=== PATIENT | male | born 1975 | race Caucasian/White ===

== ENCOUNTER 2020-07-20 09:11 | Emergency (ER) | payer SELFPAY ==
--- NOTE | ~2020-07-20 | CT_ITS ---
EXAMINATION: CT abdomen pelvis w con EXAM DATE: 07/20/2020 10:40 INDICATION: Mid abdominal pain with vomiting. Recent CT at another facility. TECHNIQUE: Spiral CT of the abdomen and pelvis was performed following intravenous injection of 100 m L Omnipaque 350. Axial, coronal and sagittal images of the abdomen and pelvis were reviewed. The do se-length product (DLP) for this examination was 1418.19 mGy-cm. The exposure was tailored according to patient size (auto mA exposure control), and iterative reconstruction (ASIR) was used as addition al dose reduction technique. Comparison is made to prior examination from 02/06/2017. FINDINGS: There is hepatic steatosis and hepatomegaly. Spleen is normal in size. Pancreas and adrenal glands are unremarkable. There are cholecystectomy clips. Portal and splenic veins are patent. Ki dneys enhance symmetrically. There is no hydronephrosis. Contrast within the bladder, collecting sys tem from recent intravenous injection. The prostate is unremarkable. The bladder is unremarkable. There is no retroperitoneal or pelvic lymphadenopathy. There is mild scattered arteriosclerotic dis ease. Small bilateral inguinal fat-containing hernias. Small umbilical hernia containing fat. The appendix is normal. The stomach and small bowel are unremarkable. There is expected amount of c olonic stool. No free intraperitoneal gas. The heart is normal in size. There are no pericardial or pleural effusions. The lung bases are unremarkable. The bones are unremarkable. IMPRESSION: 1. No acute intra-abdominal findings. 2. Hepatomegaly. Hepatic steatosis. 3. Small fat-containing hernias. Reviewed, dictated and finalized at location A.
[2020-07-20 09:24] VITALS: BP 163/93; PULSE 95; RESP 16; TEMP 36.6; O2SAT 97
--- NOTE | 2020-07-20 09:26 | ED.ABDPAIN ---
HPI - Abdominal Pain General Chief Complaint: Abdominal Pain Stated Complaint: abdominal pain Time Seen by Provider: 07/20/20 09:21 Source: RN notes reviewed History of Present Illness HPI narrative: Patient presents emergency room from home for abdominal pain. Patient states that pain began approximately 3 AM this morning pain is located left lower quadrant does not radiate described as aching and cramping in nature associated with numerous episodes of nausea vomiting. Denies any fevers or chills, chest pain shortness of breath diarrhea or any other symptoms states he did not take any medication for the symptoms at home Related Data Home Medications Medication Instructions Recorded Confirmed ipratropium 0.5 mg-albuterol 3 mg 3 ml INHALATION QID PRN 04/23/19 06/11/20 (2.5 mg base)/3 mL nebulization soln Allergies Allergy/AdvReac Type Severity Reaction Status Date / Time gluten AdvReac Mild Nausea Verified 07/20/20 09:26 milk AdvReac Mild bloating Verified 07/20/20 09:26 Review of Systems Review of Systems: Narrative: Gen.: Denies fevers or chills ENT: Denies congestion Respiratory: Denies shortness of breath or cough CV: Denies chest pain or palpitations GI: See HPI denies burning, urgency, frequency or hematuria Musculoskeletal: Denies back pain or muscle pain Neuro: Denies numbness, tingling, weakness or focal weakness Skin: Denies rash Except as documented, all other systems reviewed and negative [facility] Past Medical History Medical History Bipolar disorder, unspecified Celiac disease Gastroesophageal reflux disease Social History Social History (Updated 07/20/20 @ 09:27 by Luis M Mosley DO) Smoking status: Never smoker Second hand tobacco smoke exposure: No Alcohol intake: never Exam Narrative: Exam Narrative: APPEARANCE: No acute distress, nontoxic, resting in bed HEENT: Normocephalic, atraumatic, OMM RESPIRATORY: No respiratory distress, clear to auscultation bilaterally with no rhonchi wheezing or rales CARDIOVASCULAR: RRR s murmur ABDOMINAL: Soft nondistended tender palpation left lower quadrant mild tenderness in right lower quadrant left upper quadrant no rebound or guarding MUSCULOSKELETAl: Moves all extremities. No clubbing, cyanosis or edema. NEURO: Awake and alert. Following commands, speech normal, no focal deficits SKIN:: Warm, dry. Normal Color PSYCHIATRIC: Normal affect/mood Course Course Emergency Course: Patient states that they are feeling much better at this time. States abdominal pain has improved. Repeat abdominal exam shows the patient's abdomen to be soft with no surgical abdomen present discussed with patient results of workup and diagnosis. Discussed need for follow-up with primary care physician, reasons to return to the emergency department in proper use of medication. Patient understands and agrees to current treatment plan Vital Signs Vital signs: Vital Signs Temperature 97.8 F 07/20/20 09:24 Pulse Rate 95 07/20/20 09:24 Respiratory Rate 16 07/20/20 09:24 Blood Pressure 163/93 H 07/20/20 09:24 Pulse Oximetry 97 07/20/20 09:24 Temperature 97.8 F 07/20/20 09:24 Pulse Rate 95 07/20/20 09:24 Respiratory Rate 16 07/20/20 09:24 Blood Pressure 163/93 H 07/20/20 09:24 Pulse Oximetry 97 07/20/20 09:24 MDM - Abdominal Pain MDM Narrative Medical decision making narrative: Patient's abdomen is soft without significant pain or signs of surgical abdomen on serial exams. Lab and x-ray evaluations are reviewed and patient is felt to be a reasonable candidate for outpatient management. Patient was instructed as to limitations of x-ray and laboratory evaluation and encouraged to return to ED or primary physician for repeat exam in 12 hours if continued or worsening pain Lab Data Result diagrams: 07/20/20 09:29 07/20/20 09:28 Labs: Lab Results 07/20
[2020-07-20] MEDS: ONDANSETRON INJ 4 MG/2 ML VIAL IV PUSH (09:34)
[2020-07-20] MEDS: KETOROLAC 30 MG/ML VIAL (*BKC) IV PUSH (09:34)
[2020-07-20] MEDS: SODIUM CHLORIDE 0.9% IV 1,000 ML 999 ML IV CONT (09:34)
[2020-07-20 09:50] LABS: Basophils Absolute Auto 0.1 K/mm3 (0.0-0.1); Basophils Percent Auto 0.9 % (0.2-1.2); Eosinophils Absolute Auto 0.1 K/mm3 (0-0.3); Eosinophils Percent Auto 1.1 % (0-4.4); Hematocrit 45.9 % (42.0-52.0); Immature Granulocyte Absolute 0.05 K/mm3 (0.00-0.031); Immature Granulocyte Percent A 0.9 % (0-0.5); Immature Platelet Fraction Pct 2.1 % (0.9-11.2); Lymphocytes Absolute Auto 0.79 K/mm3 (0.9-3.2); Lymphocytes Percent Auto 13.9 % (18.3-44.2); Mean Corpuscular HGB Conc 32.7 g/dl (32-36); Mean Corpuscular Hemoglobin 30.7 pg (26-34); Mean Corpuscular Volume 94.1 fl (80-100); Mean Platelet Volume 9.5 fl (7.4-10.4); Monocytes Absolute Auto 0.3 K/mm3 (0.1-0.6); Monocytes Percent Auto 5.3 % (2.6-8.5); Neutrophils Absolute Auto 4.4 K/mm3 (1.3-6.7); Neutrophils Percent Auto 77.9 % (45.5-73.1); Platelet Count Result 145 k/mm3 (150-375); Red Blood Count 4.88 M/mm3 (4.6-6.20); Red Cell Distribution Width 13.8 % (11.5-14.5); White Blood Count 5.7 K/mm3 (4.5-10.0)
[2020-07-20 10:09] LABS: Alanine Aminotransferase 122 U/L (4-50); Albumin Level 4.4 g/dL (3.5-5.1); Alkaline Phosphatase 106 U/L (38-126); Anion Gap 5 mmol/L (8-16); Aspartate Amino Transferase 66 U/L (17-59); Bilirubin,Total 0.4 mg/dL (0.2-1.3); Blood Urea Nitrogen 4 mg/dL (9-20); Calcium 9.2 mg/dL (8.4-10.2); Carbon Dioxide 28 mmol/L (22-30); Chloride 102 mmol/L (98-107); Estimated CRCL calculation 139 ml/min; Estimated Glomerular Filt Rate > 60; Glucose 159 mg/dL (75-110); Lipase 91 U/L (23-300); Potassium 4.3 mmol/L (3.4-5.0); Sodium 135 mmol/L (137-145)
[2020-07-20 11:05] LABS: Add Urine Microscopic? NO; Appearance Urine Clear (Clear); Bilirubin Urine Negative (Negative); Blood Urine Negative (Negative); Color Urine Straw (Yellow); Glucose Urine UA Negative (Negative); Ketones Urine Negative (Negative); Leukocyte Esterase Ur Negative LEU/UL (Negative); Nitrate Urine Negative (Negative); Protein Urine Negative (Negative); Urobilinogen Urine Negative mg/dL (<2.0)
[2020-07-20] MEDS: DICYCLOMINE HCL INJ 20 MG/2 ML VIAL IM (11:08)
[2020-07-20 11:32] VITALS: BP 157/104; PULSE 86; RESP 16; O2SAT 99
== END 2020-07-20 11:32 | disposition home or self-care (01) ==
PROVIDERS: Emergency Provider Emergency Medicine
DX: R10.32 Left lower quadrant pain (principal); F31.9 Bipolar disorder, unspecified; K90.0 Celiac disease; K21.9 Gastro-esophageal reflux disease without esophagitis; K76.0 Fatty (change of) liver, not elsewhere classified; K42.9 Umbilical hernia without obstruction or gangrene; R16.0 Hepatomegaly, not elsewhere classified
CPT/HCPCS: 36415; 74177; 80053; 81003; 83690; 85025; 85055; 96361; 96372; 96374; 96375; 99284; J0500; J1885; J2405; J7030; Q9967

== ENCOUNTER 2021-04-28 05:39 | Emergency (ER) | payer BC, SELFPAY ==
--- NOTE | ~2021-04-28 | CT_ITS ---
EXAMINATION: CT abdomen pelvis w con INDICATION: Left lower quadrant pain TECHNIQUE: Computed tomographic images of the abdomen and pelvis were obtained after the administrati on of 100 cc of Omnipaque 350 intravenous contrast. The dose-length product (DLP) was 1102.79 mGy-cm. Automated exposure control and iterative reconstruction technique were employed. COMPARISON: 07/20/2020 FINDINGS: Minimal dependent atelectasis is present in the lung bases. The heart size is normal. The g allbladder is surgically absent. The liver is diffusely low in attenuation when compared with the spl een, consistent with hepatic steatosis. The spleen, pancreas, and adrenal glands are normal. There is a focal area low attenuation in the right mid kidney. The left kidney is unremarkable. No pathologic ally enlarged abdominal or pelvic lymph nodes are identified. There is no free intraperitoneal gas or evidence of bowel obstruction. The appendix is normal. There is a small fat-containing umbilical her babatunde. There is mild lower lumbar spondylosis. IMPRESSION: 1. Focal area of low attenuation in the right kidney which could reflect pyelonephritis. Recommend co rrelation with urinalysis and evaluation for right flank pain. 2. Diffuse hepatic steatosis. Reviewed, dictated and finalized at location A. SCOPY SUPPORT SPECIALIST IMPRESSION: 1. Focal area of low attenuation in the right kidney which could reflect pyelon ephritis. Recommend correlation with urinalysis and evaluation for right flank pain. 2. Diffuse hepatic steatosis.
[2021-04-28 05:43] VITALS: BP 159/81; PULSE 109; RESP 20; TEMP 36.6; O2SAT 99
--- NOTE | 2021-04-28 06:03 | ED.ABDPAIN ---
HPI - Abdominal Pain General Chief Complaint: Abdominal Pain <Luis M Sandoval MD - Last Filed: 04/28/21 06:05> Stated Complaint: abd pain, n/v <Luis M Sandoval MD - Last Filed: 04/28/21 06:05> Time Seen by Provider: 04/28/21 06:01 <Luis M Sandoval MD - Last Filed: 04/28/21 06:05> Source: patient <Luis M Sandoval MD - Last Filed: 04/28/21 06:05> Mode of arrival: ambulatory <Luis M Sandoval MD - Last Filed: 04/28/21 06:05> Limitations: no limitations <Luis M Sandoval MD - Last Filed: 04/28/21 06:05> History of Present Illness HPI narrative: Patient is a 45-year-old male complaining of left lower quadrant pain, 7 out of 10, sharp, nonradiating accompanied by nausea and vomiting that started last night. Patient states that he has history of diverticulitis. Patient denies any chest pain, shortness of breath, back pain, diarrhea, urinary symptoms, fever or chills. <Luis M Sandoval MD - Last Filed: 04/28/21 06:05> Related Data Home Medications: Home Medications Medication Instructions Recorded Confirmed ipratropium 0.5 mg-albuterol 3 mg 3 ml INHALATION QID PRN 04/23/19 06/11/20 (2.5 mg base)/3 mL nebulization soln <Luis M Sandoval MD - Last Filed: 04/28/21 06:05> Allergies/Adverse Reactions: Allergies Allergy/AdvReac Type Severity Reaction Status Date / Time gluten AdvReac Mild Nausea Verified 07/20/20 09:26 milk AdvReac Mild bloating Verified 07/20/20 09:26 <Luis M Sandoval MD - Last Filed: 04/28/21 06:05> Review of Systems Review of Systems: All systems reviewed & are unremarkable except as noted in HPI and below <Luis M Sandoval MD - Last Filed: 04/28/21 06:05> Constitutional: Constitutional: Denies body ache(s), Denies chills, Denies excessive sweating, Denies fatigue, Denies fever(s), Denies headache(s), Denies lethargy, Denies malaise, Denies weakness and Denies weight loss <Luis M Sandoval MD - Last Filed: 04/28/21 06:05> Eyes: Eyes: Denies blurry vision, Denies change in vision and Denies loss of vision <Luis M Sandoval MD - Last Filed: 04/28/21 06:05> ENT: Denies dizziness, Denies ear discharge, Denies headache(s), Denies lip swelling, Denies epistaxis, Denies nasal congestion, Denies neck pain, Denies throat swelling and Denies tongue swelling <Luis M Sandoval MD - Last Filed: 04/28/21 06:05> Cardiovascular: Cardiovascular: Denies chest pain, Denies chest pain at rest, Denies chest pain with activity, Denies diaphoresis, Denies rapid heart rate, Denies edema, Denies irregular heart rhythm, Denies lightheadedness, Denies palpitations, Denies dyspnea and Denies dyspnea on exertion <Luis M Sandoval MD - Last Filed: 04/28/21 06:05> Respiratory: Respiratory: Denies chest congestion, Denies cough, Denies hemoptysis, Denies dyspnea and Denies dyspnea on exertion <Luis M Sandoval MD - Last Filed: 04/28/21 06:05> Gastrointestinal: Gastrointestinal: Denies melena, Denies hematochezia, Denies diarrhea and Denies hematemesis <Luis M Sandoval MD - Last Filed: 04/28/21 06:05> Musculoskeletal: Musculoskeletal: Denies abnormal gait, Denies deformity, Denies joint swelling, Denies limited range of motion, Denies neck pain and Denies numbness <Luis M Sandoval MD - Last Filed: 04/28/21 06:05> Neurologic: Denies Abnormal speech present, Denies abnormal gait, Denies confusion, Denies dizziness, Denies headache(s), Denies focal weakness, Denies loss of vision, Denies numbness, Denies Other visual disturbances, Denies Sensory deficit (Neuro) and Denies weakness <Luis M Sandoval MD - Last Filed: 04/28/21 06:05> Psychiatric: Psychiatric: Denies confusion, Denies depression, Denies auditory hallucinations, Denies homicidal ideation and Denies suicidal ideation <Luis M Sandoval MD - Last Filed: 04/28/21 06:05> Endocrine: Endocrine: Denies cold intolerance, Denies excessive sweating, Denies fatigue, Denies heat int
[2021-04-28 06:11] LABS: Basophils Percent Auto 0.7 % (0.2-1.2); Eosinophils Percent Auto 0.5 % (0-4.4); Hematocrit 45.5 % (42.0-52.0); Hemoglobin 15.1 g/dL (14.0-18.0); Immature Granulocyte Absolute 0.01 K/mm3 (0.00-0.031); Immature Granulocyte Percent A 0.2 % (0-0.5); Immature Platelet Fraction Pct 1.5 % (0.9-11.2); Lymphocytes Absolute Auto 0.71 K/mm3 (0.9-3.2); Lymphocytes Percent Auto 12.2 % (18.3-44.2); Mean Corpuscular HGB Conc 33.2 g/dl (32-36); Mean Corpuscular Hemoglobin 31.3 pg (26-34); Mean Corpuscular Volume 94.2 fl (80-100); Monocytes Absolute Auto 0.3 K/mm3 (0.1-0.6); Monocytes Percent Auto 5.8 % (2.6-8.5); Neutrophils Absolute Auto 4.7 K/mm3 (1.3-6.7); Neutrophils Percent Auto 80.6 % (45.5-73.1); Platelet Count Result 137 k/mm3 (150-375); Red Blood Count 4.83 M/mm3 (4.6-6.20); Red Cell Distribution Width 13.9 % (11.5-14.5); White Blood Count 5.8 K/mm3 (4.5-10.0)
[2021-04-28] MEDS: SODIUM CHLORIDE 0.9% IV 1,000 ML 999 ML IV CONT (06:17)
[2021-04-28 06:20] LABS: Alanine Aminotransferase 121 U/L (4-50); Albumin Level 4.7 g/dL (3.5-5.1); Alkaline Phosphatase 117 U/L (38-126); Anion Gap 7 mmol/L (8-16); Aspartate Amino Transferase 88 U/L (17-59); Bilirubin,Total 0.8 mg/dL (0.2-1.3); Blood Urea Nitrogen 14 mg/dL (9-20); Carbon Dioxide 27 mmol/L (22-30); Chloride 101 mmol/L (98-107); Estimated CRCL calculation 137 ml/min; Estimated Glomerular Filt Rate > 60; Glucose 179 mg/dL (65-110); Lipase 73 U/L (23-300); Potassium 4.3 mmol/L (3.4-5.0); Sodium 135 mmol/L (137-145)
[2021-04-28] MEDS: KETOROLAC 30 MG/ML VIAL (*BKC) IV PUSH (06:23)
[2021-04-28] MEDS: PROMETHAZINE HCL 25 MG/ML AMPUL 12.5 MG IV PUSH (06:23)
[2021-04-28 07:03] VITALS: BP 154/102; PULSE 95; RESP 20; O2SAT 98
[2021-04-28 07:15] LABS: Add Urine Microscopic? NO; Appearance Urine Clear (Clear); Bilirubin Urine Negative (Negative); Blood Urine Negative (Negative); Color Urine Straw (Yellow); Glucose Urine UA Negative (Negative); Ketones Urine Negative (Negative); Leukocyte Esterase Ur Negative LEU/UL (Negative); Nitrate Urine Negative (Negative); Protein Urine Negative (Negative); Specific Grav Ur 1.017 (1.001-1.035); Urobilinogen Urine Negative mg/dL (<2.0)
[2021-04-28 07:46] LABS: Lactic Acid Reflex 1.1 mmol/L (0.7-2.1)
[2021-04-28] MEDS: MORPHINE SULFATE (*CRX) 4 MG/ML INJ IV PUSH (07:51)
[2021-04-28 08:40] VITALS: BP 168/102; PULSE 98; RESP 16; O2SAT 98
[2021-04-28 09:35] VITALS: BP 158/103; PULSE 96; RESP 16; O2SAT 100
== END 2021-04-28 09:35 | disposition home or self-care (01) ==
PROVIDERS: Emergency Medicine; Emergency Provider Emergency Medicine; PCP Physician Assistant
DX: R10.32 Left lower quadrant pain (principal); R11.2 Nausea with vomiting, unspecified; K90.0 Celiac disease; K21.9 Gastro-esophageal reflux disease without esophagitis; F31.9 Bipolar disorder, unspecified; K76.0 Fatty (change of) liver, not elsewhere classified
CPT/HCPCS: 36415; 74177; 80053; 81003; 83605; 83690; 85025; 85055; 96361; 96374; 96375; 99284; J1885; J2270; J2550; J7030; Q9967

== ENCOUNTER 2021-11-25 11:28 | Outpatient (CLI) | payer BC, SELFPAY ==
--- NOTE | ~2021-11-25 | MMUS_ITS ---
EXAMINATION: MM diagnostic mammo unilat LT, US breast LT limited HISTORY: Palpable lump of the outer left breast at the 3:00 location TECHNIQUE: Craniocaudal and mediolateral oblique views of the left breast were performed using full f ield digital mammography. A mediolateral oblique view of the right breast is obtained for comparison. CAD analysis was submitted and interpreted. Limited left breast ultrasound is performed in the area of clinical concern. COMPARISON: CT dated 04/28/2021 FINDINGS: Mammographic findings: There is flame-shaped subareolar density of the left breast which has an appea buffy consistent with gynecomastia. 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 No suspicious calcification or architectural distortion are identified. Ultrasound findings: There is a 12 mm x 4 mm oval, circumscribed, parallel, hypoechoic mass with no p osterior features at the 3:00 location 2 cm from the nipple in the area of the palpable abnormality. IMPRESSION: 1. Probably benign gynecomastia of the left breast. 2. Recommend 6 month follow-up targeted left breast ultrasound and continued clinical follow-up. BI-RADS category 3, probably benign findings. Reviewed, dictated and finalized at location A. IMPRESSION: 1. Probably benign gynecomastia of the left breast. 2. Recommend 6 month follow-up targeted left breast ultrasound and continued cl inical follow-up. BI-RADS category 3, probably benign findings.
== END 2021-11-25 11:29 | disposition home or self-care (01) ==
PROVIDERS: PCP Physician Assistant; Visit Provider Physician Assistant
DX: R92.8 Other abnormal and inconclusive findings on diagnostic imaging of breast (principal)
CPT/HCPCS: 76642; 77065

== ENCOUNTER 2022-10-18 13:29 | Outpatient (CLI) | payer BC, SELFPAY ==
--- NOTE | ~2022-10-18 | XR_ITS ---
EXAMINATION: XR lumbar spine min 4V DATE: 10/18/2022 14:01 INDICATION: Low back pain TECHNIQUE: Anteroposterior, lateral, and bilateral oblique views of the lumbar spine, and cone-down l ateral view of the lumbosacral junction were obtained. COMPARISON: CT, 02/06/2017 FINDINGS: There is chronic mild loss of intervertebral disc space height at L5-S1. There are 3 mm of chronic retrolisthesis of L5 on S1. The vertebral body heights are maintained. Small degenerative ost eophytes project from the anterior endplates of multiple vertebral bodies. There is mild facet joint osteoarthritis. Calcified atherosclerosis is noted. Surgical clips in the right upper quadrant are juan ramon murrieta from prior cholecystectomy. IMPRESSION: 1. Mild lumbar spondylosis without acute findings. Reviewed, dictated and finalized at location L.
== END 2022-10-18 13:30 ==
PROVIDERS: PCP Family Medicine; Visit Provider Physician Assistant
DX: M47.896 Other spondylosis, lumbar region (principal)
CPT/HCPCS: 72110

== ENCOUNTER 2024-06-10 11:46 | Emergency (ER) | payer BC, SELFPAY ==
[2024-06-10 12:08] VITALS: BP 128/76; PULSE 78; RESP 18; TEMP 36.2; O2SAT 96
--- OUTSIDE RECORDS SUMMARY | 2024-06-10 13:39 | XMS_ITS | Clinical Summary ---
Author Organization [facility] Address [address] [address] Phone Care Team Providers Care Author Agent Name Role Phone Unavailable Primary Care Provider Unavailabl e Social History Tobacco Use Types Packs/Day Years Used Date Smoking Tobacco: Never Assessed Sex and Gender Information Value Date Recorded Sex Assigned at Not on file Legal Sex Male 12:31 AM CDT Gender Identity Not on file Sexual Orientation Not on file Plan of Treatment Health Maintenance Due Date Last Done Comments Hepatitis C Virus (HCV) Screening 1974 TdaP Immunization 1974 Hepatitis B Immunization (1 of 3 - 19+ 3-dose series) 1993 Colonoscopy 10/02/2019 Colorectal Cancer Screening 10/02/2019 Influenza Immunization (#1) 2023 SARS-COV-2 Immunization ( - 2023- season) 2023 Respiratory Syncytial Virus (RSV) Immunization (Adult) (1 - 1-dose 75+ series) 2049 Meningococcal Immunization (ACWY) Aged Out No longer eligible based on patient's age to complete this topic Pneumococcal Immunization Combined Aged Out No longer eligible based on patient's age to complete this topic Rotavirus Immunization Aged Out No lo nger eligible based on patient's age to complete this topic Insurance MEDICAID [place]
--- OUTSIDE RECORDS SUMMARY | 2024-06-10 13:40 | XMS_ITS | Clinical Summary ---
Author Organization [facility] Address [facility] [place] [address] Care Team Providers Care Snack Foods Mixer Operator Name Role Phone Cheryl Kowalski PA-C Primary Care Provider [phone] Gopal Burk MD Unavailable Allergies No known active allergies Medications amitriptyline 50 MG tablet Take 200 mg by mouth nightly at bedtime. Active albuterol sulfate HFA 108 (90 Base) MCG/ACT inhaler Inhale 2 puffs into the lungs every 6 (six) hours as needed for Wheezing. Active ALPRAZolam 1 MG tablet Take 1 mg by mouth 3 (three) times daily as needed for Anxiety. Active lamoTRIgine 200 MG tablet Take 200 mg by mouth nightly at bedtime. Active omeprazole 20 MG capsule Take 20 mg by mouth daily. Active fluticasone furoate-vilanterol 100-25 MCG/INH inhaler Inhale 1 puff into the lungs daily. Active Cariprazine HCl 3 MG Cap Take 3 mg by mouth nightly at bedtime. Active ARIPiprazole 15 MG tablet Take 15 mg by mouth daily. 2 Active ondansetron (ZOFRAN-ODT) 4 MG disintegrating tablet Take 1 tablet (4 mg total) by mouth every 8 (eight) hours as needed for Nausea. 20 tablet 4 Active dicyclomine (BENTYL) 20 MG tablet Take 1 tablet (20 mg total) by mouth every 6 (six) hours. 20 tablet 4 Active traMADol (ULTRAM) 50 MG tabletIndications:A cute Pain < 7 Day Supply Take 1 tablet (50 mg total) by mouth every 6 (six) hours as needed. Indications: Acute Pain < 7 Day Supply 20 tablet Active Active Problems Problem Noted Date Diagnosed Date Pancreatitis (HHS/HCC) 05/16/2019 Biliary dyskinesia 03/02/2017 Resolved Problems Problem Noted Date Diagnosed Date Resolved Date Encounter for preventive health examination 03/03/2014 11/15/2019 Family History Medical History Relation Comments Alcohol Abuse Neg Hx Social History Tobacco Use Types Packs/Day Years Used Date Smoking Tobacco: Former Smokeless Tobacco: Never Alcohol Use Standard Drinks/Week Comments No 0 (1 standard drink = 0.6 oz pur e alcohol) AUDIT-C Answer Date Recorded Frequency of Alcohol Consumption Never 01/08/2019 Average Number of Drinks Not on file 019 Frequency of Binge Drinking Not on file 07/2018 Sex and Gender Information Value Date Recorded Sex Assigned at Male 05/16/2019 2:31 PM CDT Legal Sex Male 8:28 PM CDT Gender Identity Male 05/16/2019 2:31 PM CDT Sexual Orientation Straight 05/16/2019 2: 31 PM CDT Last Filed Vital Signs Vital Sign Reading Time Taken Comments Blood Pressure 135/80 02/20/2024 12:57 PM SPONGE PRESS OPERATOR Pulse 72 02/20/2024 10:55 AM SPONGE PRESS OPERATOR Temperature 36.6 C (97.8 F) 02/20/2024 12:57 PM SPONGE PRESS OPERATOR Respiratory Rate 20 02/20/2024 10:55 AM SPONGE PRESS OPERATOR Oxygen Saturation 97% 02/20/2024 12:57 PM SPONGE PRESS OPERATOR Inhaled Oxygen Concentration - - Weight 99.8 kg (220 lb) 02/20/2024 10:55 AM SPONGE PRESS OPERATOR Height 175.3 cm (5' 9 ) 02/20/2024 10:55 AM SPONGE PRESS OPERATOR Body Mass Index 32.49 02/20/2024 10:55 AM SPONGE PRESS OPERATOR Plan of Treatment Health Maintenance Due Date Last Done Comments Colorectal Cancer Screening Colonoscopy (10 Years) 1974 Annual Physical 1977 DTaP, Tdap and Td Vaccines ( 1 - Tdap) 1993 Hepatitis B Vaccines (1 of 3 - 19+ 3-dose series) 1993 COVID-19 Vaccine (2 - 2023-2 5 season) 2023 06/17/2020 Hepatitis C Completed 04/15/2017 Meningococcal B Vaccine Aged Out No l onger eligible based on patient's age to complete this topic Meningococcal Vaccine Aged Out No forrest bello eligible based on patient's age to complete this topic Pneumococcal Vaccine: Pediat rics (0 to 5 Years) and At-Risk Patients (6 to 64 Years) Aged Out No longer eligi ble based on patient's age to complete this topic RSV Immunizations Under 20 Months Aged Out No longer eligible based on patient's age to complete this topic Goals Goal Patient Goal Type Associated Problems Recent Progress Patient-Stated? Author Return to independent living with and son General No Yudy Gaitan, NURSES DIRECTOR Health - patient able to perform ADLs independently General No Sue Fairchild, rubber flap cutter Procedure Name Priority Date/Time Associated Diagnosis Comments HEPATITIS PANEL,ACUTE STAT 04/15/2017 5:10 PM SPONGE PRESS OPERATOR from Last 3 Months or Most Recently Relevant to Health Maintenance Results * HEPATITIS PANEL,ACUTE (04/15/2017 5:10 PM SPONGE PRESS OPERATOR) HAV IGM NON-REACTI VE NON-REACTI VE 04/17/2017 3:37 PM SPONGE PRESS OPERATOR [facility] Comment: TESTING PERFORMED [address] [address] HEP B SURFACE AB NON-REACTI VE 04/17/2017 3:37 PM SPONGE PRESS OPERATOR [facility] Comment: TESTING PERFORMED [address] [address] HEPATITIS B SURFACE AG NON-REACTI VE NON-REACTI VE 04/17/2017 3:37 PM SPONGE PRESS OPERATOR [facility] Comment: TESTING PERFORMED [address] [address] HEP B CORE TOTAL AB NON-REACTI VE NON-REACTI VE 04/17/2017 3:37 PM SPONGE PRESS OPERATOR [facility] Comment: TESTING PERFORMED [address] [address] HEPATITIS C AB NON-REACTI VE NON-REACTI VE 04/17/2017 3:37 PM SPONGE PRESS OPERATOR [facility] Comment: TESTING PERFORMED [facility] [place] [address] 04/15/2017 5:10 PM SPONGE PRESS OPERATOR 04/15/2017 5:23 PM SPONGE PRESS OPERATOR us Generic Conversion Md [facility] Final R esult [facility] [address] [place] [address], [place] [phone] from Last 3 Months or Most Recently Relevant to Health Maintenance Insurance COVID19 [facility] [employer] [place] [address] [facility] Advance Directives * Full Code (Latest Code Status on File) Date Activated Date Inactivated Comments 01/27/2021 11:46 PM 01/29/2021 9:38 PM * Full Code Date Activated Date Inactivated Comments 05/16/2019 1:16 PM 05/21/2019 5:09 PM Care Teams Snack Foods Mixer Operator Relationship Specialty Start Date End Date Cheryl Kowalski PA-C [address] [address] PCP - General PHYSICIAN COORDINATOR OF LIBRARY SERVICES 08/20/20 [place] [address] [place] [address] Consulting Physician GASTROENTEROLOGY 12/10/23
--- OUTSIDE RECORDS SUMMARY | 2024-06-10 13:40 | XMS_ITS | Patient Health Record ---
Author Organization [facility] Address [address] [place] [address] Care Team Providers Care City Routeman Name Role Phone Nancy MARTINEZ, Tarik Primary Care Provider Unavailab Carson Coreas Unavailable [phone] Allergies No Known Allergies Results Component Value Reference Range Notes UDT Reviewed date:04/08/2024 04:17:18 PM Interpretation: Performing Lab: Notes/Report: THC P 0 - 50 ng/ml Cocaine N 0 - 300 ng/ml Amphetamine N 0 - 1000 ng/ml Buprenorphine (BUP) N 0 - 10 ng/ml Secobarbital (Bar) N 0 - 300 ng/ml Oxazepam (BZO) P 0 - 300 ng/ml 6-vogchuxbpi-9,5-otxvigxs-0, 3-dipheny lpyrrolidine (EDDP) N 0 - 300 ng/ml Methamphetamine (MET) N 0 - 1000 ng/ml Methylenedioxymethamphetamine (MDMA) N 0 - 500 ng/ml Morphine (MOP 300/[id number]) N 0 - 300 ng/ml Methadone (MTD) N 0 - 300 ng/ml Phencyclidine (PCP) N 0 - 25 ng/ml Nortriptyline (TCA) N 0 - 1000 ng/ml Oxycodone N 0 - 300 ng/ml x N 0 - 300 ng/ml DRUG MONITOR, MARIJUANA META B, QN, URINE ([id number]) Reviewed date:04/17/2024 05:19:07 PM Interpretation: Performing Lab:CB, [facility] [id number], [place] Marvin Valdez, Director - [address] [address] [facility] Notes/Report: FASTING: NO Marijuana Metabolite 1831 <5 ng/mL Marijuana Comments See Jorge mann Notes, LDT Notes Notes and Comments This drug testing is for medical treatment only. Analysis was performed as non-forensic testing and these results should be used only by healthcare providers to render diagnosis or treatment, or to monitor progress of medical conditions. Benzodiazepines Notes: aOH Alprazolam detected is consistent with the use of the drug Alprazolam. Marijuana Notes: Marijuana Metabolite detected is consistent with exposure to Marijuana (THC) and/or hemp derived products. Some jurisdictions do not include hemp within the definition of Marijuana. LDT Notes: Confirmation tests were developed and their analytical performance characteristics have been determined by [facility]. It has not been cleared or approved by the FDA. This assay has been validated pursuant to the CLIA regulations and is used for clinical purposes. Healthcare Providers needing Interpretation assistance, please contact us at [phone] ( ) M-F, 8am to 10pm EST DRUG MONITOR, [place] ([id number]) Reviewed date:04/17/2024 05:18:59 PM Interpretation: Performing Lab:[facility] [address] [facility], [place] Rodriguez[place] Marvin Valdez Notes/Report: FASTING: NO Alphahydroxyalprazolam 203 <25 ng/mL Alphahydroxymidazolam NEGATIVE <50 ng/mL Alphahydroxytriazolam NEGATIVE <50 ng/mL Aminoclonazepam NEGATIVE <25 ng/mL Hydroxyethylflurazepam NEGATIVE <50 ng/mL Lorazepam NEGATIVE <50 ng/mL Nordiazepam NEGATIVE <50 ng/mL Oxazepam NEGATIVE <50 ng/mL Temazepam NEGATIVE <50 ng/mL Benzodiazepines Comments See Benzodiazepines Notes, LDT Notes UDT Reviewed date:05/02/2024 05:14:43 PM Interpretation: Performing Lab: Notes/Report: THC p 0 - 50 ng/ml Cocaine n 0 - 300 ng/ml Amphetamine n 0 - 1000 ng/ml Buprenorphine (BUP) n 0 - 10 ng/ml Secobarbital (Bar) n 0 - 300 ng/ml Oxazepam (BZO) p 0 - 300 ng/ml 1-lmirwjmiqi-7,0-gkamjysi-1, 3-dipheny lpyrrolidine (EDDP) n 0 - 300 ng/ml Methamphetamine (MET) n 0 - 1000 ng/ml Methylenedioxymethamphetamine (MDMA) n 0 - 500 ng/ml Morphine (MOP 300/[id number]) n 0 - 300 ng/ml Methadone (MTD) n 0 - 300 ng/ml Phencyclidine (PCP) n 0 - 25 ng/ml Nortriptyline (TCA) n 0 - 1000 ng/ml Oxycodone n 0 - 300 ng/ml x n 0 - 300 ng/ml Reason For Referral No Information Medications Medication SIG (Take, Route, Frequency, Duration) Notes Start Date End Date Status ARIPiprazole 15 MG Oral for 30 Days Not-Taking Pantoprazole Sodium 40 MG TAKE 1 TABLET BY MOUTH ONCE DAILY Oral for 90 Days Active Atomoxetine HCl 40 MG 1 capsule Orally Once a day for 30 days take before shift start 05/17/2024 06/16/2024 Active buPROPion HCl ER (XL) 150 MG 1 tablet in the morning Oral Once a day for 90 days take before shift start 05/17/2024 Active ALPRAZolam 1 MG TAKE 1 TABLET BY RAE TH THREE TIMES DAILY Oral for 30 Days Active Social History Tobacco Use: Social History Observation Description Date Details (start date - stop date) Former Smoker NA - NA Sex Assigned At : Social History Observation Description Sex Assigned At Male Tobacco Control (Standard) Question Answer Notes Tobacco use: Former smoker AUDIT-C (Standard) Question Answer Notes Did you have a drink containing alcohol in the p ast year? 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) ADHD (attention deficit hyperactivity disorder), inattentive type (F90.0) Active confirmed Problem 51874183 Poor concentration (R41.840) Active confirmed Vital Signs Heart Rate 76 /min 05/17/2024 Height-cm 177.8 cm 05/17/2024 Blood pressure diastolic 67 mm Hg 05/17/2024 Weight-kg 84.37 kg 05/17/2024 Height 70 in 05/17/2024 Blood pressure systolic 102 mm Hg 05/17/2024 Weight 186 lbs 05/17/2024 BMI 26.69 kg/m2 05/17/2024 Procedures Procedure Date Ordered Date Performed Result Body Sit e ADHD Testing 04/08/2024 05/02/2024 N/A Cannabis Cognitive Testing 04/08/2024 05/02/2024 N/A Encounters Encounter Location Date Provider Diagnosis [facility] [address] [address] 04/08/2024 Carson Aristides Major depressive disorder, recurrent, moderate F33.1 ; DARRIUS (generalized anxiety disorder) F41.1 and Poor concentration R41.840 [facility] [address] [address] 05/02/2024 Carson Irving Lack of concentratio n R41.840 [facility] [address] [address] 05/08/2024 Carson Aristides [facility] [address] [address] 05/17/2024 Carson Aristides ADHD (attention defi cit hyperactivity disorder), inattentive type F90.0 ; Major depressive disorder, recurrent, moderate F33.1 ; DARRIUS (generalized anxiety disorder) F41.1 ; Encounter for screening for depression Z13.31 and Encounter for screening for cardiovascular disorders Z13.6 [facility] [address] [address] 05/17/2024 Carson Aristides Assessments Encounter Date Diagnosis (ICD Code) Assessment Notes Treatment Notes Treatment Clinical Notes Section Notes 04/08/2024 Major depressive disorder, recurrent, moderate (ICD-10 - F33.1) 04/08/2024 DARRIUS (generalized anxiety disorder) (ICD-10 - F41.1) 05/02/2024 Lack of concentration (ICD-10 - R41.840) ADHD and Cognitive Assessment Interpretation Demographics: 48-year-old individual, cannabis use (THC positive). Assessment Results: Outside Typical Range Markers: 6. This indicates multiple cognitive markers are outside the expected range, suggesting significant executive function or attention-relat ed difficulties. ASRS Scores: Part A: 6 (Threshold is greater than 3). This is strongly indicative of ADHD symptoms. Part B: 12. This supports the presence of broad ADHD-related difficulties. Cognitive Performance from Cannabis Influence Test: Spatial Plannin. This is likely within or above the typical range, suggesting strong problem-solving and organization skills. Token Search: 91. This indicates strong spatial working memory, which is better than the typical pattern seen in ADHD. Feature Match: 90. This suggests good sustained attention and accuracy. Double Trouble: 79. This score is lower than the others, which may indicate mild response inhibition deficits. Clinical Considerations: Cannabis Use and ADHD Treatment: The individual cannot be prescribed controlled substances such as stimulant medications. Atomoxetine (Strattera) is a first-line non-stimulant alternative and is usually covered by insurance. Guanfacine or Clonidine may be considered if additional symptom control is needed. Cognitive Performance Compared to ADHD Patterns: High spatial and working memory scores suggest intact executive function in these areas. The lower Double Trouble score, at 79, may indicate some difficulty with interference control, which aligns with ADHD-related impulsivity or response inhibition challenges. Next Steps: Start Atomoxetine (Strattera) and gradually increase the dose as needed. Monitor ADHD Symptoms and Possible Side Effects such as sleep issues, changes in blood pressure, or mood fluctuations. Consider Cognitive and Behavioral Strategies such as therapy for executive function support, habit tracking, and structured routines. Reassess Cognitive Performance Over Time to track improvements or difficulties with medication and cannabis use. 05/17/2024 Major depressive disorder, recurrent, moderate (ICD-10 - F33.1) 05/17/2024 ADHD (attention deficit hyperactivity disorder), inattentive type (ICD-10 - F90.0) 05/17/2024 DARRIUS (generalized anxiety disorder) (ICD-10 - F41.1) 04/08/2024 Poor concentration (ICD-10 - R41.840) 05/17/2024 Encounter for screening for depression (ICD-10 - Z13.31) 05/17/2024 Encounter for screening for cardiovascular disorders (ICD-10 - Z13.6) 04/08/2024 Other Learning About Depression Screening material was printed Anxiety Disorder - Assessment: Patient reports a long history of anxiety, starting around age 24, with recent exacerbation of symptoms including trouble sleeping, gritting teeth, and increased nervousness. There is a history of bipolar disorder, previously managed with lamotrigine and aripiprazole. - Plan: - Consider non-addictive treatments for anxiety, such as BuSpar or Wellbutrin, which may also help with attention and focus. - Monitor patient's response to treatment and adjust as needed. Attention Deficit Hyperactivity Disorder (ADHD) - Assessment: Patient reports a history of attention and concentration issues since childhood, with ongoing difficulties in adulthood. Possible underlying ADHD. - Plan: - Perform ADHD testing to confirm the diagnosis. - If positive, initiate appropriate treatment, which may help with overall anxiety as well. Claustrophobia - Assessment: Patient experiences significant distress when working in confined spaces, such as inside an 18-jeronimo, leading to increased anxiety, sweating, and racing heart. - Plan: - Provide a doctor's note stating that the patient cannot work in confined spaces due to a medical condition. - Monitor and address claustrophobia symptoms as part of the overall anxiety treatment plan. Cannabis Use - Assessment: Patient reports daily marijuana use. - Plan: - Discuss the potential impact of marijuana on anxiety and overall mental health. - Encourage the patient to consider reducing or discontinuing marijuana use, especially if initiating new medications for anxiety and/or ADHD. Sleep Disturbances - Assessment: Patient reports difficulty sleeping, sometimes getting only a few hours of sleep per night. - Plan: - Address sleep disturbances as part of the overall anxiety and ADHD treatment plan. - Monitor sleep patterns and consider additional interventions if needed. Mood Shifts - Assessment: Patient experiences mood shifts, sometimes feeling up and sometimes down, with a family history of bipolar disorder. - Plan: - Monitor mood changes and consider mood stabilization strategies if necessary. Follow-up - Plan: - Schedule a follow-up appointment to assess the patient's response to treatment, discuss ADHD testing results, and address any ongoing concerns. 05/17/2024 Jordan Oviedo, a 48-year-old male with a 25-year history of anxiety, presents with worsening depression, persistent nervousness, mood shifts, poor concentration, and sleep issues, recently from his . Attention Deficit Hyperactivity Disorder (ADHD), Inattentive Type Assessment: Patient's ADHD test results from May 02, 2024, indicate issues with spatial working memory, inattentiveness, and distractibility. Specific findings include difficulty staying focused on tasks, missed information, and omission errors. While reaction time was good, accuracy was diminished. Patient reports getting distracted easily and having trouble returning to conversations after losing track. These symptoms, combined with the test results, support a diagnosis of ADHD, inattentive type. Cannabis use, which the patient reports abstaining from for about a month and a half, may have negatively impacted symptoms. Plan: - Start atomoxetine 40 mg PO once daily (morning or evening) - Initiate bupropion and Ixel, one tablet PO daily at 3 p.m. (2 hours before work shift) - Follow up in 3 weeks Major Depressive Disorder Assessment: Patient reports worsening depressive symptoms, including increased crying spells and loss of appetite. Depression score has worsened since the last visit. Current psychosocial stressors include separation from due to trust issues and living with his mother. Patient is working in a [employer] from 6 a.m. to 5 p.m. daily but reports poor sleep and minimal activities outside of work. Plan: - Initiate bupropion and Ixel, one tablet PO daily at 3 p.m. (2 hours before work shift) - Refer for counseling - Follow up in 3 weeks Generalized Anxiety Disorder Assessment: Patient has a 25-year history of anxiety, initially triggered by becoming a young father. Current symptoms include persistent nervousness and anxiety. Patient is maintained on alprazolam 1 mg TID, prescribed by Dr. Paul. Plan: - Continue alprazolam 1 mg PO TID as prescribed by Dr. Paul - Refer for counseling - Follow up in 3 weeks The note is transcribed using speech recognition software. It is a reflection of a visit with the patient. It might have some inaccuracy, including medication names and transcribing errors, though efforts have been made to correct them. Plan Of Treatment Next Appt Details Provider Name:Mery Lala, 07/03/2024 01:00:00 PM, [facility] [facility] [address], [place], [address], Insurance Providers Payer Name Payer Address Payer Phone Subscriber Number Group Number Insured Name Patient Relationship to Insured Coverage Start Date Coverage End Date [employer] [address] [place] [address] [id number] Dayne Oviedo Self - patient is the insured Medical (General) History Medical History History ICD Code Past Psychiatric History: Anxiety Disord er,Panic Disorder,Bipolar Disorder Surgical History Surgery Date(Month/Year) chin harrison
--- OUTSIDE RECORDS SUMMARY | 2024-06-10 13:40 | XMS_ITS | Referral Summary ---
Author Organization [facility] Address [address] [place] [address] Care Team Providers Care Relief Man Name Role Phone Cheryl Kowalski Primary Care Provider [phone] Allergies No known active allergies Medications albuterol (PROVENTIL,VENT MARY) 1.25 mg/3 mL nebulizer solution Take 1.25 mg by nebulization every 6 (six) hours as needed for wheezing. Active pantoprazole DR (PROTONIX) 40 mg EC tablet Take 40 mg by mouth daily. Active ALPRAZolam (XANAX) 1 mg tablet Take 1 mg by mouth 3 (three) times a day as needed for anxiety. Active lamoTRIgine (LaMICtal) 25 mg tablet Take 25 mg by mouth daily. Active ARIPiprazole (ABILIFY) 15 mg tablet Take 15 mg by mouth daily 2 Active meloxicam (MOBIC) 15 mg tablet Take 1 tablet (15 mg total) by mouth daily 30 tablet 2 Active amitriptyline (ELAVIL) 50 mg tablet 2 Active Active Problems Problem Noted Date Diagnosed Date Gastrocnemius strain, left, subsequent encounter 07/15/2021 Gastrocnemius strain, left, initial encounter Injury of left leg 06/17/2021 Social History Tobacco Use Types Packs/Day Years Used Date Smoking Tobacco: Former Cigarettes Smokeless Tobacco: Never Tobacco Cessation:Counseling Given: No Alcohol Use Standard Drinks/Week Comments No 0 (1 standard drink = 0.6 oz pur e alcohol) Personal Safety Answer Date Recorded Getting School Help Needed Not on file 03/07 Sex and Gender Information Value Date Recorded Sex Assigned at Not on file Legal Sex Male 11:34 PM BEHAVIORAL ASSISTANT Gender Identity Not on file Sexual Orientation Not on file Last Filed Vital Signs Vital Sign Reading Time Taken Comments Blood Pressure 125/79 05/05/2019 6:53 PM BEHAVIORAL ASSISTANT Pulse 96 05/05/2019 6:53 PM BEHAVIORAL ASSISTANT Temperature 36.6 C (97.8 F) 05/05/2019 6:53 PM BEHAVIORAL ASSISTANT Respiratory Rate 18 05/05/2019 6:53 PM BEHAVIORAL ASSISTANT Oxygen Saturation 95% 05/05/2019 6:53 PM BEHAVIORAL ASSISTANT Inhaled Oxygen Concentration - - Weight 104.3 kg (230 lb) 06/17/2021 3:14 PM CDT Height 177.8 cm (5' 10 ) 06/17/2021 3:14 PM CDT Body Mass Index 33 06/17/2021 3:14 PM CDT Plan of Treatment Not on file Insurance AA Party OOS AA Party OOS * Guarantor: AMAZON Account Type Relation to Patient Date of Phone Billing Address Workers Comp Employer [employer] Care Teams Relief Man Relationship Specialty Start Date End Date Cheryl Kowalski PA [address] [place] [address] PCP - General Family Medicine 06/17/21
--- OUTSIDE RECORDS SUMMARY | 2024-06-10 13:40 | XMS_ITS | Clinical Summary ---
Author Organization [facility] Address [address] [place] [address] Care Team Providers Care Fence Machine Operator Name Role Phone Cheryl Kowalski Primary Care Provider [phone] Allergies No known active allergies Medications albuterol [...] initial encounter Injury of left leg 06/17/2021 Surgical History Surgery Date Site/Laterality Comments CHOLECYSTECTOMY Medical History Medical History Date Comments Asthma Anxiety Arthritis GERD (gastroesophageal reflux disease) Sleep apnea Social History Tobacco Use Types Packs/Day Years [...] on file Legal Sex Male 11:34 PM MIX MILL TENDER Gender Identity Not on file Sexual Orientation Not on file Obstetrics History Last Filed Vital Signs Vital Sign Reading Time Taken Comments Blood Pressure 125/79 05/05/2019 6:53 PM MIX MILL TENDER Pulse 96 05/05/2019 6:53 PM MIX MILL TENDER Temperature 36.6 C (97.8 F) 05/05/2019 6:53 PM MIX MILL TENDER Respiratory Rate 18 05/05/2019 6:53 PM MIX MILL TENDER Oxygen Saturation 95% 05/05/2019 6:53 PM MIX MILL TENDER Inhaled Oxygen Concentration - - Weight 104.3 kg (230 lb) 06/17/2021 3:14 PM CDT Height 177.8 cm (5' 10 ) 06/17/2021 3:14 PM CDT Body Mass Index 33 06/17/2021 3:14 PM CDT Plan of Treatment Health Maintenance Due Date Last Done Comments Colon Cancer Screening-Colonoscopy 1974 Depression Screening 1974 Hepatitis C Screening 1974 DTaP/Tdap/Td Vaccine (1 - Tdap) 1985 Hepatitis B Screening 1992 Regular Well Visit/Exam 18-64 1992 Covid-19 Vaccine (3 - 2023-2 5 season) 2023 07/15/2020, 06/17/2020 Influenza Vaccine (#1) 2023 03/10/2021 Pneumococcal vaccine <65 Aged Out No longer eligible based on patient's age to complete this topic Insurance [facility] OOS BLUE ACCESS OOS * Guarantor: AMAZON Account Type Relation to Patient Date of Phone Billing Address Workers Comp Employer [employer] Care Teams Fence Machine Operator Relationship Specialty Start Date End Date Cheryl Kowalski PA [address] [place] [address] PCP - General Family Medicine 06/17/21
--- OUTSIDE RECORDS SUMMARY | 2024-06-10 13:40 | XMS_ITS | Continuity of Care Document ---
Author Organization [facility] Address [address] [place] [address] Phone Care Team Providers Care Milk And Cream Grader Name Role Phone Ron Rivera MD Unavailable [...] - Active Procedures Procedure Date OFFICE/OUTPATIENT VISIT, [facility] NASAL ENDOSCOPY, DX SPEECH AUDIOMETRY, COMPLETE PURE TONE AUDIOMETRY, AIR TYMPANOMETRY Advance Directives Directive Yes / No Effective Date File Name No Information Encounters Encounter Description Practice Location Reason(s) For Visit Diagnoses Date Provider Providers Copied on Encounter [facility] [place], [address], [place], [place], [id number], tel:[phone] [address] [place] [address] No Information 4 Miguel Velasquez. [address], [place], [place], [id number] , [place]. tel:[phone] OFFICE/OUTPA TIENT VISIT, [facility] [place], [address], [place], [place], [id number], tel:[phone] [address] [place] [address] Left ear stopped up/loss of sense of smell. (chief complaint) Other abnormal auditory perceptions, bilateralAnosmi aChronic sinusitis, unspecified 2 Miguel Vel[address]. [address], [place], [place], [id number] , [place]. tel:[phone] Referring Provider: Blayne Whitaker, [address], [place], [address]. tel:[phone] Family History Family Member Type Diagnosis Age At Onset Problem Family history of Cancer Payers Payer name Insurance type Covered constitution party ID Narda blevins(s) [id number] [id number] Social History Type Description Quantity Date Captured [...]
--- OUTSIDE RECORDS SUMMARY | 2024-06-10 13:40 | XMS_ITS | Clinical Summary ---
Author Organization [facility] [employer] Address [address] [place] [address] Care Team Providers Care Contract Designer Name Role Phone Unavailable Primary Care Provider Unavailabl e Source Comments [facility] [employer],non-owned Affiliates and Associated Physician Practices is amultiple site organization consisting of ambulatory clinics and hospital sitesin [place], [place], [place] and [place]. This disclosure is being madepursuant to the Care Everywhere program and may not contain all information available regarding this patient. Last updated 17.[facility] [employer] Allergies No known active allergies Medications * Be aware that medications may not be up to date on this document. Alwaysverify current medications with the patient. Medication Sig Dispensed Refills Start Date End Date Status predniSONE (DELTASONE) 20 MG tablet Take 2 tablets by mouth once daily 10 tablet 04/28/2017 Active albuterol HFA (PROVENTIL;VENTOLIN; PROAIR) 108 (90 BASE) MCG/ACT inhaler Inhale 2 puffs by mouth every 4 hours as needed for Shortness of Breath or Wheezing 1 Inhaler 1 04/28/2017 Active albuterol (ACCUNEB) 1.25 MG/3ML nebulizer solution Inhale 3 mL by mouth every 6 hours 28 vial 04/28/2017 Active Social History Tobacco Use Types Packs/Day Years Used Date Smoking Tobacco: Never Assessed Sex and Gender Information Value Date Recorded Sex Assigned at Not on file Gender Identity Not on file Sexual Orientation Not on file Last Filed Vital Signs Vital Sign Reading Time Taken Comments Blood Pressure 140/76 04/27/2017 11:30 PM GIFT MANAGER Pulse 106 04/27/2017 11:30 PM GIFT MANAGER Temperature 37.4 C (99.4 F) 04/27/2017 9:44 PM GIFT MANAGER Respiratory Rate 11 04/27/2017 11:30 PM GIFT MANAGER Oxygen Saturation 97% 04/27/2017 11:30 PM GIFT MANAGER Inhaled Oxygen Concentration - - Weight 86.2 kg (190 lb) 04/27/2017 9:44 PM GIFT MANAGER Height 177.8 cm (5' 10 ) 04/27/2017 9:44 PM GIFT MANAGER Body Mass Index 27.26 04/27/2017 9:44 PM GIFT MANAGER Plan of Treatment Health Maintenance Due Date Last Done Comments COLOGUARD (AGES 45-75) - COL ON CA SCREENING 1974 COLON MONITORING 1974 COLONOSCOPY - COLON CA SCREENING 1974 CT COLONOGRAPHY - COLON CA SCREENING 1974 Colorectal Cancer Screening 1974 FIT - COLON CA SCREENING 1974 FLEX SIG - COLON CA SCREENING 1974 LIPID TESTING 1974 HIV SCREENING 1989 HEPATITIS C SCREENING 09/26/1992 DTAP/TDAP/TD VACCINES (1 - Tdap) 1993 HEPATITIS B VACCINE (1 of 3 - 19+ 3-dose series) 1993 COVID-19 VACCINE (1 - 2023-2 5 season) 2023 DEPRESSION SCREENING 03/06/2024 ZOSTER VACCINE (1 of 2) 2024 INFLUENZA VACCINE (Season Ended) 2024 HIB VACCINE Aged Out No longer eligi ble based on patient's age to complete this topic HPV VACCINE Aged Out No longer eligi ble based on patient's age to complete this topic MENINGOCOCCAL (Group B) VACC INE SHARED DECISION-MAKING Aged Out No longer eligibl e based on patient's age to complete this topic MENINGOCOCCAL GROUPS A/C/Y/W VACCINE Aged Out No longer eligible b ased on patient's age to complete this topic PNEUMOCOCCAL VACCINE Aged Out No long er eligible based on patient's age to complete this topic
--- NOTE | 2024-06-10 14:01 | PC.NURSE ---
Patient has been called multiple times without response for room placement
--- OUTSIDE RECORDS SUMMARY | 2024-06-10 18:07 | XMS_ITS | Referral Summary ---
Author Organization [facility] Address [address] [place] [address] Care Team Providers Care Private Pilot Name Role Phone Cheryl Kowalski Primary Care Provider [phone] Allergies No known active allergies Medications albuterol [...] on file Legal Sex Male 11:34 PM TECHNOLOGY COORDINATOR Gender Identity Not on file Sexual Orientation Not on file Last Filed Vital Signs Vital Sign Reading Time Taken Comments Blood Pressure 125/79 05/05/2019 6:53 PM TECHNOLOGY COORDINATOR Pulse 96 05/05/2019 6:53 PM TECHNOLOGY COORDINATOR Temperature 36.6 C (97.8 F) 05/05/2019 6:53 PM TECHNOLOGY COORDINATOR Respiratory Rate 18 05/05/2019 6:53 PM TECHNOLOGY COORDINATOR Oxygen Saturation 95% 05/05/2019 6:53 PM TECHNOLOGY COORDINATOR Inhaled Oxygen Concentration - - Weight 104.3 kg (230 lb) 06/17/2021 3:14 PM CDT Height 177.8 cm (5' 10 ) 06/17/2021 3:14 PM CDT Body Mass Index 33 06/17/2021 3:14 PM CDT Plan of Treatment Not on file Insurance [employer] OOS [employer] OOS * Guarantor: AMAZON Account Type Relation to Patient Date of Phone Billing Address Workers Comp Employer [employer] Care Teams Private Pilot Relationship Specialty Start Date End Date Cheryl Kowalski PA [address] [place] [address] PCP - General Family Medicine 06/17/21
--- OUTSIDE RECORDS SUMMARY | 2024-06-10 18:07 | XMS_ITS | Continuity of Care Document ---
Author Organization [facility] Address [address] [place] [address] Phone Care Team Providers Care Explosive Operator Supervisor Name Role Phone Ron Rivera MD Unavailable Unavailable Allergies, Adverse Reactions, Alerts Substance Reaction Status Criticality No Known Allergies Active No Inform ation Medications Medication Instructions Dosage Effective Dates (start - stop) Status Comments Flonase Allergy Relief 50 mcg/actuation nasal spray,suspension 1 spray each nostril bid - Active azelastine 137 mcg (0.1 %) nasal spray aerosol spray 1 spray by intranasal route 2 times every day in each nostril 137 MCG - Active omeprazole 40 mg capsule,delayed release - Active quetiapine 300 mg tablet - A ctive Symbicort 160 mcg-4.5 mcg/actuation HFA aerosol inhaler - Active montelukast 10 mg tablet - A ctive fluoxetine 40 mg capsule - A ctive clonidine HCl 0.1 mg tablet - Active albuterol sulfate HFA 90 mcg/actuation aerosol inhaler - Active amlodipine 10 mg-valsartan 320 mg tablet - Active alprazolam 1 mg tablet - Act mary jo metformin ER 500 mg tablet,extended release 24 hr - Active trazodone 100 mg tablet - Ac tive ipratropium 0.5 mg-albuterol 3 mg (2.5 mg base)/3 mL nebulization soln - Active budesonide-formoterol HFA 160 mcg-4.5 mcg/actuation aerosol inhaler - Active prednisone 20 mg tablet - [...] - Active Procedures Procedure Date OFFICE/OUTPATIENT VISIT, [facility] NASAL ENDOSCOPY, DX SPEECH AUDIOMETRY, COMPLETE PURE TONE AUDIOMETRY, AIR TYMPANOMETRY Advance Directives Directive Yes / No Effective Date File Name No Information Encounters Encounter Description Practice Location Reason(s) For Visit Diagnoses Date Provider Providers Copied on Encounter [facility] [place], [address], [place], [place], [id number], tel:[phone] [address] [place] [address] No Information 4 Miugel Velasquez. [address], [place], [place], [id number] , [place]. tel:[phone] OFFICE/OUTPA TIENT VISIT, [facility] [place], [address], [place], [place], [id number], tel:[phone] [address] [place] [address] Left ear stopped up/loss of sense of smell. (chief complaint) Other abnormal auditory perceptions, bilateralAnosmi aChronic sinusitis, unspecified 2 [address]. [address], [place], [place], [id number] , [place]. tel:[phone] Referring Provider: Blayne Whitaker, [address], [place], [address]. tel:[phone] Family History Family Member Type Diagnosis Age At Onset Problem Family history of Cancer Payers Payer name Insurance type Covered alliance party ID Narda blevins(s) [facility] [id number] Social History Type Description Quantity Date Captured [...]
--- OUTSIDE RECORDS SUMMARY | 2024-06-10 18:07 | XMS_ITS | Clinical Summary ---
Author Organization [facility] Address [address] [place] [address] Care Team Providers Care Surety Bond Agent Name Role Phone Unavailable Primary Care Provider Unavailabl e Source Comments [facility],non-owned Affiliates and Associated Physician Practices is amultiple site organization consisting of ambulatory clinics and hospital sitesin [place], [place], [place] and [place]. This disclosure is being madepursuant to the Care Everywhere program and may not contain all information available regarding this patient. Last updated 17.[facility] Allergies No known active allergies Medications * [...] Comments Blood Pressure 140/76 04/27/2017 11:30 PM WATERMASTER Pulse 106 04/27/2017 11:30 PM WATERMASTER Temperature 37.4 C (99.4 F) 04/27/2017 9:44 PM WATERMASTER Respiratory Rate 11 04/27/2017 11:30 PM WATERMASTER Oxygen Saturation 97% 04/27/2017 11:30 PM WATERMASTER Inhaled Oxygen Concentration - - Weight 86.2 kg (190 lb) 04/27/2017 9:44 PM WATERMASTER Height 177.8 cm (5' 10 ) 04/27/2017 9:44 PM WATERMASTER Body Mass Index 27.26 04/27/2017 9:44 PM WATERMASTER Plan of Treatment Health Maintenance Due Date [...]
--- OUTSIDE RECORDS SUMMARY | 2024-06-10 18:07 | XMS_ITS | Clinical Summary ---
Author Organization [facility] Address [address] [address] Phone Care Team Providers Care Lawyer Criminal Name Role Phone Unavailable Primary Care Provider [...]
--- OUTSIDE RECORDS SUMMARY | 2024-06-10 18:07 | XMS_ITS | Clinical Summary ---
Author Organization [facility] Address [facility] [place] [address] Care Team Providers Care Supply Chain Development Manager Name Role Phone Cheryl Kowalski PA-C Primary Care Provider [phone] Goapl Burk MD Unavailable Allergies No known active [...] Comments Blood Pressure 135/80 02/20/2024 12:57 PM INSURANCE SOLICITOR Pulse 72 02/20/2024 10:55 AM INSURANCE SOLICITOR Temperature 36.6 C (97.8 F) 02/20/2024 12:57 PM INSURANCE SOLICITOR Respiratory Rate 20 02/20/2024 10:55 AM INSURANCE SOLICITOR Oxygen Saturation 97% 02/20/2024 12:57 PM INSURANCE SOLICITOR Inhaled Oxygen Concentration - - Weight 99.8 kg (220 lb) 02/20/2024 10:55 AM INSURANCE SOLICITOR Height 175.3 cm (5' 9 ) 02/20/2024 10:55 AM INSURANCE SOLICITOR Body Mass Index 32.49 02/20/2024 10:55 AM INSURANCE SOLICITOR Plan of Treatment Health Maintenance Due Date [...] with and son General No Yudy Gaitan, ASSISTANT BASEBALL COACH Health - patient able to perform ADLs independently General No Sue Fairchild, oil operator Procedure Name Priority Date/Time Associated Diagnosis Comments HEPATITIS PANEL,ACUTE STAT 04/15/2017 5:10 PM INSURANCE SOLICITOR from Last 3 Months or Most Recently Relevant to Health Maintenance Results * HEPATITIS PANEL,ACUTE (04/15/2017 5:10 PM INSURANCE SOLICITOR) HAV IGM NON-REACTI VE NON-REACTI VE 04/17/2017 3:37 PM INSURANCE SOLICITOR [facility] Comment: TESTING PERFORMED [address] [address] HEP B SURFACE AB NON-REACTI VE 04/17/2017 3:37 PM INSURANCE SOLICITOR [facility] Comment: TESTING PERFORMED [address] [address] HEPATITIS B SURFACE AG NON-REACTI VE NON-REACTI VE 04/17/2017 3:37 PM INSURANCE SOLICITOR [facility] Comment: TESTING PERFORMED [address] [address] HEP B CORE TOTAL AB NON-REACTI VE NON-REACTI VE 04/17/2017 3:37 PM INSURANCE SOLICITOR [facility] Comment: TESTING PERFORMED [address] [address] HEPATITIS C AB NON-REACTI VE NON-REACTI VE 04/17/2017 3:37 PM INSURANCE SOLICITOR [facility] Comment: TESTING PERFORMED [facility] [place] [address] 04/15/2017 5:10 PM INSURANCE SOLICITOR 04/15/2017 5:23 PM INSURANCE SOLICITOR us Generic Conversion [facility] Final R esult [facility] [address] [place] [address], [place] [phone] from Last 3 Months or Most Recently Relevant to Health Maintenance Insurance COVID19 [facility] UNINSURED [place] [address] [facility] Advance Directives * Full Code (Latest Code Status on File) Date Activated Date Inactivated Comments 01/27/2021 11:46 PM 01/29/2021 9:38 PM * Full Code Date Activated Date Inactivated Comments 05/16/2019 1:16 PM 05/21/2019 5:09 PM Care Teams Supply Chain Development Manager Relationship Specialty Start Date End Date Cheryl Kowalski PA-C [address] [address] PCP - General PHYSICIAN ENGINEERING RESEARCH MANAGER 08/20/20 [place] [address] [place] [address] Consulting Physician GASTROENTEROLOGY 12/10/23
--- OUTSIDE RECORDS SUMMARY | 2024-06-10 18:07 | XMS_ITS | Clinical Summary ---
Author Organization [facility] Address [address] [place] [address] Care Team Providers Care Roll Reclaimer Name Role Phone Cheryl Kowalski Primary Care Provider [phone] Allergies No known active allergies Medications albuterol [...] on file Legal Sex Male 11:34 PM AUTO BODY SHOP MANAGER Gender Identity Not on file Sexual Orientation Not on file Obstetrics History Last Filed Vital Signs Vital Sign Reading Time Taken Comments Blood Pressure 125/79 05/05/2019 6:53 PM AUTO BODY SHOP MANAGER Pulse 96 05/05/2019 6:53 PM AUTO BODY SHOP MANAGER Temperature 36.6 C (97.8 F) 05/05/2019 6:53 PM AUTO BODY SHOP MANAGER Respiratory Rate 18 05/05/2019 6:53 PM AUTO BODY SHOP MANAGER Oxygen Saturation 95% 05/05/2019 6:53 PM AUTO BODY SHOP MANAGER Inhaled Oxygen Concentration - - Weight 104.3 [...] patient's age to complete this topic Insurance [facility] OOS BLUE ACCESS OOS * Guarantor: AMAZON Account Type Relation to Patient Date of Phone Billing Address Workers Comp Employer [employer] Care Teams Roll Reclaimer Relationship Specialty Start Date End Date Cheryl Kowalski PA [address] [place] [address] PCP - General Family Medicine 06/17/21
== END 2024-06-10 14:01 | disposition left against medical advice (07) ==
PROVIDERS: PCP Family Medicine
DX: R10.9 Unspecified abdominal pain (principal)
CPT/HCPCS: 99199

== ENCOUNTER 2024-07-21 13:58 | Emergency (ER) | payer BC, SELFPAY ==
--- NOTE | ~2024-07-21 | CT_ITS ---
CLINICAL INDICATION: Left lower quadrant pain COMPARISON: 04/28/2021. TECHNIQUE: Multiple contiguous axial images of the abdomen and pelvis were performed following the ad ministration of with 100 mL Omnipaque-350 intravenous contrast The dose-length product (DLP) was 508.23 mGy-cm. Automated exposure control and iterative reconstruction technique were employed. FINDINGS/OBSERVATIONS: Visualized lower thorax: The bilateral lung bases are clear. The heart is of normal size, without pericardial effusion. Small hiatal hernia is present. Liver: The liver demonstrates homogeneous enhancement and is not enlarged. Gallbladder and biliary system: The gallbladder is surgically absent. Pancreas: The pancreas enhances homogeneously without ductal dilatation. Spleen: The spleen enhances homogeneously and is enlarged measuring 15 cm in longitudinal dimension. Kidneys: The bilateral kidneys enhance symmetrically without hydronephrosis or renal calculi. Adrenal glands: Unremarkable. Gastrointestinal tract: Mural thickening and edema with surrounding inflammatory change is identified throughout the entirety of the colon, findings for which a diffuse colitis is suspected. Small bowel loops are unremarkable. Appendix: The appendix is not definitively visualized. However, no pericecal inflammatory change is identified suggest the presence of acute appendicitis. Vasculature: Unremarkable. Lymph nodes: No pathologically enlarged or morphologically suspicious lymph nodes within the retroperitoneum or at the root of the mesentery. Pelvic structures: The bladder is only minimally distended, and otherwise unremarkable. The prostate gland is not enlarged. Body wall and musculoskeletal: Small fat-containing umbilical hernia. No significant degenerative disease within the lower thoracic or lumbosacral spine. IMPRESSION: Findings consistent with a diffuse pancolitis, as detailed above. Reviewed, dictated and finalized at location A.
--- OUTSIDE RECORDS SUMMARY | 2024-07-21 14:00 | XMS_ITS | Clinical Summary ---
Author Organization [facility] System Address [facility] [place] [address] Care Team Providers Care Rubber Process Hand Name Role Phone Gopal Burk MD Unavailable Tarik Cruz MD Primary Care Provider [phone] Allergies No known active allergies Medications amitriptyline 50 MG tablet Take 200 mg by mouth nightly at bedtime. Active albuterol sulfate HFA 108 (90 Base) MCG/ACT inhaler Inhale 2 puffs into the lungs every 6 (six) hours as needed for Wheezing. Active ALPRAZolam 1 MG tablet Take 1 tablet (1 mg total) by mouth 3 (three) times daily as needed for Anxiety. Active lamoTRIgine 200 MG tablet Take 200 mg by mouth nightly at bedtime. Active omeprazole 20 MG capsule Take 1 capsule (20 mg total) by mouth daily. Active fluticasone furoate-vilanterol 100-25 MCG/INH inhaler Inhale 1 puff into the lungs daily. Active Cariprazine HCl 3 MG Cap Take 3 mg by mouth nightly at bedtime. Active ARIPiprazole 15 MG tablet Take 15 mg by mouth daily. 06/13/19 22 Active traMADol (ULTRAM) 50 MG tabletIndications: Acute Pain < 7 Day Supply Take 1 tablet (50 mg total) by mouth every 6 (six) hours as needed. Indications: Acute Pain < 7 Day Supply 20 tablet 02/20/20 24 Active dicyclomine (BENTYL) 20 MG tablet Take 1 tablet (20 mg total) by mouth every 6 (six) hours. 20 tablet 06/13/19 25 Active ondansetron (ZOFRAN-ODT) 4 MG disintegrating tablet Take 1 tablet (4 mg total) by mouth every 8 (eight) hours as needed for Nausea. 20 tablet 06/13/19 25 Active HYDROcodone-acetam inophen (NORCO) 5-325 MG tabletIndications: Acute Pain < 7 Day Supply Take 1 tablet by mouth every 6 (six) hours as needed. Indications: Acute Pain < 7 Day Supply 21 tablet 06/13/19 25 Active naloxone (NARCAN) 4 MG/0.1ML nasal spray 1 spray by Nasal route as needed for Opioid reversal. may repeat every 2 to 3 minutes in alternating nostrils until medical assistance becomes available 1 each 06/13/19 25 026 Active Active Problems Problem Noted Date Diagnosed Date Pancreatitis (HHS/HCC) 05/16/2019 Biliary dyskinesia 03/02/2017 Resolved Problems Problem Noted Date Diagnosed Date Resolved Date Encounter for preventive health examination 03/03/2014 11/15/2019 Encounters Date Type Department Care Team Description 06/12/2024 2:13 PM CDT - 06/12/2024 4:10 PM CDT Emergency [facility] Emergency Room [address] [place] [address] Kika Laytno MD Abdominal Pain; Vomiting Discharge Disposition: Home or Self Care (Routine Discharge) 06/12/2024 Travel from Last 3 Months Family History Medical History Relation Comments Alcohol [...] Sign Reading Time Taken Comments Blood Pressure 122/81 06/12/2024 3:55 PM CDT Pulse 84 06/12/2024 3:55 PM CDT Temperature 37.2 C (99 F) 06/12/2024 2:18 PM CDT Respiratory Rate 18 06/12/2024 3:55 PM CDT Oxygen Saturation 96% 06/12/2024 3:55 PM CDT Inhaled Oxygen Concentration - - Weight 86.2 kg (190 lb) 06/12/2024 2:18 PM CDT Height 177.8 cm (5' 10 ) 06/12/2024 2:18 PM CDT Body Mass Index 27.26 06/12/2024 2:18 PM CDT Plan of Treatment Health Maintenance [...] 5 Years) and At-Risk Patients (6 to 49 Years) Aged Out No longer eligi ble based on patient's age to complete this topic RSV Immunizations Under 20 Months Aged Out No longer eligible based on patient's age to complete this topic Goals Goal Patient Goal Type Associated Problems Recent Progress Patient-Stated? Author Return to independent living with and son General No Yudy Gaitan, FIXED ASSETS ACCOUNTANT Health - patient able to perform ADLs independently General No Sue Fairchild, gaming pit boss Procedure Name Priority Date/Time Associated Diagnosis Comments CT ABD+PEL WO CON STAT 06/12/2024 2:5 7 PM CDT AMYLASE STAT 06/12/2024 2:15 PM CDT LIPASE STAT 06/12/2024 2:15 PM CDT LACTIC ACID W REFLEX (SEPSIS) STAT 06/12/2024 2:15 PM CDT COMPREHENSIVE METABOLIC PANEL STAT 06/12/2024 2:15 PM CDT CBC W/DIFF AUTOMATED STAT 06/12/2024 2:15 PM CDT HEPATITIS PANEL,ACUTE STAT 04/15/2017 5:10 PM MONKEY TRAINER from Last 3 Months or Most Recently Relevant to Health Maintenance Results * CT ABD+PEL WO CON (06/12/2024 2:57 PM CDT) Anatomical Region Laterality Modality Abdomen Computed Tomogra phy 06/12/2024 3:10 PM CDT Impressions 06/12/2024 3:15 PM CDT Impression: 1. Within limitations of noncontrast technique, no acute findings within the abdomen or pelvis. No bowel obstruction. 2. Redemonstrated splenomegaly and perisplenic varices. Findings may reflect portal hypertension in the setting of chronic liver disease. 3. Right lower lobe 3 mm pulmonary nodule. If the patient is considered high risk for lung cancer (i.e. smoking history), an optional follow CT chest can be obtained in 12 months. If the patient is considered low risk, no specific follow-up is required per Fleischner guidelines. Ordered By: KIKA LAYTON Interpreted By: Melvin Hall MD, 06/12/2024 3:10 PM Narrative 06/12/2024 3:15 PM CDT [facility] [address] [facility] [place] [address] CT abdomen and pelvis without IV contrast Comparison: CT abdomen pelvis 02/20/2024. Indication: h/o recent abd infection. Nausea vomiting and diarrhea. Technique: CT imaging of the abdomen and pelvis was performed without intravenous contrast. Coronal and sagittal reformatted images were generated and reviewed. A dose lowering technique was used for this procedure, which may include, but is not limited to, dose reduction techniques, automated exposure control, and/or the use of iterative reconstruction, in accordance with ALARA (As Low As Reasonably Achievable)/Image Gently principle. Findings: Limited assessment given the lack of IV contrast, particularly of the solid organs, bowel, and vasculature. - Lower Thorax: Subpleural 3 mm nodule in the right lower lobe on axial image 13 of series 3. Stable from prior study. No pleural or pericardial effusions. - Liver: Mild enlargement of the left hepatic lobe compared to the right. Findings can be seen with chronic liver disease. No overt surface nodularity is seen. - Biliary and Gallbladder: No intrahepatic or extrahepatic bile duct dilatation. The gallbladder is surgically absent. - Spleen: Multiple splenules. The spleen is mildly enlarged measuring 13.5 cm. Perisplenic varices. - Pancreas: Unremarkable noncontrast appearance. - Adrenal Glands: Normal. - Kidneys: Symmetric in size. No renal stones. No hydronephrosis. - Abdominal and Pelvic Vasculature: No abdominal aortic aneurysm. Mild atherosclerotic plaque. - Gastrointestinal Tract: No evidence of bowel obstruction. Mild colonic diverticulosis without evidence for acute diverticulitis. The appendix is within normal limits. - Peritoneum/Mesentery/Retroperitoneum: No free fluid. No free intraperitoneal air. - Lymph Nodes: No retroperitoneal, mesenteric, or pelvic lymphadenopathy. - Bladder: Normal in appearance. - Pelvic Organs: Unremarkable. - Body Wall: Unremarkable. - Musculoskeletal: No aggressive appearing osseous lesions. Mild degenerative disc disease at L5-S1 and the lower thoracic spine. Procedure Note Melvin Hall MD - 06/12/2024 [facility] [address] [facility] [place] [address] CT abdomen and pelvis without IV contrast Comparison: CT abdomen pelvis 02/20/2024. Indication: h/o recent abd infection. Nausea vomiting and diarrhea. Technique: CT imaging of the abdomen and pelvis was performed withoutintravenous contrast. Coronal and sagittal reformatted images weregenerated and reviewed. A dose lowering technique was used for thisprocedure, which may include, but is not limited to, dose reductiontechniques, automated exposure control, and/or the use of iterativereconstruction, in accordance with ALARA (As Low As ReasonablyAchievable)/Image Gently principle. Findings: Limited assessment given the lack of IV contrast, particularly of thesolid organs, bowel, and vasculature. - Lower Thorax: Subpleural 3 mm nodule in the right lower lobe on axialimage 13 of series 3. Stable from prior study. No pleural or pericardialeffusions. - Liver: Mild enlargement of the left hepatic lobe compared to the right.Findings can be seen with chronic liver disease. No overt surfacenodularity is seen. - Biliary and Gallbladder: No intrahepatic or extrahepatic bile ductdilatation. The gallbladder is surgically absent. - Spleen: Multiple splenules. The spleen is mildly enlarged measuring 13.5cm. Perisplenic varices. - Pancreas: Unremarkable noncontrast appearance. - Adrenal Glands: Normal. - Kidneys: Symmetric in size. No renal stones. No hydronephrosis. - Abdominal and Pelvic Vasculature: No abdominal aortic aneurysm. Mildatherosclerotic plaque. - Gastrointestinal Tract: No evidence of bowel obstruction. Mild colonicdiverticulosis without evidence for acute diverticulitis. The appendix iswithin normal limits. - Peritoneum/Mesentery/Retroperitoneum: No free fluid. No freeintraperitoneal air. - Lymph Nodes: No retroperitoneal, mesenteric, or pelvic lymphadenopathy. - Bladder: Normal in appearance. - Pelvic Organs: Unremarkable. - Body Wall: Unremarkable. - Musculoskeletal: No aggressive appearing osseous lesions. Milddegenerative disc disease at L5-S1 and the lower thoracic spine. Impression: 1. Within limitations of noncontrast technique, no acute findings withinthe abdomen or pelvis. No bowel obstruction. 2. Redemonstrated splenomegaly and perisplenic varices. Findings mayreflect portal hypertension in the setting of chronic liver disease. 3. Right lower lobe 3 mm pulmonary nodule. If the patient is consideredhigh risk for lung cancer (i.e. smoking history), an optional follow CTchest can be obtained in 12 months. If the patient is considered low risk,no specific follow-up is required per Fleischner guidelines. Ordered By: KIKA LAYTON Interpreted By: Melvin Hall MD, 06/12/2024 3:10 PM us Kika Layton MD CT Final Result * LACTIC ACID W REFLEX (SEPSIS) (06/12/2024 2:15 PM CDT) LACTIC ACID VENOUS 1.7 0.4 - 2.0 MMOL/L 06/12/2024 3:00 PM CDT [facility] 06/12/2024 2:15 PM CDT Kika Layton MD LABORATORY Final Result [facility] [address] [place] [address], * (ABNORMAL) COMPREHENSIVE METABOLIC PANEL (06/12/2024 2:15 PM CDT) GLUCOSE 103(H) 70 - 99 MG/DL 06/12/2024 2:55 PM CDT [facility] BUN 8 7 - 18 MG/DL 06/12/2024 2:55 PM CDT [facility] CREATININE S/P/B 0.91 0.7 - 1.3 MG/DL 06/12/2024 2:55 PM CDT [facility] SODIUM S/P/B 138 136 - 145 MMOL/L 06/12/2024 2:55 PM CDT [facility] POTASSIUM S/P/B 3.8 3.5 - 5.1 MMOL/L 06/12/2024 2:55 PM CDT [facility] CHLORIDE S/P/B 102 100 - 108 MMOL/L 06/12/2024 2:55 PM CDT [facility] CO2 26.2 21 - 32 MMOL/L 06/12/2024 2:55 PM CDT [facility] CALCIUM S/P/B 9.2 8.5 - 10.1 MG/DL 06/12/2024 2:55 PM CDT [facility] BILIRUBIN TOTAL S/P/B 1.6(H) 0.2 - 1.2 MG/DL 06/12/2024 2:55 PM CDT [facility] TOTAL PROTEIN S/P/B 7.6 6.4 - 8.2 G/DL 06/12/2024 2:55 PM CDT [facility] ALBUMIN S/P/B 4.1 3.4 - 5.0 G/DL 06/12/2024 2:55 PM CDT [facility] AST 28 15 - 37 U/L 06/12/2024 2:55 PM CDT [facility] ALT 29 16 - 60 U/L 06/12/2024 2:55 PM CDT [facility] ALKALINE PHOSPHATASE S/P/B 84 50 - 136 U/L 06/12/2024 2:55 PM CDT [facility] ANION GAP 9.8 5 - 15 MMOL/L 06/12/2024 2:55 PM CDT [facility] BUN CREATININE RATIO 8.8 6 - 26 06/12/2024 2:55 PM CDT [facility] A/G RATIO 1.2 1.0 - 2.0 RATIO 06/12/2024 2:55 PM CDT [facility] GFR ESTIMATE >90 >90 ML/MIN/1.7 3 M2 06/12/2024 2:55 PM CDT [facility] Comment: NOTE: eGFR is not calculated for patients <18 years of age. This is an estimated GFR calculation using the new CKD EPI creatinine equation without race and so does not require a correction factor for race. This estimated GFR should not be used for calculating drug doses. 06/12/2024 2:15 PM CDT us Kika Layton MD LABORATORY Final Result [facility] [address] [place] [address], [place] [phone] * (ABNORMAL) CBC W/DIFF AUTOMATED (06/12/2024 2:15 PM CDT) [facility] Signature WBC 7.07 4.4 - 11.0 x10'3/uL 06/12/2024 2:50 PM CDT [facility] RBC 5.10 4.50 - 5.90 x10'6/uL 06/12/2024 2:50 PM CDT [facility] HGB 15.2 14.0 - 17.5 G/DL 06/12/2024 2:50 PM CDT [facility] HCT 45.5 41.5 - 50.4 % 06/12/2024 2:50 PM CDT [facility] MCV 89.2 80.0 - 96.0 FL 06/12/2024 2:50 PM CDT [facility] MCH 29.8 26.5 - 31.4 PG 06/12/2024 2:50 PM CDT [facility] MCHC 33.4 31.9 - 34.8 G/DL 06/12/2024 2:50 PM CDT [facility] RDW 13.7 12.3 - 14.3 % 06/12/2024 2:50 PM CDT [facility] PLT 126(L) 151 - 353 x10'3/uL 06/12/2024 2:50 PM CDT [facility] MPV 10.4 9.7 - 11.9 FL 06/12/2024 2:50 PM CDT [facility] RBC MORPHOLOGY NORMAL 06/12/2024 2:50 PM CDT [facility] PLT MORPH. NORMAL 06/12/2024 2:50 PM CDT [facility] WBC MORPHOLOGY NORMAL 06/12/2024 2:50 PM CDT [facility] LYMPHOCYTES % 17.7 15.8 - 45.0 % 06/12/2024 2:50 PM CDT [facility] NEUTROPHILS % 70.7 42.1 - 71.9 % 06/12/2024 2:50 PM CDT [facility] MONOCYTES % 9.2 5.7 - 12.5 % 06/12/2024 2:50 PM CDT [facility] EOSINOPHILS 1.4 0.0 - 5.6 % 06/12/2024 2:50 PM CDT [facility] BASOPHILS 0.6 0.0 - 1.3 % 06/12/2024 2:50 PM CDT [facility] ABS. NEUTROPHILS 5.00 1.40 - 6.00 x10'3/uL 06/12/2024 2:50 PM CDT [facility] IMMATURE GRANS % 0.4 0.0 - 0.5 % 06/12/2024 2:50 PM CDT [facility] ABS. LYMPHOCYTES 1.25 0.80 - 4.70 x10'3/uL 06/12/2024 2:50 PM CDT [facility] 06/12/2024 2:15 PM CDT Kika Layton MD LABORATORY Final Result [facility] [address] [place] [address], * AMYLASE (06/12/2024 2:15 PM CDT) AMYLASE S/P/B 37 25 - 115 UNITS/L 06/12/2024 2:55 PM CDT [facility] 06/12/2024 2:15 PM CDT us Kika Layton MD LABORATORY Final Result [facility] [address] [place] [address], [place] [phone] * LIPASE (06/12/2024 2:15 PM CDT) LIPASE 37 16 - 77 UNITS/L 06/12/2024 2:55 PM CDT [facility] 06/12/2024 2:15 PM CDT Kika Layton MD LABORATORY Final Result [facility] [address] [place] [address], [place] [phone] * HEPATITIS PANEL,ACUTE (04/15/2017 5:10 PM MONKEY TRAINER) Pathologist [facility] HAV IGM NON-REACTI VE NON-REACTI VE 04/17/2017 3:37 PM MONKEY TRAINER [facility] Comment: TESTING PERFORMED [address] [address] HEP B SURFACE AB NON-REACTI VE 04/17/2017 3:37 PM MONKEY TRAINER [facility] Comment: TESTING PERFORMED [address] [address] HEPATITIS B SURFACE AG NON-REACTI VE NON-REACTI VE 04/17/2017 3:37 PM MONKEY TRAINER [facility] Comment: TESTING PERFORMED [address] [address] HEP B CORE TOTAL AB NON-REACTI VE NON-REACTI VE 04/17/2017 3:37 PM MONKEY TRAINER [facility] Comment: TESTING PERFORMED [address] [address] HEPATITIS C AB NON-REACTI VE NON-REACTI VE 04/17/2017 3:37 PM MONKEY TRAINER [facility] Comment: TESTING PERFORMED [facility] [place] [address] 04/15/2017 5:10 PM MONKEY TRAINER 04/15/2017 5:23 PM MONKEY TRAINER us Generic Conversion Md MARTINEZ LABORATORY Final R esult [facility] () [facility] [address] [place] [address], [place] [phone] from Last 3 Months or Most Recently Relevant to Health Maintenance Insurance COVID19 [facility] UNINSURED TESTING [place] [address] [facility] Advance Directives * Full Code (Latest Code Status on File) Date Activated Date Inactivated Comments 01/27/2021 11:46 PM 01/29/2021 9:38 PM * Full Code Date Activated Date Inactivated Comments 05/16/2019 1:16 PM 05/21/2019 5:09 PM Care Teams Rubber Process Hand Relationship Specialty Start Date End Date Tarik Cruz MD [address] [place] [id number] PCP - General FAMILY PRACTICE 06/12/24 [place] [address] [place] [address] Consulting Physician GASTROENTEROLOGY 12/10/23
--- OUTSIDE RECORDS SUMMARY | 2024-07-21 14:00 | XMS_ITS ---
Author Organization [facility] Address [address] [place] [address] Care Team Providers Care Welfare Officer Name Role Phone Nancy MARTINEZ, Tarik Primary Care Provider Unavailab dasia NashamHungCarson Unavailable [phone] Mery Nicholson Unavailable [phone] REASON FOR VISIT New Patient Social History Sex Assigned At : Social History Observation Description Sex Assigned At Male Encounters Encounter Location Date Provider Diagnosis [facility] [employer] [facility] [address] [facility] [address] [place] [address] 07/03/2024 Mery Nicholson Plan Of Treatment No Information Progress Notes * Dayne SAMDOB: [birth year] (48 yo M)Acc No.[id number]:07/03/2024 Patient: Dayne GORDILLO Provider: Dalila NICHOLSON LCSW :1975 A ge:48 Y S ex:Male Date:07/03/2024 Phone: Address:[address] [facility] Pcp:Tarik Cruz MD Data: * Chief Complaints: * 1 . New Patient. * Medical History: * Vitals: Assessment: Plan: * Treatment: * Billing Information: * Visit Code: * Procedure Codes: * Electronic signature of Mery Nicholson LCSW on 07/21/2024 at 01:59 PM CDT Sign off status: Pending Signatures: No Ad Hoc Signature Added * Provider: Dalila NICHOLSON LCSW Date: 07/03/2024 Generated for Printi ng/Famarkelg/eTransmitting on: 07/21/2024 01:59 PM CDT
--- OUTSIDE RECORDS SUMMARY | 2024-07-21 14:00 | XMS_ITS | Clinical Summary ---
Author Organization [facility] Address [address] [place] [address] Care Team Providers Care Hoop Maker Helper Machine Name Role Phone Unavailable Primary Care Provider Unavailabl e Source Comments [facility],non-owned Affiliates and Associated Physician Practices is amultiple site organization consisting of ambulatory clinics and hospital sitesin [place], [place], [place] and [place]. This disclosure is being madepursuant to the Care Everywhere program and may not contain all information available regarding this patient. Last updated 17.[facility] Allergies No known active allergies Medications * Be aware that medications may not be up to date on this document. Alwaysverify current medications with the patient. 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 Gender Identity Not on file Sexual Orientation Not on file Last Filed Vital Signs Vital Sign Reading Time Taken Comments Blood Pressure 140/76 04/27/2017 11:30 PM ROLL THREADER OPERATOR Pulse 106 04/27/2017 11:30 PM ROLL THREADER OPERATOR Temperature 37.4 C (99.4 F) 04/27/2017 9:44 PM ROLL THREADER OPERATOR Respiratory Rate 11 04/27/2017 11:30 PM ROLL THREADER OPERATOR Oxygen Saturation 97% 04/27/2017 11:30 PM ROLL THREADER OPERATOR Inhaled Oxygen Concentration - - Weight 86.2 kg (190 lb) 04/27/2017 9:44 PM ROLL THREADER OPERATOR Height 177.8 cm (5' 10 ) 04/27/2017 9:44 PM ROLL THREADER OPERATOR Body Mass Index 27.26 04/27/2017 9:44 PM ROLL THREADER OPERATOR Plan of Treatment Health Maintenance Due [...]
--- OUTSIDE RECORDS SUMMARY | 2024-07-21 14:00 | XMS_ITS | Continuity of Care Document ---
Author Organization [facility] Address [address] [place] [phone] Phone Care Team Providers Care Java Enterprise Architect Name Role Phone Ron Rivera MD Unavailable [...] in each nostril 137 MCG - Active quetiapine 300 mg tablet - A ctive omeprazole 40 mg capsule,delayed release - Active Symbicort 160 mcg-4.5 mcg/actuation HFA aerosol inhaler [...] prednisone 20 mg tablet - Ac tive rosuvastatin 20 mg tablet - Active prednisone 10 mg tablet - Ac tive ibuprofen 800 mg tablet - Ac tive [...] - Active Procedures Procedure Date OFFICE/OUTPATIENT VISIT, [facility] NASAL ENDOSCOPY, DX SPEECH AUDIOMETRY, COMPLETE PURE TONE AUDIOMETRY, AIR TYMPANOMETRY Advance Directives Directive Yes / No Effective Date File Name No Information Encounters Encounter Description Practice Location Reason(s) For Visit Diagnoses Date Provider Providers Copied on Encounter [facility] [place], [address], [place], [place], [id number], tel:[phone] [address] [place] [address] No Information 4 Miguel Velasquez. [address], [place], [place], [id number] , [place]. tel:[phone] OFFICE/OUTPA TIENT VISIT, [facility] [place], [address], [place], [place], [id number], tel:[phone] [address] [place] [address] Left ear stopped up/loss of sense of smell. (chief complaint) Other abnormal auditory perceptions, bilateralAnosmi aChronic sinusitis, unspecified [address] Miguel Vel[address]. [address], [place], [place], [id number] , [place]. tel:[phone] Referring Provider: Blayne Whitaker, [address], [place], [address]. tel:[phone] Family History Family Member Type Diagnosis Age At Onset Problem Family history of Cancer Payers Payer name Insurance type Covered republican ID Narda blevins(s) [employer] [place] [id number] Social History Type Description Quantity Date Captured [...]
--- OUTSIDE RECORDS SUMMARY | 2024-07-21 14:00 | XMS_ITS | Referral Summary ---
Author Organization [facility] Address [address] [place] [phone] Care Team Providers Care Pulley Worker Name Role Phone Cheryl Kowalski Primary Care Provider [phone] Allergies No known active allergies Medications albuterol [...] on file Legal Sex Male 11:34 PM TRAFFIC OPERATIONS ENGINEER Gender Identity Not on file Sexual Orientation Not on file Last Filed Vital Signs Vital Sign Reading Time Taken Comments Blood Pressure 125/79 05/05/2019 6:53 PM TRAFFIC OPERATIONS ENGINEER Pulse 96 05/05/2019 6:53 PM TRAFFIC OPERATIONS ENGINEER Temperature 36.6 C (97.8 F) 05/05/2019 6:53 PM TRAFFIC OPERATIONS ENGINEER Respiratory Rate 18 05/05/2019 6:53 PM TRAFFIC OPERATIONS ENGINEER Oxygen Saturation 95% 05/05/2019 6:53 PM TRAFFIC OPERATIONS ENGINEER Inhaled Oxygen Concentration - - Weight 104.3 kg (230 lb) 06/17/2021 3:14 PM CDT Height 177.8 cm (5' 10 ) 06/17/2021 3:14 PM CDT Body Mass Index 33 06/17/2021 3:14 PM CDT Plan of Treatment Not on file Insurance Ti Knight OOS Ti Knight OOS * Guarantor: [employer] Account Type Relation to Patient Date of Phone Billing Address Workers Comp Employer [employer] Care Teams Pulley Worker Relationship Specialty Start Date End Date Cheryl Kowalski PA [address] [place] [address] PCP - General Family Medicine 06/17/21
--- OUTSIDE RECORDS SUMMARY | 2024-07-21 14:00 | XMS_ITS | Clinical Summary ---
Author Organization [facility] Address [address] [address] Phone Care Team Providers Care Ornamental Metal Erector Apprentice Name Role Phone Unavailable Primary Care Provider [...]
--- OUTSIDE RECORDS SUMMARY | 2024-07-21 14:00 | XMS_ITS | Patient Health Record ---
Author Organization [facility] [employer] Address [address] [place] [address] Care Team Providers Care Triple Air Valve Tester Name Role Phone Nancy MARTINEZ, Tarik Primary Care Provider Unavailab Carson Coreas Unavailable [phone] HemMery swanson Unavailable [phone] Allergies No Known Allergies Results Component Value Reference Range Notes DRUG MONITOR, MARIJUANA META B, QN, URINE (71314) Reviewed date:04/17/2024 05:19:07 PM Interpretation: Performing Lab:[facility]ANDEN, [employer] [id number] [facility], [place] - [facility] [id number] Marvin Valdez, Director - [address] [employer] Notes/Report: FASTING: NO Marijuana Metabolite 1831 <5 [...] analytical performance characteristics have been determined by [employer] It has not been cleared or approved by the FDA. This assay has been validated pursuant to the CLIA regulations and is used for clinical purposes. Healthcare Providers needing Interpretation assistance, please contact us at [phone] ( ) M-F, 8am to 10pm EST DRUG MONITOR, BENZO, QN, URI NE (21476) Reviewed date:04/17/2024 05:18:59 PM Interpretation: Performing Lab:CB, [facility] [address], [place] [id number] Marvin Valdez Notes/Report: FASTING: NO Alphahydroxyalprazolam 203 <25 ng/mL Alphahydroxymidazolam NEGATIVE <50 ng/mL Alphahydroxytriazolam NEGATIVE <50 ng/mL Aminoclonazepam NEGATIVE <25 ng/mL Hydroxyethylflurazepam NEGATIVE <50 ng/mL Lorazepam NEGATIVE <50 ng/mL Nordiazepam NEGATIVE <50 ng/mL Oxazepam NEGATIVE <50 ng/mL Temazepam NEGATIVE <50 ng/mL Benzodiazepines Comments See Benzodiazepines Notes, LDT Notes UDT Reviewed date:04/08/2024 04:17:18 PM Interpretation: Performing Lab: Notes/Report: THC P 0 - 50 ng/ml Cocaine N 0 - 300 ng/ml Amphetamine N 0 - 1000 ng/ml Buprenorphine (BUP) N 0 - 10 ng/ml Secobarbital (Bar) N 0 - 300 ng/ml Oxazepam (BZO) P 0 - 300 ng/ml 9-ndvzgzqydw-1,4-prbrfhmq-3, 3-dipheny lpyrrolidine (EDDP) N 0 - 300 ng/ml Methamphetamine (MET) N 0 - 1000 ng/ml Methylenedioxymethamphetamine (MDMA) N 0 - 500 ng/ml Morphine (MOP 300/IJJ4692) N 0 - 300 ng/ml Methadone (MTD) N 0 - 300 ng/ml Phencyclidine (PCP) N 0 - 25 ng/ml Nortriptyline (TCA) N 0 - 1000 ng/ml Oxycodone N 0 - 300 ng/ml x N 0 - 300 ng/ml UDT Reviewed date:05/02/2024 05:14:43 PM Interpretation: Performing Lab: Notes/Report: THC p 0 - 50 ng/ml Cocaine n 0 - 300 ng/ml Amphetamine n 0 - 1000 ng/ml Buprenorphine (BUP) n 0 - 10 ng/ml Secobarbital (Bar) n 0 - 300 ng/ml Oxazepam (BZO) p 0 - 300 ng/ml 1-wrmsuqosvl-2,5-hiwmmceg-4, 3-dipheny lpyrrolidine (EDDP) n 0 - 300 ng/ml Methamphetamine (MET) n 0 - 1000 ng/ml Methylenedioxymethamphetamine (MDMA) n 0 - 500 ng/ml Morphine (MOP 300/[id number]) n 0 - 300 ng/ml Methadone (MTD) [...] ONCE DAILY Oral for 90 Days Active buPROPion HCl ER (XL) 150 MG [...] Problem Status W/U Status Risk Notes Problem 31949770 Major depressive disorder, recurrent, moderate (F33.1) Active confirmed Problem 24435770 DARRIUS (generalized anxiety disorder) (F41.1) Active confirmed Problem ADHD (attention deficit hyperactivity disorder), inattentive 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) Active confirmed Problem 04338574 Poor concentrati on (R41.840) Active confirmed Vital Signs Heart Rate [...] N/A Encounters Encounter [facility] Date [facility] [address] [facility] [address] [place] [address] 04/08/2024 Carson Irving Major depressive disorder, recurrent, moderate F33.1 ; DARRIUS (generalized anxiety disorder) F41.1 and Poor concentration R41.840 [facility] [place] [address] [facility] [address] [place] [address] 05/02/2024 Carson Irving Lack of concentratio n R41.840 [facility] [place] [address] [facility] [address] [place] [address] 05/08/2024 Carson Aristides [facility] [place] [address] [facility] [address] [place] [address] 05/17/2024 Carson Nasham ADHD (attention defi cit hyperactivity disorder), inattentive type F90.0 ; Major depressive disorder, recurrent, moderate F33.1 ; DARRIUS (generalized anxiety disorder) F41.1 ; Encounter for screening for depression Z13.31 and Encounter for screening for cardiovascular disorders Z13.6 [facility] [place] [address] [facility] [address] [place] [address] 05/17/2024 Carson Irving Assessments Encounter Date Diagnosis (ICD Code) Assessment [...] his mother. 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 Plan Of Treatment No Information Insurance Providers Payer Name Payer Address Payer Phone Subscriber Number Group Number Insured Name Patient Relationship to Insured Coverage Start Date Coverage End Date [employer] [address] [place] [address] [id number] Dayne Oviedo Self - patient is the insured Medical (General) History Medical History History ICD Code Past Psychiatric History: Anxiety Disord er,Panic Disorder,Bipolar Disorder Surgical History Surgery Date(Month/Year) chin harrison
--- OUTSIDE RECORDS SUMMARY | 2024-07-21 14:00 | XMS_ITS | Clinical Summary ---
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 Gender Identity Not on file Sexual Orientation Not on file Obstetrics History Last Filed Vital Signs Vital Sign Reading Time Taken Comments Blood Pressure 125/79 05/05/2019 6:53 PM CONDITIONING YARD SUPERVISOR Pulse 96 05/05/2019 6:53 PM CONDITIONING YARD SUPERVISOR Temperature 36.6 C (97.8 F) 05/05/2019 6:53 PM CONDITIONING YARD SUPERVISOR Respiratory Rate 18 05/05/2019 6:53 PM CONDITIONING YARD SUPERVISOR Oxygen Saturation 95% 05/05/2019 6:53 PM CONDITIONING YARD SUPERVISOR Inhaled Oxygen Concentration - - Weight 104.3 [...] 5 season) 2023 07/15/2020, 06/17/2020 Influenza Vaccine (Season Ended) 2024 03/10/2021 Pneumococcal vaccine <65 Aged Out No longer eligible based on patient's age to complete this topic Insurance [facility] OOS BLUE ACCESS OOS * Guarantor: AMAZON Account Type Relation to Patient Date of Phone Billing Address Workers Comp Employer [employer] Care Teams Environmental Technical Officer Relationship Specialty Start Date End Date Cheryl Kowalski PA [address] [place] [address] PCP - General Family Medicine 06/17/21
[2024-07-21 14:17] VITALS: BP 130/68; PULSE 80; RESP 18; TEMP 36.1; O2SAT 98
--- NOTE | 2024-07-21 15:20 | ED_ITS ---
HPI - Abdominal Pain General Chief Complaint: Abdominal Pain <Cyndi Ridley PA-C - Last Filed: 07/21/24 15:21> Stated Complaint: ABD PAIN, HX ULCERS <Cyndi Ridley PA-C - Last Filed: 07/21/24 15:21> Time Seen by Provider: 07/21/24 15:45 <Cyndi Ridley PA-C - Last Filed: 07/21/24 15:21> Focused HPI: 48-year-old male with reported history of gastric ulcers diverticulitis presents emergency department for left lower quadrant abdominal pain since 11:00 a.m. this morning. Reports associated nausea and vomiting. Denies fever, dysuria or hematuria, diarrhea, melena or hematochezia. Last bowel movement was today and normal. Endorses history of cholecystectomy. His GI physician is at [place]. GENERAL: Appears uncomfortable, otherwise NAD HEAD: Normocephalic, atraumatic. CHEST: Clear to auscultation. No respiratory distress. ABD: The tenderness involuntary guarding to the left lower quadrant. No rebound or rigidity. HEART: Regular rate and rhythm. NEURO: Alert and oriented x3. Patient screened in triage and initial orders placed. Additional care and disposition to be based upon diagnostic testing and treatment. <Cyndi Ridlye PA-C - Last Filed: 07/21/24 15:21> History of Present Illness HPI narrative: Agree the HPI. Pain began this morning associated with 2 loose stools that have mucus but no blood. <Best Tran MD - Last Filed: 07/21/24 19:47> Related Data Allergies/Adverse Reactions: Allergies Allergy/AdvReac Type Severity Reaction Status Date / Time gluten AdvReac Mild Nausea Verified 07/21/24 13:58 milk AdvReac Mild bloating Verified 07/21/24 13:58 <Cyndi Ridley PA-C - Last Filed: 07/21/24 15:21> Review of Systems 2 Review of Systems: All systems reviewed & are unremarkable except as noted in HPI and below <Best Tran MD - Last Filed: 07/21/24 19:47> Constitutional: Constitutional: Reports no additional constitutional complaints <Best Tran MD - Last Filed: 07/21/24 19:47> Cardiovascular: Cardiovascular: Reports no additional cardiovascular complaints <Best Tran MD - Last Filed: 07/21/24 19:47> Respiratory: Respiratory: Reports no additional respiratory complaints < Best Tran MD - Last Filed: 07/21/24 19:47> Gastrointestinal: Gastrointestinal: Reports no additional gastrointestinal complaints <Best Tran MD - Last Filed: 07/21/24 19:47> [facility] Past Medical History Medical History: Medical History Moderate persistent asthma with acute exacerbation Unspecified asthma, uncomplicated Gynecomastia Erosive esophagitis Gastritis Diverticulosis Asthma Irritable bowel syndrome Depression Generalized anxiety disorder Bipolar disorder, unspecified Celiac disease Gastroesophageal reflux disease <Cyndi Ridley PA-C - Last Filed: 07/21/24 15:21> Surgical History Surgical History: Surgical History History of cholecystectomy 02/2016 <Cyndi Ridley PA-C - Last Filed: 07/21/24 15:21> Family History Family History: Family History Father No problems noted. Mother No problems noted. <Cyndi Ridley PA-C - Last Filed: 07/21/24 15:21> Social History Social History: Social History Smoking status: Never smoker Second hand tobacco smoke exposure: No Alcohol intake: never Substance use: current Substance use type: marijuana Lack of Transportation: No Lack of Food: Never True Current Housing: I Have Housing Concerned About Future Housing: No Difficulty Paying Gas/Electric Bills: No Difficulty Paying for Meds: No Currently Unemployed: No Education: High School Diploma/GED Difficulty w/ Childcare or Family Care: No Living arrangements: with family Occupation/Education: occupation Gender identity (if verbalized by the patient): Male Sexual Orientation (if Verbalized by the Patient): Straight or Heterosexual <Cyndi Ridley PA-C - Last Filed: 07/21/24 15:21> Exam 2 Narrative: GENERAL: Well-appearing, well-nourished, and in no acute distress. HEAD: Normocephalic, atraumatic. ENT: Mucous membranes moist. CHEST: Clear to auscultation. No respiratory distress. HEART: Regular rate and rhythm. Normal peripheral pulses. ABDOMEN: Soft, mild diffuse discomfort without guarding, nondistended. EXTREMITIES: Normal range of motion. No edema. SKIN: Warm, dry, no rash. NEURO: Alert and oriented x3. PSYCH: Normal mood and affect. <Best Tran MD - Last Filed: 07/21/24 19:47> Course Course Emergency Course: Discussed with GI. Feel symptoms reflect acute enteritis/colitis as opposed to chronic inflammatory bowel disease. Recommend treatment with Levaquin and he will follow up the patient in clinic. Patient verbalized understanding treatment plan. Discharge. <Best Tran MD - Last Filed: 07/21/24 19:47> Vital Signs Vital signs: Vital Signs Temperature 97 F L 07/21/24 14:17 Pulse Rate 80 07/21/24 14:17 Respiratory Rate 18 07/21/24 14:17 Blood Pressure 130/68 07/21/24 14:17 Pulse Oximetry 98 07/21/24 14:17 Oxygen Delivery Room Air 07/21/24 14:17 Temperature 97 F L 07/21/24 14:17 Pulse Rate 60 07/21/24 18:32 Respiratory Rate 18 07/21/24 18:32 Blood Pressure 133/95 H 07/21/24 18:32 Pulse Oximetry 99 07/21/24 18:32 Oxygen Delivery Room Air 07/21/24 14:17 <Cyndi Ridley PA-C - Last Filed: 07/21/24 15:21> Vital Signs Temperature 97 F L 07/21/24 14:17 Pulse Rate 80 07/21/24 14:17 Respiratory Rate 18 07/21/24 14:17 Blood Pressure 130/68 07/21/24 14:17 Pulse Oximetry 98 07/21/24 14:17 Oxygen Delivery Room Air 07/21/24 14:17 Temperature 97 F L 07/21/24 14:17 Pulse Rate 60 07/21/24 18:32 Respiratory Rate 18 07/21/24 18:32 Blood Pressure 133/95 H 07/21/24 18:32 Pulse Oximetry 99 07/21/24 18:32 Oxygen Delivery Room Air 07/21/24 14:17 <Best Tran MD - Last Filed: 07/21/24 19:47> MDM - Abdominal Pain Lab Data Result diagrams: 07/21/24 16:02 07/21/24 16:02 <Cyndi Ridley PA-C - Last Filed: 07/21/24 15:21> Labs: Lab Results 07/21/24 07/21/24 Range/Units 16:02 17:56 WBC 7.0 (4.5-10.0) K/mm3 RBC 5.26 (4.6-6.20) M/mm3 Hgb 15.6 (14.0-18.0) g/dL Hct 46.8 (42.0-52.0) % MCV 89.0 (80-100) fl MCH 29.7 (26-34) pg MCHC 33.3 (32-36) g/dl RDW 15.0 H (11.5-14.5) % Plt Count 115 L (150-375) k/mm3 MPV 9.2 (7.4-10.4) fl Immature Gran % (Auto) 0.3 (0-0.5) % Neut % (Auto) 80.5 H (45.5-73.1) % Lymph % (Auto) 11.9 L (18.3-44.2) % [place] % (Auto) 6.3 (2.6-8.5) % Eos % (Auto) 0.6 (0-4.4) % Baso % (Auto) 0.4 (0.2-1.2) % Lymph # (Auto) 0.83 L (0.9-3.2) K/mm3 [place] # (Auto) 0.4 (0.1-0.6) K/mm3 Eos # (Auto) 0.0 (0-0.3) K/mm3 Baso # (Auto) 0.0 (0.0-0.1) K/mm3 Abs Immat Gran (auto) 0.02 (0.00-0.031) K/mm3 Absolute Neuts (auto) 5.6 (1.3-6.7) K/mm3 Absolute Nucleated RBC 0.000 (0.0-0.012) K/mm3 Nucleated RBC % 0.0 (0.0-0.2) % % Immature Plt Fraction 1.5 (0.9-11.2) % Sodium 139 (137-145) mmol/L Potassium 3.6 (3.4-5.0) mmol/L Chloride 105 (98-107) mmol/L Carbon Dioxide 24 (22-30) mmol/L Anion Gap 10 (4-12) mmol/L BUN 11 (9-20) mg/dL Creatinine 0.64 L (0.7-1.3) mg/dL Estim Creat Clear Calc 119 ml/min Estimated GFR > 60 (59 - ) Glucose 127 H (65-110) mg/dL Calcium 9.2 (8.4-10.2) mg/dL Total Bilirubin 1.7 H (0.2-1.3) mg/dL AST 52 (17-59) U/L ALT 53 H (6-50) U/L Alkaline Phosphatase 102 (38-126) U/L Total Protein 8.0 (6.3-8.2) g/dL Albumin 4.8 (3.5-5.1) g/dL Lipase 68 (23-300) U/L Urine Color Yellow (Yellow) Urine Appearance Clear (Clear) Urine pH >=9.0 H (5.0-9.0) Ur Specific [place] > 1.045 H (1.001-1.035) Urine Protein Trace (Negative) mg/dL Urine Glucose (UA) Negative (Negative) mg/dL Urine Ketones Trace H (Negative) mg/dL Ur Blood (Man) Negative (Negative) Urine Nitrate Negative (Negative) Urine Bilirubin Negative (Negative) Urine Urobilinogen 1.0 (<2.0) mg/dL Leukocyte Esterase Rfl Negative (Negative) IMAN/UL Urine RBC 0-2 (0-2) /hpf Urine WBC 0-5 (0-3) /hpf Ur Squamous Epith Cells None seen (Few) /hpf Urine Bacteria None seen /hpf Urine Casts 0-2 <Cyndi Ridley PA-C - Last Filed: 07/21/24 15:21> Lab Results 07/21/24 07/21/24 Range/Units 16:02 17:56 WBC 7.0 (4.5-10.0) K/mm3 RBC 5.26 (4.6-6.20) M/mm3 Hgb 15.6 (14.0-18.0) g/dL Hct 46.8 (42.0-52.0) % MCV 89.0 (80-100) fl MCH 29.7 (26-34) pg MCHC 33.3 (32-36) g/dl RDW 15.0 H (11.5-14.5) % Plt Count 115 L (150-375) k/mm3 MPV 9.2 (7.4-10.4) fl Immature Gran % (Auto) 0.3 (0-0.5) % Neut % (Auto) 80.5 H (45.5-73.1) % Lymph % (Auto) 11.9 L (18.3-44.2) % [place] % (Auto) 6.3 (2.6-8.5) % Eos % (Auto) 0.6 (0-4.4) % Baso % (Auto) 0.4 (0.2-1.2) % Lymph # (Auto) 0.83 L (0.9-3.2) K/mm3 [place] # (Auto) 0.4 (0.1-0.6) K/mm3 Eos # (Auto) 0.0 (0-0.3) K/mm3 Baso # (Auto) 0.0 (0.0-0.1) K/mm3 Abs Immat Gran (auto) 0.02 (0.00-0.031) K/mm3 Absolute Neuts (auto) 5.6 (1.3-6.7) K/mm3 Absolute Nucleated RBC 0.000 (0.0-0.012) K/mm3 Nucleated RBC % 0.0 (0.0-0.2) % % Immature Plt Fraction 1.5 (0.9-11.2) % Sodium 139 (137-145) mmol/L Potassium 3.6 (3.4-5.0) mmol/L Chloride 105 (98-107) mmol/L Carbon Dioxide 24 (22-30) mmol/L Anion Gap 10 (4-12) mmol/L BUN 11 (9-20) mg/dL Creatinine 0.64 L (0.7-1.3) mg/dL Estim Creat Clear Calc 119 ml/min Estimated GFR > 60 (59 - ) Glucose 127 H (65-110) mg/dL Calcium 9.2 (8.4-10.2) mg/dL Total Bilirubin 1.7 H (0.2-1.3) mg/dL AST 52 (17-59) U/L ALT 53 H (6-50) U/L Alkaline Phosphatase 102 (38-126) U/L Total Protein 8.0 (6.3-8.2) g/dL Albumin 4.8 (3.5-5.1) g/dL Lipase 68 (23-300) U/L Urine Color Yellow (Yellow) Urine Appearance Clear (Clear) Urine pH >=9.0 H (5.0-9.0) Ur Specific [place] > 1.045 H (1.001-1.035) Urine Protein Trace (Negative) mg/dL Urine Glucose (UA) Negative (Negative) mg/dL Urine Ketones Trace H (Negative) mg/dL Ur Blood (Man) Negative (Negative) Urine Nitrate Negative (Negative) Urine Bilirubin Negative (Negative) Urine Urobilinogen 1.0 (<2.0) mg/dL Leukocyte Esterase Rfl Negative (Negative) IMAN/UL Urine RBC 0-2 (0-2) /hpf Urine WBC 0-5 (0-3) /hpf Ur Squamous Epith Cells None seen (Few) /hpf Urine Bacteria None seen /hpf Urine Casts 0-2 <Best Tran MD - Last Filed: 07/21/24 19:47> Imaging Data Radiologist's impression: ITS Impressions Abdomen/Pelvis CT 07/21/24 16:38 IMPRESSION: Findings consistent with a diffuse pancolitis, as detailed above. <Cyndi Ridley PA-C - Last Filed: 07/21/24 15:21> ITS Impressions Abdomen/Pelvis CT 07/21/24 16:38 IMPRESSION: Findings consistent with a diffuse pancolitis, as detailed above. <Best Tran MD - Last Filed: 07/21/24 19:47> Discharge Plan Discharge Clinical Impression: Colitis <Cyndi Ridley PA-C - Last Filed: 07/21/24 15:21> Patient Disposition: Home <Cyndi Ridley PA-C - Last Filed: 07/21/24 15:21> Condition: Stable <Cyndi Ridley PA-C - Last Filed: 07/21/24 15:21> Instructions: Antibiotic Form, Colitis (ED) <SABINE Mcfarlane Last Filed: 07/21/24 15:21> Additional Instructions: Please drink plenty of fluids at home. Return to the emergency department if you develop high fevers, have persistent severe abdominal pain, or have bloody stools or vomit, as these could be signs of a more serious medical emergency. Return to the emergency department if you are unable to keep down liquids because of severe nausea/vomiting. <SABINE Mcfarlane Last Filed: 07/21/24 15:21> Patient Language: Central African <Cyndi Ridley PA-C - Last Filed: 07/21/24 15:21> Prescriptions: New levofloxacin 500 mg tablet 500 mg PO DAILY Qty: 5 0RF cyclobenzaprine 10 mg tablet 10 mg PO TID PRN (Reason: muscle spasm) Qty: 20 0RF simethicone 125 mg capsule 125 mg PO QID Qty: 20 0RF Rx Instructions: administer after meals and at bedtime No Action escitalopram oxalate 10 mg tablet 10 mg PO DAILY Qty: 30 2RF albuterol sulfate [Ventolin HFA] 90 mcg/actuation HFA aerosol inhaler 1 inhalation INHALATION Q4H PRN (Reason: shortness of breath or wheezing) Qty: 18 3RF pantoprazole 40 mg tablet,delayed release (DR/EC) See Rx Instructions .ROUTE .COMPLEX Qty: 90 1RF Dose Instruction: Take 1 tablet by mouth once daily Rx Instructions: Take 1 tablet by mouth once daily alprazolam 1 mg tablet 1 mg PO TID Qty: 90 0RF diclofenac sodium 75 mg tablet,delayed release (DR/EC) 75 mg PO BID Qty: 30 0RF <SABINE Mcfarlane Last Filed: 07/21/24 15:21> Follow-up/Referrals: Tarik Cruz MD [Primary Care Provider] - Sen De La Vega MD [Physician] - 1 Week <SABINE Mcfarlane Last Filed: 07/21/24 15:21>
--- NOTE | 2024-07-21 15:45 | PC.NURSE ---
pt unable to provide urine sample at this time
--- OUTSIDE RECORDS SUMMARY | 2024-07-21 15:57 | XMS_ITS | Referral Summary ---
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 Gender Identity Not on file Sexual Orientation Not on file Last Filed Vital Signs Vital Sign Reading Time Taken Comments Blood Pressure 125/79 05/05/2019 6:53 PM DESIGN AND SALES CONSULTANT Pulse 96 05/05/2019 6:53 PM DESIGN AND SALES CONSULTANT Temperature 36.6 C (97.8 F) 05/05/2019 6:53 PM DESIGN AND SALES CONSULTANT Respiratory Rate 18 05/05/2019 6:53 PM DESIGN AND SALES CONSULTANT Oxygen Saturation 95% 05/05/2019 6:53 PM DESIGN AND SALES CONSULTANT Inhaled Oxygen Concentration - - Weight 104.3 kg (230 lb) 06/17/2021 3:14 PM CDT Height 177.8 cm (5' 10 ) 06/17/2021 3:14 PM CDT Body Mass Index 33 06/17/2021 3:14 PM CDT Plan of Treatment Not on file Insurance [employer] OOS [employer] OOS * Guarantor: AMAZ[employer] Account Type Relation to Patient Date of Phone Billing Address Workers Comp Employer [employer] Care Teams Investment Advisor Relationship Specialty Start Date End Date Cheryl Kowalski PA [address] [place] [id number] PCP - General Family Medicine 06/17/21
--- OUTSIDE RECORDS SUMMARY | 2024-07-21 15:57 | XMS_ITS | Clinical Summary ---
Author Organization [facility] Address [address] [place] [address] Care Team Providers Care Greenhouse Instructor Name Role Phone Unavailable Primary Care Provider Unavailabl e Source Comments [facility],non-owned Affiliates and Associated Physician Practices is amultiple site organization consisting of ambulatory clinics and hospital sitesin [place], [place], [place] and [place]. This disclosure is being madepursuant to the Care Everywhere program and may not contain all information available regarding this patient. 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 Gender Identity Not on file Sexual Orientation Not on file Last Filed Vital Signs Vital Sign Reading Time Taken Comments Blood Pressure 140/76 04/27/2017 11:30 PM FOOD AND BEVERAGE DIRECTOR Pulse 106 04/27/2017 11:30 PM FOOD AND BEVERAGE DIRECTOR Temperature 37.4 C (99.4 F) 04/27/2017 9:44 PM FOOD AND BEVERAGE DIRECTOR Respiratory Rate 11 04/27/2017 11:30 PM FOOD AND BEVERAGE DIRECTOR Oxygen Saturation 97% 04/27/2017 11:30 PM FOOD AND BEVERAGE DIRECTOR Inhaled Oxygen Concentration - - Weight 86.2 kg (190 lb) 04/27/2017 9:44 PM FOOD AND BEVERAGE DIRECTOR Height 177.8 cm (5' 10 ) 04/27/2017 9:44 PM FOOD AND BEVERAGE DIRECTOR Body Mass Index 27.26 04/27/2017 9:44 PM FOOD AND BEVERAGE DIRECTOR Plan of Treatment Health Maintenance Due Date [...]
--- OUTSIDE RECORDS SUMMARY | 2024-07-21 15:57 | XMS_ITS | Clinical Summary ---
Author Organization [facility] Address [address] [address] Phone Care Team Providers Care Authorizer Name Role Phone Unavailable Primary Care Provider [...]
--- OUTSIDE RECORDS SUMMARY | 2024-07-21 15:57 | XMS_ITS | Continuity of Care Document ---
Author Organization [facility] Address [address] [place] [address] Phone Care Team Providers Care Car Ferrier Name Role Phone Ron Rivera MD Unavailable [...] Active alprazolam 1 mg tablet - Act amry jo metformin ER 500 mg tablet,extended release [...] - Active Procedures Procedure Date OFFICE/OUTPATIENT VISIT, [facility] NASAL ENDOSCOPY, DX SPEECH AUDIOMETRY, COMPLETE PURE TONE AUDIOMETRY, AIR TYMPANOMETRY Advance Directives Directive Yes / No Effective Date File Name No Information Encounters Encounter Description Practice Location Reason(s) For Visit Diagnoses Date Provider Providers Copied on Encounter [facility] [place], [address], [place], [place], [id number], tel:[phone] [address] [place] [address] No Information 4 Miguel Velasquez. [address], [place], [place], [id number] , [place]. tel:[phone] OFFICE/OUTPA TIENT VISIT, [facility] [place], [address] [address], [place], [place], [id number], tel:[phone] [address] [place] [address] Left ear stopped up/loss of sense of smell. (chief complaint) Other abnormal auditory perceptions, bilateralAnosmi aChronic sinusitis, unspecified 2 Miguel Velasquez. [address], [place], [place], [id number] , [place]. tel:[phone] Referring Provider: Blayne Whitaker, [address], [place], [address]. tel:[phone] Family History Family Member Type Diagnosis Age At Onset Problem Family history of Cancer Payers Payer name Insurance type Covered constitution party ID Narda blevins(s) [facility] [id number] Social History Type Description Quantity Date Captured [...]
--- OUTSIDE RECORDS SUMMARY | 2024-07-21 15:57 | XMS_ITS | Clinical Summary ---
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 Gender Identity Not on file Sexual Orientation Not on file Obstetrics History Last Filed Vital Signs Vital Sign Reading Time Taken Comments Blood Pressure 125/79 05/05/2019 6:53 PM MOTHERCRAFT NURSE Pulse 96 05/05/2019 6:53 PM MOTHERCRAFT NURSE Temperature 36.6 C (97.8 F) 05/05/2019 6:53 PM MOTHERCRAFT NURSE Respiratory Rate 18 05/05/2019 6:53 PM MOTHERCRAFT NURSE Oxygen Saturation 95% 05/05/2019 6:53 PM MOTHERCRAFT NURSE Inhaled Oxygen Concentration - - Weight 104.3 [...] patient's age to complete this topic Insurance [facility] OOS BLUE ACCESS OOS * Guarantor: [employer] Account Type Relation to Patient Date of Phone Billing Address Workers Comp Employer [employer] Care Teams Nurse Tech Relationship Specialty Start Date End Date Cheryl Kowalski [place] [address] [place] [address] PCP - General Family Medicine 06/17/21
[2024-07-21 16:11] LABS: Basophils Percent Auto 0.4 % (0.2-1.2); Eosinophils Percent Auto 0.6 % (0-4.4); Hematocrit 46.8 % (42.0-52.0); Hemoglobin 15.6 g/dL (14.0-18.0); Immature Granulocyte Absolute 0.02 K/mm3 (0.00-0.031); Immature Granulocyte Percent A 0.3 % (0-0.5); Immature Platelet Fraction Pct 1.5 % (0.9-11.2); Lymphocytes Absolute Auto 0.83 K/mm3 (0.9-3.2); Lymphocytes Percent Auto 11.9 % (18.3-44.2); Mean Corpuscular HGB Conc 33.3 g/dl (32-36); Mean Corpuscular Hemoglobin 29.7 pg (26-34); Mean Platelet Volume 9.2 fl (7.4-10.4); Monocytes Absolute Auto 0.4 K/mm3 (0.1-0.6); Monocytes Percent Auto 6.3 % (2.6-8.5); Neutrophils Absolute Auto 5.6 K/mm3 (1.3-6.7); Neutrophils Percent Auto 80.5 % (45.5-73.1); Platelet Count Result 115 k/mm3 (150-375); Red Blood Count 5.26 M/mm3 (4.6-6.20)
[2024-07-21 16:19] LABS: Alanine Aminotransferase 53 U/L (6-50); Albumin Level 4.8 g/dL (3.5-5.1); Alkaline Phosphatase 102 U/L (38-126); Anion Gap 10 mmol/L (4-12); Aspartate Amino Transferase 52 U/L (17-59); Bilirubin,Total 1.7 mg/dL (0.2-1.3); Blood Urea Nitrogen 11 mg/dL (9-20); Calcium 9.2 mg/dL (8.4-10.2); Carbon Dioxide 24 mmol/L (22-30); Chloride 105 mmol/L (98-107); Estimated CRCL calculation 119 ml/min; Estimated Glomerular Filt Rate > 60; Glucose 127 mg/dL (65-110); Lipase 68 U/L (23-300); Potassium 3.6 mmol/L (3.4-5.0); Sodium 139 mmol/L (137-145)
[2024-07-21] MEDS: ONDANSETRON INJ 4 MG/2 ML VIAL IV PUSH (17:04)
[2024-07-21] MEDS: MORPHINE SULFATE (*CRX) 4 MG/ML INJ IV PUSH ×2 (17:04→18:30)
--- NOTE | 2024-07-21 17:07 | PC.NURSE ---
pt reminded of need for urine sample. states he can't go, refuses straight cath
[2024-07-21 18:04] LABS: Add Urine Microscopic? YES; Appearance Urine Clear (Clear); Bacteria Urine None Seen /hpf; Bilirubin Urine Negative (Negative); Blood Urine Negative (Negative); Color Urine Yellow (Yellow); Glucose Urine UA Negative (Negative); Ketones Urine Trace mg/dL (Negative); Leukocyte Esterase Ur Negative LEU/UL (Negative); Nitrate Urine Negative (Negative); Non Pathogenic Casts 0-2; Protein Urine Trace mg/dL (Negative); RBC Urine 0-2 /hpf (0-2); Specific Grav Ur > 1.045 (1.001-1.035); Squamous Epithelial Cell Urine None Seen /hpf (Few); WBC Urine 0-5 /hpf (0-3); pH Urine >=9.0 (5.0-9.0)
[2024-07-21] MEDS: DICYCLOMINE HCL INJ 20 MG/2 ML VIAL IM (18:30)
[2024-07-21] MEDS: SODIUM CHLORIDE 0.9% IV 1,000 ML 999 ML IV CONT (18:31)
[2024-07-21 18:32] VITALS: BP 133/95; PULSE 60; RESP 18; O2SAT 99
[2024-07-21 20:34] VITALS: BP 139/81; PULSE 76; RESP 16; O2SAT 96
== END 2024-07-21 20:45 | disposition home or self-care (01) ==
PROVIDERS: Physician Assistant; Emergency Provider Emergency Medicine; PCP Family Medicine
DX: K52.9 Noninfective gastroenteritis and colitis, unspecified (principal); J45.40 Moderate persistent asthma, uncomplicated; K58.9 Irritable bowel syndrome, unspecified; K90.0 Celiac disease; K21.9 Gastro-esophageal reflux disease without esophagitis; F41.1 Generalized anxiety disorder; F31.9 Bipolar disorder, unspecified; Z90.49 Acquired absence of other specified parts of digestive tract; Z79.899 Other long term (current) drug therapy
CPT/HCPCS: 36415; 74177; 80053; 81001; 83690; 85025; 85055; 96361; 96372; 96374; 96375; 96376; 99284; J0500; J2270; J2405; J7030; Q9967

== ENCOUNTER 2024-08-09 14:19 | Emergency (ER) | payer BC, SELFPAY ==
--- NOTE | ~2024-08-09 | CT_ITS ---
EXAMINATION: CT abdomen pelvis w con DATE: 08/09/2024 15:47 INDICATION: Left lower quadrant abdominal pain TECHNIQUE: Computed tomography (CT) of the abdomen and pelvis was performed with 100 mL Omnipaque-350 intravenous contrast. Automated exposure control and iterative reconstruction technique were employe d. The dose-length product was 480.81 mGy-cm. COMPARISON: 07/21/2024 FINDINGS: Lung bases are clear. Heart size is normal. No pericardial or pleural effusion. Cholecystectomy clips at the gallbladder fossa. Liver, pancreas, bilateral adrenal glands and kidneys are normal. Nonspeci fic splenomegaly measuring 15.9 cm in length. Again seen is diffuse mild colonic wall thickening most prominent at the transverse and descending colon suspicious for colitis. Normal appendix. No bowel o bstruction. Bladder is normal. Mild prostatomegaly measuring 4.6 x 2.8 cm. Small fat-containing right inguinal hernia. No free intraperitoneal gas or fluid. No pathologically enlarged abdominal or pelvi c lymphadenopathy. Mild scattered degenerative skeletal changes in the spine and at the bilateral sac roiliac joints. IMPRESSION: 1. Diffuse wall thickening of the colon suspicious for colitis which could be infectious, inflammator y or ischemic etiology. 2. Nonspecific splenomegaly measuring 15.9 cm in length. Reviewed, dictated and finalized at location A. IMPRESSION: 1. Diffuse wall thickening of the colon suspicious for colitis which could be i nfectious, inflammatory or ischemic etiology. 2. Nonspecific splenomegaly measuring 15.9 cm in length.
[2024-08-09 14:19] VITALS: BP 129/55; PULSE 75; RESP 22; TEMP 36.7; O2SAT 98
--- OUTSIDE RECORDS SUMMARY | 2024-08-09 14:21 | XMS_ITS | Clinical Summary ---
Author Organization [facility] Address [address] [address] Phone Care Team Providers Care Computer System Technician Name Role Phone Unavailable Primary Care Provider [...]
--- OUTSIDE RECORDS SUMMARY | 2024-08-09 14:21 | XMS_ITS | Patient Health Record ---
Author Organization [facility] Address [address] [facility] [address] [place] [address] Care Team Providers Care Blood Donor Recruiter Supervisor Name Role Phone Nancy MARTINEZ, Tarik Primary Care Provider Unavailab dasia NashEva mccrayy Unavailable [phone] Spike Mery Unavailable [phone] Allergies No Known Allergies Results Component Value Reference Range Notes UDT Reviewed date:04/08/2024 04:17:18 PM Interpretation: Performing Lab: Notes/Report: THC P 0 - 50 ng/ml Cocaine N 0 - 300 ng/ml Amphetamine N 0 - 1000 ng/ml Buprenorphine (BUP) N 0 - 10 ng/ml Secobarbital (Bar) N 0 - 300 ng/ml Oxazepam (BZO) P 0 - 300 ng/ml 8-mnzjpetnyo-8,1-ndxnxabj-8, 3-dipheny lpyrrolidine (EDDP) N 0 - 300 ng/ml Methamphetamine (MET) N 0 - 1000 ng/ml Methylenedioxymethamphetamine (MDMA) N 0 - 500 ng/ml Morphine (MOP 300/WBC4785) N 0 - 300 ng/ml Methadone (MTD) [...] Oxazepam (BZO) p 0 - 300 ng/ml 2-jwmiwecvik-4,0-aztdotxv-3, 3-dipheny lpyrrolidine (EDDP) n 0 - 300 ng/ml Methamphetamine (MET) n 0 - 1000 ng/ml Methylenedioxymethamphetamine (MDMA) n 0 - 500 ng/ml Morphine (MOP 300/VML1499) n 0 - 300 ng/ml Methadone (MTD) n 0 - 300 ng/ml Phencyclidine (PCP) n 0 - 25 ng/ml Nortriptyline (TCA) n 0 - 1000 ng/ml Oxycodone n 0 - 300 ng/ml x n 0 - 300 ng/ml DRUG MONITOR, BENZO, QN, URI NE ([id number]) Reviewed date:04/17/2024 05:18:59 PM Interpretation: Performing Lab:[facility] [id number] Marvin Valdez Notes/Report: FASTING: NO Alphahydroxyalprazolam 203 <25 ng/mL Alphahydroxymidazolam NEGATIVE <50 ng/mL Alphahydroxytriazolam NEGATIVE <50 ng/mL Aminoclonazepam NEGATIVE <25 ng/mL Hydroxyethylflurazepam NEGATIVE <50 ng/mL Lorazepam NEGATIVE <50 ng/mL Nordiazepam NEGATIVE <50 ng/mL Oxazepam NEGATIVE <50 ng/mL Temazepam NEGATIVE <50 ng/mL Benzodiazepines Comments See Benzodiazepines Notes, LDT Notes DRUG MONITOR, MARIJUANA META B, QN, URINE ([id number]) Reviewed date:04/17/2024 05:19:07 PM Interpretation: Performing Lab:[facility] [email or web address] [id number] Marvin Valdez, Director - [address] [facility] Notes/Report: FASTING: NO Marijuana Metabolite 1831 <5 [...] analytical performance characteristics have been determined by [employer]. It has not been cleared or approved by the FDA. This assay has been validated pursuant to the CLIA regulations and is used for clinical purposes. 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 confirmed Problem 58862942 Poor concentration (R41.840) Active confirmed Vital Signs [...] N/A Encounters Encounter Location Date Provider Diagnosis [place] [address] [facility] [address] [facility] [address] [place] [address] 04/08/2024 Carson Irving Major depressive disorder, recurrent, moderate F33.1 ; DARRIUS (generalized anxiety disorder) F41.1 and Poor concentration R41.[address] [facility] [address] [place] [address] 05/02/2024 Carson Irving Lack of concentratio n R41.[address] [address] 05/08/2024 Carson Irving [address] [address] 05/17/2024 Carson Irving ADHD (attention defi cit hyperactivity disorder), inattentive type F90.0 ; Major depressive disorder, recurrent, moderate F33.1 ; DARRIUS (generalized anxiety disorder) F41.1 ; Encounter for screening for depression Z13.31 and Encounter for screening for cardiovascular disorders Z13.[address] [address] 05/17/2024 Carson Irving Assessments Encounter Date Diagnosis [...] his mother. Patient is working in a [employer] from 6 a.m. to 5 p.m. daily [...] Insured Coverage Start Date Coverage End Date [facility] [address] [place] [address] [id number] Dayne Oviedo Self - patient is the insured Medical (General) History Medical History History ICD Code Past Psychiatric History: Anxiety Disord er,Panic Disorder,Bipolar Disorder Surgical History Surgery Date(Month/Year) chin harrison
--- OUTSIDE RECORDS SUMMARY | 2024-08-09 14:21 | XMS_ITS ---
Author Organization [facility] Address [address] [place] [address] Care Team Providers Care Color Printer Operator Name Role Phone Nancy MARTINEZ, Tarik Primary Care Provider Unavailab dasia NashamHungCarson Unavailable [phone] Mery Nicholson Unavailable [phone] REASON FOR VISIT New Patient Social History Sex Assigned At : Social History Observation Description Sex Assigned At Male Encounters Encounter Location Date Provider Diagnosis [facility] [address] [facility] [address] [place] [address] 07/03/2024 Mery Nicholson Plan Of Treatment No Information Progress Notes * Dayne SAMDOB: [birth year] (48 yo M)Acc No.[id number]:07/03/2024 Patient: Dayne GORDILLO Provider: Dalila NICHOLSON LCSW :1975 A ge:48 Y S ex:Male Date:07/03/2024 Phone: Address:[address] [facility] Pcp:Tarik Cruz MD Data: * Chief Complaints: * 1 . New Patient. * Medical History: * Vitals: Assessment: Plan: * Treatment: * Billing Information: * Visit Code: * Procedure Codes: * Electronic signature of Mery Nicholson LCSW on 08/09/2024 at 02:20 PM CDT Sign off status: Pending Signatures: No Ad Hoc Signature Added * Provider: Dalila NICHOLSON LCSW Date: 07/03/2024 Generated for Bekai ng/Famarkelg/eTransmitting on: 08/09/2024 02:20 PM CDT
--- OUTSIDE RECORDS SUMMARY | 2024-08-09 14:56 | XMS_ITS | Clinical Summary ---
Author Organization [facility] Address [address] [address] Phone Care Team Providers Care Transcriber Name Role Phone Unavailable Primary Care Provider [...]
[2024-08-09 14:59] LABS: Basophils Percent Auto 0.6 % (0.2-1.2); Eosinophils Absolute Auto 0.2 K/mm3 (0-0.3); Eosinophils Percent Auto 2.7 % (0-4.4); Hematocrit 45.8 % (42.0-52.0); Immature Granulocyte Absolute 0.02 K/mm3 (0.00-0.031); Immature Granulocyte Percent A 0.3 % (0-0.5); Immature Platelet Fraction Pct 1.5 % (0.9-11.2); Lymphocytes Absolute Auto 1.15 K/mm3 (0.9-3.2); Lymphocytes Percent Auto 18.2 % (18.3-44.2); Mean Corpuscular HGB Conc 32.8 g/dl (32-36); Mean Corpuscular Hemoglobin 29.7 pg (26-34); Mean Corpuscular Volume 90.7 fl (80-100); Monocytes Absolute Auto 0.6 K/mm3 (0.1-0.6); Monocytes Percent Auto 9.2 % (2.6-8.5); Neutrophils Absolute Auto 4.4 K/mm3 (1.3-6.7); Platelet Count Result 110 k/mm3 (150-375); Red Blood Count 5.05 M/mm3 (4.6-6.20); White Blood Count 6.3 K/mm3 (4.5-10.0)
[2024-08-09 15:10] LABS: Alanine Aminotransferase 49 U/L (6-50); Albumin Level 4.7 g/dL (3.5-5.1); Alkaline Phosphatase 85 U/L (38-126); Anion Gap 9 mmol/L (4-12); Aspartate Amino Transferase 47 U/L (17-59); Blood Urea Nitrogen 10 mg/dL (9-20); Calcium 9.4 mg/dL (8.4-10.2); Carbon Dioxide 24 mmol/L (22-30); Chloride 106 mmol/L (98-107); Estimated CRCL calculation 115 ml/min; Estimated Glomerular Filt Rate > 60; Glucose 118 mg/dL (65-110); Lipase 83 U/L (23-300); Potassium 3.9 mmol/L (3.4-5.0); Sodium 139 mmol/L (137-145); Total Protein 7.9 g/dL (6.3-8.2)
[2024-08-09] MEDS: ONDANSETRON INJ 4 MG/2 ML VIAL IV PUSH (15:28)
[2024-08-09] MEDS: SODIUM CHLORIDE 0.9% IV 1,000 ML 999 ML IV CONT (15:28)
[2024-08-09] MEDS: MORPHINE SULFATE (*CRX) 4 MG/ML INJ IV PUSH (15:29)
[2024-08-09] MEDS: DICYCLOMINE HCL INJ 20 MG/2 ML VIAL IM (15:29)
[2024-08-09] MEDS: HYDROmorphone HCL INJ (*CRX) 2 MG/ML VIAL 1 MG IV PUSH (16:49)
--- NOTE | 2024-08-09 16:50 | ED_ITS ---
HPI - Abdominal Pain General Chief Complaint: Abdominal Pain Stated Complaint: abd pain Time Seen by Provider: 08/09/24 14:48 History of Present Illness HPI narrative: Patient is a 48-year-old male who presents ER with abdominal pain. Sudden onset today around noon. Associated with nausea vomiting. No diarrhea. No fevers or chills. Denies urinary symptoms or hematuria. History of recurrent colitis for years. He is currently seen GI. Improved after Levaquin course after his last ER visit. He did see GI. Related Data Allergies Allergy/AdvReac Type Severity Reaction Status Date / Time gluten AdvReac Mild Nausea Verified 07/31/24 13:54 milk AdvReac Mild bloating Verified 07/31/24 13:54 Review of Systems 2 Review of Systems: All systems reviewed & are unremarkable except as noted in HPI and below Constitutional: Constitutional: Reports no additional constitutional complaints ENT: Reports system reviewed and no additional complaints, except as documented Cardiovascular: Cardiovascular: Reports no additional cardiovascular complaints Respiratory: Respiratory: Reports no additional respiratory complaints Musculoskeletal: Musculoskeletal: Reports no additional musculoskeletal complaints [facility] Past Medical History Medical History Moderate persistent asthma with acute exacerbation Unspecified asthma, uncomplicated Gynecomastia Erosive esophagitis Gastritis Diverticulosis Asthma Irritable bowel syndrome Depression Generalized anxiety disorder Bipolar disorder, unspecified Celiac disease Gastroesophageal reflux disease Surgical History Surgical History History of cholecystectomy 02/2016 Family History Family History Father No problems noted. Mother No problems noted. Social History Social History Smoking status: Never smoker Second hand tobacco smoke exposure: No Alcohol intake: never Substance use: current Substance use type: marijuana Lack of Transportation: No Lack of Food: Never True Current Housing: I Have Housing Concerned About Future Housing: No Difficulty Paying Gas/Electric Bills: No Difficulty Paying for Meds: No Currently Unemployed: No Education: High School Diploma/GED Difficulty w/ Childcare or Family Care: No Living arrangements: with family Occupation/Education: occupation Gender identity (if verbalized by the patient): Male Sexual Orientation (if Verbalized by the Patient): Straight or Heterosexual Exam 2 Narrative: GENERAL: Tearful and anxious. Mild distress. HEAD: Normocephalic, atraumatic. ENT: Mucous membranes moist. NECK: Supple. CHEST: Clear to auscultation. No respiratory distress. HEART: Regular rate and rhythm. Normal peripheral pulses. ABDOMEN: Diffuse tenderness worse in left lower quadrant with voluntary guarding, nondistended. EXTREMITIES: Normal range of motion. No edema. SKIN: Warm, dry, no rash. NEURO: Alert and oriented x3. PSYCH: Normal mood and affect. Course Course Emergency Course: Patient feels improved after morphine and Dilaudid. Discussed with Dr. De La Vega. Recommends stool culture, calprotectin stool, and toxigenic C diff studies. Patient cannot provide stool sample. Patient provided a sample container and a prescription so he can turn in the tests. He is to start taking Bactrim for 5 days after providing a sample. He should also follow-up with GI in the next week. He is going to need a colonoscopy for further evaluation. Vital Signs Vital signs: Vital Signs Temperature 98.1 F 08/09/24 14:19 Pulse Rate 75 08/09/24 14:19 Respiratory Rate 22 H 08/09/24 14:19 Blood Pressure 129/55 L 08/09/24 14:19 Pulse Oximetry 98 08/09/24 14:19 Oxygen Delivery Room Air 08/09/24 14:19 Temperature 98.1 F 08/09/24 14:19 Pulse Rate 75 08/09/24 14:19 Respiratory Rate 22 H 08/09/24 14:19 Blood Pressure 129/55 L 08/09/24 14:19 Pulse Oximetry 98 08/09/24 14:19 Oxygen Delivery Room Air 08/09/24 14:19 MDM - Abdominal Pain Lab Data 08/09/24 14:53 08/09/24 14:53 Labs: Lab Results 08/09/24 Range/Units 14:53 WBC 6.3 (4.5-10.0) K/mm3 RBC 5.05 (4.6-6.20) M/mm3 Hgb 15.0 (14.0-18.0) g/dL Hct 45.8 (42.0-52.0) % MCV 90.7 (80-100) fl MCH 29.7 (26-34) pg MCHC 32.8 (32-36) g/dl RDW 15.0 H (11.5-14.5) % Plt Count 110 L (150-375) k/mm3 MPV 9.0 (7.4-10.4) fl Immature Gran % (Auto) 0.3 (0-0.5) % Neut % (Auto) 69.0 (45.5-73.1) % Lymph % (Auto) 18.2 L (18.3-44.2) % [place] % (Auto) 9.2 H (2.6-8.5) % Eos % (Auto) 2.7 (0-4.4) % Baso % (Auto) 0.6 (0.2-1.2) % Lymph # (Auto) 1.15 (0.9-3.2) K/mm3 [place] # (Auto) 0.6 (0.1-0.6) K/mm3 Eos # (Auto) 0.2 (0-0.3) K/mm3 Baso # (Auto) 0.0 (0.0-0.1) K/mm3 Abs Immat Gran (auto) 0.02 (0.00-0.031) K/mm3 Absolute Neuts (auto) 4.4 (1.3-6.7) K/mm3 Absolute Nucleated RBC 0.000 (0.0-0.012) K/mm3 Nucleated RBC % 0.0 (0.0-0.2) % % Immature Plt Fraction 1.5 (0.9-11.2) % Sodium 139 (137-145) mmol/L Potassium 3.9 (3.4-5.0) mmol/L Chloride 106 (98-107) mmol/L Carbon Dioxide 24 (22-30) mmol/L Anion Gap 9 (4-12) mmol/L BUN 10 (9-20) mg/dL Creatinine 0.69 L (0.7-1.3) mg/dL Estim Creat Clear Calc 115 ml/min Estimated GFR > 60 (59 - ) Glucose 118 H (65-110) mg/dL Calcium 9.4 (8.4-10.2) mg/dL Total Bilirubin 1.0 (0.2-1.3) mg/dL AST 47 (17-59) U/L ALT 49 (6-50) U/L Alkaline Phosphatase 85 (38-126) U/L Total Protein 7.9 (6.3-8.2) g/dL Albumin 4.7 (3.5-5.1) g/dL Lipase 83 (23-300) U/L Imaging Data Radiologist's impression: ITS Impressions Abdomen/Pelvis CT 08/09/24 15:51 IMPRESSION: 1. Diffuse wall thickening of the colon suspicious for colitis which could be infectious, inflammatory or ischemic etiology. 2. Nonspecific splenomegaly measuring 15.9 cm in length. Discharge Plan Discharge Clinical Impression: Colitis Patient Disposition: Home Condition: Stable Instructions: Colitis (ED) Additional Instructions: You need to provide a stool sample and then returned that with the prescription that you are provided to either the [facility] or the ER so it can be studied. After you provide a sample you will need to start an oral antibiotic. Follow- up with GI as you are going to need a colonoscopy for further evaluation. Patient Language: Citizen Of [place] Prescriptions: New sulfamethoxazole-trimethoprim [Bactrim DS] 800-160 mg tablet 1 tablet PO Q12H Qty: 10 0RF No Action escitalopram oxalate 10 mg tablet 10 mg PO DAILY Qty: 30 2RF levofloxacin 500 mg tablet 500 mg PO DAILY Qty: 5 0RF cyclobenzaprine 10 mg tablet 10 mg PO TID PRN (Reason: muscle spasm) Qty: 20 0RF simethicone 125 mg capsule 125 mg PO QID Qty: 20 0RF Rx Instructions: administer after meals and at bedtime albuterol sulfate [Ventolin HFA] 90 mcg/actuation HFA aerosol inhaler 1 inhalation INHALATION Q4H PRN (Reason: shortness of breath or wheezing) Qty: 18 3RF alprazolam 1 mg tablet 1 mg PO TID Qty: 90 0RF diclofenac sodium 75 mg tablet,delayed release (DR/EC) 75 mg PO BID Qty: 30 0RF pantoprazole 40 mg tablet,delayed release (DR/EC) See Rx Instructions .ROUTE .COMPLEX Qty: 90 1RF Dose Instruction: Take 1 tablet by mouth once daily Rx Instructions: Take 1 tablet by mouth once daily Follow-up/Referrals: Tarik Cruz MD [Primary Care Provider] - 1 Week Sen De La Vega MD [Physician] - 1 Week
--- NOTE | 2024-08-09 16:57 | PC.NURSE ---
Pt given stool sample container and asked to give stool sample. He states he will try and use the restroom.
[2024-08-09 17:16] VITALS: BP 129/86; PULSE 73; RESP 15; O2SAT 94
== END 2024-08-09 18:44 | disposition home or self-care (01) ==
PROVIDERS: Emergency Medicine; Emergency Provider Emergency Medicine; PCP Family Medicine
DX: K52.9 Noninfective gastroenteritis and colitis, unspecified (principal); J45.40 Moderate persistent asthma, uncomplicated; K58.9 Irritable bowel syndrome, unspecified; K90.0 Celiac disease; K21.9 Gastro-esophageal reflux disease without esophagitis; F41.1 Generalized anxiety disorder; F31.9 Bipolar disorder, unspecified; Z90.49 Acquired absence of other specified parts of digestive tract; R16.1 Splenomegaly, not elsewhere classified
CPT/HCPCS: 36415; 74177; 80053; 83690; 85025; 85055; 96361; 96372; 96374; 96375; 99284; J0500; J1171; J2270; J2405; J7030; Q9967

== ENCOUNTER 2024-08-29 07:26 | Outpatient (CLI) | payer BC, SELFPAY ==
--- NOTE | ~2024-08-29 | US_ITS ---
Limited ABDOMINAL ULTRASOUND (Doppler ultrasound interrogation techniques used as needed for this exa m.) Ordering provider: Indigo Garcia APRN History: . R17 - Unspecified jaundice . Comparison: None. FINDINGS: PANCREAS: Normal echotexture and size of the visualized portions. PORTAL VEIN: Hepatopedal flow demonstrated. LIVER: Normal size and echotexture. Liver measures 18.6 cm. No focal hepatic lesions or perihepatic f luid collections are identified. BILIARY DUCTS: No intra or extrahepatic biliary dilation. Common bile duct measures 3.3 mm in diamete r which is normal for patient's age. GALLBLADDER: Surgically removed. IVC: Patent. Aorta: Normal. FREE FLUID: None visualized within the upper abdomen. IMPRESSION: Mild hepatomegaly. Otherwise, normal limited abdominal ultrasound. Reviewed, dictated and finalized at location A.
[2024-08-29 08:43] LABS: Alanine Aminotransferase 37 U/L (6-50); Albumin Level 4.5 g/dL (3.5-5.1); Alkaline Phosphatase 70 U/L (38-126); Aspartate Amino Transferase 40 U/L (17-59); Total Protein 7.8 g/dL (6.3-8.2)
[2024-08-29 08:57] LABS: Iron 166 ug/dL (49-181)
[2024-08-29 09:07] LABS: Percent Iron Saturation 48 % (20-50)
[2024-08-29 10:09] LABS: Hepatitis B Surface Antigen Negative (Negative)
[2024-08-29 10:15] LABS: HAV RESULT Negative (Negative); Hepatitis B Core IgM Result Negative (Negative)
[2024-08-29 10:27] LABS: Hepatitis C Virus Antibody Negative (Negative)
[2024-08-29 22:28] LABS: GGT 35 U/L (3-95)
[2024-08-30 05:55] LABS: Alpha-1-Antitrypsin, QN 146 mg/dL (83-199); Ceruloplasmin. 21 mg/dL (14-30)
[2024-09-02 10:08] LABS: Alpha Fetoprotein TumorMarker. 3.2 ng/mL (<6.1)
== END 2024-08-29 07:27 | disposition home or self-care (01) ==
LOC: ANHIMG 07:27
PROVIDERS: PCP Family Medicine; Visit Provider Nurse Practitioner Family
DX: R74.01 Elevation of levels of liver transaminase levels (principal); D69.6 Thrombocytopenia, unspecified; K90.0 Celiac disease; K76.0 Fatty (change of) liver, not elsewhere classified
CPT/HCPCS: 36415; 76705; 80074; 80076; 81596; 82103; 82105; 82390; 82728; 82977; 83540; 83550

== ENCOUNTER 2024-09-14 02:01 | Emergency (ER) | payer BC, SELFPAY ==
--- NOTE | ~2024-09-14 | CT_ITS ---
EXAMINATION: CT abdomen pelvis w con DATE: 09/14/2024 03:12 INDICATION: Left lower quadrant abdominal pain TECHNIQUE: Computed tomography (CT) of the abdomen and pelvis was performed with 100 mL Omnipaque-350 intravenous contrast. Automated exposure control and iterative reconstruction technique were employe d. The dose-length product was 425.55 mGy-cm. COMPARISON: 08/09/2024 FINDINGS: Small calcified nodules at the lingula consistent with old granulomatous disease. Heart size is benjamin l. No pericardial or pleural effusion. Cholecystectomy clips the gallbladder fossa. Liver, pancreas, bilateral adrenal glands and kidneys are normal. Persistent nonspecific splenomegaly measuring 15.5 c m craniocaudal length. There is mild colonic diverticulosis with a sigmoid predominance. There is no adjacent inflammatory change to suggest diverticulitis. Small bowel and appendix are normal. Bladde r is normal. No free intraperitoneal gas or fluid. No pathologically enlarged abdominal or pelvic lym phadenopathy. Mild lumbar and lower thoracic spondylosis. IMPRESSION: 1. No acute intra-abdominal/pelvic process. 2. Unchanged nonspecific splenomegaly. Reviewed, dictated and finalized at location A.
--- OUTSIDE RECORDS SUMMARY | 2024-09-14 02:03 | XMS_ITS | Clinical Summary ---
Author Organization [facility] Address [address] [place] [address] Phone Care Team Providers Care Graduate Rn Name Role Phone Unavailable Primary Care Provider Unavailabl e Allergies No known active allergies Medications HYDROcodone-acet aminophen (NORCO) 5-325 mg tabletIndication s:Abdominal pain, unspecified abdominal location Take 1 Tablet by mouth every 4 hours as needed for Pain. Max Daily Amount: 6 Tablets 12 Tablet Active ondansetron (ZOFRAN ODT) 4 mg Tablet, Rapid Dissolve Take 1 Tablet (4 mg) by mouth every 8 hours as needed for Nausea/Emesis . Dissolve tablet on top of tongue, then swallow with saliva. 20 Tablet Active Encounters Date Type Department Care Team Description 09/10/2024 External Device Data [facility] Provider, Abstract 09/10/2024 External Device Data [facility] Provider, Abstract 09/10/2024 External Device Data [facility] Provider, Abstract 08/21/2024 External Device Data [facility] Provider, Abstract 08/13/2024 External Device Data [facility] Provider, Abstract 08/13/2024 External Device Data [facility] Provider, Abstract 08/13/2024 External Device Data [facility] Provider, Abstract 08/11/2024 9:19 PM CDT - 08/11/2024 11:57 PM CDT Emergency [facility] Emergency Department [address] [place] [id number] Warren Cantu MD Abdominal pain, unspecified abdominal location (Primary Dx) Discharge Disposition: Home or Self Care from Last 3 Months Social History Tobacco Use Types Packs/Day Years Used Date Smoking Tobacco: Never Assessed Feeling Safe Answer Date Recorded Are you in a relationship wi th someone who hurts you emotionally and/or physically? No 08/11/2024 Sex and Gender Information Value Date Recorded Sex Assigned at Not on file Legal Sex Male 9:19 PM CDT Gender Identity Not on file Sexual Orientation Not on file Last Filed Vital Signs Vital Sign Reading Time Taken Comments Blood Pressure 146/82 08/11/2024 11:30 PM CDT Pulse 61 08/11/2024 11:30 PM CDT Temperature 36.4 C (97.5 F) 08/11/2024 9:21 PM CDT Respiratory Rate 20 08/11/2024 9:21 PM CDT Oxygen Saturation 95% 08/11/2024 11:30 PM CDT Inhaled Oxygen Concentration - - Weight 81.6 kg (180 lb) 08/11/2024 9:21 PM CDT Height 177.8 cm (5' 10) 08/11/2024 9:21 PM CDT Body Mass Index 25.83 08/11/2024 9:21 PM CDT Plan of Treatment Health Maintenance Due Date Last Done Comments Pre-Diabetes and Diabetes Screening 1974 DTAP/TDAP/TD VACCINES (1 - Tdap) 1993 HEPATITIS B VACCINES (1 of 3 - 19+ 3-dose series) 09/04 COLORECTAL SCREENING 10/02/2019 Colorectal Cancer Screening 10/02/2019 FIT-DNA Q 3 years 10/02/2019 FIT/FOBT Q 1 year 10/02/2019 Flex Sig/CT Colonography Q 5 years 10/02/2019 INFLUENZA VACCINE (#1) 2024 Procedures Procedure Name Priority Date/Time Associated Diagnosis Comments CT ABDOMEN PELVIS W CONTRAST Stat 08/11/2024 10:23 PM CDT DIFFERENTIAL, MANUAL Stat 08/11/2024 9:25 PM CDT LIPASE Stat 08/11/2024 9:25 PM CDT COMPREHENSIVE METABOLIC PANEL Stat 08/11/2024 9:25 PM CDT CBC WITH DIFFERENTIAL Stat 08/11/2024 9:25 PM CDT from Last 3 Months Results * CT ABDOMEN PELVIS W CONTRAST (08/11/2024 10:23 PM CDT) Anatomical Region Laterality Modality Abdomen Computed Tomogra phy 08/11/2024 10:2 5 PM CDT Impressions 08/11/2024 10:36 PM CDT IMPRESSION: No acute inflammatory change or obstruction. Splenomegaly. Hepatic steatosis. DICTATION LOCATION: Location 4 Narrative 08/11/2024 10:[address] ABDOMEN AND PELVIS WITH IV CONTRAST INCLUDING MULTIPLANAR RECONSTRUCTIONS DATE: 08/11/2024 10:23 PM HISTORY: LLQ abdominal pain. See Reason for Exam COMPARISON: None. PROCEDURE: Spiral volumetric acquisition of the abdomen and pelvis was performed with intravenous contrast. Gastrointestinal contrast was not administered. Sagittal and coronal reconstructions were performed. The examination was performed with the adjustment of mA according to the patient size and/or the use of Iterative Reconstruction Technique. CONTRAST: IOPAMIDOL 61 % INTRAVENOUS SOLUTION (MULTI-DOSE BULK PACK) Given:100 mL FINDINGS: LOWER CHEST: Within normal limits. LIVER: Hepatic steatosis. GALLBLADDER: Cholecystectomy. BILE DUCTS: Within normal limits. PANCREAS: Within normal limits. SPLEEN: Enlarged measuring 15 cm in craniocaudal dimensions. ADRENALS: Within normal limits. KIDNEYS/URETERS: Within normal limits. VASCULATURE: Normal caliber abdominal aorta. Mild atherosclerotic vascular calcification. BOWEL: No bowel obstruction or wall thickening. The appendix is within normal limits. PERITONEUM/RETROPERITONEUM: No pathologic lymphadenopathy or ascites. REPRODUCTIVE ORGANS: Within normal limits. BLADDER: Within normal limits. ABDOMINAL WALL: Within normal limits. BONES: No suspicious focal osseous lesions. Procedure Note Jeana Nicholson MD - 08/11/2024 CT ABDOMEN AND PELVIS WITH IV CONTRAST INCLUDING MULTIPLANAR RECONSTRUCTIONS DATE: 08/11/2024 10:23 PM HISTORY: LLQ abdominal pain. See Reason for Exam COMPARISON: None. PROCEDURE: Spiral volumetric acquisition of the abdomen and pelvis was performed with intravenous contrast. Gastrointestinal contrast was not administered. Sagittal and coronal reconstructions were performed. The examination was performed with the adjustment of mA according to the patient size and/or the use of Iterative Reconstruction Technique. CONTRAST: IOPAMIDOL 61 % INTRAVENOUS SOLUTION (MULTI-DOSE BULK PACK) Given:100 mL FINDINGS: LOWER CHEST: Within normal limits. LIVER: Hepatic steatosis. GALLBLADDER: Cholecystectomy. BILE DUCTS: Within normal limits. PANCREAS: Within normal limits. SPLEEN: Enlarged measuring 15 cm in craniocaudal dimensions. ADRENALS: Within normal limits. KIDNEYS/URETERS: Within normal limits. VASCULATURE: Normal caliber abdominal aorta. Mild atherosclerotic vascular calcification. BOWEL: No bowel obstruction or wall thickening. The appendix is within normal limits. PERITONEUM/RETROPERITONEUM: No pathologic lymphadenopathy or ascites. REPRODUCTIVE ORGANS: Within normal limits. BLADDER: Within normal limits. ABDOMINAL WALL: Within normal limits. BONES: No suspicious focal osseous lesions. IMPRESSION: No acute inflammatory change or obstruction. Splenomegaly. Hepatic steatosis. DICTATION LOCATION: Location 4 us Warren Cantu MD CT ORDERABLES Final Result * MANUAL DIFFERENTIAL (08/11/2024 9:25 PM CDT) [facility] PLATELET EST. Consistent w Count 08/11/2024 10:28 PM CDT [facility] RBC MORPHOLOGY Normal 08/11/2024 10:28 PM CDT [facility] Blood Venipuncture / Unknown 08/11/2024 9:25 PM CDT 08/11/2024 9:27 PM CDT us Protocol Victoria Flynn MD HEMATOLOGY ORDERABLES COM Final Result [facility] [employer] [id number] [address] [place] [address] * (ABNORMAL) CBC WITH DIFFERENTIAL (08/11/2024 9:25 PM CDT) [facility] WBC 6.0 4.0 - 9.8 K/uL 08/11/2024 9:42 PM CDT [facility] Comment:ANC = 4.23K/uL RBC 4.63 4.50 - 5.40 M/uL 08/11/2024 9:[address] [facility] [employer] [facility] HEMOGLOBIN 13.9 13.6 - 16.5 g/dL 08/11/2024 9:[address] [facility] [employer] [facility] HEMATOCRIT 41.4 40.0 - 48.0 % 08/11/2024 9:[address] [facility] [employer] [facility] MCV 89.4 82.0 - 99.0 fL 08/11/2024 9:42 PM CDT [facility] [place] MCH 30.0 27.2 - 32.6 pg 08/11/2024 9:42 PM CDT [facility] [place] MCHC 33.6 31.5 - 35.5 g/dL 08/11/2024 9:42 PM CDT [facility] [place] RDW 14.6(H) 11.5 - 14.5 % 08/11/2024 9:42 PM CDT [facility] [place] RDW-STDEV 48.0 37.1 - 48.7 fL 08/11/2024 9:42 PM CDT [facility] [place] PLATELETS 95(L) 140 - 350 K/uL 08/11/2024 9:42 PM CDT [facility] [place] MPV 9.9 9.3 - 12.4 fL 08/11/2024 9:42 PM CDT [facility] [place] NEUTROPHILS 71 % 08/11/2024 9:42 PM CDT [facility] [place] LYMPHOCYTES 18 % 08/11/2024 9:42 PM CDT [facility] [place] MONOCYTES 8 % 08/11/2024 9:42 PM CDT [facility] [place] EOSINOPHILS 3 % 08/11/2024 9:42 PM CDT [facility] [place] BASOPHILS 1 % 08/11/2024 9:42 PM CDT [facility] [place] IMMATURE GRANULOCYTES 0 % 08/11/2024 9:42 PM CDT [facility] [place] NEUTROPHIL ABSOLUTE 4.23 1.90 - 7.00 K/uL 08/11/2024 9:42 PM CDT [facility] [place] LYMPHOCYTE ABSOLUTE 1.06 0.70 - 4.50 K/uL 08/11/2024 9:42 PM CDT [facility] [place] MONOCYTE ABSOLUTE 0.49 0.10 - 1.30 K/uL 08/11/2024 9:42 PM CDT [facility] [place] EOSINOPHIL ABSOLUTE 0.16 0.00 - 0.70 K/uL 08/11/2024 9:42 PM CDT [facility] [place] BASOPHILS ABSOLUTE 0.03 0.00 - 0.20 K/uL 08/11/2024 9:42 PM CDT [facility] [place] IMMATURE GRANULOCYTES ABSOLUTE 0.02 0.00 - 0.03 K/uL 08/11/2024 9:[address] [facility] Blood Venipuncture / Unknown 08/11/2024 9:25 PM CDT 08/11/2024 9:27 PM CDT Protocol [facility] Emergency HEMATOLOGY ORDERABLES Final Result [facility] CLIA# [id number] [address] [place] [address] * LIPASE (08/11/2024 9:25 PM CDT) LIPASE 39 13 - 60 U/L 08/11/2024 9:[address] [facility] Blood Venipuncture / Unknown 08/11/2024 9:25 PM CDT 08/11/2024 9:27 PM CDT Protocol [facility] Emergency CHEMISTRY ORDERABLES Final Result [facility] [employer] [facility] CLIA# [id number] [address] [place] [address] * (ABNORMAL) COMPREHENSIVE METABOLIC PANEL (08/11/2024 9:25 PM CDT) SODIUM 136 136 - 145 mmol/L 08/11/2024 9:[address] [facility] POTASSIUM 3.3(L) 3.5 - 4.9 mmol/L 08/11/2024 9:[address] [facility] CHLORIDE 101 98 - 107 mmol/L 08/11/2024 9:[address] [facility] CO2 22 22 - 29 mmol/L 08/11/2024 9:[address] [facility] CALCIUM 9.2 8.6 - 10.2 mg/dL 08/11/2024 9:[address] [facility] BUN 8 6 - 20 mg/dL 08/11/2024 9:52 PM CDT [facility] CREATININE 0.77 0.67 - 1.17 mg/dL 08/11/2024 9:52 PM T [facility] GLUCOSE 137(H) 74 - 99 mg/dL 08/11/2024 9:52 PM [facility] TOTAL PROTEIN 7.1 6.0 - 8.3 g/dL 08/11/2024 9:52 PM [facility] ALBUMIN 4.4 3.4 - 4.8 g/dL 08/11/2024 9:52 PM T [facility] BILIRUBIN TOTAL 0.9 0.0 - 1.0 mg/dL 08/11/2024 9:52 PM [facility] ALKALINE PHOSPHATASE 85 40 - 129 U/L 08/11/2024 9:52 PM [facility] AST 40(H) 12 - 38 U/L 08/11/2024 9:52 PM [facility] ALT 41(H) <41 U/L 08/11/2024 9:52 PM [facility] GFR >60 >=60 mL/min/1.7 3 sq meter 08/11/2024 9:52 PM [facility] Comment:eGFR calculated with 2020 CKD-EPI equation. Vegetarian diet, extremely high or low muscle mass, and may affect results. Cystatin C with Glomerular Filtration Rate is a suitable alternative for these patients. ANION GAP 13 8 - 16 mmol/L 08/11/2024 9:52 PM [facility] Blood Venipuncture / Unknown 08/11/2024 9:25 PM CDT 08/11/2024 9:27 PM CDT us Protocol [facility] Emergency CHEMISTRY ORDERABLES Final Result [facility] CLIA# [id number] [address] [place] [address] from Last 3 Months
--- OUTSIDE RECORDS SUMMARY | 2024-09-14 02:03 | XMS_ITS | Clinical Summary ---
Author Organization [facility] Address [address] [place] [address] Care Team Providers Care Administrative Assistant Receptionist Name Role Phone Gopal Burk MD Unavailable Tarik Cruz MD Primary Care Provider [phone] Allergies No known active allergies Medications amitriptyline [...] Day Supply 20 tablet 02/20/20 24 Active Additional Information Patient not taking.Reported on 08/19/2024 HYDROcodone-acetam inophen (NORCO) 5-325 MG tabletIndications: Acute Pain < 7 Day Supply Take 1 tablet by mouth every 6 (six) hours as needed. Indications: Acute Pain < 7 Day Supply 21 tablet 06/13/19 25 Active Additional Information Patient not taking.Reported on 08/19/2024 naloxone (NARCAN) 4 MG/0.1ML nasal spray 1 spray by Nasal route as needed for Opioid reversal. may repeat every 2 to 3 minutes in alternating nostrils until medical assistance becomes available 1 each 06/13/19 25 026 Active Additional Information Patient not taking.Reported on 08/19/2024 dicyclomine (BENTYL) 20 MG tablet Take 1 tablet (20 mg total) by mouth every 6 (six) hours. 20 tablet 08/18/19 25 Active Additional Information Patient not taking.Reported on 08/19/2024 ondansetron (ZOFRAN-ODT) 4 MG disintegrating tablet Take 1 tablet (4 mg total) by mouth every 8 (eight) hours as needed for Nausea. 20 tablet 08/18/19 25 Active Additional Information Patient not taking.Reported on 08/19/2024 escitalopram (LEXAPRO) 10 MG tablet Take 1 tablet (10 mg total) by mouth daily. 07/23/19 25 Active cholestyramine (QUESTRAN) 4 G packetIndications: Post-cholecystecto my syndrome Take 1 packet (4 g total) by mouth 2 (two) times daily with meals. 180 packet 2 08/20/19 25 Active dicyclomine (BENTYL) 20 MG tablet Take 1 tablet (20 mg total) by mouth every 6 (six) hours. 20 tablet 06/13/19 25 025 Discontinu ed(Formula ry change) ondansetron (ZOFRAN-ODT) 4 MG disintegrating tablet Take 1 tablet (4 mg total) by mouth every 8 (eight) hours as needed for Nausea. 20 tablet 06/13/19 25 025 Discontinu ed(Formula ry change) metroNIDAZOLE (FLAGYL) 500 MG tablet Take 1 tablet (500 mg total) by mouth 4 (four) times daily for 10 days. 40 tablet 08/18/19 25 025 Additional Information Patient not taking.Reported on 08/19/2024 Active Problems Problem Noted Date Diagnosed Date Pancreatitis (HHS/HCC) 05/16/2019 Biliary dyskinesia 03/02/2017 Resolved Problems Problem Noted Date Diagnosed Date Resolved Date Encounter for preventive health examination 03/03/2014 11/15/2019 Encounters Date Type Department Care Team Description 08/19/2024 1:30 PM CDT Office Visit [facility] General Surgery [facility] [address], [address] [place] [address] Rigoberto Scruggs IV, MD Abdominal Pain (Pain and vomiting this last Monday- went to the ER- [facility]) 08/19/2024 Travel 08/17/2024 7:50 PM CDT - 08/17/2024 10:38 PM CDT Emergency [facility] Emergency Room [address] [place] [address] Leonardo Layton MD Abdominal Pain Discharge Disposition: Home or Self Care (Routine Discharge) 08/17/2024 Travel 07/30/2024 8:08 PM CDT - 07/30/2024 11:33 PM CDT Emergency [facility] [place] [address] Eduardo Henderson MD Jerome, Jason P, MD,PHD Abdominal Pain Discharge Disposition: Home or Self Care (Routine Discharge) 07/30/2024 Travel from Last 3 Months Family History Medical History Relation Comments Alcohol Abuse Neg Hx Social History Tobacco Use Types Packs/Day Years Used Date Smoking Tobacco: Former Smokeless Tobacco: Never Tobacco Cessation:Counseling Given: Yes Alcohol Use Standard Drinks/Week Comments No 0 (1 standard drink = 0.6 oz pur e alcohol) AUDIT-C Answer Date Recorded Frequency of Alcohol Consumption Never 01/08/2019 Average Number of Drinks Not on file 019 Frequency of Binge Drinking Not on file 07/2018 PHQ-2 Answer Date Recorded Patient Health Questionnaire-2 Score 4 08/19/2024 Sex and Gender Information Value Date Recorded Sex Assigned at Male 05/16/2019 2:31 PM CDT Legal Sex Male 8:28 PM CDT Gender Identity Male 05/16/2019 2:31 PM CDT Sexual Orientation Straight 05/16/2019 2: 31 PM CDT Last Filed Vital Signs Vital Sign Reading Time Taken Comments Blood Pressure 126/79 08/19/2024 1:24 PM CDT Pulse 88 08/19/2024 1:24 PM CDT Temperature 36.8 C (98.3 F) 08/19/2024 1:24 PM CDT Respiratory Rate 20 08/19/2024 1:24 PM CDT Oxygen Saturation 94% 08/19/2024 1:24 PM CDT Inhaled Oxygen Concentration - - Weight 79.4 kg (175 lb) 08/19/2024 1:24 PM CDT Height 177.8 cm (5' 10) 08/19/2024 1:24 PM CDT Body Mass Index 25.11 08/19/2024 1:24 PM CDT Plan of Treatment Health Maintenance Due Date Last Done Comments Colorectal Cancer Screening Colonoscopy (10 Years) 1974 Annual Physical 1977 DTaP, Tdap and Td Vaccines ( 1 - Tdap) 1993 Hepatitis B Vaccines (1 of 3 - 19+ 3-dose series) 1993 COVID-19 Vaccine (2 - 2023-2 5 season) 2023 06/17/2020 Hepatitis C Completed 04/15/2017 PHQ-2 (Physician [place]) Completed 08/19/2024 Meningococcal B Vaccine Aged Out No l [...] with and son General No Yudy Gaitan, RIM FIRE CHARGER OPERATOR Health - patient able to perform ADLs independently General No Sue Fairchild, mica spreader Procedure Name Priority Date/Time Associated Diagnosis Comments CT ABD+PEL WO CON STAT 08/17/2024 8:1 5 PM CDT LIPASE STAT 08/17/2024 7:55 PM CDT COMPREHENSIVE METABOLIC PANEL STAT 08/17/2024 7:55 PM CDT CBC W/DIFF AUTOMATED STAT 08/17/2024 7:55 PM CDT LIPASE STAT 07/30/2024 9:11 PM CDT COMPREHENSIVE METABOLIC PANEL STAT 07/30/2024 9:11 PM CDT CBC W/DIFF AUTOMATED STAT 07/30/2024 9:[address] ABD+PEL W CON STAT 07/30/2024 8:50 PM CDT HEPATITIS PANEL,ACUTE STAT 04/15/2017 5:10 PM POLITICAL ORGANIZER from Last 3 Months or Most Recently Relevant to Health Maintenance Results * CT ABD+PEL WO CON (08/17/2024 8:15 PM CDT) Anatomical Region Laterality Modality Abdomen Computed Tomogra phy 08/17/2024 9:35 PM CDT Impressions 08/17/2024 9:44 PM CDT IMPRESSION: 1. Equivocal bowel wall thickening involving the transverse, descending, and proximal sigmoid colon without pericolonic inflammatory stranding, unclear if this is secondary to underdistention or very mild colitis. 2. Mild asymmetric enlargement of the left lobe liver with borderline splenomegaly and dilated left upper quadrant collateral circulation. This is suboptimally evaluated on noncontrast CT. Correlation with liver function tests and history of chronic hepatic parenchymal disease is recommended. 3. There is a 5 mm pulmonary nodule in the right lung base. No follow-up needed if patient is low-risk. Non-contrast chest CT can be considered in 12 months if patient is high-risk (Per Fleischner Society guidelines). Referred By: Interpreted By: Aime Mcclendon MD, 08/17/2024 9:35 PM Narrative 08/17/2024 9:44 PM CDT [facility] [id number] [place] [address]. [place] [address] EXAMINATION: CT ABDOMEN/PELVIS WITHOUT CONTRAST INDICATION: Left lower quadrant abdominal pain. COMPARISON: CT abdomen pelvis with contrast on 07/30/2024 TECHNIQUE: Computed tomography of the abdomen, and pelvis was performed without administration of intravenous contrast. Sagittal and coronal reconstructions. Radiation dose reduction technique(s) were used. FINDINGS: Lower Chest: There is a 5 mm pulmonary nodule in the right lung base, subpleural. No cardiomegaly or pericardial effusion. Upper abdominal organs: There is mild asymmetric enlargement of the left lobe liver. Borderline splenomegaly. There also appears to be some dilated left upper quadrant collateral circulation. This is suboptimally evaluated on noncontrast CT. There is no peripancreatic inflammation. The gallbladder is surgically absent. No biliary duct dilatation. There are no adrenal masses. There is no hydronephrosis. Vascular: The abdominal aorta is normal in caliber. Lymph nodes: No retroperitoneal, mesenteric, or inguinal lymphadenopathy. Gastrointestinal: No bowel obstruction. There is equivocal bowel wall thickening involving the transverse descending and proximal sigmoid colon without pericolonic inflammatory stranding, unclear if this is secondary to underdistention or very mild colitis. The appendix is normal. Miscellaneous: No free intraperitoneal air or ascites. Pelvis: No free pelvic fluid. The urinary bladder is normal. The prostate is unremarkable. Musculoskeletal: No acute osseous abnormality or destructive bone lesions. Procedure Note Aime Mcclendon MD - 08/17/[address] [place] [address] EXAMINATION: CT ABDOMEN/PELVIS WITHOUT CONTRAST INDICATION: Left lower quadrant abdominal pain. COMPARISON: CT abdomen pelvis with contrast on 07/30/2024 TECHNIQUE: Computed tomography of the abdomen, and pelvis was performedwithout administration of intravenous contrast. Sagittal and coronalreconstructions. Radiation dose reduction technique(s) were used. FINDINGS: Lower Chest: There is a 5 mm pulmonary nodule in the right lung base,subpleural. No cardiomegaly or pericardial effusion. Upper abdominal organs: There is mild asymmetric enlargement of the leftlobe liver. Borderline splenomegaly. There also appears to be some dilatedleft upper quadrant collateral circulation. This is suboptimally evaluatedon noncontrast CT. There is no peripancreatic inflammation. Thegallbladder is surgically absent. No biliary duct dilatation. There are noadrenal masses. There is no hydronephrosis. Vascular: The abdominal aorta is normal in caliber. Lymph nodes: No retroperitoneal, mesenteric, or inguinallymphadenopathy. Gastrointestinal: No bowel obstruction. There is equivocal bowel wallthickening involving the transverse descending and proximal sigmoid colonwithout pericolonic inflammatory stranding, unclear if this is secondaryto underdistention or very mild colitis. The appendix is normal. Miscellaneous: No free intraperitoneal air or ascites. Pelvis: No free pelvic fluid. The urinary bladder is normal. The prostateis unremarkable. Musculoskeletal: No acute osseous abnormality or destructive bonelesions. IMPRESSION: 1. Equivocal bowel wall thickening involving the transverse, descending,and proximal sigmoid colon without pericolonic inflammatory stranding,unclear if this is secondary to underdistention or very mild colitis. 2. Mild asymmetric enlargement of the left lobe liver with borderlinesplenomegaly and dilated left upper quadrant collateral circulation. Thisis suboptimally evaluated on noncontrast CT. Correlation with liverfunction tests and history of chronic hepatic parenchymal disease isrecommended. 3. There is a 5 mm pulmonary nodule in the right lung base. No follow-upneeded if patient is low-risk. Non-contrast chest CT can be considered in12 months if patient is high-risk (Per Fleischner Society guidelines). Referred By: Interpreted By: Aime Mcclendon MD, 08/17/2024 9:35 PM Leonardo Layton MD CT Final Result * (ABNORMAL) COMPREHENSIVE METABOLIC PANEL (08/17/2024 7:55 PM CDT) Only the most recent of2 resultswithin the time period is included. GLUCOSE 101(H) 70 - 99 MG/DL 08/17/2024 8:23 PM CDT [facility] BUN 8 7 - 18 MG/DL 08/17/2024 8:23 PM CDT [facility] CREATININE S/P/B 0.83 0.7 - 1.3 MG/DL 08/17/2024 8:23 PM [facility] SODIUM S/P/B 138 136 - 145 MMOL/L 08/17/2024 8:23 PM [facility] POTASSIUM S/P/B 3.8 3.5 - 5.1 MMOL/L 08/17/2024 8:23 PM [facility] CHLORIDE S/P/B 104 100 - 108 MMOL/L 08/17/2024 8:23 PM [facility] CO2 26.3 21 - 32 MMOL/L 08/17/2024 8:23 PM [facility] CALCIUM S/P/B 9.3 8.5 - 10.1 MG/DL 08/17/2024 8:23 PM [facility] BILIRUBIN TOTAL S/P/B 0.8 0.2 - 1.2 MG/DL 08/17/2024 8:23 PM [facility] TOTAL PROTEIN S/P/B 7.8 6.4 - 8.2 G/DL 08/17/2024 8:23 PM [facility] ALBUMIN S/P/B 4.3 3.4 - 5.0 G/DL 08/17/2024 8:23 PM [facility] AST 25 15 - 37 U/L 08/17/2024 8:23 PM [facility] ALT 41 16 - 60 U/L 08/17/2024 8:23 PM [facility] ALKALINE PHOSPHATASE S/P/B 95 50 - 136 U/L 08/17/2024 8:23 PM [facility] ANION GAP 7.7 5 - 15 MMOL/L 08/17/2024 8:23 PM [facility] BUN CREATININE RATIO 9.6 6 - 26 08/17/2024 8:23 PM [facility] A/G RATIO 1.2 1.0 - 2.0 RATIO 08/17/2024 8:23 PM CDT [facility] GFR ESTIMATE >90 >90 ML/MIN/1.7 3 M2 08/17/2024 8:23 PM CDT [facility] Comment: NOTE: eGFR is not calculated for patients <18 years of age. This is an estimated GFR calculation using the new CKD EPI creatinine equation without race and so does not require a correction factor for race. This estimated GFR should not be used for calculating drug doses. 08/17/2024 7:55 PM CDT us Leonardo Layton MD LABORATORY Final Result [facility] [address] [place] [address], * (ABNORMAL) CBC W/DIFF AUTOMATED (08/17/2024 7:55 PM CDT) Only the most recent of2 resultswithin the time period is included. WBC 5.23 4.4 - 11.0 x10'3/uL 08/17/2024 8:10 PM CDT [facility] RBC 5.02 4.50 - 5.90 x10'6/uL 08/17/2024 8:10 PM CDT [facility] HGB 15.2 14.0 - 17.5 G/DL 08/17/2024 8:10 PM CDT [facility] HCT 45.1 41.5 - 50.4 % 08/17/2024 8:10 PM CDT [facility] MCV 89.8 80.0 - 96.0 FL 08/17/2024 8:10 PM CDT [facility] MCH 30.3 26.5 - 31.4 PG 08/17/2024 8:10 PM CDT [facility] MCHC 33.7 31.9 - 34.8 G/DL 08/17/2024 8:10 PM CDT [facility] RDW 15.2(H) 12.3 - 14.3 % 08/17/2024 8:10 PM CDT [facility] PLT 125(L) 151 - 353 x10'3/uL 08/17/2024 8:10 PM CDT [facility] MPV 10.7 9.7 - 11.9 FL 08/17/2024 8:10 PM CDT [facility] RBC MORPHOLOGY NORMAL 08/17/2024 8:10 PM T [facility] PLT MORPH. NORMAL 08/17/2024 8:10 PM CDT [facility] WBC MORPHOLOGY NORMAL 08/17/2024 8:10 PM CDT [facility] LYMPHOCYTES % 32.1 15.8 - 45.0 % 08/17/2024 8:10 PM CDT [facility] NEUTROPHILS % 52.2 42.1 - 71.9 % 08/17/2024 8:10 PM CDT [facility] MONOCYTES % 10.1 5.7 - 12.5 % 08/17/2024 8:10 PM CDT [facility] EOSINOPHILS 4.4 0.0 - 5.6 % 08/17/2024 8:10 PM CDT [facility] BASOPHILS 1.0 0.0 - 1.3 % 08/17/2024 8:10 PM CDT [facility] ABS. NEUTROPHILS 2.73 1.40 - 6.00 x10'3/uL 08/17/2024 8:10 PM CDT [facility] IMMATURE GRANS % 0.2 0.0 - 0.5 % 08/17/2024 8:10 PM CDT [facility] ABS. LYMPHOCYTES 1.68 0.80 - 4.70 x10'3/uL 08/17/2024 8:10 PM CDT [facility] 08/17/2024 7:55 PM CDT us Leonardo Layton MD LABORATORY Final Result [facility] [address] [place] [address], [place] [phone] * LIPASE (08/17/2024 7:55 PM CDT) Only the most recent of2 resultswithin the time period is included. LIPASE 59 16 - 77 UNITS/L 08/17/2024 8:23 PM CDT [facility] 08/17/2024 7:55 PM CDT us Leonardo Layton MD LABORATORY Final Result Performing Organization Address [facility] [employer] de Phone Number [facility] [address] [place] [address], [place] [phone] * CT ABD+PEL W CON (07/30/2024 8:50 PM CDT) Anatomical Region Laterality Modality Abdomen Computed Tomogra phy 07/30/2024 9:19 PM CDT Impressions 07/30/2024 9:28 PM CDT IMPRESSION: 1. Somewhat thickened appearance of the distal thoracic esophagus. Could correlate for esophagitis. 2. Asymmetric enlargement of the left and diminutive right lobes of the liver, recanalization of the umbilical vein and left upper quadrant venous collaterals, as well as splenomegaly. Findings could be secondary to chronic hepatic parenchymal disease/cirrhosis with portal hypertension. Please correlate clinically. 3. Atherosclerosis. Coronary artery calcifications. 4. Please see above for additional chronic, incidental, and nonemergent findings elsewhere. Ordered By: EDUARDO VERONICA NORMANSELL Interpreted By: Luisito Guillaume MD, 07/30/2024 9:19 PM Narrative 07/30/2024 9:28 PM [address] [address] DATE: 07/30/2024 8:38 PM EXAMINATION: CT Abdomen and Pelvis with contrast CLINICAL HISTORY: Abdominal pain. Left lower quadrant pain for one half hours. COMPARISON: 06/12/2024 TECHNIQUE: Computed tomography of the abdomen and pelvis was obtained after administration of intravenous contrast, 100mL IOPAMIDOL 76 % IV SOLN, without immediate complication according to routine protocol. A dose lowering technique was used for this procedure, which may include, but is not limited to, dose reduction technique, automated exposure control, the use of iterative reconstruction, and ALARA (As Low As Reasonably Achievable) / Image Gently techniques. FINDINGS: Images of the lower chest reveal mild thickening of the distal thoracic esophagus. Coronary artery calcifications. Dependent atelectasis. Status post cholecystectomy. Splenomegaly. Asymmetric enlargement of the left lobe of liver. Recanalized umbilical vein. Left upper quadrant venous collaterals suggested. Pancreas, adrenal glands, and kidneys are unremarkable. Atherosclerotic calcifications noted along the aorta and its branches. No bulky mesenteric or retroperitoneal lymphadenopathy. Moderate distention of the stomach. Small bowel loops nondilated. Normal appendix. Scattered solid feces in the right and transverse colon. Descending colon is underdistended. No findings of bowel obstruction. No free fluid or free air in the abdomen. Sigmoid colon and rectum underdistended. Prostatomegaly. Bladder unremarkable. No pelvic ascites. Pelvic vascular calcifications. No bulky pelvic or inguinal lymphadenopathy. Degenerative changes noted in the spine. Procedure Note Luisito Guillaume MD - 07/30/[address] [address] DATE: 07/30/2024 8:38 PM EXAMINATION: CT Abdomen and Pelvis with contrast CLINICAL HISTORY: Abdominal pain. Left lower quadrant pain for one halfhours. COMPARISON: 06/12/2024 TECHNIQUE: Computed tomography of the abdomen and pelvis was obtainedafter administration of intravenous contrast, 100mL IOPAMIDOL 76 % IVSOLN, without immediate complication according to routine protocol. A dose lowering technique was used for this procedure, which may include,but is not limited to, dose reduction technique, automated exposurecontrol, the use of iterative reconstruction, and ALARA (As Low AsReasonably Achievable) / Image Gently techniques. FINDINGS: Images of the lower chest reveal mild thickening of the distal thoracicesophagus. Coronary artery calcifications. Dependent atelectasis. Status post cholecystectomy. Splenomegaly. Asymmetric enlargement of theleft lobe of liver. Recanalized umbilical vein. Left upper quadrant venouscollaterals suggested. Pancreas, adrenal glands, and kidneys areunremarkable. Atherosclerotic calcifications noted along the aorta and itsbranches. No bulky mesenteric or retroperitoneal lymphadenopathy. Moderate distention of the stomach. Small bowel loops nondilated. Normalappendix. Scattered solid feces in the right and transverse colon.Descending colon is underdistended. No findings of bowel obstruction. Nofree fluid or free air in the abdomen. Sigmoid colon and rectum underdistended. Prostatomegaly. Bladderunremarkable. No pelvic ascites. Pelvic vascular calcifications. No bulkypelvic or inguinal lymphadenopathy. Degenerative changes noted in the spine. IMPRESSION: 1. Somewhat thickened appearance of the distal thoracic esophagus. Couldcorrelate for esophagitis. 2. Asymmetric enlargement of the left and diminutive right lobes of theliver, recanalization of the umbilical vein and left upper quadrant venouscollaterals, as well as splenomegaly. Findings could be secondary tochronic hepatic parenchymal disease/cirrhosis with portal hypertension.Please correlate clinically. 3. Atherosclerosis. Coronary artery calcifications. 4. Please see above for additional chronic, incidental, and nonemergentfindings elsewhere. Ordered By: EDUARDO HENDERSON Interpreted By: Luisito Guillaume MD, 07/30/2024 9:19 PM us Eduardo Henderson MD CT Final Result * HEPATITIS PANEL,ACUTE (04/15/2017 5:10 PM POLITICAL ORGANIZER) HAV IGM NON-REACTI VE NON-REACTI VE 04/17/2017 3:37 PM POLITICAL ORGANIZER [facility] Comment: TESTING PERFORMED [address] [address] HEP B SURFACE AB NON-REACTI VE 04/17/2017 3:37 PM POLITICAL ORGANIZER [facility] Comment: TESTING PERFORMED [address] [address] HEPATITIS B SURFACE AG NON-REACTI VE NON-REACTI VE 04/17/2017 3:37 PM POLITICAL ORGANIZER [facility] Comment: TESTING PERFORMED [address] [address] HEP B CORE TOTAL AB NON-REACTI VE NON-REACTI VE 04/17/2017 3:37 PM POLITICAL ORGANIZER [facility] Comment: TESTING PERFORMED [address] [address] HEPATITIS C AB NON-REACTI VE NON-REACTI VE 04/17/2017 3:37 PM POLITICAL ORGANIZER [facility] Comment: [place] [address] 04/15/2017 5:10 PM POLITICAL ORGANIZER 04/15/2017 5:23 PM POLITICAL ORGANIZER us Generic Conversion Md [facility]ART[facility] LABORATORY Final R esult [facility] [address] [place] [address], from Last 3 Months or Most Recently Relevant to Health Maintenance Insurance COVID19 [employer] [place] [address] [facility] Advance Directives * Full Code (Latest Code Status on File) Date Activated Date Inactivated Comments 01/27/2021 11:46 PM 01/29/2021 9:38 PM * Full Code Date Activated Date Inactivated Comments 05/16/2019 1:16 PM 05/21/2019 5:09 PM Care Teams Administrative Assistant Receptionist Relationship Specialty Start Date End Date Tarik Cruz MD [address] [place] [address] PCP - General FAMILY PRACTICE 06/12/24 [place] [address] [place] [address] Consulting Physician GASTROENTEROLOGY 12/10/23
--- OUTSIDE RECORDS SUMMARY | 2024-09-14 02:03 | XMS_ITS | Patient Health Record ---
Author Organization [facility] [employer] [employer] Address [address] [facility] [address] [place] [address] Care Team Providers Care Churn Operator Margarine Name Role Phone Nancy MARTINEZ, Tarik Primary Care Provider Unavailab dasia Carson Irving Unavailable [phone] Mery Lala Unavailable [phone] Allergies No Known Allergies Results Component Value Reference Range Notes UDT Reviewed date:04/08/2024 04:17:18 PM Interpretation: Performing Lab: Notes/Report: THC P 0 - 50 ng/ml Cocaine N 0 - 300 ng/ml Amphetamine N 0 - 1000 ng/ml Buprenorphine (BUP) N 0 - 10 ng/ml Secobarbital (Bar) N 0 - 300 ng/ml Oxazepam (BZO) P 0 - 300 ng/ml 0-stecinxecw-1,2-yuvmvfny-5, 3-dipheny lpyrrolidine (EDDP) N 0 - 300 ng/ml Methamphetamine (MET) N 0 - 1000 ng/ml Methylenedioxymethamphetamine (MDMA) N 0 - 500 ng/ml Morphine (MOP 300/BSR3912) N 0 - 300 ng/ml Methadone (MTD) N 0 - 300 ng/ml Phencyclidine (PCP) N 0 - 25 ng/ml Nortriptyline (TCA) N 0 - 1000 ng/ml Oxycodone N 0 - 300 ng/ml x N 0 - 300 ng/ml DRUG MONITOR, MARIJUANA META B, QN, URINE ([id number]) Reviewed date:04/17/2024 05:19:07 PM Interpretation: Performing Lab:BRANDEN, [facility] [address], [place]fl[place] Marvin Valdez, Director - [address] [facility] Notes/Report: FASTING: NO Marijuana Metabolite 1831 <5 [...] analytical performance characteristics have been determined by [employer]. It has not been cleared or approved by the FDA. This assay has been validated pursuant to the CLIA regulations and is used for clinical purposes. Healthcare Providers needing Interpretation assistance, please contact us at [phone] ( ) M-F, 8am to 10pm EST DRUG MONITOR, JAZMINE [place] ([id number]) Reviewed date:04/17/2024 05:18:59 PM Interpretation: Performing Lab:BRANDEN, [employer] [facility] [facility] [facility] Hospital[facility] Marvin Valdez Notes/Report: FASTING: NO Alphahydroxyalprazolam 203 [...] Oxazepam (BZO) p 0 - 300 ng/ml 4-nufvtbtpny-1,5-rbdidiwj-6, 3-dipheny lpyrrolidine (EDDP) n 0 - 300 ng/ml Methamphetamine (MET) n 0 - 1000 ng/ml Methylenedioxymethamphetamine (MDMA) n 0 - 500 ng/ml Morphine (MOP 300/XMX5422) n 0 - 300 ng/ml Methadone (MTD) n 0 - 300 ng/ml Phencyclidine (PCP) n 0 - 25 ng/ml Nortriptyline (TCA) n 0 - 1000 ng/ml Oxycodone n 0 - 300 ng/ml x n 0 - 300 ng/ml Reason For Referral No Information Medications Medication SIG (Take, Route, Frequency, Duration) Notes Start Date End Date Status ARIPiprazole 15 MG Oral; Duration: 30 Days Not-Taking Pantoprazole Sodium 40 MG TAKE 1 TABLET BY MOUTH ONCE DAILY Oral; Duration: 90 Days Active buPROPion HCl ER (XL) 150 MG 1 tablet in the morning Oral Once a day; Duration: 90 days take before shift start 05/17/2024 Active ALPRAZolam 1 MG TAKE 1 TABLET BY RAE TH THREE TIMES DAILY Oral; Duration: 30 Days Active Social History Tobacco Use: [...] Problem Status W/U Status Risk Notes Problem Moderate recurrent major depression (20943731) Major depressive disorder, recurrent, moderate (F33.1) Active confirmed Problem Generalized anxiety disorder (95283424) DARRIUS (generalized anxiety disorder) (F41.1) Active confirmed Problem Attention deficit hyperactivity disorder, predominantly inattentive type (31441860) ADHD (attention deficit hyperactivity disorder), inattentive type (F90.0) Active confirmed Problem Poor concentration (68101444) Poor concentration (R41.840) Active confirmed Vital Signs [...] N/A Encounters Encounter Location Date Provider Diagnosis [facility] [employer] [place] [address] [facility] [address] [place] [address] 04/08/2024 Carsonfariba Irving Major depressive disorder, recurrent, moderate F33.1 ; DARRIUS (generalized anxiety disorder) F41.1 and Poor concentration R41.840 [facility] [employer] [place] [address] [facility] [address] [place] [address] 05/02/2024 Carson Irving Lack of concentratio n R41.840 [facility] [address] [facility] [address] [place] [address] 05/08/2024 Carson Aristides [facility] [place] [address] [facility] [address] [address] 05/17/2024 Carson Nasham ADHD (attention defi cit hyperactivity disorder), inattentive type F90.0 ; Major depressive disorder, recurrent, moderate F33.1 ; DARRIUS (generalized anxiety disorder) F41.1 ; Encounter for screening for depression Z13.31 and Encounter for screening for cardiovascular disorders Z13.6 [facility] [address] [address] 05/17/2024 Carson Aristides Assessments Encounter Date Diagnosis [...] his mother. Patient is working in a [employer] from 6 a.m. to 5 p.m. daily [...] Insured Coverage Start Date Coverage End Date [facility] [address] [place] [address] [id number] Dayne Oviedo Self - patient is the insured Medical (General) History Medical History History ICD Code Past Psychiatric History: Anxiety Disord er,Panic Disorder,Bipolar Disorder Surgical History Surgery Date(Month/Year) chin harrison
--- OUTSIDE RECORDS SUMMARY | 2024-09-14 02:03 | XMS_ITS ---
Author Organization [facility] [employer] [facility] Address [address] [place] [address] [place] [address] Care Team Providers Care Asbestos Hazard Abatement Worker Name Role Phone Nancy MARTINEZ, Tarik Primary Care Provider Unavailab dasia NashamHungCarson Unavailable [phone] Mery Nicholson Unavailable [phone] REASON FOR VISIT New Patient Social History Sex Assigned At : Social History Observation Description Sex Assigned At Male Encounters Encounter Location Date Provider Diagnosis [facility] [employer] [facility] [address] [facility] [address] [place] [address] 07/03/2024 Mery Nicholson Plan Of Treatment No Information Progress Notes * Dayne SAMDOB: [birth year] (48 yo M)Acc No.[id number]:07/03/2024 Patient: Dayne GORDILLO Provider: Dalila NICHOLSON LCSW :1975 A ge:48 Y S ex:Male Date:07/03/2024 Phone: Address:[address] [facility] Pcp:Tarik Cruz MD Data: * Chief Complaints: * 1 . New Patient. * Medical History: * Vitals: Assessment: Plan: * Treatment: * Billing Information: * Visit Code: * Procedure Codes: * Electronic signature of Mery Nicholson LCSW on 09/14/2024 at 02:02 AM CDT Sign off status: Pending Signatures: No Ad Hoc Signature Added * Provider: Dalila NICHOLSON LCSW Date: 07/03/2024 Generated for Bekai ng/Famarkelg/eTransmitting on: 09/14/2024 02:02 AM CDT
--- OUTSIDE RECORDS SUMMARY | 2024-09-14 02:03 | XMS_ITS | Clinical Summary ---
Author Organization [facility] Address [address] [address] Phone Care Team Providers Care Needle Punch Operator Name Role Phone Unavailable Primary Care Provider [...]
[2024-09-14] MEDS: MORPHINE SULFATE (*CRX) 4 MG/ML INJ IV PUSH (02:21)
[2024-09-14] MEDS: ONDANSETRON INJ 4 MG/2 ML VIAL IV PUSH (02:22)
[2024-09-14 02:26] VITALS: BP 139/97; PULSE 65; RESP 15; TEMP 36.8; O2SAT 100
[2024-09-14 02:38] LABS: Hematocrit 41.9 % (42.0-52.0); Hemoglobin 13.7 g/dL (14.0-18.0); Immature Granulocyte Percent A 0.2 % (0-0.5); Immature Platelet Fraction Pct 1.7 % (0.9-11.2); Lymphocytes Absolute Auto 1.30 K/mm3 (0.9-3.2); Mean Corpuscular HGB Conc 32.7 g/dl (32-36); Mean Corpuscular Hemoglobin 30.0 pg (26-34); Mean Corpuscular Volume 91.7 fl (80-100); Nucleated Red Blood Cells Absolute Auto 0.000 K/mm3 (0.0-0.012); Nucleated Red Blood Cells Perc 0.0 % (0.0-0.2); Red Blood Count 4.57 M/mm3 (4.6-6.20); White Blood Count 5.2 K/mm3 (4.5-10.0)
[2024-09-14 02:40] LABS: Platelet Count Result 100 k/mm3 (150-375)
[2024-09-14 02:55] LABS: Alanine Aminotransferase 31 U/L (6-50); Albumin Level 4.5 g/dL (3.5-5.1); Alkaline Phosphatase 75 U/L (38-126); Anion Gap 10 mmol/L (4-12); Aspartate Amino Transferase 37 U/L (17-59); Bilirubin,Total 0.9 mg/dL (0.2-1.3); Blood Urea Nitrogen 8 mg/dL (9-20); Calcium 9.2 mg/dL (8.4-10.2); Carbon Dioxide 23 mmol/L (22-30); Chloride 103 mmol/L (98-107); Estimated Glomerular Filt Rate > 60; Glucose 103 mg/dL (65-110); Lipase 123 U/L (23-300); Magnesium 2.0 mg/dL (1.6-2.3); Potassium 3.7 mmol/L (3.4-5.0); Sodium 136 mmol/L (137-145); Total Protein 7.9 g/dL (6.3-8.2)
--- NOTE | 2024-09-14 03:37 | ED_ITS ---
HPI - Abdominal Pain General Chief Complaint: Abdominal Pain Stated Complaint: abd pain Time Seen by Provider: 09/14/24 02:11 History of Present Illness HPI narrative: Patient is a 48-year-old male who presents to the emergency department complaining of left lower quadrant abdominal pain. States that he does have a history of diverticulitis. States that this feels similar to his previous diverticulitis flares and that it has been awhile since his last diverticulitis flare up. Denies any nausea vomiting or diarrhea. In recent illness, fevers or chills. Related Data Allergies Allergy/AdvReac Type Severity Reaction Status Date / Time gluten AdvReac Mild Nausea Verified 08/28/24 12:58 milk AdvReac Mild bloating Verified 08/28/24 12:58 Review of Systems 2 Review of Systems: All systems are reviewed and are negative unless stated otherwise in the HPI. [facility] Past Medical History Medical History Moderate persistent asthma with acute exacerbation Unspecified asthma, uncomplicated Gynecomastia Erosive esophagitis Gastritis Diverticulosis Asthma Irritable bowel syndrome Depression Generalized anxiety disorder Bipolar disorder, unspecified Celiac disease Gastroesophageal reflux disease Surgical History Surgical History History of cholecystectomy 02/2016 Family History Family History Father No problems noted. Mother No problems noted. Social History Social History Smoking status: Never smoker Second hand tobacco smoke exposure: No Alcohol intake: never Substance use: current Substance use type: marijuana Lack of Transportation: No Lack of Food: Never True Current Housing: I Have Housing Concerned About Future Housing: No Difficulty Paying Gas/Electric Bills: No Difficulty Paying for Meds: No Currently Unemployed: No Education: High School Diploma/GED Difficulty w/ Childcare or Family Care: No Living arrangements: with family Occupation/Education: occupation Gender identity (if verbalized by the patient): Male Sexual Orientation (if Verbalized by the Patient): Straight or Heterosexual Exam 2 Narrative: General: Alert, awake, afebrile, in no acute distress. HEENT: PERRL, no rhinorrhea, no post nasal drip, oropharynx clear. Neck: Trachea midline, no JVD, no lymphadenopathy. Cardiovascular: Regular rate and rhythm, no murmurs, rubs or gallops, no peripheral edema. Respiratory: Clear to auscultation bilaterally, no tachypnea, no wheezing, no rhonchi, no rubs, no respiratory distress. Abdomen: Soft, left lower quadrant tenderness to palpation, nondistended, no rebound, no guarding, no peritoneal signs. Musculoskeletal: No joint swelling or deformity, normal muscle tone. Skin: No rashes or petechia, no signs of infection. Psychiatric: Alert and oriented, normal behavior and judgment for situation. Neurological: Alert and oriented to person, place, and time. Follows all commands. No focal deficits, speech is clear and fluent. Course Vital Signs Vital signs: Vital Signs Temperature 98.2 F 09/14/24 02:26 Pulse Rate 65 09/14/24 02:26 Respiratory Rate 15 09/14/24 02:26 Blood Pressure 139/97 H 09/14/24 02:26 Pulse Oximetry 100 09/14/24 02:26 Oxygen Delivery Room Air 09/14/24 02:26 Temperature 98.2 F 09/14/24 02:26 Pulse Rate 65 09/14/24 02:26 Respiratory Rate 15 09/14/24 02:26 Blood Pressure 139/97 H 09/14/24 02:26 Pulse Oximetry 100 09/14/24 02:26 Oxygen Delivery Room Air 09/14/24 02:26 MDM - Abdominal Pain MDM Narrative Medical decision making narrative: The patient was evaluated by myself in the emergency department. History is obtained from patient who is an independent historian and physical exam was performed. External medical records were reviewed at this time. IV was established and pertinent tests were ordered. Patient was administered 4 mg of IV morphine for pain and 4 mg IV Zofran for nausea. Patient continues to complain of pain and some who was administered 50 mg of IV Toradol. Laboratory results obtained revealing no acute process. Imaging studies obtained included CT abdomen pelvis with IV contrast which was independently interpreted by me revealing no acute process, which is pending final radiology interpretation. Differential diagnosis considerations include diverticulitis, colitis small- bowel obstructions, renal colic/nephrolithiasis, pyelonephritis. Comorbidities impacting this visit include history of diverticulitis. I have evaluated and discussed social determinants of health with the patient that could potentially impact subsequent diagnosis and treatment plans. On repeat assessment of the patient, reevaluation revealed that the patient is doing well and is in no acute distress. Patient symptoms have improved since he arrived to our emergency department. Repeat vital signs were all reviewed and noted to be stable. Differential diagnosis and treatment plan were discussed with the patient at bedside. Patient agrees with discussion and after shared medical decision making agrees with [admission/discharge]. All questions were answered to the patient's satisfaction. Patient will follow up with his PCP in 3-5 days. Patient was provided with strict return precautions and instructed to return to the emergency department if any new or worsening symptoms develop. The patient was discharged in stable condition. Lab Data 09/14/24 02:22 09/14/24 02:22 Labs: Lab Results 09/14/24 09/14/24 Range/Units 02:22 04:01 WBC 5.2 (4.5-10.0) K/mm3 RBC 4.57 L (4.6-6.20) M/mm3 Hgb 13.7 L (14.0-18.0) g/dL Hct 41.9 L (42.0-52.0) % MCV 91.7 (80-100) fl MCH 30.0 (26-34) pg MCHC 32.7 (32-36) g/dl RDW 14.8 H (11.5-14.5) % Plt Count 100 L (150-375) k/mm3 MPV 10.3 (7.4-10.4) fl Immature Gran % (Auto) 0.2 (0-0.5) % Neut % (Auto) 59.4 (45.5-73.1) % Lymph % (Auto) 25.0 (18.3-44.2) % [place] % (Auto) 10.4 H (2.6-8.5) % Eos % (Auto) 4.4 (0-4.4) % Baso % (Auto) 0.6 (0.2-1.2) % Lymph # (Auto) 1.30 (0.9-3.2) K/mm3 [place] # (Auto) 0.5 (0.1-0.6) K/mm3 Eos # (Auto) 0.2 (0-0.3) K/mm3 Baso # (Auto) 0.0 (0.0-0.1) K/mm3 Abs Immat Gran (auto) 0.01 (0.00-0.031) K/mm3 Absolute Neuts (auto) 3.1 (1.3-6.7) K/mm3 Absolute Nucleated RBC 0.000 (0.0-0.012) K/mm3 Nucleated RBC % 0.0 (0.0-0.2) % % Immature Plt Fraction 1.7 (0.9-11.2) % Sodium 136 L (137-145) mmol/L Potassium 3.7 (3.4-5.0) mmol/L Chloride 103 (98-107) mmol/L Carbon Dioxide 23 (22-30) mmol/L Anion Gap 10 (4-12) mmol/L BUN 8 L (9-20) mg/dL Creatinine 0.66 L (0.7-1.3) mg/dL Estim Creat Clear Calc Not Reportable Estimated GFR > 60 (59 - ) Glucose 103 (65-110) mg/dL Calcium 9.2 (8.4-10.2) mg/dL Magnesium 2.0 (1.6-2.3) mg/dL Total Bilirubin 0.9 (0.2-1.3) mg/dL AST 37 (17-59) U/L ALT 31 (6-50) U/L Alkaline Phosphatase 75 (38-126) U/L Total Protein 7.9 (6.3-8.2) g/dL Albumin 4.5 (3.5-5.1) g/dL Lipase 123 (23-300) U/L Urine Color Yellow (Yellow) Urine Appearance Clear (Clear) Urine pH 8.5 (5.0-9.0) Ur Specific [place] > 1.045 H (1.001-1.035) Urine Protein Negative (Negative) mg/dL Urine Glucose (UA) Negative (Negative) mg/dL Urine Ketones 1+ H (Negative) mg/dL Ur Blood (Man) Negative (Negative) Urine Nitrate Negative (Negative) Urine Bilirubin Negative (Negative) Urine Urobilinogen 1.0 (<2.0) mg/dL Leukocyte Esterase Rfl Negative (Negative) IMAN/UL Discharge Plan Discharge Clinical Impression: Left lower quadrant abdominal pain Patient Disposition: Home Condition: Improved Instructions: Antibiotic Form, Abdominal Pain (ED) Additional Instructions: Please follow-up with your family doctor within the next 3-5 days. Return to the ED if any new or worsening symptoms develop. Patient Language: Ghanaian Prescriptions: No Action escitalopram oxalate 10 mg tablet 10 mg PO DAILY Qty: 30 2RF alprazolam 1 mg tablet 1 mg PO BID Qty: 60 0RF cyclobenzaprine 10 mg tablet 10 mg PO TID PRN (Reason: muscle spasm) Qty: 20 0RF albuterol sulfate [Ventolin HFA] 90 mcg/actuation HFA aerosol inhaler 1 inhalation INHALATION Q4H PRN (Reason: shortness of breath or wheezing) Qty: 18 3RF diclofenac sodium 75 mg tablet,delayed release (DR/EC) 75 mg PO BID Qty: 30 0RF pantoprazole 40 mg tablet,delayed release (DR/EC) See Rx Instructions .ROUTE .COMPLEX Qty: 90 1RF Dose Instruction: Take 1 tablet by mouth once daily Rx Instructions: Take 1 tablet by mouth once daily Follow-up/Referrals: Tarik Cruz MD [Primary Care Provider] - 3 Days Time of Disposition: 04:34
[2024-09-14] MEDS: KETOROLAC 15 MG/ML VIAL (*BKC) IV PUSH (03:49)
[2024-09-14 04:07] LABS: Add Urine Microscopic? NO; Appearance Urine Clear (Clear); Glucose Urine UA Negative (Negative); Leukocyte Esterase Ur Negative LEU/UL (Negative); Nitrate Urine Negative (Negative); Specific Grav Ur > 1.045 (1.001-1.035)
[2024-09-14 04:47] VITALS: BP 139/97; PULSE 65; RESP 15; TEMP 36.8; O2SAT 100
== END 2024-09-14 04:50 | disposition home or self-care (01) ==
PROVIDERS: Emergency Provider Emergency Medicine; PCP Family Medicine
DX: J45.40 Moderate persistent asthma, uncomplicated (principal); K58.9 Irritable bowel syndrome, unspecified; K90.0 Celiac disease; K21.9 Gastro-esophageal reflux disease without esophagitis; F41.1 Generalized anxiety disorder; F31.9 Bipolar disorder, unspecified; Z90.49 Acquired absence of other specified parts of digestive tract
CPT/HCPCS: 36415; 74177; 80053; 81003; 83690; 83735; 85025; 85055; 96374; 96375; 99284; J1885; J2270; J2405; Q9967

== ENCOUNTER 2024-10-10 11:37 | Emergency (ER) | payer BC, SELFPAY ==
[2024-10-10] VITALS (9 sets, daily range): BP systolic 109–137; BP diastolic 59–92; PULSE 66–86; RESP 14–20; TEMP 36.4; O2SAT 94–99
--- OUTSIDE RECORDS SUMMARY | 2024-10-10 11:40 | XMS_ITS | Clinical Summary ---
Author Organization [facility] Address [address] [place] [phone] Phone Care Team Providers Care Senior Oracle Soa Developer Name Role Phone Unavailable Primary Care Provider [...] Encounters Date Type Department Care Team Description 10/09/2024 External Device Data STL ABSTRACTION Provider, Abstract 10/08/2024 External Device Data STL ABSTRACTION Provider, Abstract 10/08/2024 External Device Data STL ABSTRACTION Provider, Abstract [...] CDT - 08/11/2024 11:57 PM CDT Emergency [facility] Emergency Department [address] [place] [address] Warren Cantu MD Abdominal pain, unspecified [...] Flex Sig/CT Colonography Q 5 years 10/02/2019 ZOSTER VACCINE (1 of 2) 2024 INFLUENZA VACCINE (#1) 2024 Procedures Procedure Name [...] Splenomegaly. Hepatic steatosis. DICTATION LOCATION: Location [address] ORDERABLES Final Result * MANUAL DIFFERENTIAL (08/11/2024 9:25 PM CDT) [facility] PLATELET EST. Consistent w Count 08/11/2024 10:28 PM CDT [facility] [employer] [facility] RBC MORPHOLOGY Normal 08/11/2024 10:28 PM CDT [facility] [employer] [facility] Blood Venipuncture / Unknown 08/11/2024 9:25 PM CDT 08/11/2024 9:27 PM CDT Protocol Victoria Flynn MD HEMATOLOGY ORDERABLES COM Final Result [facility] [employer] [facility] CLIA# [id number] [address] [place] [address] * (ABNORMAL) CBC WITH DIFFERENTIAL (08/11/2024 9:25 PM CDT) [facility] WBC 6.0 4.0 - 9.8 K/uL 08/11/2024 9:42 PM CDT [facility] [employer] [facility] Comment:ANC = 4.23K/uL RBC 4.63 4.50 - 5.40 M/uL 08/11/2024 9:42 PM CDT [facility] [employer] [facility] HEMOGLOBIN 13.9 13.6 - 16.5 g/dL 08/11/2024 9:42 PM CDT [facility] HEMATOCRIT 41.4 40.0 - 48.0 % 08/11/2024 9:42 PM CDT [facility] MCV 89.4 82.0 - 99.0 fL 08/11/2024 9:42 PM CDT [facility] [place] MCH 30.0 27.2 - 32.6 pg 08/11/2024 9:42 PM CDT [facility] [place] MCHC 33.6 31.5 - 35.5 g/dL 08/11/2024 9:42 PM CDT [facility] [place] RDW 14.6(H) 11.5 - 14.5 % 08/11/2024 9:42 PM CDT [facility] [place] RDW-STDEV 48.0 37.1 - 48.7 fL 08/11/2024 9:42 PM CDT [facility] [place] PLATELETS 95(L) 140 - 350 K/uL 08/11/2024 9:42 PM CDT [facility] [place] MPV 9.9 9.3 - 12.4 fL 08/11/2024 9:42 PM CDT [facility] [place] NEUTROPHILS 71 % 08/11/2024 9:42 PM CDT [facility] [place] LYMPHOCYTES 18 % 08/11/2024 9:42 PM CDT [facility] [place] MONOCYTES 8 % 08/11/2024 9:42 PM CDT [facility] [place] EOSINOPHILS 3 % 08/11/2024 9:42 PM CDT [facility] [place] BASOPHILS 1 % 08/11/2024 9:42 PM CDT [facility] [place] IMMATURE GRANULOCYTES 0 % 08/11/2024 9:42 PM CDT [facility] [place] NEUTROPHIL ABSOLUTE 4.23 1.90 - 7.00 K/uL 08/11/2024 9:42 PM CDT [facility] [place] LYMPHOCYTE ABSOLUTE 1.06 0.70 - 4.50 K/uL 08/11/2024 9:42 PM CDT [facility] [place] MONOCYTE ABSOLUTE 0.49 0.10 - 1.30 K/uL 08/11/2024 9:42 PM CDT [facility] [place] EOSINOPHIL ABSOLUTE 0.16 0.00 - 0.70 K/uL 08/11/2024 9:42 PM CDT [facility] [place] BASOPHILS ABSOLUTE 0.03 0.00 - 0.20 K/uL 08/11/2024 9:42 PM CDT [facility] IMMATURE GRANULOCYTES ABSOLUTE 0.02 0.00 - 0.03 K/uL 08/11/2024 9:42 PM CDT [facility] Blood Venipuncture / Unknown 08/11/2024 9:25 PM CDT 08/11/2024 9:27 PM CDT Protocol [facility] Emergency MD HEMATOLOGY ORDERABLES Final Result [facility] CLIA# [id number] [address] [place] [address] * LIPASE (08/11/2024 9:25 PM CDT) Pathologist [facility] LIPASE 39 13 - 60 U/L 08/11/2024 9:52 PM CDT [facility] Blood Venipuncture / Unknown 08/11/2024 9:25 PM CDT 08/11/2024 9:27 PM CDT us Protocol [facility] Emergency CHEMISTRY ORDERABLES Final Result [facility] [employer] [facility] CLIA# [id number] [address] [place] [address] * (ABNORMAL) COMPREHENSIVE METABOLIC PANEL (08/11/2024 9:25 PM CDT) Pathologist [facility] SODIUM 136 136 - 145 mmol/L 08/11/2024 9:52 PM CDT [facility] POTASSIUM 3.3(L) 3.5 - 4.9 mmol/L 08/11/2024 9:52 PM CDT [facility] CHLORIDE 101 98 - 107 mmol/L 08/11/2024 9:52 PM CDT [facility] CO2 22 22 - 29 mmol/L 08/11/2024 9:52 PM CDT [facility] CALCIUM 9.2 8.6 - 10.2 mg/dL 08/11/2024 9:52 PM [facility] BUN 8 6 - 20 mg/dL 08/11/2024 9:52 PM [facility] CREATININE 0.77 0.67 - 1.17 mg/dL 08/11/2024 9:52 PM [facility] GLUCOSE 137(H) 74 - 99 mg/dL 08/11/2024 9:52 PM [facility] TOTAL PROTEIN 7.1 6.0 - 8.3 g/dL 08/11/2024 9:52 PM [facility] ALBUMIN 4.4 3.4 - 4.8 g/dL 08/11/2024 9:52 PM [facility] BILIRUBIN TOTAL 0.9 0.0 - 1.0 mg/dL 08/11/2024 9:52 PM [facility] ALKALINE PHOSPHATASE 85 40 - 129 U/L 08/11/2024 9:52 PM [facility] AST 40(H) 12 - 38 U/L 08/11/2024 9:52 PM [facility] ALT 41(H) <41 U/L 08/11/2024 9:52 PM [facility] GFR >60 >=60 mL/min/1.7 3 sq meter 08/11/2024 9:52 PM [facility] Comment:eGFR calculated with 2020 CKD-EPI equation. Vegetarian diet, extremely high or low muscle mass, and may affect results. Cystatin C with Glomerular Filtration Rate is a suitable alternative for these patients. ANION GAP 13 8 - 16 mmol/L 08/11/2024 9:52 PM [facility] Blood Venipuncture / Unknown 08/11/2024 9:25 PM CDT 08/11/2024 9:27 PM T us Protocol [facility] Emergency CHEMISTRY ORDERABLES Final Result [facility] CLIA# [id number] [address] [place] [address] from Last 3 Months
--- OUTSIDE RECORDS SUMMARY | 2024-10-10 11:40 | XMS_ITS | Encounter Summary ---
Author Organization [facility] Address [address] [place] [address] Care Team Providers Care Fibrous Plasterer Name Role Phone Unavailable Primary Care Provider Unavailabl e Encounter Details Date Type Department Care Team (Late st Contact Info) Description 10/08/2024 External Device Data [facility] ABSTRACTION Provider, Abstract NO ADDRESS ON FILE Social History Tobacco Use Types Packs/Day Years Used Date Smoking Tobacco: Never Assessed Sex and Gender Information Value Date Recorded Sex Assigned at Not on file Legal Sex Male 9:19 PM CDT Gender Identity Not on file Sexual Orientation Not on file documented as of this encounter Plan of Treatment Not on file documented as of this encounter Visit Diagnoses Not on filedocumented in this encounter
--- OUTSIDE RECORDS SUMMARY | 2024-10-10 11:40 | XMS_ITS | Encounter Summary ---
Author Organization [facility] Address [address] [place] [address] Care Team Providers Care Stitchdowns Toe Former Name Role Phone Unavailable Primary Care Provider Unavailabl e Encounter Details Date Type Department Care Team (Late st Contact Info) Description 10/09/2024 External Device Data STL ABSTRACTION [...]
--- OUTSIDE RECORDS SUMMARY | 2024-10-10 11:40 | XMS_ITS | Clinical Summary ---
Author Organization [facility] Address [address] [address] Phone Care Team Providers Care Cement Finishing Supervisor Name Role Phone Unavailable Primary Care Provider [...] of 3 - 19+ 3-dose series) 1993 Cologuard 10/02/2019 Colonoscopy 10/02/2019 Colorectal Cancer Screening 10/02/2019 Immunochemical Fecal Occult Blood 10/02/2019 SARS-COV-2 Immunization (1 - 2023- season) 2023 Pneumococcal Immunization (5 0+ years) (1 of 1 - PCV) 2024 Zoster Immunization (1 of 2) 2024 Influenza Immunization (#1) 2024 Respiratory Syncytial Virus (RSV) Immunization (Adult) (1 - 1-dose 75+ series) 2049 Human Papillomavirus (HPV) Immunization Aged Out No longer eligible b ased on patient's age to complete this topic Meningococcal Immunization (ACWY) Aged Out No longer eligible based on patient's age to complete this topic Rotavirus Immunization Aged Out No lo nger eligible based on patient's age to complete this topic Insurance [place]
--- OUTSIDE RECORDS SUMMARY | 2024-10-10 11:40 | XMS_ITS | Clinical Summary ---
Author Organization [facility] Address [address] [place] [address] Care Team Providers Care Vest Busheler Name Role Phone Tarik Cruz MD Primary Care Provider [phone] Allergies No known active allergies Medications amitriptyline [...] meals. 180 packet 2 08/20/19 25 Active Active Problems Problem Noted Date Diagnosed Date Pancreatitis (HHS/HCC) 05/16/2019 Biliary dyskinesia 03/02/2017 Resolved Problems Problem Noted Date Diagnosed Date Resolved Date Encounter for preventive health examination 03/03/2014 11/15/2019 Encounters Date Type Department Care Team Description 09/25/2024 1:16 PM CDT - 09/25/2024 4:35 PM CDT Emergency [facility] Emergency Room [address] [place] [address] Ron Solis MD Abdominal Pain Discharge Disposition: Home or Self Care (Routine Discharge) 09/25/2024 Travel 09/14/2024 5:08 AM CDT - 09/14/2024 7:50 AM CDT Emergency [facility] Emergency Room [address] [place] [address] Pattie Yi MD Abdominal Pain (Patient arrives with c/o of 10/10 lower left abdominal pain that started around 0200. Pt attempted bentyl, and zofran with increased n/v/d) Discharge Disposition: Home or Self Care (Routine Discharge) 09/14/2024 Travel 08/19/2024 1:30 PM CDT Office Visit [facility] General Surgery [facility] [address] [facility], [address] [place] [address] Rigoberto Scruggs IV, MD Abdominal Pain (Pain and vomiting this last Monday- went to the ER- [facility]) 08/19/2024 Travel 08/17/2024 7:50 PM CDT - 08/17/2024 10:38 PM CDT Emergency [facility] Emergency Room [address] [place] [address] Leonardo Layton MD Abdominal Pain Discharge Disposition: Home or Self Care (Routine Discharge) 08/17/2024 Travel 07/30/2024 8:08 PM CDT - 07/30/2024 11:33 PM CDT Emergency [facility] [place] [address] Eduardo Cartagena MD Jerome, Jason P, MD,PHD Abdominal Pain [...] Sign Reading Time Taken Comments Blood Pressure 131/72 09/25/2024 4:00 PM CDT Pulse 83 09/25/2024 1:23 PM CDT Temperature 36.7 C (98.1 F) 09/25/2024 4:00 PM CDT Respiratory Rate 18 09/25/2024 1:23 PM CDT Oxygen Saturation 100% 09/25/2024 1:23 PM CDT Inhaled Oxygen Concentration - - Weight 86.2 kg (190 lb) 09/25/2024 1:23 PM CDT Height 177.8 cm (5' 10) 09/25/2024 1:23 PM CDT Body Mass Index 27.26 09/25/2024 1:23 PM CDT Plan of Treatment Health Maintenance Due Date Last Done Comments Colorectal Cancer Screening Colonoscopy (10 Years) 1974 Annual Physical 1977 DTaP, Tdap and Td Vaccines ( 1 - Tdap) 1993 Hepatitis B Vaccines (1 of 3 - 19+ 3-dose series) 1993 COVID-19 Vaccine (2 - 2023-2 5 season) 2023 06/17/2020 Pneumococcal Vaccine: 50+ Ye ars (1 of 1 - PCV) 2024 Zoster Vaccines (1 of 2) 2024 Hepatitis C Completed 04/15/2017 PHQ-2 (Physician [place]) Completed 08/19/2024 Meningococcal B Vaccine Aged Out [...] with and son General No Yudy Gaitan, BENCH SCIENTIST Health - patient able to perform ADLs independently General No Sue Fairchild, photographers' model Procedure Name Priority Date/Time Associated Diagnosis Comments CT ABD+PEL W CON STAT 09/25/2024 2:18 PM CDT URINALYSIS, AUTO, COMPLETE STAT 09/25/2024 1:25 PM CDT COMPREHENSIVE METABOLIC PANEL STAT 09/25/2024 1:23 PM CDT LIPASE STAT 09/25/2024 1:23 PM CDT CBC W/DIFF AUTOMATED STAT 09/25/2024 1:23 PM CDT URINALYSIS, AUTO, COMPLETE STAT 09/14/2024 5:18 AM CDT LIPASE STAT 09/14/2024 5:18 AM CDT COMPREHENSIVE METABOLIC PANEL STAT 09/14/2024 5:18 AM CDT CBC W/DIFF AUTOMATED STAT 09/14/2024 5:[address] ABD+PEL WO CON STAT 08/17/2024 8:1 [...] CDT HEPATITIS PANEL,ACUTE STAT 04/15/2017 5:10 PM REPRESENTATIVE GOVERNMENT RELATIONS from Last 3 Months or Most Recently Relevant to Health Maintenance Results * CT ABD+PEL W CON (09/25/2024 2:18 PM CDT) Only the most recent of2 resultswithin the time period is included. Anatomical Region Laterality Modality Abdomen Computed Tomogra phy 09/25/2024 2:57 PM CDT Impressions 09/25/2024 3:04 PM CDT IMPRESSION: There are a few small tree-in-bud nodules that are present in the right and left lower lung. This may relate to a subclinical infectious process. Follow-up in 3 months recommended. Short segment narrowing in the sigmoid colon is present. This can be due to inflammatory or infectious change. Neoplasm is not excluded. This can also be seen secondary to peristalsis. Findings may relate to inflammatory, infectious processes. This can also be seen secondarily to incomplete distention. These findings are recurrent/persistent as compared back to August 17, 2024. Colonoscopy recommended. Indeterminant noncalcified nodule right lower lobe. Pulmonary nodule recommendation: No follow-up needed if patient is low-risk. Non-contrast chest CT can be considered in 12 months if patient is high-risk (Per Fleischner Society guidelines). Ordered By: RON SOLIS Interpreted By: Rhett Alfaro MD, 09/25/2024 2:57 PM Narrative 09/25/2024 3:04 PM CDT [facility] [address] [facility] [place] [address] Procedure(s): CT ABD+PEL W CON Date of service: 09/25/2024 2:15 PM Provided clinical information: 48 years, Male, abd pain severe lower abdominal pain. Procedure and materials: Helical images of the abdomen and pelvis are obtained from superior to the diaphragm to inferior to the pubic symphysis. Examination performed after intravenous contrast. 75 mL Isovue-370 utilized. A dose lowering technique was used for this procedure, which may include, but is not limited to, dose reduction technique, automated exposure control, iterative reconstruction, ALARA (As Low As Reasonably Achievable), or Image Gently techniques. Comparison studies: August 17, 2024. Findings: CT abdomen and pelvis: Lung Bases: There are a few small tree-in-bud nodules that are present in the right and left lower lung. This may relate to a subclinical infectious process. Follow-up in 3 months recommended.Small pulmonary nodule right lower lobe unchanged compared back to August 17. This is approximately 6 mm in size. Adrenals:Normal. Spleen:Unremarkable. Gallbladder and Biliary system:Prior cholecystectomy. Pancreas:Unremarkable. Liver:Unremarkable. Kidneys:Unremarkable. Bowel:The visualized appendix is unremarkable. Short segment narrowing in the sigmoid colon is present. This can be due to inflammatory or infectious change. Neoplasm is not excluded. This can also be seen secondary to peristalsis. This is also visualized in the transverse colon. If Colonoscopy has not been recently performed this is recommended. No small bowel dilatation is present.. Aorta and Retroperitoneum:No enlarged lymph nodes. Aorta is not aneurysmal. Pelvic Organs:Urinary bladder is unremarkable. Prostate gland is not enlarged. Bone/Musculoskeletal: No aggressive osseous lesions. Free fluid: None Procedure Note Rhett Alfaro MD - 09/25/2024 [facility] [address] [place] [address] Procedure(s): CT ABD+PEL W CON Date of service: 09/25/2024 2:15 PM Provided clinical information: 48 years, Male, abd pain severe lowerabdominal pain. Procedure and materials: Helical images of the abdomen and pelvis areobtained from superior to the diaphragm to inferior to the pubicsymphysis. Examination performed after intravenous contrast. 75 mLIsovue-370 utilized. A dose lowering technique was used for this procedure, which may include,but is not limited to, dose reduction technique, automated exposurecontrol, iterative reconstruction, ALARA (As Low As ReasonablyAchievable), or Image Gently techniques. Comparison studies: August 17, 2024. Findings: CT abdomen and pelvis: Lung Bases: There are a few small tree-in-bud nodules that are present inthe right and left lower lung. This may relate to a subclinical infectiousprocess. Follow- up in 3 months recommended.Small pulmonary nodule rightlower lobe unchanged compared back to August 17. This is approximately 6 mmin size. Adrenals:Normal. Spleen:Unremarkable. Gallbladder and Biliary system:Prior cholecystectomy. Pancreas:Unremarkable. Liver:Unremarkable. Kidneys:Unremarkable. Bowel:The visualized appendix is unremarkable. Short segment narrowing inthe sigmoid colon is present. This can be due to inflammatory orinfectious change. Neoplasm is not excluded. This can also be seensecondary to peristalsis. This is also visualized in the transverse colon.If Colonoscopy has not been recently performed this is recommended. Nosmall bowel dilatation is present.. Aorta and Retroperitoneum:No enlarged lymph nodes. Aorta is notaneurysmal. Pelvic Organs:Urinary bladder is unremarkable. Prostate gland is notenlarged. Bone/Musculoskeletal: No aggressive osseous lesions. Free fluid: None IMPRESSION: There are a few small tree-in-bud nodules that are present in the rightand left lower lung. This may relate to a subclinical infectious process.Follow-up in 3 months recommended. Short segment narrowing in the sigmoid colon is present. This can be dueto inflammatory or infectious change. Neoplasm is not excluded. This canalso be seen secondary to peristalsis. Findings may relate toinflammatory, infectious processes. This can also be seen secondarily toincomplete distention. These findings are recurrent/persistent as comparedback to August 17, 2024. Colonoscopy recommended. Indeterminant noncalcified nodule right lower lobe. Pulmonary nodule recommendation: No follow-up needed if patient islow-risk. Non-contrast chest CT can be considered in 12 months if patientis high-risk (Per Fleischner Society guidelines). Ordered By: RON SOLIS Interpreted By: Rhett Alfaro MD, 09/25/2024 2:57 PM Ron Solis MD CT Final Result * URINALYSIS, AUTO, COMPLETE (09/25/2024 1:25 PM CDT) Only the most recent of2 resultswithin the time period is included. COLOR (U) YELLOW 09/25/2024 1:48 PM CDT [facility] TRANSPARENCY CLEAR 09/25/2024 1:48 PM CDT [facility] SPECIFIC GRAVITY (U) 1.015 1.000 - 1.030 09/25/2024 1:48 PM CDT [facility] U PH 8.5 5.0 - 9.0 09/25/2024 1:48 PM CDT [facility] LEUKOCYTES (U) NEGATIVE NEGATIVE 09/25/2024 1:48 PM CDT [facility] NITRITES NEGATIVE NEGATIVE 09/25/2024 1:48 PM CDT [facility] PROTEIN RANDOM (U) NEGATIVE NEGATIVE 09/25/2024 1:48 PM CDT [facility] GLUCOSE (U) NEGATIVE NEGATIVE 09/25/2024 1:48 PM CDT [facility] KETONES MG/DL (U) NEGATIVE NEGATIVE 09/25/2024 1:48 PM CDT [facility] BILIRUBIN (U) NEGATIVE NEGATIVE 09/25/2024 1:48 PM CDT [facility] BLOOD (U) NEGATIVE NEGATIVE 09/25/2024 1:48 PM CDT [facility] WBC/HPF NONE SEEN 0 - 5 /HPF 09/25/2024 1:48 PM CDT [facility] RBC/HPF NONE SEEN 0 - 5 /HPF 09/25/2024 1:48 PM CDT [facility] EPI/HPF NONE SEEN /HPF 09/25/2024 1:48 PM CDT [facility] URINE SPECIMEN OBTAINED BY CLEAN CATCH PROCEDURE / Unknown 09/25/2024 1:25 PM CDT us Ron Solis MD URINE ORDERABLES Final Result [facility] [address] [place] [address], [place] [phone] * (ABNORMAL) COMPREHENSIVE METABOLIC PANEL (09/25/2024 1:23 PM CDT) Only the most recent of4 resultswithin the time period is included. GLUCOSE 133(H) 70 - 99 MG/DL 09/25/2024 2:02 PM [facility] BUN 9 7 - 18 MG/DL 09/25/2024 2:02 PM [facility] CREATININE S/P/B 0.71 0.7 - 1.3 MG/DL 09/25/2024 2:02 PM [facility] SODIUM S/P/B 137 136 - 145 MMOL/L 09/25/2024 2:02 PM [facility] POTASSIUM S/P/B 4.0 3.5 - 5.1 MMOL/L 09/25/2024 2:02 PM [facility] CHLORIDE S/P/B 104 100 - 108 MMOL/L 09/25/2024 2:02 PM [facility] CO2 23.3 21 - 32 MMOL/L 09/25/2024 2:02 PM [facility] CALCIUM S/P/B 8.7 8.5 - 10.1 MG/DL 09/25/2024 2:02 PM [facility] BILIRUBIN TOTAL S/P/B 0.5 0.2 - 1.2 MG/DL 09/25/2024 2:02 PM [facility] TOTAL PROTEIN S/P/B 7.6 6.4 - 8.2 G/DL 09/25/2024 2:02 PM [facility] ALBUMIN S/P/B 4.1 3.4 - 5.0 G/DL 09/25/2024 2:02 PM [facility] AST 27 15 - 37 U/L 09/25/2024 2:02 PM [facility] ALT 36 16 - 60 U/L 09/25/2024 2:02 PM [facility] ALKALINE PHOSPHATASE S/P/B 84 50 - 136 U/L 09/25/2024 2:02 PM CDT [facility] ANION GAP 9.7 5 - 15 MMOL/L 09/25/2024 2:02 PM CDT [facility] BUN CREATININE RATIO 12.7 6 - 26 09/25/2024 2:02 PM CDT [facility] A/G RATIO 1.2 1.0 - 2.0 RATIO 09/25/2024 2:02 PM CDT [facility] GFR ESTIMATE >90 >90 ML/MIN/1.7 3 M2 09/25/2024 2:02 PM CDT [facility] Comment: NOTE: eGFR is not calculated for patients <18 years of age. This is an estimated GFR calculation using the new CKD EPI creatinine equation without race and so does not require a correction factor for race. This estimated GFR should not be used for calculating drug doses. 09/25/2024 1:23 PM CDT us Ron Solis MD LABORATORY Final Result [facility] [address] [place] [address], * (ABNORMAL) CBC W/DIFF AUTOMATED (09/25/2024 1:23 PM CDT) Only the most recent of4 resultswithin the time period is included. WBC 4.40 4.4 - 11.0 x10'3/uL 09/25/2024 1:59 PM CDT [facility] RBC 4.78 4.50 - 5.90 x10'6/uL 09/25/2024 1:59 PM CDT [facility] HGB 14.3 14.0 - 17.5 G/DL 09/25/2024 1:59 PM CDT [facility] HCT 43.4 41.5 - 50.4 % 09/25/2024 1:59 PM CDT [facility] MCV 90.8 80.0 - 96.0 FL 09/25/2024 1:59 PM CDT [facility] MCH 29.9 26.5 - 31.4 PG 09/25/2024 1:59 PM CDT [facility] MCHC 32.9 31.9 - 34.8 G/DL 09/25/2024 1:59 PM CDT [facility] RDW 14.2 12.3 - 14.3 % 09/25/2024 1:59 PM CDT [facility] PLT 93(L) 151 - 353 x10'3/uL 09/25/2024 1:59 PM CDT [facility] MPV 10.1 9.7 - 11.9 FL 09/25/2024 1:59 PM CDT [facility] NEUTROPHILS % 72.7(H) 42.1 - 71.9 % 09/25/2024 2:01 PM CDT [facility] LYMPHOCYTES % 15.9 15.8 - 45.0 % 09/25/2024 2:01 PM CDT [facility] BASOPHILS 0.7 0.0 - 1.3 % 09/25/2024 2:01 PM CDT [facility] EOSINOPHILS 3.2 0.0 - 5.6 % 09/25/2024 2:01 PM CDT [facility] MONOCYTES % 7.0 5.7 - 12.5 % 09/25/2024 2:01 PM CDT [facility] IMMATURE GRANS % 0.5 0.0 - 0.5 % 09/25/2024 2:01 PM CDT [facility] ABS. NEUTROPHILS 3.20 1.40 - 6.00 x10'3/uL 09/25/2024 2:01 PM CDT [facility] ABS. LYMPHOCYTES 0.70(L) 0.80 - 4.70 x10'3/uL 09/25/2024 2:01 PM CDT [facility] PLT MORPH. DECREASED 09/25/2024 2:01 PM CDT [facility] RBC MORPHOLOGY NORMAL 09/25/2024 2:01 PM CDT [facility] WBC MORPHOLOGY NORMAL 09/25/2024 2:01 PM CDT [facility] 09/25/2024 1:23 PM CDT us Ron Solis MD LABORATORY Edited Result - Final Performing Organization Address [facility]/ZIP Co de Phone Number [facility] [address] [place] [address], [place] [phone] * LIPASE (09/25/2024 1:23 PM CDT) Only the most recent of4 resultswithin the time period is included. LIPASE 36 16 - 77 UNITS/L 09/25/2024 2:02 PM CDT [facility] 09/25/2024 1:23 PM CDT us Ron Solis MD LABORATORY Final Result Performing Organization Address City/[facility] Co de Phone Number [facility] [address] [place] [address], [place] [phone] * CT ABD+PEL WO CON (08/17/2024 8:15 [...] 9:35 PM Narrative 08/17/2024 9:44 PM CDT [facility] [address] [facility] [place] [address] EXAMINATION: CT ABDOMEN/PELVIS WITHOUT CONTRAST INDICATION: Left [...] Procedure Note Aime Mcclendon MD - 08/17/2024 [facility] [address] [place] [address] EXAMINATION: CT ABDOMEN/PELVIS WITHOUT CONTRAST INDICATION: Left [...] Leonardo Layton MD CT Final Result * HEPATITIS PANEL,ACUTE (04/15/2017 5:10 PM REPRESENTATIVE GOVERNMENT RELATIONS) HAV IGM NON-REACTI VE NON-REACTI VE 04/17/2017 3:37 PM REPRESENTATIVE GOVERNMENT RELATIONS [facility] Comment: TESTING PERFORMED [address] [address] HEP B SURFACE AB NON-REACTI VE 04/17/2017 3:37 PM REPRESENTATIVE GOVERNMENT RELATIONS [facility] Comment: TESTING PERFORMED [address] [address] HEPATITIS B SURFACE AG NON-REACTI VE NON-REACTI VE 04/17/2017 3:37 PM REPRESENTATIVE GOVERNMENT RELATIONS [facility] Comment: TESTING PERFORMED [address] [address] HEP B CORE TOTAL AB NON-REACTI VE NON-REACTI VE 04/17/2017 3:37 PM REPRESENTATIVE GOVERNMENT RELATIONS [facility] Comment: TESTING PERFORMED [address] [address] HEPATITIS C AB NON-REACTI VE NON-REACTI VE 04/17/2017 3:37 PM REPRESENTATIVE GOVERNMENT RELATIONS [facility] Comment: TESTING PERFORMED [address] [address] 04/15/2017 5:10 PM REPRESENTATIVE GOVERNMENT RELATIONS 04/15/2017 5:23 PM REPRESENTATIVE GOVERNMENT RELATIONS us Generic Conversion Md MARTINEZ LABORATORY Final R esult [facility] [address] [place] [address], [place] [phone] from Last 3 Months or Most Recently Relevant to Health Maintenance Insurance COVID19 [employer] [place] [address] [facility] Advance Directives * Full Code (Latest Code Status on File) Date Activated Date Inactivated Comments 01/27/2021 11:46 PM 01/29/2021 9:38 PM * Full Code Date Activated Date Inactivated Comments 05/16/2019 1:16 PM 05/21/2019 5:09 PM Care Teams Vest Busheler Relationship Specialty Start Date End Date Tarik Cruz MD [address] [place] [address] PCP - General FAMILY PRACTICE 06/12/24
--- OUTSIDE RECORDS SUMMARY | 2024-10-10 11:40 | XMS_ITS | Encounter Summary ---
Author Organization [facility] Address [address] [place] [address] Care Team Providers Care Department Clerk Name Role Phone Unavailable Primary Care Provider [...]
--- OUTSIDE RECORDS SUMMARY | 2024-10-10 11:40 | XMS_ITS | Patient Health Record ---
Author Organization [facility] Address [address] [place] [address] Care Team Providers Care Tooling Engineering Tech Name Role Phone Nancy MARTINEZ, Tarik Primary Care Provider Unavailab Carson Coreas Unavailable [phone] HemMery swanson Unavailable [phone] Allergies No Known Allergies Results Component Value Reference Range Notes DRUG MONITOR, MARIJUANA META B, QN, URINE (78891) Reviewed date:04/17/2024 05:19:07 PM Interpretation: Performing Lab:[facility], [facility] [address] [facility], Go[employer] [id number] Marvin Valdez, Director - [address] [place] [employer] Notes/Report: FASTING: NO Marijuana Metabolite 1831 <5 [...] analytical performance characteristics have been determined by [facility]. It has not been cleared or approved by the FDA. This assay has been validated pursuant to the CLIA regulations and is used for clinical purposes. Healthcare Providers needing Interpretation assistance, please contact us at [phone] ( ) M-F, 8am to 10pm EST DRUG MONITOR, BENZO, QN, [place] ([address]) Reviewed date:04/17/2024 05:18:59 PM Interpretation: Performing Lab:[facility], [facility] [address], [place] [id number] Marvin Valdez Notes/Report: FASTING: NO Alphahydroxyalprazolam 203 [...] Oxazepam (BZO) p 0 - 300 ng/ml 3-yyqobylktr-6,1-zfvsstfz-1, 3-dipheny lpyrrolidine (EDDP) n 0 - 300 ng/ml Methamphetamine (MET) n 0 - 1000 ng/ml Methylenedioxymethamphetamine (MDMA) n 0 - 500 ng/ml Morphine (MOP 300/KAP9099) n 0 - 300 ng/ml Methadone (MTD) n 0 - 300 ng/ml Phencyclidine (PCP) n 0 - 25 ng/ml Nortriptyline (TCA) n 0 - 1000 ng/ml Oxycodone n 0 - 300 ng/ml x n 0 - 300 ng/ml UDT Reviewed date:04/08/2024 04:17:18 PM Interpretation: Performing Lab: Notes/Report: THC P 0 - 50 ng/ml Cocaine N 0 - 300 ng/ml Amphetamine N 0 - 1000 ng/ml Buprenorphine (BUP) N 0 - 10 ng/ml Secobarbital (Bar) N 0 - 300 ng/ml Oxazepam (BZO) P 0 - 300 ng/ml 9-kvyfakbzvp-5,7-klwdonob-5, 3-dipheny lpyrrolidine (EDDP) N 0 - 300 ng/ml Methamphetamine (MET) N 0 - 1000 ng/ml Methylenedioxymethamphetamine (MDMA) N 0 - 500 ng/ml Morphine (MOP 300/CMQ3031) N 0 - 300 ng/ml Methadone (MTD) N 0 - 300 ng/ml Phencyclidine (PCP) N 0 - 25 ng/ml Nortriptyline (TCA) N 0 - 1000 ng/ml Oxycodone N 0 - 300 ng/ml x N 0 - 300 ng/ml Reason For Referral [...] Risk Notes Problem Moderate recurrent major depression (22544622) Major depressive disorder, recurrent, moderate (F33.1) Active confirmed Problem Generalized anxiety disorder (06339475) DARRIUS (generalized anxiety disorder) (F41.1) Active confirmed Problem Attention deficit hyperactivity disorder, 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), inattentive type (F90.0) Active confirmed Problem Poor concentration (58793408) Poor concentration (R41.840) Active confirmed Vital Signs [...] N/A Encounters Encounter Location Date Provider Diagnosis [facility] [place] [address] [facility] [address] [facility] [address] [place] [address] 04/08/2024 Carson Irving Major depressive disorder, recurrent, moderate F33.1 ; DARRIUS (generalized anxiety disorder) F41.1 and Poor concentration R41.840 [facility] [address] [facility] [address] [place] [address] 05/02/2024 Carson Irving Lack of concentratio n R41.[address] [address] 05/08/2024 Carson Irving [address] [address] 05/17/2024 Carson Nasham ADHD (attention defi cit hyperactivity disorder), inattentive type F90.0 ; Major depressive disorder, recurrent, moderate F33.1 ; DARRIUS (generalized anxiety disorder) F41.1 ; Encounter for screening for depression Z13.31 and Encounter for screening for cardiovascular disorders Z13.[address] [address] 05/17/2024 Carson Irving [place] [address] [facility] [address] [address] 10/04/2024 Carson Irving Assessments Encounter Date Diagnosis (ICD [...] Date Coverage End Date [employer] [address] [place] [address] [id number] Dayne Oviedo Self - patient is the insured Medical (General) History Medical History History ICD Code Past Psychiatric History: Anxiety Disord er,Panic Disorder,Bipolar Disorder Surgical History Surgery Date(Month/Year) chin harrison
--- OUTSIDE RECORDS SUMMARY | 2024-10-10 11:40 | XMS_ITS ---
Author Organization [facility] [employer] [facility] Address [address] [place] [address] Care Team Providers Care Manager System Name Role Phone Nancy MARTINEZ, Tarik Primary Care Provider Unavailab dasia NashamHungCarson Unavailable [phone] Mery Nicholson Unavailable [phone] REASON FOR VISIT New Patient Social History Sex Assigned At : Social History Observation Description Sex Assigned At Male Encounters Encounter Location Date Provider Diagnosis [facility] [employer] [facility] [address] [facility] [address] [place] [address] 07/03/2024 Mery Nicholson Plan Of Treatment No Information Progress Notes * Dayne SAMDOB: [birth year] (49 yo M)Acc No.[id number]:07/03/2024 Patient: Dayne GORDILLO Provider: Dalila NICHOLSON LCSW :1975 A ge:48 Y S ex:Male Date:07/03/2024 Phone: Address:[address] [facility] Pcp:Tarik Cruz MD Data: * Chief Complaints: * 1 . New Patient. * Medical History: * Vitals: Assessment: Plan: * Treatment: * Billing Information: * Visit Code: * Procedure Codes: * Electronic signature of Mery Nicholson LCSW on 10/10/2024 at 11:39 AM CDT Sign off status: Pending Signatures: No Ad Hoc Signature Added * Provider: Dalila NICHOLSON LCSW Date: 07/03/2024 Generated for [employer]ek[employer]am[employer]/eTransmitting on: 10/10/2024 11:39 AM CDT
[2024-10-10 12:27] LABS: Hematocrit 42.3 % (42.0-52.0); Hemoglobin 14.1 g/dL (14.0-18.0); Immature Granulocyte Percent A 0.5 % (0-0.5); Immature Platelet Fraction Pct 2.1 % (0.9-11.2); Lymphocytes Absolute Auto 0.90 K/mm3 (0.9-3.2); Mean Corpuscular HGB Conc 33.3 g/dl (32-36); Mean Corpuscular Hemoglobin 30.2 pg (26-34); Mean Corpuscular Volume 90.6 fl (80-100); Nucleated Red Blood Cells Absolute Auto 0.000 K/mm3 (0.0-0.012); Nucleated Red Blood Cells Perc 0.0 % (0.0-0.2); Platelet Count Result 96 k/mm3 (150-375); Red Blood Count 4.67 M/mm3 (4.6-6.20); White Blood Count 5.6 K/mm3 (4.5-10.0)
[2024-10-10 12:31] LABS: Add Urine Microscopic? YES; Appearance Urine Cloudy (Clear); Glucose Urine UA Negative (Negative); Leukocyte Esterase Ur Negative LEU/UL (Negative); Nitrate Urine Negative (Negative); Non Pathogenic Casts 0-2; Specific Grav Ur 1.021 (1.001-1.035)
[2024-10-10 12:46] LABS: Alanine Aminotransferase 41 U/L (6-50); Albumin Level 4.5 g/dL (3.5-5.1); Alkaline Phosphatase 89 U/L (38-126); Anion Gap 7 mmol/L (4-12); Aspartate Amino Transferase 41 U/L (17-59); Bilirubin,Total 0.8 mg/dL (0.2-1.3); Blood Urea Nitrogen 7 mg/dL (9-20); Calcium 9.1 mg/dL (8.4-10.2); Carbon Dioxide 25 mmol/L (22-30); Chloride 101 mmol/L (98-107); Estimated CRCL calculation 120 ml/min; Estimated Glomerular Filt Rate > 60; Glucose 135 mg/dL (65-110); Lipase 74 U/L (23-300); Potassium 4.1 mmol/L (3.4-5.0); Sodium 133 mmol/L (137-145); Total Protein 7.7 g/dL (6.3-8.2)
[2024-10-10] MEDS: KETOROLAC 30 MG/ML VIAL (*BKC) IV PUSH (13:30)
[2024-10-10] MEDS: ONDANSETRON INJ 4 MG/2 ML VIAL IV PUSH (13:30)
[2024-10-10] MEDS: SODIUM CHLORIDE 0.9% IV 1,000 ML 999 ML IV CONT (13:30)
[2024-10-10] MEDS: DICYCLOMINE HCL INJ 20 MG/2 ML VIAL IM (13:31)
--- OUTSIDE RECORDS SUMMARY | 2024-10-10 13:40 | XMS_ITS | Clinical Summary ---
Author Organization [facility] Address [address] [place] [address] Care Team Providers Care Tool And Machine Maintainer Name Role Phone Tarik Cruz MD Primary Care Provider [phone] Allergies No known active allergies Medications amitriptyline [...] CDT - 09/25/2024 4:35 PM CDT Emergency [facility] Emergency Room [address] [place] [address] Ron Solis MD Abdominal Pain Discharge Disposition: Home or Self Care (Routine Discharge) 09/25/2024 Travel 09/14/2024 5:08 AM CDT - 09/14/2024 7:50 AM CDT Emergency [facility] Emergency Room [address] [place] [address] Pattie Yi MD Abdominal Pain (Patient arrives with c/o of 10/10 lower left abdominal pain that started around 0200. Pt attempted bentyl, and zofran with increased n/v/d) Discharge Disposition: Home or Self Care (Routine Discharge) 09/14/2024 Travel 08/19/2024 1:30 PM CDT Office Visit [facility] General Surgery [facility] [address], [address] [place] [address] Rigoberto Scruggs IV, MD Abdominal Pain (Pain and vomiting this last Monday- went to the ER- LLQ) 08/19/2024 Travel 08/17/2024 7:50 PM CDT - 08/17/2024 10:38 PM CDT Emergency [facility] Emergency Room [address] [place] [address] Leonardo Layton MD Abdominal Pain Discharge Disposition: Home or Self Care (Routine Discharge) 08/17/2024 Travel 07/30/2024 8:08 PM CDT - 07/30/2024 11:33 PM CDT Emergency [facility] [place] [address] Eduardo Cartagena MD Jerome, Jason P, MD,PHD [...] 2024 Hepatitis C Completed 04/15/2017 PHQ-2 (Physician [place]) Completed 08/19/2024 Meningococcal B Vaccine Aged Out [...] with and son General No Yudy Gaitan, TOWN ADMINISTRATOR Health - patient able to perform ADLs independently General No Sue Fairchild, surgery tech Procedure Name Priority Date/Time Associated Diagnosis Comments [...] CDT HEPATITIS PANEL,ACUTE STAT 04/15/2017 5:10 PM TRANSIT PLANNING MANAGER from Last 3 Months or Most Recently [...] 2:57 PM Narrative 09/25/2024 3:04 PM CDT [facility] [address] [place] [address] Procedure(s): CT ABD+PEL W CON Date of [...] Procedure Note Rhett Alfaro MD - 09/25/2024 [facility] [address] [address] Procedure(s): CT ABD+PEL W CON Date of [...] COLOR (U) YELLOW 09/25/2024 1:48 PM CDT [facility] TRANSPARENCY CLEAR 09/25/2024 1:48 PM CDT [facility] SPECIFIC GRAVITY (U) 1.015 1.000 - 1.030 09/25/2024 1:48 PM CDT [facility] U PH 8.5 5.0 - 9.0 09/25/2024 1:48 PM CDT [facility] LEUKOCYTES (U) NEGATIVE NEGATIVE 09/25/2024 1:48 PM CDT [facility] NITRITES NEGATIVE NEGATIVE 09/25/2024 1:48 PM CDT [facility] PROTEIN RANDOM (U) NEGATIVE NEGATIVE 09/25/2024 1:48 PM CDT [facility] GLUCOSE (U) NEGATIVE NEGATIVE 09/25/2024 1:48 PM CDT [facility] KETONES MG/DL (U) NEGATIVE NEGATIVE 09/25/2024 1:48 PM CDT [facility] BILIRUBIN (U) NEGATIVE NEGATIVE 09/25/2024 1:48 PM CDT [facility] BLOOD (U) NEGATIVE NEGATIVE 09/25/2024 1:48 PM CDT [facility] WBC/HPF NONE SEEN 0 - 5 /HPF 09/25/2024 1:48 PM CDT [facility] RBC/HPF NONE SEEN 0 - 5 /HPF 09/25/2024 1:48 PM CDT [facility] EPI/HPF NONE SEEN /HPF 09/25/2024 1:48 PM CDT [facility] URINE SPECIMEN OBTAINED BY CLEAN CATCH PROCEDURE / Unknown 09/25/2024 1:25 PM CDT us Ron Solis MD URINE ORDERABLES Final Result [facility] [address] [place] [address], [place] [phone] * (ABNORMAL) COMPREHENSIVE METABOLIC PANEL (09/25/2024 1:23 PM CDT) Only the most recent of4 resultswithin the time period is included. GLUCOSE 133(H) 70 - 99 MG/DL 09/25/2024 2:02 PM [facility] BUN 9 7 - 18 MG/DL 09/25/2024 2:02 PM [facility] CREATININE S/P/B 0.71 0.7 - 1.3 MG/DL 09/25/2024 2:02 PM [facility] SODIUM S/P/B 137 136 - 145 MMOL/L 09/25/2024 2:02 PM [facility] POTASSIUM S/P/B 4.0 3.5 - 5.1 MMOL/L 09/25/2024 2:02 PM [facility] CHLORIDE S/P/B 104 100 - 108 MMOL/L 09/25/2024 2:02 PM [facility] CO2 23.3 21 - 32 MMOL/L 09/25/2024 2:02 PM [facility] CALCIUM S/P/B 8.7 8.5 - 10.1 MG/DL 09/25/2024 2:02 PM [facility] BILIRUBIN TOTAL S/P/B 0.5 0.2 - 1.2 MG/DL 09/25/2024 2:02 PM [facility] TOTAL PROTEIN S/P/B 7.6 6.4 - 8.2 G/DL 09/25/2024 2:02 PM [facility] ALBUMIN S/P/B 4.1 3.4 - 5.0 G/DL 09/25/2024 2:02 PM [facility] AST 27 15 - 37 U/L 09/25/2024 2:02 PM [facility] ALT 36 16 - 60 U/L 09/25/2024 2:02 PM [facility] ALKALINE PHOSPHATASE S/P/B 84 50 - 136 U/L 09/25/2024 2:02 PM CDT [facility] ANION GAP 9.7 5 - 15 MMOL/L 09/25/2024 2:02 PM CDT [facility] BUN CREATININE RATIO 12.7 6 - 26 09/25/2024 2:02 PM CDT [facility] A/G RATIO 1.2 1.0 - 2.0 RATIO 09/25/2024 2:02 PM CDT [facility] GFR ESTIMATE >90 >90 ML/MIN/1.7 3 M2 09/25/2024 2:02 PM CDT [facility] Comment: NOTE: eGFR is not calculated for patients <18 years of age. This is an estimated GFR calculation using the new CKD EPI creatinine equation without race and so does not require a correction factor for race. This estimated GFR should not be used for calculating drug doses. 09/25/2024 1:23 PM CDT us Ron Solis MD LABORATORY Final Result [facility] [address] [place] [address], * (ABNORMAL) CBC W/DIFF AUTOMATED (09/25/2024 1:23 PM CDT) Only the most recent of4 resultswithin the time period is included. WBC 4.40 4.4 - 11.0 x10'3/uL 09/25/2024 1:59 PM CDT [facility] RBC 4.78 4.50 - 5.90 x10'6/uL 09/25/2024 1:59 PM CDT [facility] HGB 14.3 14.0 - 17.5 G/DL 09/25/2024 1:59 PM CDT [facility] HCT 43.4 41.5 - 50.4 % 09/25/2024 1:59 PM CDT [facility] MCV 90.8 80.0 - 96.0 FL 09/25/2024 1:59 PM CDT [facility] MCH 29.9 26.5 - 31.4 PG 09/25/2024 1:59 PM CDT [facility] MCHC 32.9 31.9 - 34.8 G/DL 09/25/2024 1:59 PM CDT [facility] RDW 14.2 12.3 - 14.3 % 09/25/2024 1:59 PM CDT [facility] PLT 93(L) 151 - 353 x10'3/uL 09/25/2024 1:59 PM CDT [facility] MPV 10.1 9.7 - 11.9 FL 09/25/2024 1:59 PM CDT [facility] NEUTROPHILS % 72.7(H) 42.1 - 71.9 % 09/25/2024 2:01 PM CDT [facility] LYMPHOCYTES % 15.9 15.8 - 45.0 % 09/25/2024 2:01 PM CDT [facility] BASOPHILS 0.7 0.0 - 1.3 % 09/25/2024 2:01 PM CDT [facility] EOSINOPHILS 3.2 0.0 - 5.6 % 09/25/2024 2:01 PM CDT [facility] MONOCYTES % 7.0 5.7 - 12.5 % 09/25/2024 2:01 PM CDT [facility] IMMATURE GRANS % 0.5 0.0 - 0.5 % 09/25/2024 2:01 PM CDT [facility] ABS. NEUTROPHILS 3.20 1.40 - 6.00 x10'3/uL 09/25/2024 2:01 PM CDT [facility] ABS. LYMPHOCYTES 0.70(L) 0.80 - 4.70 x10'3/uL 09/25/2024 2:01 PM CDT [facility] PLT MORPH. DECREASED 09/25/2024 2:01 PM CDT [facility] RBC MORPHOLOGY NORMAL 09/25/2024 2:01 PM CDT [facility] WBC MORPHOLOGY NORMAL 09/25/2024 2:01 PM CDT [facility] 09/25/2024 1:23 PM CDT us Ron Solis MD LABORATORY Edited Result - Final Performing Organization Address [facility]/ZIP Co de Phone Number [facility] [address] [place] [address], [place] [phone] * LIPASE (09/25/2024 1:23 PM CDT) Only the most recent of4 resultswithin the time period is included. LIPASE 36 16 - 77 UNITS/L 09/25/2024 2:02 PM CDT [facility] 09/25/2024 1:23 PM CDT us Ron Solis MD LABORATORY Final Result Performing Organization Address City/[facility] Co de Phone Number [facility] [address] [place] [address], [place] [phone] * CT ABD+PEL WO CON (08/17/2024 8:15 [...] 9:35 PM Narrative 08/17/2024 9:44 PM CDT [facility] [address] [place] [address] EXAMINATION: CT ABDOMEN/PELVIS WITHOUT CONTRAST INDICATION: Left [...] Procedure Note Aime Mcclendon MD - 08/17/2024 [facility] [address] [address] EXAMINATION: CT ABDOMEN/PELVIS WITHOUT CONTRAST INDICATION: Left [...] Result * HEPATITIS PANEL,ACUTE (04/15/2017 5:10 PM TRANSIT PLANNING MANAGER) HAV IGM NON-REACTI VE NON-REACTI VE 04/17/2017 3:37 PM TRANSIT PLANNING MANAGER [facility] Comment: TESTING PERFORMED [address] [address] HEP B SURFACE AB NON-REACTI VE 04/17/2017 3:37 PM TRANSIT PLANNING MANAGER [facility] Comment: TESTING PERFORMED [address] [address] HEPATITIS B SURFACE AG NON-REACTI VE NON-REACTI VE 04/17/2017 3:37 PM TRANSIT PLANNING MANAGER [facility] Comment: TESTING PERFORMED [address] [address] HEP B CORE TOTAL AB NON-REACTI VE NON-REACTI VE 04/17/2017 3:37 PM TRANSIT PLANNING MANAGER [facility] Comment: TESTING PERFORMED [address] [address] HEPATITIS C AB NON-REACTI VE NON-REACTI VE 04/17/2017 3:37 PM TRANSIT PLANNING MANAGER [facility] Comment: TESTING PERFORMED [address] [address] 04/15/2017 5:10 PM TRANSIT PLANNING MANAGER 04/15/2017 5:23 PM TRANSIT PLANNING MANAGER us Generic Conversion Md MARTINEZ LABORATORY Final R esult [facility] [address] [place] [address], [place] [phone] from Last 3 Months or Most Recently Relevant to Health Maintenance Insurance COVID19 [employer] [place] [address] [facility] Advance Directives * Full Code (Latest Code Status on File) Date Activated Date Inactivated Comments 01/27/2021 11:46 PM 01/29/2021 9:38 PM * Full Code Date Activated Date Inactivated Comments 05/16/2019 1:16 PM 05/21/2019 5:09 PM Care Teams Tool And Machine Maintainer Relationship Specialty Start Date End Date Tarik Cruz MD [address] [place] [address] PCP - General FAMILY PRACTICE 06/12/24
--- OUTSIDE RECORDS SUMMARY | 2024-10-10 13:40 | XMS_ITS | Clinical Summary ---
Author Organization [facility] Address [address] [address] Phone Care Team Providers Care Pool Manager Name Role Phone Unavailable Primary Care Provider [...]
--- OUTSIDE RECORDS SUMMARY | 2024-10-10 13:40 | XMS_ITS | Clinical Summary ---
Author Organization [facility] Address [address] [place] [address] Phone Care Team Providers Care Rug Shampooer Name Role Phone Unavailable Primary Care Provider [...] CDT - 08/11/2024 11:57 PM CDT Emergency [facility] Emergency Department [address] [place] [address] Warren Cantu MD Abdominal pain, [...] * MANUAL DIFFERENTIAL (08/11/2024 9:25 PM CDT) [facility] PLATELET EST. Consistent w Count 08/11/2024 10:28 PM CDT [facility] [employer] [facility] RBC MORPHOLOGY Normal 08/11/2024 10:28 PM CDT [facility] [employer] [facility] Blood Venipuncture / Unknown 08/11/2024 9:25 PM CDT 08/11/2024 9:27 PM CDT Protocol Victoria Flynn MD HEMATOLOGY ORDERABLES COM Final Result [facility] [employer] [facility] CLIA# [id number] [address] [place] [address] * (ABNORMAL) CBC WITH DIFFERENTIAL (08/11/2024 9:25 PM CDT) [facility] WBC 6.0 4.0 - 9.8 K/uL 08/11/2024 9:42 PM CDT [facility] [employer] [facility] Comment:ANC = 4.23K/uL RBC 4.63 4.50 - 5.40 M/uL 08/11/2024 9:42 PM CDT [facility] [employer] [facility] HEMOGLOBIN 13.9 13.6 - 16.5 g/dL 08/11/2024 9:[address] [facility] HEMATOCRIT 41.4 40.0 - 48.0 % 08/11/2024 9:42 PM CDT [facility] MCV 89.4 82.0 - 99.0 fL 08/11/2024 9:42 PM CDT [facility] MCH 30.0 27.2 - 32.6 pg 08/11/2024 9:42 PM CDT [facility] MCHC 33.6 31.5 - 35.5 g/dL 08/11/2024 9:42 PM CDT [facility] RDW 14.6(H) 11.5 - 14.5 % 08/11/2024 9:42 PM CDT [facility] RDW-STDEV 48.0 37.1 - 48.7 fL 08/11/2024 9:42 PM CDT [facility] PLATELETS 95(L) 140 - 350 K/uL 08/11/2024 9:42 PM CDT [facility] MPV 9.9 9.3 - 12.4 fL 08/11/2024 9:42 PM CDT [facility] NEUTROPHILS 71 % 08/11/2024 9:42 PM CDT [employer] [facility] LYMPHOCYTES 18 % 08/11/2024 9:42 PM CDT [facility] MONOCYTES 8 % 08/11/2024 9:42 PM CDT [facility] EOSINOPHILS 3 % 08/11/2024 9:42 PM CDT [facility] BASOPHILS 1 % 08/11/2024 9:42 PM CDT [facility] IMMATURE GRANULOCYTES 0 % 08/11/2024 9:42 PM CDT [facility] NEUTROPHIL ABSOLUTE 4.23 1.90 - 7.00 K/uL 08/11/2024 9:42 PM CDT [facility] LYMPHOCYTE ABSOLUTE 1.06 0.70 - 4.50 K/uL 08/11/2024 9:42 PM CDT [facility] MONOCYTE ABSOLUTE 0.49 0.10 - 1.30 K/uL 08/11/2024 9:42 PM CDT [facility] EOSINOPHIL ABSOLUTE 0.16 0.00 - 0.70 K/uL 08/11/2024 9:42 PM CDT [facility] BASOPHILS ABSOLUTE 0.03 0.00 - 0.20 K/uL 08/11/2024 9:42 PM CDT [facility] IMMATURE GRANULOCYTES ABSOLUTE 0.02 0.00 - 0.03 K/uL 08/11/2024 9:42 PM CDT [facility] Blood Venipuncture / Unknown 08/11/2024 9:25 PM CDT 08/11/2024 9:27 PM CDT Protocol [facility] Emergency MD HEMATOLOGY ORDERABLES Final Result [facility] CLIA# [id number] [address] [place] [address] * LIPASE (08/11/2024 9:25 PM CDT) Pathologist [facility] LIPASE 39 13 - 60 U/L 08/11/2024 9:[address] [facility] Blood Venipuncture / Unknown 08/11/2024 9:25 PM CDT 08/11/2024 9:27 PM CDT us Protocol [facility] Emergency CHEMISTRY ORDERABLES Final Result [facility] [employer] [facility] CLIA# [id number] [address] [place] [address] * (ABNORMAL) COMPREHENSIVE METABOLIC PANEL (08/11/2024 9:25 PM CDT) Pathologist [facility] SODIUM 136 136 - 145 mmol/L 08/11/2024 9:52 PM CDT [facility] POTASSIUM 3.3(L) 3.5 - 4.9 mmol/L 08/11/2024 9:52 PM CDT [facility]OR[facility] CHLORIDE 101 98 - 107 mmol/L 08/11/2024 9:52 PM CDT [facility] CO2 22 22 - 29 mmol/L 08/11/2024 9:52 PM CDT [facility] CALCIUM 9.2 8.6 - 10.2 mg/dL 08/11/2024 9:52 PM [facility] BUN 8 6 - 20 mg/dL 08/11/2024 9:52 PM [facility] CREATININE 0.77 0.67 - 1.17 mg/dL 08/11/2024 9:52 PM [facility] GLUCOSE 137(H) 74 - 99 mg/dL 08/11/2024 9:52 PM [facility] TOTAL PROTEIN 7.1 6.0 - 8.3 g/dL 08/11/2024 9:52 PM [facility] ALBUMIN 4.4 3.4 - 4.8 g/dL 08/11/2024 9:52 PM [facility] BILIRUBIN TOTAL 0.9 0.0 - 1.0 mg/dL 08/11/2024 9:52 PM [facility] ALKALINE PHOSPHATASE 85 40 - 129 U/L 08/11/2024 9:52 PM [facility] AST 40(H) 12 - 38 U/L 08/11/2024 9:52 PM [facility] ALT 41(H) <41 U/L 08/11/2024 9:52 PM [facility] GFR >60 >=60 mL/min/1.7 3 sq meter 08/11/2024 9:52 PM [facility] Comment:eGFR calculated with 2020 CKD-EPI equation. Vegetarian diet, extremely high or low muscle mass, and may affect results. Cystatin C with Glomerular Filtration Rate is a suitable alternative for these patients. ANION GAP 13 8 - 16 mmol/L 08/11/2024 9:52 PM [facility] Blood Venipuncture / Unknown 08/11/2024 9:25 PM CDT 08/11/2024 9:27 PM T us Protocol [facility] Emergency CHEMISTRY ORDERABLES Final Result [facility] CLIA# [id number] [address] [place] [address] from Last 3 Months
--- OUTSIDE RECORDS SUMMARY | 2024-10-10 13:41 | XMS_ITS | Encounter Summary ---
Author Organization [facility] Address [address] [place] [address] Care Team Providers Care Director Of Group Sales Name Role Phone Unavailable Primary Care Provider [...]
--- OUTSIDE RECORDS SUMMARY | 2024-10-10 13:41 | XMS_ITS | Encounter Summary ---
Author Organization [facility] Address [address] [place] [address] Care Team Providers Care Fixed Income Director Name Role Phone Unavailable Primary Care Provider [...]
--- OUTSIDE RECORDS SUMMARY | 2024-10-10 13:41 | XMS_ITS | Encounter Summary ---
Author Organization [facility] Address [address] [place] [address] Care Team Providers Care Final Rail Cutter Name Role Phone Unavailable Primary Care Provider [...]
--- NOTE | 2024-10-10 14:46 | ED_ITS ---
HPI - Abdominal Pain General Chief Complaint: Abdominal Pain Stated Complaint: abdominal pain Time Seen by Provider: 10/10/24 13:13 History of Present Illness HPI narrative: Patient is a 49-year-old male who presents ER with abdominal pain. He began his bowel prep for colonoscopy tomorrow and started having abdominal cramping. Has history of colitis and diverticulitis. No fevers or chills. No alleviating factors. Symptoms worse with movement. Related Data Allergies Allergy/AdvReac Type Severity Reaction Status Date / Time gluten AdvReac Mild Nausea Verified 10/10/24 12:35 milk AdvReac Mild bloating Verified 10/10/24 12:35 Review of Systems 2 Review of Systems: All systems reviewed & are unremarkable except as noted in HPI and below Constitutional: Constitutional: Reports no additional constitutional complaints Cardiovascular: Cardiovascular: Reports no additional cardiovascular complaints Respiratory: Respiratory: Reports no additional respiratory complaints Gastrointestinal: Gastrointestinal: Reports no additional gastrointestinal complaints PMFSH Past Medical History Medical History Moderate persistent asthma with acute exacerbation Unspecified asthma, uncomplicated Gynecomastia Erosive esophagitis Gastritis Diverticulosis Asthma Irritable bowel syndrome Depression Generalized anxiety disorder Bipolar disorder, unspecified Celiac disease Gastroesophageal reflux disease Surgical History Surgical History History of cholecystectomy 02/2016 Family History Family History Father No problems noted. Mother No problems noted. Social History Social History Smoking packs per day: 0.5 Smoking cigarettes per day: 10.0 Years smoked: 10 Smoking pack-years: 5.00 Smoking status: Former smoker Tobacco type: cigarettes Second hand tobacco smoke exposure: No Alcohol intake: never Substance use: current Substance use type: does not use Lack of Transportation: No Lack of Food: Never True Current Housing: I Have Housing Concerned About Future Housing: No Difficulty Paying Gas/Electric Bills: No Difficulty Paying for Meds: No Currently Unemployed: No Education: High School Diploma/GED Difficulty w/ Childcare or Family Care: No Living arrangements: with family Occupation/Education: occupation Gender identity (if verbalized by the patient): Male Sexual Orientation (if Verbalized by the Patient): Straight or Heterosexual Spiritual care concerns: No Exam 2 Narrative: GENERAL: Uncomfortable-appearing, well-nourished, and in no acute distress. HEAD: Normocephalic, atraumatic. ENT: Mucous membranes moist. NECK: Supple. CHEST: Clear to auscultation. No respiratory distress. HEART: Regular rate and rhythm. Normal peripheral pulses. ABDOMEN: Soft, diffuse tenderness with voluntary guarding, nondistended. EXTREMITIES: Normal range of motion. No edema. SKIN: Warm, dry, no rash. NEURO: Alert and oriented x3. PSYCH: Normal mood and affect. Course Course Emergency Course: Unsure if there is mental aspect patient's pain. This is the 3rd time I have seen him. Typically has normal labs with out significant findings on CT scan. Pain resolved after Toradol and Bentyl as well as IV fluids and Zofran. Labs today are without significant abnormality and is felt he can be safely discharged home and follow-up with GI tomorrow. Vital Signs Vital signs: Vital Signs Temperature 97.6 F 10/10/24 11:52 Pulse Rate 86 10/10/24 11:52 Respiratory Rate 18 10/10/24 11:52 Blood Pressure 131/91 H 10/10/24 11:52 Pulse Oximetry 98 10/10/24 11:52 Oxygen Delivery Room Air 10/10/24 11:52 Temperature 97.6 F 10/10/24 11:52 Pulse Rate 66 10/10/24 14:30 Respiratory Rate 18 10/10/24 14:30 Blood Pressure 132/59 L 10/10/24 14:30 Pulse Oximetry 98 10/10/24 14:30 Oxygen Delivery Room Air 10/10/24 11:52 MDM - Abdominal Pain Lab Data 10/10/24 12:01 10/10/24 12:01 Labs: Lab Results 10/10/24 10/10/24 Range/Units 12:01 12:13 WBC 5.6 (4.5-10.0) K/mm3 RBC 4.67 (4.6-6.20) M/mm3 Hgb 14.1 (14.0-18.0) g/dL Hct 42.3 (42.0-52.0) % MCV 90.6 (80-100) fl MCH 30.2 (26-34) pg MCHC 33.3 (32-36) g/dl RDW 14.0 (11.5-14.5) % Plt Count 96 L (150-375) k/mm3 MPV 10.2 (7.4-10.4) fl Immature Gran % (Auto) 0.5 (0-0.5) % Neut % (Auto) 70.0 (45.5-73.1) % Lymph % (Auto) 16.2 L (18.3-44.2) % [place] % (Auto) 9.2 H (2.6-8.5) % Eos % (Auto) 3.4 (0-4.4) % Baso % (Auto) 0.7 (0.2-1.2) % Lymph # (Auto) 0.90 (0.9-3.2) K/mm3 [place] # (Auto) 0.5 (0.1-0.6) K/mm3 Eos # (Auto) 0.2 (0-0.3) K/mm3 Baso # (Auto) 0.0 (0.0-0.1) K/mm3 Abs Immat Gran (auto) 0.03 (0.00-0.031) K/mm3 Absolute Neuts (auto) 3.9 (1.3-6.7) K/mm3 Absolute Nucleated RBC 0.000 (0.0-0.012) K/mm3 Nucleated RBC % 0.0 (0.0-0.2) % % Immature Plt Fraction 2.1 (0.9-11.2) % Sodium 133 L (137-145) mmol/L Potassium 4.1 (3.4-5.0) mmol/L Chloride 101 (98-107) mmol/L Carbon Dioxide 25 (22-30) mmol/L Anion Gap 7 (4-12) mmol/L BUN 7 L (9-20) mg/dL Creatinine 0.65 L (0.7-1.3) mg/dL Estim Creat Clear Calc 120 ml/min Estimated GFR > 60 (59 - ) Glucose 135 H (65-110) mg/dL Calcium 9.1 (8.4-10.2) mg/dL Total Bilirubin 0.8 (0.2-1.3) mg/dL AST 41 (17-59) U/L ALT 41 (6-50) U/L Alkaline Phosphatase 89 (38-126) U/L Total Protein 7.7 (6.3-8.2) g/dL Albumin 4.5 (3.5-5.1) g/dL Lipase 74 (23-300) U/L Urine Color Yellow (Yellow) Urine Appearance Cloudy H (Clear) Urine pH 8.5 (5.0-9.0) Ur Specific [place] 1.021 (1.001-1.035) Urine Protein Trace (Negative) mg/dL Urine Glucose (UA) Negative (Negative) mg/dL Urine Ketones Negative (Negative) mg/dL Ur Blood (Man) Negative (Negative) Urine Nitrate Negative (Negative) Urine Bilirubin Negative (Negative) Urine Urobilinogen 1.0 (<2.0) mg/dL Leukocyte Esterase Rfl Negative (Negative) IMAN/UL Urine RBC 0-2 (0-2) /hpf Urine WBC 0-5 (0-3) /hpf Ur Squamous Epith Cells None seen (Few) /hpf Urine Bacteria None seen /hpf Urine Casts 0-2 Discharge Plan Discharge Clinical Impression: Abdominal cramping Patient Disposition: Home Condition: Stable Instructions: Abdominal Pain (ED) Additional Instructions: Return to the emergency department if you develop severe abdominal pain, severe nausea and vomiting to the point where you are unable to keep down fluids, if you develop chest pain or difficulty breathing, blood in your stool, dizziness or fainting, or if you develop any other new or concerning symptoms as these could be signs of more serious medical illness. Try to stay well hydrated. Patient Language: Irish Prescriptions: New dicyclomine 20 mg tablet 20 mg PO QID Qty: 20 0RF No Action cyclobenzaprine 10 mg tablet 10 mg PO TID PRN (Reason: muscle spasm) Qty: 20 0RF albuterol sulfate [Ventolin HFA] 90 mcg/actuation HFA aerosol inhaler 1 inhalation INHALATION Q4H PRN (Reason: shortness of breath or wheezing) Qty: 18 3RF pantoprazole 40 mg tablet,delayed release (DR/EC) See Rx Instructions .ROUTE .COMPLEX Qty: 90 1RF Dose Instruction: Take 1 tablet by mouth once daily Rx Instructions: Take 1 tablet by mouth once daily escitalopram oxalate 10 mg tablet 10 mg PO DAILY Qty: 30 2RF alprazolam 1 mg tablet 1 mg PO BID Qty: 60 0RF Follow-up/Referrals: Tarik Cruz MD [Primary Care Provider] - 1 Week
== END 2024-10-10 15:00 | disposition home or self-care (01) ==
PROVIDERS: Emergency Provider Emergency Medicine; PCP Family Medicine
DX: R10.9 Unspecified abdominal pain (principal); J45.40 Moderate persistent asthma, uncomplicated; K58.9 Irritable bowel syndrome, unspecified; K90.0 Celiac disease; K21.9 Gastro-esophageal reflux disease without esophagitis; F41.1 Generalized anxiety disorder; F31.9 Bipolar disorder, unspecified; Z87.891 Personal history of nicotine dependence; Z90.49 Acquired absence of other specified parts of digestive tract
CPT/HCPCS: 36415; 80053; 81001; 83690; 85025; 85055; 96361; 96372; 96374; 96375; 99284; J0500; J1885; J2405; J7030

== ENCOUNTER 2024-10-11 01:12 | Day surgery (SDC) | payer BC, SELFPAY ==
--- OUTSIDE RECORDS SUMMARY | 2024-10-11 01:17 | XMS_ITS | Clinical Summary ---
Author Organization [facility] Address [address] [place] [address] Care Team Providers Care Tele Tech Name Role Phone Tarik Cruz MD Primary Care Provider [phone] Allergies No known active allergies Medications amitriptyline [...] CDT - 09/25/2024 4:35 PM CDT Emergency [facility] Emergency Room [address] [place] [address] Ron Solis MD Abdominal Pain Discharge Disposition: Home or Self Care (Routine Discharge) 09/25/2024 Travel 09/14/2024 5:08 AM CDT - 09/14/2024 7:50 AM CDT Emergency [facility] Emergency Room [address] [place] [address] Pattie Yi MD Abdominal Pain (Patient arrives with c/o of 10/10 lower left abdominal pain that started around 0200. Pt attempted bentyl, and zofran with increased n/v/d) Discharge Disposition: Home or Self Care (Routine Discharge) 09/14/2024 Travel 08/19/2024 1:30 PM CDT Office Visit [facility] General Surgery [facility] [address], [address] [place] [address] Rigoberto Scruggs IV, MD Abdominal Pain (Pain and vomiting this last Monday- went to the ER- LLQ) 08/19/2024 Travel 08/17/2024 7:50 PM CDT - 08/17/2024 10:38 PM CDT Emergency [facility] Emergency Room [address] [place] [address] Leonardo Layton MD Abdominal Pain Discharge Disposition: Home or Self Care (Routine Discharge) 08/17/2024 Travel 07/30/2024 8:08 PM CDT - 07/30/2024 11:33 PM CDT Emergency [facility] [place] [address] Eduardo Cartagena MD Jerome, Jason P, MD,PHD [...] 2024 Hepatitis C Completed 04/15/2017 PHQ-2 (Physician [place]) Completed 08/19/2024 Meningococcal B Vaccine Aged Out [...] with and son General No Yudy Gaitan, [employer]AL Health - patient able to perform ADLs independently General No 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 [address] Procedure(s): CT ABD+PEL W CON Date of [...] Procedure Note Rhett Alfaro MD - 09/25/2024 [facility] [address] [place] [address] Procedure(s): CT ABD+PEL W CON Date of [...] COLOR (U) YELLOW 09/25/2024 1:48 PM CDT [facility] TRANSPARENCY CLEAR 09/25/2024 1:48 PM CDT [facility] SPECIFIC GRAVITY (U) 1.015 1.000 - 1.030 09/25/2024 1:48 PM CDT [facility] U PH 8.5 5.0 - 9.0 09/25/2024 1:48 PM CDT [facility] LEUKOCYTES (U) NEGATIVE NEGATIVE 09/25/2024 1:48 PM CDT [facility] NITRITES NEGATIVE NEGATIVE 09/25/2024 1:48 PM CDT [facility] PROTEIN RANDOM (U) NEGATIVE NEGATIVE 09/25/2024 1:48 PM CDT [facility] GLUCOSE (U) NEGATIVE NEGATIVE 09/25/2024 1:48 PM CDT [facility] KETONES MG/DL (U) NEGATIVE NEGATIVE 09/25/2024 1:48 PM CDT [facility] BILIRUBIN (U) NEGATIVE NEGATIVE 09/25/2024 1:48 PM CDT [facility] BLOOD (U) NEGATIVE NEGATIVE 09/25/2024 1:48 PM CDT [facility] WBC/HPF NONE SEEN 0 - 5 /HPF 09/25/2024 1:48 PM CDT [facility] RBC/HPF NONE SEEN 0 - 5 /HPF 09/25/2024 1:48 PM CDT [facility] EPI/HPF NONE SEEN /HPF 09/25/2024 1:48 PM CDT [facility] URINE SPECIMEN OBTAINED BY CLEAN CATCH PROCEDURE / Unknown 09/25/2024 1:25 PM CDT us Ron Solis MD URINE ORDERABLES Final Result [facility] [address] [place] [address], [place] [phone] * (ABNORMAL) COMPREHENSIVE METABOLIC PANEL (09/25/2024 1:23 PM CDT) Only the most recent of4 resultswithin the time period is included. GLUCOSE 133(H) 70 - 99 MG/DL 09/25/2024 2:02 PM [facility] BUN 9 7 - 18 MG/DL 09/25/2024 2:02 PM [facility] CREATININE S/P/B 0.71 0.7 - 1.3 MG/DL 09/25/2024 2:02 PM [facility] SODIUM S/P/B 137 136 - 145 MMOL/L 09/25/2024 2:02 PM [facility] POTASSIUM S/P/B 4.0 3.5 - 5.1 MMOL/L 09/25/2024 2:02 PM [facility] CHLORIDE S/P/B 104 100 - 108 MMOL/L 09/25/2024 2:02 PM [facility] CO2 23.3 21 - 32 MMOL/L 09/25/2024 2:02 PM [facility] CALCIUM S/P/B 8.7 8.5 - 10.1 MG/DL 09/25/2024 2:02 PM [facility] BILIRUBIN TOTAL S/P/B 0.5 0.2 - 1.2 MG/DL 09/25/2024 2:02 PM [facility] TOTAL PROTEIN S/P/B 7.6 6.4 - 8.2 G/DL 09/25/2024 2:02 PM [facility] ALBUMIN S/P/B 4.1 3.4 - 5.0 G/DL 09/25/2024 2:02 PM [facility] AST 27 15 - 37 U/L 09/25/2024 2:02 PM [facility] ALT 36 16 - 60 U/L 09/25/2024 2:02 PM [facility] ALKALINE PHOSPHATASE S/P/B 84 50 - 136 U/L 09/25/2024 2:02 PM CDT [facility] ANION GAP 9.7 5 - 15 MMOL/L 09/25/2024 2:02 PM CDT [facility] BUN CREATININE RATIO 12.7 6 - 26 09/25/2024 2:02 PM CDT [facility] A/G RATIO 1.2 1.0 - 2.0 RATIO 09/25/2024 2:02 PM CDT [facility] GFR ESTIMATE >90 >90 ML/MIN/1.7 3 M2 09/25/2024 2:02 PM CDT [facility] Comment: NOTE: eGFR is not calculated for patients <18 years of age. This is an estimated GFR calculation using the new CKD EPI creatinine equation without race and so does not require a correction factor for race. This estimated GFR should not be used for calculating drug doses. 09/25/2024 1:23 PM CDT us Ron Solis MD LABORATORY Final Result [facility] [address] [place] [address], * (ABNORMAL) CBC W/DIFF AUTOMATED (09/25/2024 1:23 PM CDT) Only the most recent of4 resultswithin the time period is included. WBC 4.40 4.4 - 11.0 x10'3/uL 09/25/2024 1:59 PM CDT [facility] RBC 4.78 4.50 - 5.90 x10'6/uL 09/25/2024 1:59 PM CDT [facility] HGB 14.3 14.0 - 17.5 G/DL 09/25/2024 1:59 PM CDT [facility] HCT 43.4 41.5 - 50.4 % 09/25/2024 1:59 PM CDT [facility] MCV 90.8 80.0 - 96.0 FL 09/25/2024 1:59 PM CDT [facility] MCH 29.9 26.5 - 31.4 PG 09/25/2024 1:59 PM CDT [facility] MCHC 32.9 31.9 - 34.8 G/DL 09/25/2024 1:59 PM CDT [facility] RDW 14.2 12.3 - 14.3 % 09/25/2024 1:59 PM CDT [facility] PLT 93(L) 151 - 353 x10'3/uL 09/25/2024 1:59 PM CDT [facility] MPV 10.1 9.7 - 11.9 FL 09/25/2024 1:59 PM CDT [facility] NEUTROPHILS % 72.7(H) 42.1 - 71.9 % 09/25/2024 2:01 PM CDT [facility] LYMPHOCYTES % 15.9 15.8 - 45.0 % 09/25/2024 2:01 PM CDT [facility] BASOPHILS 0.7 0.0 - 1.3 % 09/25/2024 2:01 PM CDT [facility] EOSINOPHILS 3.2 0.0 - 5.6 % 09/25/2024 2:01 PM CDT [facility] MONOCYTES % 7.0 5.7 - 12.5 % 09/25/2024 2:01 PM CDT [facility] IMMATURE GRANS % 0.5 0.0 - 0.5 % 09/25/2024 2:01 PM CDT [facility] ABS. NEUTROPHILS 3.20 1.40 - 6.00 x10'3/uL 09/25/2024 2:01 PM CDT [facility] ABS. LYMPHOCYTES 0.70(L) 0.80 - 4.70 x10'3/uL 09/25/2024 2:01 PM CDT [facility] PLT MORPH. DECREASED 09/25/2024 2:01 PM CDT [facility] RBC MORPHOLOGY NORMAL 09/25/2024 2:01 PM CDT [facility] WBC MORPHOLOGY NORMAL 09/25/2024 2:01 PM CDT [facility] 09/25/2024 1:23 PM CDT us Ron Solis MD LABORATORY Edited Result - Final Performing Organization Address [facility]/ZIP Co de Phone Number [facility] [address] [place] [address], [place] [phone] * LIPASE (09/25/2024 1:23 PM CDT) Only the most recent of4 resultswithin the time period is included. LIPASE 36 16 - 77 UNITS/L 09/25/2024 2:02 PM CDT [facility] 09/25/2024 1:23 PM CDT us Ron Solis MD LABORATORY Final Result Performing Organization Address City/[facility] Co de Phone Number [facility] [address] [place] [address], [place] [phone] * CT ABD+PEL WO CON (08/17/2024 8:15 [...] 9:35 PM Narrative 08/17/2024 9:44 PM CDT [facility] [address] [facility] [place] [address] EXAMINATION: CT ABDOMEN/PELVIS WITHOUT CONTRAST INDICATION: Left [...] Procedure Note Aime Mcclendon MD - 08/17/2024 [facility] [address] [place] [address] EXAMINATION: CT ABDOMEN/PELVIS WITHOUT CONTRAST INDICATION: Left [...] Result * HEPATITIS PANEL,ACUTE (04/15/2017 5:10 PM PETROLEUM ENGINEER) HAV IGM NON-REACTI VE NON-REACTI VE 04/17/2017 3:37 PM PETROLEUM ENGINEER [facility] Comment: TESTING PERFORMED [address] [address] HEP B SURFACE AB NON-REACTI VE 04/17/2017 3:37 PM PETROLEUM ENGINEER [facility] Comment: TESTING PERFORMED [address] [address] HEPATITIS B SURFACE AG NON-REACTI VE NON-REACTI VE 04/17/2017 3:37 PM PETROLEUM ENGINEER [facility] Comment: TESTING PERFORMED [address] [address] HEP B CORE TOTAL AB NON-REACTI VE NON-REACTI VE 04/17/2017 3:37 PM PETROLEUM ENGINEER [facility] Comment: TESTING PERFORMED [address] [address] HEPATITIS C AB NON-REACTI VE NON-REACTI VE 04/17/2017 3:37 PM PETROLEUM ENGINEER [facility] Comment: TESTING PERFORMED [address] [address] 04/15/2017 5:10 PM PETROLEUM ENGINEER 04/15/2017 5:23 PM PETROLEUM ENGINEER us Generic Conversion Md MARTINEZ LABORATORY Final R esult [facility] [address] [place] [address], [place] [phone] from Last 3 Months or Most Recently Relevant to Health Maintenance Insurance COVID19 [employer] [place] [address] [facility] Advance Directives * Full Code (Latest Code Status on File) Date Activated Date Inactivated Comments 01/27/2021 11:46 PM 01/29/2021 9:38 PM * Full Code Date Activated Date Inactivated Comments 05/16/2019 1:16 PM 05/21/2019 5:09 PM Care Teams Tele Tech Relationship Specialty Start Date End Date Tarik Cruz MD [address] [place] [id number] PCP - General FAMILY PRACTICE 06/12/24
--- OUTSIDE RECORDS SUMMARY | 2024-10-11 01:17 | XMS_ITS | Clinical Summary ---
Author Organization [facility] Address [address] [address] Phone Care Team Providers Care Superintendent Landfill Operations Name Role Phone Unavailable Primary Care Provider [...]
--- OUTSIDE RECORDS SUMMARY | 2024-10-11 01:17 | XMS_ITS ---
Author Organization [facility] Address [address] [place] [address] Care Team Providers Care Paper Cone Machine Tender Name Role Phone Nancy MARTINEZ, Tarik Primary Care Provider Unavailab dasia NashamHungCarson Unavailable [phone] Mery Nicholson Unavailable [phone] REASON FOR VISIT New Patient Social History Sex Assigned At : Social History Observation Description Sex Assigned At Male Encounters Encounter Location Date Provider Diagnosis [facility] 4th aspect [facility] [address] [facility] [address] [place] [address] 07/03/2024 Mery Nicholson Plan Of Treatment No Information Progress Notes * Dayne SAMDOB: [birth year] (49 yo M)Acc No.[id number]:07/03/2024 Patient: Dayne GORDILLO Provider: Dalila NICHOLSON LCSW :1975 A ge:48 Y S ex:Male Date:07/03/2024 Phone: Address:[address] [facility] Pcp:Tarik Cruz MD Data: * Chief Complaints: * 1 . New Patient. * Medical History: * Vitals: Assessment: Plan: * Treatment: * Billing Information: * Visit Code: * Procedure Codes: * Electronic signature of Mery Nicholsno LCSW on 10/11/2024 at 01:17 AM CDT Sign off status: Pending Signatures: No Ad Hoc Signature Added * Provider: Dalila NICHOLSON LCSW Date: 07/03/2024 Generated for Bekai ng/Famarkelg/eTransmitting on: 10/11/2024 01:17 AM CDT
--- OUTSIDE RECORDS SUMMARY | 2024-10-11 01:17 | XMS_ITS | Clinical Summary ---
Author Organization [facility] Address [address] [place] [phone] Phone Care Team Providers Care Trimmer Sawyer Name Role Phone Unavailable Primary Care Provider [...] CDT - 08/11/2024 11:57 PM CDT Emergency [facility] Emergency Department [address] [place] [address] Warren Cantu MD Abdominal pain, [...] * MANUAL DIFFERENTIAL (08/11/2024 9:25 PM CDT) [facility] PLATELET EST. Consistent w Count 08/11/2024 10:[address] [facility] [employer] [facility] RBC MORPHOLOGY Normal 08/11/2024 10:[address] [facility] [employer] [facility] Blood Venipuncture / Unknown 08/11/2024 9:25 PM CDT 08/11/2024 9:27 PM CDT Protocol Victoria Flynn MD HEMATOLOGY ORDERABLES COM Final Result [facility] [employer] [facility] CLIA# [id number] [address] [place] [address] * (ABNORMAL) CBC WITH DIFFERENTIAL (08/11/2024 9:25 PM CDT) [facility] WBC 6.0 4.0 - 9.8 K/uL 08/11/2024 9:[address] [facility] [employer] [facility] Comment:ANC = 4.23K/uL RBC 4.63 4.50 - 5.40 M/uL 08/11/2024 9:[address] [facility] [employer] [facility] HEMOGLOBIN 13.9 13.6 - 16.5 g/dL 08/11/2024 9:42 PM CDT [facility] HEMATOCRIT 41.4 40.0 - 48.0 % 08/11/2024 9:42 PM CDT [facility] MCV 89.4 82.0 - 99.0 fL 08/11/2024 9:42 PM CDT [facility] MCH 30.0 27.2 - 32.6 pg 08/11/2024 9:42 PM CDT [facility] MCHC 33.6 31.5 - 35.5 g/dL 08/11/2024 9:42 PM CDT [facility] RDW 14.6(H) 11.5 - 14.5 % 08/11/2024 9:42 PM CDT [facility] RDW-STDEV 48.0 37.1 - 48.7 fL 08/11/2024 9:42 PM CDT [facility] PLATELETS 95(L) 140 - 350 K/uL 08/11/2024 9:42 PM CDT [facility] MPV 9.9 9.3 - 12.4 fL 08/11/2024 9:42 PM CDT [facility] NEUTROPHILS 71 % 08/11/2024 9:42 PM CDT [facility] [place] LYMPHOCYTES 18 % 08/11/2024 9:42 PM CDT [facility] MONOCYTES 8 % 08/11/2024 9:42 PM CDT [facility] EOSINOPHILS 3 % 08/11/2024 9:42 PM CDT [facility] BASOPHILS 1 % 08/11/2024 9:42 PM CDT [facility] IMMATURE GRANULOCYTES 0 % 08/11/2024 9:42 PM CDT [facility] NEUTROPHIL ABSOLUTE 4.23 1.90 - 7.00 K/uL 08/11/2024 9:42 PM CDT [facility] LYMPHOCYTE ABSOLUTE 1.06 0.70 - 4.50 K/uL 08/11/2024 9:42 PM CDT [facility] MONOCYTE ABSOLUTE 0.49 0.10 - 1.30 K/uL 08/11/2024 9:42 PM CDT [facility] EOSINOPHIL ABSOLUTE 0.16 0.00 - 0.70 K/uL 08/11/2024 9:42 PM CDT [facility] BASOPHILS ABSOLUTE 0.03 0.00 - 0.20 K/uL 08/11/2024 9:[address] [facility] IMMATURE GRANULOCYTES ABSOLUTE 0.02 0.00 - 0.03 K/uL 08/11/2024 9:[address] [facility] Blood Venipuncture / Unknown 08/11/2024 9:25 PM CDT 08/11/2024 9:27 PM CDT Protocol [facility] Emergency MD HEMATOLOGY ORDERABLES Final Result [facility] CLIA# [id number] [address] [place] [address] * LIPASE (08/11/2024 9:25 PM CDT) Pathologist [facility] LIPASE 39 13 - 60 U/L 08/11/2024 9:52 PM CDT [facility] Blood Venipuncture / Unknown 08/11/2024 9:25 PM CDT 08/11/2024 9:27 PM CDT us Protocol [facility] Emergency CHEMISTRY ORDERABLES Final Result [facility] [employer] [facility] CLIA# [id number] [address] [place] [address] * (ABNORMAL) COMPREHENSIVE METABOLIC PANEL (08/11/2024 9:25 PM CDT) Pathologist [facility] SODIUM 136 136 - 145 mmol/L 08/11/2024 9:[address] [facility]ORATORY [facility] POTASSIUM 3.3(L) 3.5 - 4.9 mmol/L 08/11/2024 9:[address] [facility]ORAT[facility] CHLORIDE 101 98 - 107 mmol/L 08/11/2024 9:[address] [facility]ORATORY [facility] CO2 22 22 - 29 mmol/L 08/11/2024 9:[address] [facility]ORATORY [facility] CALCIUM 9.2 8.6 - 10.2 mg/dL 08/11/2024 9:52 PM [facility] BUN 8 6 - 20 mg/dL 08/11/2024 9:52 PM [facility] CREATININE 0.77 0.67 - 1.17 mg/dL 08/11/2024 9:52 PM [facility] GLUCOSE 137(H) 74 - 99 mg/dL 08/11/2024 9:52 PM [facility] TOTAL PROTEIN 7.1 6.0 - 8.3 g/dL 08/11/2024 9:52 PM [facility] ALBUMIN 4.4 3.4 - 4.8 g/dL 08/11/2024 9:52 PM [facility] BILIRUBIN TOTAL 0.9 0.0 - 1.0 mg/dL 08/11/2024 9:52 PM [facility] ALKALINE PHOSPHATASE 85 40 - 129 U/L 08/11/2024 9:52 PM [facility] AST 40(H) 12 - 38 U/L 08/11/2024 9:52 PM [facility] ALT 41(H) <41 U/L 08/11/2024 9:52 PM [facility] GFR >60 >=60 mL/min/1.7 3 sq meter 08/11/2024 9:52 PM [facility] Comment:eGFR calculated with 2020 CKD-EPI equation. Vegetarian diet, extremely high or low muscle mass, and may affect results. Cystatin C with Glomerular Filtration Rate is a suitable alternative for these patients. ANION GAP 13 8 - 16 mmol/L 08/11/2024 9:52 PM [facility] Blood Venipuncture / Unknown 08/11/2024 9:25 PM CDT 08/11/2024 9:27 PM T us Protocol [facility] CHEMISTRY ORDERABLES Final Result [facility] CLIA# [id number] [address] [place] [address] from Last 3 Months
--- OUTSIDE RECORDS SUMMARY | 2024-10-11 01:18 | XMS_ITS | Patient Health Record ---
Author Organization [facility] [employer] Address [address] [facility] [address] [place] [address] Care Team Providers Care Sales Agent Trading Stamps Name Role Phone Nancy MARTINEZ, Tarik Primary Care Provider Unavailab dasia NashEva mccrayy Unavailable [phone] Spike Mery Unavailable [phone] Allergies No Known Allergies Results Component Value Reference Range Notes UDT Reviewed date:05/02/2024 05:14:43 PM Interpretation: Performing Lab: Notes/Report: THC p 0 - 50 ng/ml Cocaine n 0 - 300 ng/ml Amphetamine n 0 - 1000 ng/ml Buprenorphine (BUP) n 0 - 10 ng/ml Secobarbital (Bar) n 0 - 300 ng/ml Oxazepam (BZO) p 0 - 300 ng/ml 2-nicrattiit-3,1-fzmncvyk-0, 3-dipheny lpyrrolidine (EDDP) n 0 - 300 ng/ml Methamphetamine (MET) n 0 - 1000 ng/ml Methylenedioxymethamphetamine (MDMA) n 0 - 500 ng/ml Morphine (MOP 300/OVD2362) n 0 - 300 ng/ml Methadone (MTD) [...] Oxazepam (BZO) P 0 - 300 ng/ml 6-mjegvovoyw-8,7-ofvtwtqa-3, 3-dipheny lpyrrolidine (EDDP) N 0 - 300 ng/ml Methamphetamine (MET) N 0 - 1000 ng/ml Methylenedioxymethamphetamine (MDMA) N 0 - 500 ng/ml Morphine (MOP 300/HAZ2962) N 0 - 300 ng/ml Methadone (MTD) N 0 - 300 ng/ml Phencyclidine (PCP) N 0 - 25 ng/ml Nortriptyline (TCA) N 0 - 1000 ng/ml Oxycodone N 0 - 300 ng/ml x N 0 - 300 ng/ml DRUG MONITOR, BENZO, QN, URI NE ([id number]) Reviewed date:04/17/2024 05:18:59 PM Interpretation: Performing Lab:[facility] [id number] Marvin Valdez Notes/Report: FASTING: NO Alphahydroxyalprazolam 203 <25 ng/mL Alphahydroxymidazolam NEGATIVE <50 ng/mL Alphahydroxytriazolam NEGATIVE <50 ng/mL Aminoclonazepam NEGATIVE <25 ng/mL Hydroxyethylflurazepam NEGATIVE <50 ng/mL Lorazepam NEGATIVE <50 ng/mL Nordiazepam NEGATIVE <50 ng/mL Oxazepam NEGATIVE <50 ng/mL Temazepam NEGATIVE <50 ng/mL Benzodiazepines Comments See Benzodiazepines Notes, LDT Notes DRUG MONITOR, MARIJUANA META B, QN, URINE (50982) Reviewed date:04/17/2024 05:19:07 PM Interpretation: Performing Lab:[facility] [id number] [id number] Marvin Valdez, Director - [id number] [facility] Notes/Report: FASTING: NO Marijuana Metabolite 1831 <5 [...] analytical performance characteristics have been determined by [employer]. It has not been cleared or approved by the FDA. This assay has been validated pursuant to the CLIA regulations and is used for clinical purposes. 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 confirmed Problem Poor concentration (23981951) Poor concentration (R41.840) Active confirmed Vital Signs [...] N/A Encounters Encounter Location Date Provider Diagnosis [facility] [place] [address] [facility] [address] [facility] [address] [place] [address] 04/08/2024 Carson Irving Major depressive disorder, recurrent, moderate F33.1 ; DARRIUS (generalized anxiety disorder) F41.1 and Poor concentration R41.840 [facility] [employer] [facility] [address] [place] [address] 05/02/2024 Carson Irving Lack of concentratio n R41.[address] [address] 05/08/2024 Carson Irving [address] [address] 05/17/2024 Carson Nasham ADHD (attention defi cit hyperactivity disorder), inattentive type F90.0 ; Major depressive disorder, recurrent, moderate F33.1 ; DARRIUS (generalized anxiety disorder) F41.1 ; Encounter for screening for depression Z13.31 and Encounter for screening for cardiovascular disorders Z13.[address] [address] 05/17/2024 Carson Irving [place] [address] [facility] [address] [address] 10/04/2024 Carson Irving Assessments Encounter Date Diagnosis [...] Date Coverage End Date [employer] [address] [place] [address] [id number] Dayne Oviedo Self - patient is the insured Medical (General) History Medical History History ICD Code Past Psychiatric History: Anxiety Disord er,Panic Disorder,Bipolar Disorder Surgical History Surgery Date(Month/Year) chin harrison
[2024-10-11 11:13] VITALS: BP 101/73; PULSE 81; RESP 18; TEMP 36.7; O2SAT 99
[2024-10-11] MEDS: LACTATED RINGERS 1,000 ML 150 ML IV CONT (11:21)
[2024-10-11] MEDS: SIMETHICONE ORAL SUSPENSION 20 MG/0.3 ML 30 ML BOTTLE 1.8 ML PO (11:23)
--- NOTE | 2024-10-11 11:57 | WPDANESEPPF ---
Anes - Initial Pre Proc Eval Procedure: Operation Date: 10/11/24 12:30 Proposed Procedures p Esophagogastroduodenoscopy & Colonoscopy - Sen De La Vega MD Date/Time: 10/11/24 11:57 Surgeon: Sen De La Vega MD Pre Op Diagnosis: Noninfective gastroenteritis and colitis, unspecif Patient Data Age: 49 Gender: M Height: Weight: 81.5 kg Last Vital Signs Temp 36.7 C 10/11/24 11:13 Pulse 81 10/11/24 11:13 Resp 18 10/11/24 11:13 BP 101/73 10/11/24 11:13 Pulse Ox 99 10/11/24 11:13 O2 Del Method Room Air 10/11/24 11:13 Allergies Allergy/AdvReac Type Severity Reaction Status Date / Time gluten AdvReac Mild Nausea Verified 10/10/24 12:35 milk AdvReac Mild bloating Verified 10/10/24 12:35 Home Medications ?Medication ?Instructions ?Recorded ?Confirmed ?Type albuterol sulfate 90 mcg/actuation 1 inhalation inhalation Q4H PRN 11/13/19 09/26/24 Rx aerosol inhaler (Ventolin HFA) shortness of breath or wheezing #18 grams cyclobenzaprine 10 mg tablet 10 mg PO TID PRN muscle spasm #20 07/21/24 09/26/24 Rx tabs pantoprazole 40 mg tablet,delayed See Rx Instructions .Route 07/24/24 09/26/24 Rx release .COMPLEX #90 tabs escitalopram oxalate 10 mg tablet 10 mg PO DAILY #30 tabs 09/26/24 09/26/24 Rx alprazolam 1 mg tablet 1 mg PO BID #60 tabs 09/27/24 10/11/24 Rx dicyclomine 20 mg tablet 20 mg PO QID #20 tabs 10/10/24 10/11/24 Rx Patient hx anesthesia problems: none Family hx anesthesia problems: none Results Review: All pre-operative results and documents have been reviewed as part of the pre-operative evaluation. [facility] Past Medical History Medical History Moderate persistent asthma with acute exacerbation Unspecified asthma, uncomplicated Gynecomastia Erosive esophagitis Gastritis Diverticulosis Asthma Irritable bowel syndrome Depression Generalized anxiety disorder Bipolar disorder, unspecified Celiac disease Gastroesophageal reflux disease Surgical History Surgical History History of cholecystectomy 02/2016 Family History Family History Father No problems noted. Mother No problems noted. Social History Social History Smoking packs per day: 0.5 Smoking cigarettes per day: 10.0 Years smoked: 10 Smoking pack-years: 5.00 Smoking status: Former smoker Tobacco type: cigarettes Second hand tobacco smoke exposure: No Alcohol intake: never Substance use: current Substance use type: does not use Lack of Transportation: No Lack of Food: Never True Current Housing: I Have Housing Concerned About Future Housing: No Difficulty Paying Gas/Electric Bills: No Difficulty Paying for Meds: No Currently Unemployed: No Education: High School Diploma/GED Difficulty w/ Childcare or Family Care: No Living arrangements: with family Occupation/Education: occupation Gender identity (if verbalized by the patient): Male Sexual Orientation (if Verbalized by the Patient): Straight or Heterosexual Spiritual care concerns: No Anes - Eval Final PreProcedure Day of Procedure 10/11/24 11:57 Patient weight: normal Heart: regular rate and rhythm Lungs: clear to auscultation Airway: Mallampati scale class II Neurological: alert and oriented Last oral intake: >/= 8 hours ASA classification: III Emergent: no Anesthetic plan: proceed Anesthesia type and monitoring: general GIVS and standard monitoring Results Review: All pre-operative results and documents have been reviewed as part of the pre-operative evaluation. Informed Consent: The patient's anesthetic plan and its attendant risks and benefits were discussed with the patient/family/POA. Questions were solicited and answers provided to the satisfaction of the patient/family/POA.
--- NOTE | 2024-10-11 12:10 | P.HP_ITS ---
H&P: HPI History of Present Illness Date/Time: 10/11/24 12:10 Chief Complaint: Abdominal pain Narrative: this patient has been complaining of intermittent abdominal pain, diffuse, moderate to severe, for the past 30 years. His last colonoscopy and EGD was more than 10 years ago. He has undergone multiple imaging studies including a recent CT scan which is normal, as well as laboratory workup. He is now re ferred for EGD and colonoscopy. Review of Systems Review of Systems: All systems reviewed & are unremarkable except as noted in HPI and below PMFSH Past Medical History Medical History Moderate persistent asthma with acute exacerbation Unspecified asthma, uncomplicated Gynecomastia Erosive esophagitis Gastritis Diverticulosis Asthma Irritable bowel syndrome Depression Generalized anxiety disorder Bipolar disorder, unspecified Celiac disease Gastroesophageal reflux disease Surgical History Surgical History History of cholecystectomy 02/2016 Family History Family History Father No problems noted. Mother No problems noted. Social History Social History Smoking packs per day: 0.5 Smoking cigarettes per day: 10.0 Years smoked: 10 Smoking pack-years: 5.00 Smoking status: Former smoker Tobacco type: cigarettes Second hand tobacco smoke exposure: No Alcohol intake: never Substance use: current Substance use type: does not use Lack of Transportation: No Lack of Food: Never True Current Housing: I Have Housing Concerned About Future Housing: No Difficulty Paying Gas/Electric Bills: No Difficulty Paying for Meds: No Currently Unemployed: No Education: High School Diploma/GED Difficulty w/ Childcare or Family Care: No Living arrangements: with family Occupation/Education: occupation Gender identity (if verbalized by the patient): Male Sexual Orientation (if Verbalized by the Patient): Straight or Heterosexual Spiritual care concerns: No Meds Home Medications and Allergies Home Medications ?Medication ?Instructions ?Recorded ?Confirmed ?Type albuterol sulfate 90 mcg/actuation 1 inhalation inhalation Q4H PRN 11/13/19 09/26/24 Rx aerosol inhaler (Ventolin HFA) shortness of breath or wheezing #18 grams cyclobenzaprine 10 mg tablet 10 mg PO TID PRN muscle spasm #20 07/21/24 09/26/24 Rx tabs pantoprazole 40 mg tablet,delayed See Rx Instructions .Route 07/24/24 09/26/24 Rx release .COMPLEX #90 tabs escitalopram oxalate 10 mg tablet 10 mg PO DAILY #30 tabs 09/26/24 09/26/24 Rx alprazolam 1 mg tablet 1 mg PO BID #60 tabs 09/27/24 10/11/24 Rx dicyclomine 20 mg tablet 20 mg PO QID #20 tabs 10/10/24 10/11/24 Rx Allergies Allergy/AdvReac Type Severity Reaction Status Date / Time gluten AdvReac Mild Nausea Verified 10/10/24 12:35 milk AdvReac Mild bloating Verified 10/10/24 12:35 Vital Signs Vital Signs - 24 hr 10/11/24 11:13 Temperature 98.1 F Pulse Rate 81 Respiratory Rate 18 Blood Pressure 101/73 Pulse Oximetry 99 Oxygen Delivery Room Air Exam Const: General: cooperative and healthy appearing Resp: Effort & Inspection: normal respiratory effort and able to speak in complete sentences Auscultation: clear to auscultation bilaterally Cardio: Rate: regular rate Rhythm: regular rhythm GI: Inspection: normal to inspection GI Palp: No No hepatosplenomegaly present Auscultation: normal bowel sounds Rectal Exam: deferred Skin: General skin exam: normal color Psych: Appearance: grossly normal Mental Status: mental status grossly nor mal Assessment and Plan Assessment and plan (1) Functional abdominal pain syndrome: Code(s): R10.9 - Unspecified abdominal pain Status: Acute Assessment and Plan: The patient is deemed a good candidate for the procedure. Consent signed. Will proceed.
[2024-10-11 12:46] VITALS: BP 138/93; PULSE 68; RESP 22; O2SAT 100
--- NOTE | 2024-10-11 12:47 | S_PTH ---
PATIENT: Dayne Oviedo LOC: [facility] U#:[id number] AGE/SX: 49/M ROOM: RE10/11/[address]: Sen De La Vega MD : 1975 BED: DIS: 10/11/2024 SPEC #: [id number] RECD: 10/11/24 13:15 STATUS: FERNANDO FISHER #: [id number] [place]: 10/11/24 12:[address]: Sen De La Vega DEPT: [facility] Surgical RECD BY: Ziyad Kilgore ENTERED: 10/11/24 13:18 SP TYPE: Surgical OTHR DR: Tarik Cruz MD Tissues: A - Duodenal Biopsy B - Gastric Biopsy C - Gastric Biopsy D - Colon Biopsy E - Colon Biopsy F - Colon Polypectomy G - Rectal Polyp Procedures: Hematoxylin and Eosin Stain Gross and Microscopic Level 4
--- NOTE | 2024-10-11 12:50 | SUR.OPER ---
EGD START 1215, END 1220 COLONOSCOPY START 1226, END 1245
[2024-10-11 12:56] VITALS: BP 130/81; PULSE 78; RESP 15; O2SAT 99
[2024-10-11 13:06] VITALS: BP 128/80; PULSE 72; RESP 24; O2SAT 100
== END 2024-10-11 13:26 | disposition home or self-care (01) ==
PROVIDERS: PCP Family Medicine; Visit Provider Internal Medicine Gastroenterology
PROC: 0DJ08ZZ Inspection of Upper Intestinal Tract, Via Natural or Artificial Opening Endoscopic (ICD-10-PCS; CPT 45378; principal; 2024-10-11 12:30)
DX: K52.832 Lymphocytic colitis (principal); D12.3 Benign neoplasm of transverse colon; K62.1 Rectal polyp; K29.30 Chronic superficial gastritis without bleeding; J45.909 Unspecified asthma, uncomplicated; K21.9 Gastro-esophageal reflux disease without esophagitis; F31.9 Bipolar disorder, unspecified; F41.9 Anxiety disorder, unspecified; K90.0 Celiac disease; Z79.51 Long term (current) use of inhaled steroids; Z90.49 Acquired absence of other specified parts of digestive tract; Z87.19 Personal history of other diseases of the digestive system; Z87.891 Personal history of nicotine dependence
CPT/HCPCS: 43239; 45385; 45380; 88305; J2704; J7120

== ENCOUNTER 2024-10-23 22:10 | Emergency (ER) | payer BC, SELFPAY ==
--- OUTSIDE RECORDS SUMMARY | 2024-07-03 08:00 | XMS_ITS ---
Author Organization [facility] [employer] [facility] Address [address] [place] [address] Care Team Providers Care Paraeducator Name Role Phone Nancy MARTINEZ, Tarik Primary Care Provider Unavailab Carson Coreas Unavailable [phone] Mery Nicholson Unavailable [phone] REASON FOR VISIT New Patient Social History Sex Assigned At : Social History Observation Description Sex Assigned At Male Encounters Encounter Location Date Provider Diagnosis [facility] [address] [place] [address] 07/03/2024 Mery Nicholson Plan Of Treatment No Information Progress Notes * Dayne SAMDOB: [birth year] (49 yo M)Acc No.[id number]:07/03/2024 Patient: Dayne Wilson Provider: Dalila NICHOLSON LCSW :1975 A ge:48 Y S ex:Male Date:07/03/2024 Phone: Address:[address] [facility] Pcp:Tarik Cruz MD Data: * Chief Complaints: * N ew Patient * Electronic signature of Mery Nicholson LCSW on 10/23/2024 at 10:12 PM CDT Sign off status: Pending Signatures: No Ad Hoc Signature Added * Provider: Dalila NICHOLSON LCSW Date: 0 07/03/2024 Generated for Julius ruvalcaba/Cate/eTransmitting on: 0 10/23/2024 10:12 PM CDT
--- NOTE | ~2024-10-23 | CT_ITS ---
CLINICAL INDICATION: Left lower quadrant pain COMPARISON: 09/14/2024. TECHNIQUE: Multiple contiguous axial images of the abdomen and pelvis were performed following the administration of with 100 mL Omnipaque-350 intravenous contrast The dose-length product (DLP) was 510.86 mGy-cm. Automated exposure control and iterative reconstruction technique were employed. FINDINGS/OBSERVATIONS: Visualized lower thorax: The bilateral lung bases are clear. The heart is of normal size, without pericardial effusion. Small hiatal hernia is present. Liver: The liver demonstrates homogeneously decreased enhancement, consistent with fatty infiltration. A Festus's lobe is identified, not increasing the longitudinal dimension of the liver, certainly increasing the size in the medial to lateral dimension. Gallbladder and biliary system: The gallbladder is surgically absent. Pancreas: The pancreas enhances homogeneously without ductal dilatation. Spleen: The spleen enhances homogeneously and has increased in size since last examination now measuring 16.1 cm in longitudinal dimension. Multiple splenules are also identified within the left upper quadrant Kidneys: Rapid excretion of contrast is identified within the bilateral kidneys. The remainder of the bilateral kidneys are otherwise unremarkable, enhancing symmetrically without hydronephrosis or renal calculi. Adrenal glands: Unremarkable. Gastrointestinal tract: Stomach is markedly distended with retained gastric contents, without mural thickening. Rectosigmoid diverticulosis is identified, with prominence of the vasa recta suggesting acute/early diverticulitis for which clinical correlation is needed. Diverticulosis is identified within the splenic flexure as well, although the presence of significant splenorenal varices limits the detection of prominence of the vasa recta. Appendix: The air-filled appendix is of normal caliber (axial series, images 123 through 133). Vasculature: Splenorenal varices are identified within the left flank, findings suggesting portal hypertension, unchanged from prior. No significant gastroesophageal varices are noted. The abdominal aorta is unremarkable. Lymph nodes: No pathologically enlarged or morphologically suspicious lymph nodes within the retroperitoneum or at the root of the mesentery. Pelvic structures: The bladder is distended, and otherwise unremarkable. The prostate gland is not enlarged. Body wall and musculoskeletal: Small fat-containing umbilical hernia. No significant degenerative disease within the lower thoracic or lumbosacral spine. IMPRESSION: Findings consistent with portal hypertension with fatty infiltration of the liver Festus's lobe, increasing its medial to lateral size. Progressive enlargement of the spleen with multiple splenules left upper quadrant. Splenorenal varices within the left flank, unchanged from prior. Additional findings which may represent acute/early diverticulitis of the rectosigmoid colon for which clinical correlation is needed. Reviewed, dictated and finalized at location A. IMPRESSION: Findings consistent with portal hypertension with fatty infiltration of the costa er Festus's lobe, increasing its medial to lateral size. Progressive enlargement of the spleen with multiple splenules left upper quadra nt. Splenorenal varices within the left flank, unchanged from prior. Additional findings which may represent acute/early diverticulitis of the recto sigmoid colon for which clinical correlation is needed.
[2024-10-23 22:18] VITALS: BP 146/88; PULSE 72; RESP 15; TEMP 36.9; O2SAT 97
[2024-10-23 22:34] LABS: Hematocrit 43.5 % (42.0-52.0); Hemoglobin 14.3 g/dL (14.0-18.0); Immature Granulocyte Percent A 0.2 % (0-0.5); Immature Platelet Fraction Pct 2.0 % (0.9-11.2); Lymphocytes Absolute Auto 1.19 K/mm3 (0.9-3.2); Mean Corpuscular HGB Conc 32.9 g/dl (32-36); Mean Corpuscular Hemoglobin 30.0 pg (26-34); Mean Corpuscular Volume 91.4 fl (80-100); Nucleated Red Blood Cells Absolute Auto 0.000 K/mm3 (0.0-0.012); Nucleated Red Blood Cells Perc 0.0 % (0.0-0.2); Platelet Count Result 91 k/mm3 (150-375); Red Blood Count 4.76 M/mm3 (4.6-6.20); White Blood Count 5.2 K/mm3 (4.5-10.0)
--- NOTE | 2024-10-23 22:35 | ED_ITS ---
HPI - Abdominal Pain General Chief Complaint: Abdominal Pain Stated Complaint: Abd pain-diverticulitis flare Time Seen by Provider: 10/23/24 22:23 History of Present Illness HPI narrative: 49-year-old male with history of functional abdominal pain syndrome, GERD, diverticulitis, hepatic steatosis presents to the emergency department with concerns for diverticulitis flare. Patient states over the past 2 hours he has developed pain to the left lower quadrant with associated nausea, vomiting and diaphoresis. He states he is concerned he may have a flare of diverticulitis. He notes he was treated for diverticulitis a few months ago. He states his last bowel movement was 30 minutes prior to arrival soft. He denies dysuria, hematuria, known fevers. He endorses a history of cholecystectomy. Patient also notes he had an EGD and colonoscopy performed 10/11/[address] De La Vega which was reportedly unremarkable. Per chart review the EGD showed findings concerning the gastritis in the colonoscopy showed colonic polyps. Patient underwent polypectomy and biopsy. Pathology report showed no evidence of colitis, hyperplastic or adenomatous changes. Two of the polyps were found to be tubular adenomas and the rectal polyp was found to be hyperplastic polyp. Related Data Allergies Allergy/AdvReac Type Severity Reaction Status Date / Time gluten AdvReac Mild Nausea Verified 10/23/24 22:20 milk AdvReac Mild bloating Verified 10/23/24 22:20 Review of Systems 2 Review of Systems: All systems reviewed & are unremarkable except as noted in HPI and below PMFSH Past Medical History Medical History Moderate persistent asthma with acute exacerbation Unspecified asthma, uncomplicated Gynecomastia Erosive esophagitis Gastritis Diverticulosis Asthma Irritable bowel syndrome Depression Generalized anxiety disorder Bipolar disorder, unspecified Celiac disease Gastroesophageal reflux disease Surgical History Surgical History History of cholecystectomy 02/2016 Family History Family History Father No problems noted. Mother No problems noted. Social History Social History Smoking packs per day: 0.5 Smoking cigarettes per day: 10.0 Years smoked: 10 Smoking pack-years: 5.00 Smoking status: Former smoker Tobacco type: cigarettes Second hand tobacco smoke exposure: No Alcohol intake: never Substance use: current Substance use type: does not use Lack of Transportation: No Lack of Food: Never True Current Housing: I Have Housing Concerned About Future Housing: No Difficulty Paying Gas/Electric Bills: No Difficulty Paying for Meds: No Currently Unemployed: No Education: High School Diploma/GED Difficulty w/ Childcare or Family Care: No Living arrangements: with family Occupation/Education: occupation Gender identity (if verbalized by the patient): Male Sexual Orientation (if Verbalized by the Patient): Straight or Heterosexual Spiritual care concerns: No Exam 2 Narrative: GENERAL: Appears uncomfortable HEAD: Normocephalic, atraumatic. EYES: EOMI. ENT: Nares clear, no rhinorrhea or epistaxis. Mucous membranes moist. NECK: Supple. CHEST: Clear to auscultation. No respiratory distress. HEART: Regular rate and rhythm. No murmur heard. Normal peripheral pulses. ABDOMEN: Abdomen soft with voluntary guarding in the left lower quadrant with associated tenderness. No rebound or rigidity. No CVA tenderness. EXTREMITIES: Normal range of motion. No edema. SKIN: Warm, dry, no rash. NEURO: No focal deficits. Alert and oriented x3 Course Vital Signs Vital signs: Vital Signs Temperature 98.4 F 10/23/24 22:18 Pulse Rate 72 10/23/24 22:18 Respiratory Rate 15 10/23/24 22:18 Blood Pressure 146/88 H 10/23/24 22:18 Pulse Oximetry 97 10/23/24 22:18 Oxygen Delivery Room Air 10/23/24 22:18 Temperature 98.4 F 10/23/24 22:18 Pulse Rate 72 10/23/24 22:18 Respiratory Rate 15 10/23/24 22:18 Blood Pressure 146/88 H 10/23/24 22:18 Pulse Oximetry 97 10/23/24 22:18 Oxygen Delivery Room Air 10/23/24 22:18 MDM - Abdominal Pain MDM Narrative Medical decision making narrative: 49-year-old male presents to the emergency department for 2 hours of left lower quadrant abdominal pain. Patient endorses a history of diverticulitis and is concerned he is having a diverticulitis flare. Vital signs are stable. Patient does appear comfortable on exam. Abdomen is soft with tenderness involuntary guarding in the left lower quadrant. Will obtain lab work, CT abdomen pelvis with contrast and provide IV fluids, Toradol and Zofran for symptomatic control. CBC without leukocytosis or anemia. Chemistries are unremarkable. UA negative dehydration with an elevated specific gravity, no UTI. Fluids provided. Lipase is within normal limits. CT abdomen pelvis IMPRESSION: Findings consistent with portal hypertension with fatty infiltration of the liver Festus's lobe, increasing its medial to lateral size. Progressive enlargement of the spleen with multiple splenules left upper quadrant. Splenorenal varices within the left flank, unchanged from prior. Additional findings which may represent acute/early diverticulitis of the rectosigmoid colon for which clinical correlation is needed. Patient updated on results. He did require dose of morphine with improvement in pain. On re-evaluation he is resting comfortably in exam bed tolerating p.o. intake. Feel he is safe for discharge home. Will start him on Augmentin for developing diverticulitis and provide Zofran and [place] for symptomatic control. Additionally advised to follow-up with his PCP regarding incidental findings. Discussed strict ED return precautions. Patient is agreeable with the plan verbalized understanding. Discharged in stable condition. Lab Data 10/23/24 22:23 10/23/24 22:23 Labs: Lab Results 10/23/24 10/23/24 Range/Units 22:23 23:36 WBC 5.2 (4.5-10.0) K/mm3 RBC 4.76 (4.6-6.20) M/mm3 Hgb 14.3 (14.0-18.0) g/dL Hct 43.5 (42.0-52.0) % MCV 91.4 (80-100) fl MCH 30.0 (26-34) pg MCHC 32.9 (32-36) g/dl RDW 14.3 (11.5-14.5) % Plt Count 91 L (150-375) k/mm3 MPV 9.5 (7.4-10.4) fl Immature Gran % (Auto) 0.2 (0-0.5) % Neut % (Auto) 63.1 (45.5-73.1) % Lymph % (Auto) 22.7 (18.3-44.2) % [place]pson % (Auto) 9.4 H (2.6-8.5) % Eos % (Auto) 4.0 (0-4.4) % Baso % (Auto) 0.6 (0.2-1.2) % Lymph # (Auto) 1.19 (0.9-3.2) K/mm3 Upson # (Auto) 0.5 (0.1-0.6) K/mm3 Eos # (Auto) 0.2 (0-0.3) K/mm3 Baso # (Auto) 0.0 (0.0-0.1) K/mm3 Abs Immat Gran (auto) 0.01 (0.00-0.031) K/mm3 Absolute Neuts (auto) 3.3 (1.3-6.7) K/mm3 Absolute Nucleated RBC 0.000 (0.0-0.012) K/mm3 Nucleated RBC % 0.0 (0.0-0.2) % % Immature Plt Fraction 2.0 (0.9-11.2) % Sodium 138 (137-145) mmol/L Potassium 4.1 (3.4-5.0) mmol/L Chloride 104 (98-107) mmol/L Carbon Dioxide 26 (22-30) mmol/L Anion Gap 8 (4-12) mmol/L BUN 9 (9-20) mg/dL Creatinine 0.63 L (0.7-1.3) mg/dL Estim Creat Clear Calc 124 ml/min Estimated GFR > 60 (59 - ) Glucose 99 (65-110) mg/dL Calcium 9.1 (8.4-10.2) mg/dL Total Bilirubin 1.3 (0.2-1.3) mg/dL AST 38 (17-59) U/L ALT 35 (6-50) U/L Alkaline Phosphatase 76 (38-126) U/L Total Protein 8.1 (6.3-8.2) g/dL Albumin 4.5 (3.5-5.1) g/dL Lipase 91 (23-300) U/L Urine Color Yellow (Yellow) Urine Appearance Clear (Clear) Urine pH 7.5 (5.0-9.0) Ur Specific [place] > 1.045 H (1.001-1.035) Urine Protein 1+ H (Negative) mg/dL Urine Glucose (UA) Negative (Negative) mg/dL Urine Ketones Negative (Negative) mg/dL Ur Blood (Man) Negative (Negative) Urine Nitrate Negative (Negative) Urine Bilirubin Negative (Negative) Urine Urobilinogen 1.0 (<2.0) mg/dL Leukocyte Esterase Rfl Negative (Negative) IMAN/UL Urine RBC 0-2 (0-2) /hpf Urine WBC 0-5 (0-3) /hpf Ur Squamous Epith Cells None seen (Few) /hpf Urine Bacteria None seen /hpf Imaging Data Radiologist's impression: ITS Impressions Abdomen/Pelvis CT 10/23/24 23:06 IMPRESSION: Findings consistent with portal hypertension with fatty infiltration of the liver Festus's lobe, increasing its medial to lateral size. Progressive enlargement of the spleen with multiple splenules left upper quadrant. Splenorenal varices within the left flank, unchanged from prior. Additional findings which may represent acute/early diverticulitis of the rectosigmoid colon for which clinical correlation is needed. Discharge Plan Discharge Clinical Impression: Diverticulitis, Fatty liver, Splenomegaly, Dehydration Patient Disposition: Home Condition: Stable Instructions: Antibiotic Form, Diverticulitis (DC) Additional Instructions: You were evaluated in the emergency department for left lower quadrant abdominal pain. Your exam and CT are concerning for diverticulitis. Please take the antibiotics as directed. Take ondansetron as needed for nausea and vomiting and hydrocodone as needed for pain. Follow-up closely with her primary care provider and GI physician. Additionally on your CT were found have an enlarged liver with findings concerning for portal hypertension and progressive enlargement of your spleen with small blood no renal varices within the left flank. Please follow-up with your primary care provider regarding this for further evaluation. Return to the emergency department if you develop significantly worsening pain, fever of 100.4 or greater, you are unable to tolerate food or fluids, or other concerning symptoms. Patient Language: Upper Sorbian Prescriptions: New amoxicillin-pot clavulanate 875-125 mg tablet 1 tablet PO Q12H Qty: 14 0RF ondansetron 4 mg tablet,disintegrating 4 mg PO Q8H Qty: 14 0RF hydrocodone-acetaminophen 5-325 mg tablet 1 tablet PO Q8H PRN (Reason: pain) Qty: 14 0RF No Action cyclobenzaprine 10 mg tablet 10 mg PO TID PRN (Reason: muscle spasm) Qty: 20 0RF dicyclomine 20 mg tablet 20 mg PO QID Qty: 20 0RF albuterol sulfate [Ventolin HFA] 90 mcg/actuation HFA aerosol inhaler 1 inhalation INHALATION Q4H PRN (Reason: shortness of breath or wheezing) Qty: 18 3RF pantoprazole 40 mg tablet,delayed release (DR/EC) See Rx Instructions .ROUTE .COMPLEX Qty: 90 1RF Dose Instruction: Take 1 tablet by mouth once daily Rx Instructions: Take 1 tablet by mouth once daily escitalopram oxalate 10 mg tablet 10 mg PO DAILY Qty: 30 2RF alprazolam 1 mg tablet 1 mg PO BID Qty: 60 0RF Follow-up/Referrals: Tarik Cruz MD [Primary Care Provider, Family Practice] Sen De La Vega MD [Physician, Gastroenterology]
[2024-10-23] MEDS: KETOROLAC 30 MG/ML VIAL (*BKC) IV PUSH (22:39)
[2024-10-23] MEDS: SODIUM CHLORIDE 0.9% IV 1,000 ML 999 ML IV CONT (22:39)
[2024-10-23] MEDS: ONDANSETRON INJ 4 MG/2 ML VIAL IV PUSH (22:40)
[2024-10-23 22:43] LABS: Alanine Aminotransferase 35 U/L (6-50); Albumin Level 4.5 g/dL (3.5-5.1); Alkaline Phosphatase 76 U/L (38-126); Anion Gap 8 mmol/L (4-12); Aspartate Amino Transferase 38 U/L (17-59); Bilirubin,Total 1.3 mg/dL (0.2-1.3); Blood Urea Nitrogen 9 mg/dL (9-20); Calcium 9.1 mg/dL (8.4-10.2); Carbon Dioxide 26 mmol/L (22-30); Chloride 104 mmol/L (98-107); Estimated CRCL calculation 124 ml/min; Estimated Glomerular Filt Rate > 60; Glucose 99 mg/dL (65-110); Lipase 91 U/L (23-300); Potassium 4.1 mmol/L (3.4-5.0); Sodium 138 mmol/L (137-145); Total Protein 8.1 g/dL (6.3-8.2)
[2024-10-23] MEDS: MORPHINE SULFATE (*CRX) 4 MG/ML INJ IV PUSH (23:34)
--- OUTSIDE RECORDS SUMMARY | 2024-10-23 23:34 | XMS_ITS | Clinical Summary ---
Author Organization [facility] Address [address] [address] Phone Care Team Providers Care Protocol Manager Name Role Phone Unavailable Primary Care [...]
--- OUTSIDE RECORDS SUMMARY | 2024-10-23 23:34 | XMS_ITS | Clinical Summary ---
Author Organization [facility] Address [address] [place] [address] Care Team Providers Care Specimen Preparation Assistant Name Role Phone Tarik Cruz MD Primary Care Provider Allergies No known active allergies Medications amitriptyline [...] CDT - 09/25/2024 4:35 PM CDT Emergency [facility] system Emergency Room [address] [place] [id number] Ron Solis MD Abdominal Pain Discharge Disposition: Home or Self Care (Routine Discharge) 09/25/2024 Travel 09/14/2024 5:08 AM CDT - 09/14/2024 7:50 AM CDT Emergency [facility] system Emergency Room [address] [place] [id number] Pattie Yi MD Abdominal Pain (Patient arrives with c/o of 10/10 lower left abdominal pain that started around 0200. Pt attempted bentyl, and zofran with increased n/v/d) Discharge Disposition: Home or Self Care (Routine Discharge) 09/14/2024 Travel 08/19/2024 1:30 PM CDT Office Visit [facility] General Surgery [facility] [address] [address] [facility], [address] [place] [address] Rigoberto Scruggs IV, MD Abdominal Pain (Pain and vomiting this last Monday- went to the ER- [facility]Q) 08/19/2024 Travel 08/17/2024 7:50 PM CDT - 08/17/2024 10:38 PM CDT Emergency [facility] system Emergency Room [address] [place] [address] Leonardo Layton MD Abdominal Pain Discharge Disposition: Home or Self Care (Routine Discharge) 08/17/2024 Travel 07/30/2024 8:08 PM CDT - 07/30/2024 11:33 PM CDT Emergency [facility] [place] [address] Eduardo Cartagena MD Jerome, Jason P, MD,PHD [...] 2024 Hepatitis C Completed 04/15/2017 PHQ-2 (Physician Jackson) Completed 08/19/2024 Meningococcal B Vaccine Aged Out [...] with and son General No Yudy Gaitan, EQUIPMENT APPLICATION SPECIALIST Health - patient able to perform ADLs independently General No Sue Fairchild, identity management developer Procedure Name Priority Date/Time Associated Diagnosis Comments [...] CDT HEPATITIS PANEL,ACUTE STAT 04/15/2017 5:10 PM CHECKING DEPARTMENT SUPERVISOR from Last 3 Months or Most Recently [...] 2:57 PM Narrative 09/25/2024 3:04 PM CDT [facility] [address] [facility] [place] [address] Procedure(s): CT ABD+PEL W CON Date of [...] Procedure Note Rhett Alfaro MD - 09/25/2024 [facility] [address] [place] [address] Procedure(s): CT ABD+PEL W CON Date of [...] COLOR (U) YELLOW 09/25/2024 1:48 PM CDT [facility] TRANSPARENCY CLEAR 09/25/2024 1:48 PM CDT [facility] SPECIFIC GRAVITY (U) 1.015 1.000 - 1.030 09/25/2024 1:48 PM CDT [facility] U PH 8.5 5.0 - 9.0 09/25/2024 1:48 PM CDT [facility] LEUKOCYTES (U) NEGATIVE NEGATIVE 09/25/2024 1:48 PM CDT [facility] NITRITES NEGATIVE NEGATIVE 09/25/2024 1:48 PM CDT [facility] PROTEIN RANDOM (U) NEGATIVE NEGATIVE 09/25/2024 1:48 PM CDT [facility] GLUCOSE (U) NEGATIVE NEGATIVE 09/25/2024 1:48 PM CDT [facility] KETONES MG/DL (U) NEGATIVE NEGATIVE 09/25/2024 1:48 PM CDT [facility] BILIRUBIN (U) NEGATIVE NEGATIVE 09/25/2024 1:48 PM CDT [facility] BLOOD (U) NEGATIVE NEGATIVE 09/25/2024 1:48 PM CDT [facility] WBC/HPF NONE SEEN 0 - 5 /HPF 09/25/2024 1:48 PM CDT [facility] RBC/HPF NONE SEEN 0 - 5 /HPF 09/25/2024 1:48 PM CDT [facility] EPI/HPF NONE SEEN /HPF 09/25/2024 1:48 PM CDT [facility] URINE SPECIMEN OBTAINED BY CLEAN CATCH PROCEDURE / Unknown 09/25/2024 1:25 PM CDT us Ron Solis MD URINE ORDERABLES Final Result [facility] [address] [place] [address], [place] [phone] * (ABNORMAL) COMPREHENSIVE METABOLIC PANEL (09/25/2024 1:23 PM CDT) Only the most recent of4 resultswithin the time period is included. GLUCOSE 133(H) 70 - 99 MG/DL 09/25/2024 2:02 PM [facility] BUN 9 7 - 18 MG/DL 09/25/2024 2:02 PM [facility] CREATININE S/P/B 0.71 0.7 - 1.3 MG/DL 09/25/2024 2:02 PM [facility] SODIUM S/P/B 137 136 - 145 MMOL/L 09/25/2024 2:02 PM [facility] POTASSIUM S/P/B 4.0 3.5 - 5.1 MMOL/L 09/25/2024 2:02 PM [facility] CHLORIDE S/P/B 104 100 - 108 MMOL/L 09/25/2024 2:02 PM [facility] CO2 23.3 21 - 32 MMOL/L 09/25/2024 2:02 PM [facility] CALCIUM S/P/B 8.7 8.5 - 10.1 MG/DL 09/25/2024 2:02 PM [facility] BILIRUBIN TOTAL S/P/B 0.5 0.2 - 1.2 MG/DL 09/25/2024 2:02 PM [facility] TOTAL PROTEIN S/P/B 7.6 6.4 - 8.2 G/DL 09/25/2024 2:02 PM [facility] ALBUMIN S/P/B 4.1 3.4 - 5.0 G/DL 09/25/2024 2:02 PM [facility] AST 27 15 - 37 U/L 09/25/2024 2:02 PM [facility] ALT 36 16 - 60 U/L 09/25/2024 2:02 PM [facility] ALKALINE PHOSPHATASE S/P/B 84 50 - 136 U/L 09/25/2024 2:02 PM CDT [facility] ANION GAP 9.7 5 - 15 MMOL/L 09/25/2024 2:02 PM CDT [facility] BUN CREATININE RATIO 12.7 6 - 26 09/25/2024 2:02 PM CDT [facility] A/G RATIO 1.2 1.0 - 2.0 RATIO 09/25/2024 2:02 PM CDT [facility] GFR ESTIMATE >90 >90 ML/MIN/1.7 3 M2 09/25/2024 2:02 PM CDT [facility] Comment: NOTE: eGFR is not calculated for patients <18 years of age. This is an estimated GFR calculation using the new CKD EPI creatinine equation without race and so does not require a correction factor for race. This estimated GFR should not be used for calculating drug doses. 09/25/2024 1:23 PM CDT us Ron Solis MD LABORATORY Final Result [facility] [address] [place] [address], * (ABNORMAL) CBC W/DIFF AUTOMATED (09/25/2024 1:23 PM CDT) Only the most recent of4 resultswithin the time period is included. WBC 4.40 4.4 - 11.0 x10'3/uL 09/25/2024 1:59 PM CDT [facility] RBC 4.78 4.50 - 5.90 x10'6/uL 09/25/2024 1:59 PM CDT [facility] HGB 14.3 14.0 - 17.5 G/DL 09/25/2024 1:59 PM CDT [facility] HCT 43.4 41.5 - 50.4 % 09/25/2024 1:59 PM CDT [facility] MCV 90.8 80.0 - 96.0 FL 09/25/2024 1:59 PM CDT [facility] MCH 29.9 26.5 - 31.4 PG 09/25/2024 1:59 PM CDT [facility] MCHC 32.9 31.9 - 34.8 G/DL 09/25/2024 1:59 PM CDT [facility] RDW 14.2 12.3 - 14.3 % 09/25/2024 1:59 PM CDT [facility] PLT 93(L) 151 - 353 x10'3/uL 09/25/2024 1:59 PM CDT [facility] MPV 10.1 9.7 - 11.9 FL 09/25/2024 1:59 PM CDT [facility] NEUTROPHILS % 72.7(H) 42.1 - 71.9 % 09/25/2024 2:01 PM CDT [facility] LYMPHOCYTES % 15.9 15.8 - 45.0 % 09/25/2024 2:01 PM CDT [facility] BASOPHILS 0.7 0.0 - 1.3 % 09/25/2024 2:01 PM CDT [facility] EOSINOPHILS 3.2 0.0 - 5.6 % 09/25/2024 2:01 PM CDT [facility] MONOCYTES % 7.0 5.7 - 12.5 % 09/25/2024 2:01 PM CDT [facility] IMMATURE GRANS % 0.5 0.0 - 0.5 % 09/25/2024 2:01 PM CDT [facility] ABS. NEUTROPHILS 3.20 1.40 - 6.00 x10'3/uL 09/25/2024 2:01 PM CDT [facility] ABS. LYMPHOCYTES 0.70(L) 0.80 - 4.70 x10'3/uL 09/25/2024 2:01 PM CDT [facility] PLT MORPH. DECREASED 09/25/2024 2:01 PM CDT [facility] RBC MORPHOLOGY NORMAL 09/25/2024 2:01 PM CDT [facility] WBC MORPHOLOGY NORMAL 09/25/2024 2:01 PM CDT [facility] 09/25/2024 1:23 PM CDT us Ron Solis MD LABORATORY Edited Result - Final Performing Organization Address [facility]/ZIP Co de Phone Number [facility] [address] [place] [address], [place] [phone] * LIPASE (09/25/2024 1:23 PM CDT) Only the most recent of4 resultswithin the time period is included. LIPASE 36 16 - 77 UNITS/L 09/25/2024 2:02 PM CDT [facility] 09/25/2024 1:23 PM CDT us Ron Solis MD LABORATORY Final Result Performing Organization Address City/[facility] Co de Phone Number [facility] [address] [place] [address], [place] [phone] * CT ABD+PEL WO CON (08/17/2024 8:15 [...] 9:35 PM Narrative 08/17/2024 9:44 PM CDT [facility] [address] [facility] [place] [address] EXAMINATION: CT ABDOMEN/PELVIS WITHOUT CONTRAST INDICATION: Left [...] Procedure Note Aime Mcclendon MD - 08/17/2024 [facility] [address] [place] [address] EXAMINATION: CT ABDOMEN/PELVIS WITHOUT CONTRAST INDICATION: Left [...] Result * HEPATITIS PANEL,ACUTE (04/15/2017 5:10 PM CHECKING DEPARTMENT SUPERVISOR) HAV IGM NON-REACTI VE NON-REACTI VE 04/17/2017 3:37 PM CHECKING DEPARTMENT SUPERVISOR [facility] Comment: TESTING PERFORMED [address] [address] HEP B SURFACE AB NON-REACTI VE 04/17/2017 3:37 PM CHECKING DEPARTMENT SUPERVISOR [facility] Comment: TESTING PERFORMED [address] [address] HEPATITIS B SURFACE AG NON-REACTI VE NON-REACTI VE 04/17/2017 3:37 PM CHECKING DEPARTMENT SUPERVISOR [facility] Comment: TESTING PERFORMED [address] [address] HEP B CORE TOTAL AB NON-REACTI VE NON-REACTI VE 04/17/2017 3:37 PM CHECKING DEPARTMENT SUPERVISOR [facility] Comment: TESTING PERFORMED [address] [address] HEPATITIS C AB NON-REACTI VE NON-REACTI VE 04/17/2017 3:37 PM CHECKING DEPARTMENT SUPERVISOR [facility] Comment: TESTING PERFORMED [address] [address] 04/15/2017 5:10 PM CHECKING DEPARTMENT SUPERVISOR 04/15/2017 5:23 PM CHECKING DEPARTMENT SUPERVISOR us Generic Conversion Md [facility] LABORATORY Final R esult [facility] [address] [place] [address], [place] [phone] from Last 3 Months or Most Recently Relevant to Health Maintenance Insurance COVID19 [employer] [place] [address] [facility] Advance Directives * Full Code (Latest Code Status on File) Date Activated Date Inactivated Comments 01/27/2021 11:46 PM 01/29/2021 9:38 PM * Full Code Date Activated Date Inactivated Comments 05/16/2019 1:16 PM 05/21/2019 5:09 PM Care Teams Specimen Preparation Assistant Relationship Specialty Start Date End Date Tarik Cruz MD [address] [place] [id number] PCP - General FAMILY PRACTICE 06/12/24
--- OUTSIDE RECORDS SUMMARY | 2024-10-23 23:34 | XMS_ITS | Encounter Summary ---
Author Organization [facility] Address [address] [place] [address] Care Team Providers Care Digital Marketing Specialist Name Role Phone Unavailable Primary Care Provider Unavailabl e Encounter Details Date Type Department Care Team (Late st Contact Info) Description 10/22/2024 External Device Data [facility] ABSTRACTION Provider, Abstract [...]
--- OUTSIDE RECORDS SUMMARY | 2024-10-23 23:34 | XMS_ITS | Clinical Summary ---
Author Organization [facility] Address [address] [place] [phone] Phone Care Team Providers Care Health Unit Supervisor Name Role Phone Unavailable Primary Care [...] Encounters Date Type Department Care Team Description 10/22/2024 External Device Data ST[facility] ABSTRACTION Provider, Abstract 10/09/2024 External Device Data STL ABSTRACTION Provider, [...] CDT - 08/11/2024 11:[address] [facility] Emergency Department [address] [place] [id number] Warren Cantu MD Abdominal pain, unspecified abdominal [...] * MANUAL DIFFERENTIAL (08/11/2024 9:25 PM CDT) [facility] PLATELET EST. Consistent w Count 08/11/2024 10:28 PM CDT [facility] RBC MORPHOLOGY Normal 08/11/2024 10:28 PM CDT [facility] [employer] [facility] Blood Venipuncture / Unknown 08/11/2024 9:25 PM CDT 08/11/2024 9:27 PM CDT Protocol Victoria Flynn MD HEMATOLOGY ORDERABLES COM Final Result [facility] CLIA# [id number] [address] [place] [address] * (ABNORMAL) CBC WITH DIFFERENTIAL (08/11/2024 9:25 PM CDT) [facility] WBC 6.0 4.0 - 9.8 K/uL 08/11/2024 9:42 PM CDT [facility] Comment:ANC = 4.23K/uL RBC 4.63 4.50 - 5.40 M/uL 08/11/2024 9:42 PM CDT [facility] HEMOGLOBIN 13.9 13.6 - 16.5 g/dL 08/11/2024 9:42 PM CDT [facility] HEMATOCRIT 41.4 40.0 - 48.0 % 08/11/2024 9:42 PM CDT [facility] MCV 89.4 82.0 - 99.0 fL 08/11/2024 9:42 PM CDT [facility] MCH 30.0 27.2 - 32.6 pg 08/11/2024 9:42 PM CDT [facility] MCHC 33.6 31.5 - 35.5 g/dL 08/11/2024 9:42 PM CDT [facility] RDW 14.6(H) 11.5 - 14.5 % 08/11/2024 9:42 PM CDT [facility] RDW-STDEV 48.0 37.1 - 48.7 fL 08/11/2024 9:42 PM CDT [facility] PLATELETS 95(L) 140 - 350 K/uL 08/11/2024 9:42 PM CDT [facility] MPV 9.9 9.3 - 12.4 fL 08/11/2024 9:42 PM CDT [facility] NEUTROPHILS 71 % 08/11/2024 9:42 PM CDT [facility] LYMPHOCYTES 18 % 08/11/2024 9:42 PM CDT [facility] MONOCYTES 8 % 08/11/2024 9:42 PM CDT [facility] EOSINOPHILS 3 % 08/11/2024 9:42 PM CDT [facility] BASOPHILS 1 % 08/11/2024 9:42 PM CDT [facility] IMMATURE GRANULOCYTES 0 % 08/11/2024 9:42 PM CDT [facility] NEUTROPHIL ABSOLUTE 4.23 1.90 - 7.00 K/uL 08/11/2024 9:42 PM CDT [facility] LYMPHOCYTE ABSOLUTE 1.06 0.70 - 4.50 K/uL 08/11/2024 9:42 PM CDT [facility] MONOCYTE ABSOLUTE 0.49 0.10 - 1.30 K/uL 08/11/2024 9:42 PM CDT [facility] EOSINOPHIL ABSOLUTE 0.16 0.00 - 0.70 K/uL 08/11/2024 9:42 PM CDT [facility] BASOPHILS ABSOLUTE 0.03 0.00 - 0.20 K/uL 08/11/2024 9:42 PM CDT [facility] IMMATURE GRANULOCYTES ABSOLUTE 0.02 0.00 - 0.03 K/uL 08/11/2024 9:42 PM CDT [facility] Blood Venipuncture / Unknown 08/11/2024 9:25 PM CDT 08/11/2024 9:27 PM CDT [facility] HEMATOLOGY ORDERABLES Final Result [facility] CLIA# [id number] [address] [place] [address] * LIPASE (08/11/2024 9:25 PM CDT) LIPASE 39 13 - 60 U/L 08/11/2024 9:52 PM CDT [facility] Blood Venipuncture / Unknown 08/11/2024 9:25 PM CDT 08/11/2024 9:27 PM CDT Protocol [facility] Emergency CHEMISTRY ORDERABLES Final Result [facility] CLIA# [id number] [address] [place] [address] * (ABNORMAL) COMPREHENSIVE METABOLIC PANEL (08/11/2024 9:25 PM CDT) SODIUM 136 136 - 145 mmol/L 08/11/2024 9:52 PM CDT [facility] POTASSIUM 3.3(L) 3.5 - 4.9 mmol/L 08/11/2024 9:52 PM CDT [facility] CHLORIDE 101 98 - 107 mmol/L 08/11/2024 9:52 PM CDT [facility] CO2 22 22 - 29 mmol/L 08/11/2024 9:52 PM CDT [facility] CALCIUM 9.2 8.6 - 10.2 mg/dL 08/11/2024 9:52 PM [facility] [employer] [facility] BUN 8 6 - 20 mg/dL 08/11/2024 9:52 PM [facility] CREATININE 0.77 0.67 - 1.17 mg/dL 08/11/2024 9:52 PM [facility] GLUCOSE 137(H) 74 - 99 mg/dL 08/11/2024 9:52 PM [facility] TOTAL PROTEIN 7.1 6.0 - 8.3 g/dL 08/11/2024 9:52 PM [facility] ALBUMIN 4.4 3.4 - 4.8 g/dL 08/11/2024 9:52 PM [facility] BILIRUBIN TOTAL 0.9 0.0 - 1.0 mg/dL 08/11/2024 9:52 PM [facility] ALKALINE PHOSPHATASE 85 40 - 129 U/L 08/11/2024 9:52 PM [facility] AST 40(H) 12 - 38 U/L 08/11/2024 9:52 PM [facility] ALT 41(H) <41 U/L 08/11/2024 9:52 PM [facility] [employer] [facility] GFR >60 >=60 mL/min/1.7 3 sq meter 08/11/2024 9:52 PM [facility] [employer] [facility] Comment:eGFR calculated with 2020 CKD-EPI equation. Vegetarian diet, extremely high or low muscle mass, and may affect results. Cystatin C with Glomerular Filtration Rate is a suitable alternative for these patients. ANION GAP 13 8 - 16 mmol/L 08/11/2024 9:52 PM [facility] [employer] [facility] Blood Venipuncture / Unknown 08/11/2024 9:25 PM CDT 08/11/2024 9:27 PM CDT us Protocol [facility] CHEMISTRY ORDERABLES Final Result [facility] [employer] [facility] CLIA# [id number] [address] [place] [address] from Last 3 Months
--- OUTSIDE RECORDS SUMMARY | 2024-10-23 23:35 | XMS_ITS | Patient Health Record ---
Author Organization [facility] [employer] Address [address] [facility] [address] [place] [address] Care Team Providers Care Historic Preservationist Name Role Phone Nancy MARTINEZ, Tarik Primary Care Provider Unavailab dasia Carson Irving Unavailable [phone] Mery Lala Unavailable [phone] Allergies No Known Allergies Results Component Value Reference Range Flag Notes UDT Reviewed date:05/02/2024 05:14:43 PM Interpretation: Performing Lab: Notes/Report: THC p 0 - 50 ng/ml Cocaine n 0 - 300 ng/ml Amphetamine n 0 - 1000 ng/ml Buprenorphine (BUP) n 0 - 10 ng/ml Secobarbital (Bar) n 0 - 300 ng/ml Oxazepam (BZO) p 0 - 300 ng/ml 4-cjejygkchi-7,7-caeoooha-8, 3-diphe nylpyrrolidine (EDDP) n 0 - 300 ng/ml Methamphetamine (MET) n 0 - 1000 ng/ml Methylenedioxymethamphetamin e (MDMA) n 0 - 500 ng/ml Morphine (MOP 300/ECU9568) n 0 - 300 ng/ml Methadone (MTD) n 0 - 300 ng/ml Phencyclidine (PCP) n 0 - 25 ng/ml Nortriptyline (TCA) n 0 - 1000 ng/ml Oxycodone n 0 - 300 ng/ml x n 0 - 300 ng/ml DRUG MONITOR, BENZO, QN, URI NE ([id number]) Reviewed date:04/17/2024 05:18:59 PM Interpretation: Performing Lab:CB, [facility] [address], [place] Marvin Valdez Notes/Report: FASTING: NO Alphahydroxyalprazolam 203 <25 ng/mL H Alphahydroxymidazolam NEGATIVE <50 ng/mL Alphahydroxytriazolam NEGATIVE <50 ng/mL Aminoclonazepam NEGATIVE <25 ng/mL Hydroxyethylflurazepam NEGATIVE <50 ng/mL Lorazepam NEGATIVE <50 ng/mL Nordiazepam NEGATIVE <50 ng/mL Oxazepam NEGATIVE <50 ng/mL Temazepam NEGATIVE <50 ng/mL Benzodiazepines Comments See Benzodiazepines Notes, LDT Notes DRUG MONITOR, MARIJUANA META B, QN, URINE ([id number]) Reviewed date:04/17/2024 05:19:07 PM Interpretation: Performing Lab:CB, [facility] [address], [id number] Marvin Valdez, Director - [address] [facility] Notes/Report: FASTING: NO Marijuana Metabolite 1831 <5 ng/mL H Marijuana Comments See Ma leonara Notes, LDT Notes Notes and Comments This [...] analytical performance characteristics have been determined by [facility]. It has not been cleared or approved by the FDA. This assay has been validated pursuant to the CLIA regulations and is used for clinical purposes. Healthcare Providers needing Interpretation assistance, please contact us at [phone] ( ) M-F, 8am to 10pm EST UDT Reviewed date:04/08/2024 04:17:18 PM Interpretation: Performing Lab: Notes/Report: THC P 0 - 50 ng/ml Cocaine N 0 - 300 ng/ml Amphetamine N 0 - 1000 ng/ml Buprenorphine (BUP) N 0 - 10 ng/ml Secobarbital (Bar) N 0 - 300 ng/ml Oxazepam (BZO) P 0 - 300 ng/ml 2-tfkgnxrlcv-0,4-bnmmqbkl-7, 3-diphe nylpyrrolidine (EDDP) N 0 - 300 ng/ml Methamphetamine (MET) N 0 - 1000 ng/ml Methylenedioxymethamphetamin e (MDMA) N 0 - 500 ng/ml Morphine (MOP 300/FTS4567) N 0 - 300 ng/ml Methadone (MTD) N 0 - 300 ng/ml Phencyclidine (PCP) N 0 - 25 ng/ml Nortriptyline (TCA) N 0 - 1000 ng/ml Oxycodone N 0 - 300 ng/ml x N 0 - 300 ng/ml Reason For Referral No Information Medications Medication SIG (Take, Route, Frequency, Duration) Notes Start Date End Date Status ARIPiprazole 15 MG Tablet Oral; Duration: 30 Days Not-Taking Pantoprazole Sodium 40 MG Tablet Delayed Release TAKE 1 TABLET BY MOUTH ONCE DAILY Oral; Duration: 90 Days Active buPROPion HCl ER (XL) 150 MG Tablet Extended Release 24 Hour 1 tablet in the morning Oral Once a day; Duration: 90 days take before shift start 05/17/2024 Active ALPRAZolam 1 MG Tablet TAKE 1 TABLET BY MOUTH THREE TIMES DAILY Oral; Duration: 30 Days Active Social History Tobacco Use: Social History Observation Description Date Details (start date - stop date) Former Smoker NA - NA Sex Assigned At : Social History Observation Description Sex Assigned At Male Social History Miscellaneous: Social Info Question Answer Notes Advance Care Planning Are you your own decision-maker Yes Do you have Power of Hosiery Repairer for Health or [facility]? Yes Do you have a power of securities attorney for health? Yes Do you have power of securities attorney for Medical ? Yes If yes, then please bring the POA paperwork so that we can upload it. Yes Safety issues: Are there any firearms in the house? No Social History Social Info Question Answer Notes Household: Marital Status: Number of Adults in household: 2 Level of Education: Finished High School Drug/Alcohol: Social Info Question Answer Notes AUDIT-C (Standard) Did you have a drink containing alcohol in the past year? 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), inattentive type (F90.0) Active confirmed Problem Poor concentration (44178548) Poor concentration (R41.840) Active confirmed Vital Signs [...] N/A Encounters Encounter Location Date Provider Diagnosis [facility] [employer] [address] 04/08/2024 Carson Irving Major depressive disorder, recurrent, moderate F33.1 ; DARRIUS (generalized anxiety disorder) F41.1 and Poor concentration R41.840 [facility] [employer] [address] 05/02/2024 Carson Irving Lack of concentratio n R41.840 [facility] [employer] [address] 05/08/2024 Carson Nasham [facility] [employer] [address] 05/17/2024 Carsonfariba Irving ADHD (attention defi cit hyperactivity disorder), inattentive type F90.0 ; Major depressive disorder, recurrent, moderate F33.1 ; DARRIUS (generalized anxiety disorder) F41.1 ; Encounter for screening for depression Z13.31 and Encounter for screening for cardiovascular disorders Z13.6 [facility] [employer] [address] 05/17/2024 Carson Irving [address] [address] 10/04/2024 Carson Irving Assessments Encounter Date Diagnosis [...] Insured Coverage Start Date Coverage End Date [facility] [address] [place] [address] [id number] Dayne Oviedo Self - patient is the insured Medical (General) History Medical History History ICD Code Past Psychiatric History: Anxiety Disord er,Panic Disorder,Bipolar Disorder Surgical History Surgery Date(Month/Year) chin harrison
[2024-10-24 00:06] LABS: Add Urine Microscopic? YES; Appearance Urine Clear (Clear); Glucose Urine UA Negative (Negative); Leukocyte Esterase Ur Negative LEU/UL (Negative); Nitrate Urine Negative (Negative); Specific Grav Ur > 1.045 (1.001-1.035)
[2024-10-24 00:47] VITALS: BP 139/58; PULSE 71; RESP 18; TEMP 36.9; O2SAT 99
== END 2024-10-24 00:48 | disposition home or self-care (01) ==
PROVIDERS: Emergency Medicine; Emergency Provider Physician Assistant; PCP Family Medicine
DX: K57.32 Diverticulitis of large intestine without perforation or abscess without bleeding (principal); K76.0 Fatty (change of) liver, not elsewhere classified; R16.1 Splenomegaly, not elsewhere classified; E86.0 Dehydration; J45.40 Moderate persistent asthma, uncomplicated; K58.9 Irritable bowel syndrome, unspecified; K21.00 Gastro-esophageal reflux disease with esophagitis, without bleeding; F41.1 Generalized anxiety disorder; F31.9 Bipolar disorder, unspecified; Z87.891 Personal history of nicotine dependence; Z90.49 Acquired absence of other specified parts of digestive tract; Z79.899 Other long term (current) drug therapy
CPT/HCPCS: 36415; 74177; 80053; 81001; 83690; 85025; 85055; 96361; 96374; 96375; 99284; A9270; J1885; J2270; J2405; J7030; Q9967

== ENCOUNTER 2025-01-27 19:51 | Emergency (ER) | payer BC, SELFPAY ==
--- NOTE | ~2025-01-27 | CT_ITS ---
CT abdomen pelvis w con Clinical History: LLQ pain, hx diverticulitis . Comparison: 10/23/2024 Technique: Axial images lung bases to symphysis pubis 100 mL Omnipaque 350 Coronal, sagittal reformats CT images acquired with automatic exposure control for dose reduction DLP: 644 mGy-cm Findings: Lung bases: Clear. Visualized heart and pericardium: Unremarkable. Liver: Cirrhosis. Enlarged. Steatosis. Recanalized umbilical vein. Gallbladder: Removed. Spleen: Enlarged. Pancreas: Unremarkable. Adrenal glands: Unremarkable. Kidneys: Right kidney- No hydronephrosis. No renal stones. Left kidney- No hydronephrosis. No renal stones. Distal esophagus/stomach: Distal esophageal wall thickening/esophagitis. Gastric antral wall thickening. Small bowel loops: Normal caliber and wall thickness. Colon: Diverticula. Normal caliber and wall thickness. Normal RLQ appendix. Nodes: No enlarged nodes. Peritoneum: No ascites. No free air. Urinary bladder: Wall thickening but under distended. Prostate: Unremarkable. Bones: No acute bony abnormality. Soft tissues: Unremarkable. Aorta: No aneurysm or dissection. Atherosclerotic disease. IVC: Unremarkable. Main portal vein/SMV/splenic vein: Patent. Splenorenal shunt. IMPRESSION: 1. No acute abnormality. 2. Findings as above. Reviewed, dictated and finalized at location R. [facility]
[2025-01-27 20:08] VITALS: BP 150/83; PULSE 64; RESP 16; TEMP 36.9; O2SAT 96
[2025-01-27 21:10] LABS: Hematocrit 47.4 % (42.0-52.0); Hemoglobin 15.9 g/dL (14.0-18.0); Immature Granulocyte Percent A 0.3 % (0-0.5); Immature Platelet Fraction Pct 1.5 % (0.9-11.2); Lymphocytes Absolute Auto 1.02 K/mm3 (0.9-3.2); Mean Corpuscular HGB Conc 33.5 g/dl (32-36); Mean Corpuscular Hemoglobin 30.2 pg (26-34); Mean Corpuscular Volume 90.1 fl (80-100); Nucleated Red Blood Cells Absolute Auto 0.000 K/mm3 (0.0-0.012); Nucleated Red Blood Cells Perc 0.0 % (0.0-0.2); Platelet Count Result 106 k/mm3 (150-375); Red Blood Count 5.26 M/mm3 (4.6-6.20); White Blood Count 9.4 K/mm3 (4.5-10.0)
[2025-01-27 21:27] LABS: Alanine Aminotransferase 41 U/L (6-50); Albumin Level 4.8 g/dL (3.5-5.1); Alkaline Phosphatase 87 U/L (38-126); Anion Gap 8 mmol/L (4-12); Aspartate Amino Transferase 40 U/L (17-59); Bilirubin,Total 1.6 mg/dL (0.2-1.3); Blood Urea Nitrogen 10 mg/dL (9-20); Calcium 9.4 mg/dL (8.4-10.2); Carbon Dioxide 26 mmol/L (22-30); Chloride 103 mmol/L (98-107); Estimated CRCL calculation 120 ml/min; Estimated Glomerular Filt Rate > 60; Glucose 113 mg/dL (65-110); Lipase 82 U/L (23-300); Potassium 3.9 mmol/L (3.4-5.0); Sodium 137 mmol/L (137-145); Total Protein 8.7 g/dL (6.3-8.2)
[2025-01-27 21:30] VITALS: BP 142/84; PULSE 68; RESP 16; O2SAT 98
--- NOTE | 2025-01-27 21:30 | PC.NURSE ---
Pt given a urinal and advised to provide sample. Pt said that he would attempt to do so.
[2025-01-27 22:00] VITALS: BP 139/85; PULSE 71; RESP 17; O2SAT 95
--- NOTE | 2025-01-27 22:07 | ECG_ITS ---
Test Date: 2025-01-27 22:32:31 Measurements Intervals Cornelius Rate: 71 P: 66 OK: 149 QRS: 51 QRSD: 96 T: 42 QT: 395 QTc: 432 Interpretive Statements SINUS RHYTHM POSSIBLE RIGHT VENTRICULAR CONDUCTION DELAY Electronically Signed On 01-28-2025 05:56:07 CNC MAINTENANCE TECHNICIAN by Aries Whipple D.O
--- NOTE | 2025-01-27 22:07 | ED.ABDPAIN ---
HPI - Abdominal Pain General Chief Complaint: Abdominal Pain Stated Complaint: abd pain Time Seen by Provider: 01/27/25 21:30 History of Present Illness HPI narrative: 49-year-old male with a history of anxiety depression, GERD, bipolar disorder, IBS, cirrhosis. Patient presents to the emergency department today with left lower quadrant abdominal pain discomfort for the past several hours. He went to [facility] emergency department 2 days ago with similar symptoms and felt much better before discharge. Did not receive any CT imaging at that time but to get dilaudid and droperidol. Does endorse marijuana smoking 2 days ago. No drinking alcohol. Denies any traumatic injuries. No chest pain, shortness a breath, fever, chills, loose stools. Endorses nausea and vomiting after he ate a meal today. No upper abdominal pain or back pain. Related Data Allergies Allergy/AdvReac Type Severity Reaction Status Date / Time gluten AdvReac Mild Nausea Verified 01/27/25 20:19 milk AdvReac Mild bloating Verified 01/27/25 20:19 Review of Systems Review of Systems: As reviewed above in HPI All systems reviewed & are unremarkable except as noted in HPI and below PMFSH Past Medical History Medical History Festus's lobe of liver Moderate persistent asthma with acute exacerbation Unspecified asthma, uncomplicated Gynecomastia Erosive esophagitis Gastritis Diverticulosis Asthma Irritable bowel syndrome Depression Generalized anxiety disorder Bipolar disorder, unspecified Celiac disease Gastroesophageal reflux disease Surgical History Surgical History History of cholecystectomy 02/2016 Family History Family History Father No problems noted. Mother No problems noted. Social History Social History Smoking packs per day: 0.5 Smoking cigarettes per day: 10.0 Years smoked: 10 Smoking pack-years: 5.00 Smoking status: Former smoker Tobacco type: cigarettes Second hand tobacco smoke exposure: No Alcohol intake: never Substance use: current Substance use type: does not use Lack of Transportation: No Lack of Food: Never True Current Housing: I Have Housing Concerned About Future Housing: No Difficulty Paying Gas/Electric Bills: No Difficulty Paying for Meds: No Currently Unemployed: No Education: High School Diploma/GED Difficulty w/ Childcare or Family Care: No Living arrangements: with family Occupation/Education: occupation Gender identity (if verbalized by the patient): Male Sexual Orientation (if Verbalized by the Patient): Straight or Heterosexual Spiritual care concerns: No Exam Narrative: GENERAL: [Well-appearing, well-nourished, and in no acute distress.] HEAD: [Normocephalic, atraumatic.] EYES: [PERRLA and EOMI.] ENT: Nares clear, no rhinorrhea or epistaxis. Mucous membranes moist. NECK: Supple. CHEST: [Clear to auscultation. No respiratory distress.] HEART: [Regular rate and rhythm]. No murmur heard. [Normal peripheral pulses.] ABDOMEN: Soft and nondistended., tender to palpation left lower quadrant no guarding, rebound, peritonitis EXTREMITIES: Normal range of motion. [No edema.] SKIN: Warm, dry, no rash. NEURO: [No focal deficits]. Alert and oriented [x3.] PSYCH: [Normal mood and affect.] Course Vital Signs Vital signs: Vital Signs Temperature 36.9 C 01/27/25 20:08 Pulse Rate 64 01/27/25 20:08 Respiratory Rate 16 01/27/25 20:08 Blood Pressure 150/83 H 01/27/25 20:08 Pulse Oximetry 96 01/27/25 20:08 Oxygen Delivery Room Air 01/27/25 20:08 Temperature 36.9 C 01/27/25 20:08 Pulse Rate 69 01/27/25 22:31 Respiratory Rate 18 01/27/25 22:31 Blood Pressure 122/70 01/27/25 22:31 Pulse Oximetry 94 01/27/25 22:31 Oxygen Delivery Room Air 01/27/25 21:30 MDM - Abdominal Pain MDM Narrative Medical decision making narrative: 49-year-old male with a history of anxiety depression, GERD, bipolar disorder, IBS, cirrhosis. Patient presents to the emergency department today with left lower quadrant abdominal pain discomfort for the past several hours. He went to [facility] emergency department 2 days ago with similar symptoms and felt much better before discharge. Did not receive any CT imaging at that time but to get dilaudid and droperidol. Does endorse marijuana smoking 2 days ago. No drinking alcohol. Denies any traumatic injuries. No chest pain, shortness a breath, fever, chills, loose stools. Endorses nausea and vomiting after he ate a meal today. No upper abdominal pain or back pain. Patient is a mildly tender left lower quadrant abdominal examination but afebrile without any tachycardia. Did not receive any CT imaging 2 days ago another hospital but laboratory studies reviewed not concerning at that time. Patient felt better with symptom controlling medications including droperidol. Could be a component of cyclic vomiting, able bowel disease, diverticulitis. Low suspicion intra-abdominal infection or abscess. CT scan ordered at this time. He was given Dilaudid and droperidol as well as fluids and Zofran. Laboratory studies obtained. CT shows no acute findings. Diverticulosis without diverticulitis. Normal appendix. Unchanged splenomegaly seen. Status post cholecystectomy. Lab showed no leukocytosis or anemia. Platelet count chronically low without any changes. Electrolytes are unremarkable. Normal renal function. Normal glucose. Unremarkable LFTs. Urinalysis negative for infection or blood. [place] better after medications. Safe for discharge with GI follow-up. Medical Records Attestation: I reviewed the patient's medical records. Lab Data Attestation: I reviewed the patient's lab results. 01/27/25 20:58 01/27/25 20:57 Labs: Lab Results 01/27/25 01/27/25 01/27/25 Range/Units 20:57 20:58 21:47 WBC 9.4 (4.5-10.0) K/mm3 RBC 5.26 (4.6-6.20) M/mm3 Hgb 15.9 (14.0-18.0) g/dL Hct 47.4 (42.0-52.0) % MCV 90.1 (80-100) fl MCH 30.2 (26-34) pg MCHC 33.5 (32-36) g/dl RDW 13.8 (11.5-14.5) % Plt Count 106 L (150-375) k/mm3 MPV 8.9 (7.4-10.4) fl Immature Gran % (Auto) 0.3 (0-0.5) % Neut % (Auto) 81.5 H (45.5-73.1) % Lymph % (Auto) 10.9 L (18.3-44.2) % [place] % (Auto) 5.9 (2.6-8.5) % Eos % (Auto) 1.0 (0-4.4) % Baso % (Auto) 0.4 (0.2-1.2) % Lymph # (Auto) 1.02 (0.9-3.2) K/mm3 [place] # (Auto) 0.6 (0.1-0.6) K/mm3 Eos # (Auto) 0.1 (0-0.3) K/mm3 Baso # (Auto) 0.0 (0.0-0.1) K/mm3 Abs Immat Gran (auto) 0.03 (0.00-0.031) K/mm3 Absolute Neuts (auto) 7.7 H (1.3-6.7) K/mm3 Absolute Nucleated RBC 0.000 (0.0-0.012) K/mm3 Nucleated RBC % 0.0 (0.0-0.2) % % Immature Plt Fraction 1.5 (0.9-11.2) % Sodium 137 (137-145) mmol/L Potassium 3.9 (3.4-5.0) mmol/L Chloride 103 (98-107) mmol/L Carbon Dioxide 26 (22-30) mmol/L Anion Gap 8 (4-12) mmol/L BUN 10 (9-20) mg/dL Creatinine 0.70 (0.7-1.3) mg/dL Estim Creat Clear Calc 120 ml/min Estimated GFR > 60 (59 - ) Glucose 113 H (65-110) mg/dL Calcium 9.4 (8.4-10.2) mg/dL Total Bilirubin 1.6 H (0.2-1.3) mg/dL AST 40 (17-59) U/L ALT 41 (6-50) U/L Alkaline Phosphatase 87 (38-126) U/L Total Protein 8.7 H (6.3-8.2) g/dL Albumin 4.8 (3.5-5.1) g/dL Lipase 82 (23-300) U/L Urine Color Dark yellow (Yellow) Urine Appearance Clear (Clear) Urine pH 5.5 (5.0-9.0) Ur Specific [place] 1.031 (1.001-1.035) Urine Protein Trace (Negative) mg/dL Urine Glucose (UA) Negative (Negative) mg/dL Urine Ketones 1+ H (Negative) mg/dL Ur Blood (Man) Negative (Negative) Urine Nitrate Negative (Negative) Urine Bilirubin 1+ H (Negative) Urine Urobilinogen 1.0 (<2.0) mg/dL Leukocyte Esterase Rfl Negative (Negative) IMAN/UL Urine RBC 0-2 (0-2) /hpf Urine WBC 0-5 (0-3) /hpf Ur Squamous Epith Cells None seen (Few) /hpf Urine Bacteria None seen /hpf Urine Casts 0-2 Hyaline Casts Present (None) /lpf Imaging Data Attestation: I personally reviewed and interpreted this imaging study as follows: My impression: No acute findings Discharge Plan Discharge Clinical Impression: Abdominal pain, left lower quadrant Patient Disposition: Home Condition: Stable Instructions: Antibiotic Form, Abdominal Pain (ED) Additional Instructions: CT scan shows no acute abnormality. No signs of diverticulitis, appendicitis or any evidence of acute intra-abdominal infection or disease. All of your laboratory studies are normal. No explanation for your symptoms but you will need to follow-up with GI doctor on outpatient visit. Return with any emergencies. We will send you home with some medications that can help symptoms of pain and nausea. Refrain from any smoking marijuana or any alcohol use. Patient Language: Peruvian Prescriptions: New dicyclomine 20 mg tablet 20 mg PO TID PRN (Reason: abdominal pain) Qty: 20 0RF ondansetron 4 mg tablet,disintegrating 4 mg PO Q8H PRN (Reason: nausea and vomiting) Qty: 20 0RF No Action albuterol sulfate [Ventolin HFA] 90 mcg/actuation HFA aerosol inhaler 1 inhalation INHALATION Q4H PRN (Reason: shortness of breath or wheezing) Qty: 18 3RF pantoprazole 40 mg tablet,delayed release (DR/EC) See Rx Instructions .ROUTE .COMPLEX Qty: 90 1RF Dose Instruction: Take 1 tablet by mouth once daily Rx Instructions: Take 1 tablet by mouth once daily dicyclomine 20 mg tablet 20 mg PO QID Qty: 20 0RF escitalopram oxalate 10 mg tablet 10 mg PO DAILY Qty: 30 2RF alprazolam 1 mg tablet 1 mg PO BID Qty: 60 0RF Follow-up/Referrals: Tarik Cruz MD [Primary Care Provider, Family Practice] Stand Alone Forms: Work/School Release IP
[2025-01-27] MEDS: HYDROmorphone HCL INJ (*CRX) 1 MG/ML SYR IV PUSH (22:11)
[2025-01-27] MEDS: ONDANSETRON INJ 4 MG/2 ML VIAL IV PUSH (22:11)
[2025-01-27] MEDS: LACTATED RINGERS 1,000 ML 999 ML IV CONT (22:11)
[2025-01-27 22:13] LABS: Add Urine Microscopic? YES; Appearance Urine Clear (Clear); Glucose Urine UA Negative (Negative); Leukocyte Esterase Ur Negative LEU/UL (Negative); Nitrate Urine Negative (Negative); Non Pathogenic Casts 0-2; Specific Grav Ur 1.031 (1.001-1.035)
[2025-01-27 22:15] VITALS: BP 136/85; PULSE 72; RESP 19; O2SAT 96
[2025-01-27 22:31] VITALS: BP 122/70; PULSE 69; RESP 18; O2SAT 94
== END 2025-01-28 00:07 | disposition home or self-care (01) ==
PROVIDERS: Emergency Provider Student in an Organized Health Care Education/Training Program; PCP Family Medicine
DX: R10.32 Left lower quadrant pain (principal); J45.40 Moderate persistent asthma, uncomplicated; K21.9 Gastro-esophageal reflux disease without esophagitis; K58.9 Irritable bowel syndrome, unspecified; K74.60 Unspecified cirrhosis of liver; K22.10 Ulcer of esophagus without bleeding; K90.0 Celiac disease; F31.9 Bipolar disorder, unspecified; F41.1 Generalized anxiety disorder; Z87.891 Personal history of nicotine dependence; Z90.49 Acquired absence of other specified parts of digestive tract; Z79.899 Other long term (current) drug therapy; R94.31 Abnormal electrocardiogram [ECG] [EKG]
CPT/HCPCS: 36415; 74177; 80053; 81001; 83690; 85025; 85055; 93005; 96361; 96374; 96375; 99284; J1171; J1790; J2405; J7120; Q9967

== ENCOUNTER 2025-01-30 23:46 | Emergency (ER) | payer BC, SELFPAY ==
--- OUTSIDE RECORDS SUMMARY | 2024-01-10 10:21 | XMS_ITS | Continuity of Care Document ---
[facility] Address [address] [place] [address] Phone Care Team Providers Care Jailor Name Role Phone Ron Rivera MD Unavailable Unavailable Allergies, Adverse Reactions, Alerts Substance Reaction Status Criticality No Known Allergies Active No Inform ation Medications Medication Instructions Dosage Effective Dates (start - stop) Status Comments azelastine 137 mcg (0.1 %) nasal spray aerosol spray 1 spray by intranasal route 2 times every day in each nostril 137 MCG - Active Flonase Allergy Relief 50 mcg/actuation nasal spray,suspension 1 spray each nostril bid - Active omeprazole 40 mg capsule,delayed release - Active quetiapine 300 mg tablet - A ctive Symbicort 160 mcg-4.5 mcg/actuation HFA aerosol inhaler - Active albuterol sulfate HFA 90 mcg/actuation aerosol inhaler - Active clonidine HCl 0.1 mg tablet - Active fluoxetine 40 mg capsule - A ctive montelukast 10 mg tablet - A ctive amlodipine 10 mg-valsartan 320 mg tablet - Active alprazolam 1 mg tablet - Act mary jo metformin ER 500 mg tablet,extended release 24 hr - Active trazodone 100 mg tablet - Ac tive budesonide-formoterol HFA 160 mcg-4.5 mcg/actuation aerosol inhaler - Active ipratropium 0.5 mg-albuterol 3 mg (2.5 mg base)/3 mL nebulization soln - Active prednisone 20 mg tablet - Ac tive prednisone 10 mg tablet - Ac tive rosuvastatin 20 mg tablet - Active ibuprofen 800 mg tablet - Ac tive Breo Ellipta 200 mcg-25 mcg/dose powder for inhalation - Active methylprednisolone 4 mg tablets in a dose pack - Active albuterol sulfate 2.5 mg/3 mL (0.083 %) solution for nebulization - Active sildenafil (pulmonary hypertension) 20 mg tablet TAKE 1 TO 5 TABLETS BY MOUTH 30 MINUTES TO 1 HOUR PRIOR TO ACTIVITY NEEDED - Active bupropion HCl XL 300 mg 24 hr tablet, extended release TAKE 1 TABLET BY MOUTH DAILY - Active Procedures Procedure Date OFFICE/OUTPATIENT VISIT, [facility] NASAL ENDOSCOPY, DX SPEECH AUDIOMETRY, COMPLETE PURE TONE AUDIOMETRY, AIR TYMPANOMETRY Advance Directives Directive Yes / No Effective Date File Name No Information Encounters Encounter Description Practice Location Reason(s) For Visit Diagnoses Date Provider Providers Copied on Encounter [facility] [place], [address], [place], [place], [id number], tel:[phone] [address] [place] [address] No Information 4 Miguel Velasquez. [address], [place], [place], [id number] , [place]. tel:[phone] OFFICE/OUTPA TIENT VISIT, [facility] [place], [address] [address], [place], [place], [id number], tel:[phone] [address] [place] [address] Left ear stopped up/loss of sense of smell. (chief complaint) Other abnormal auditory perceptions, bilateralAnosmi aChronic sinusitis, unspecified [address] Miguel Velasquez. [address], [place], [place], [id number] , [place]. tel:[phone] Referring Provider: Blayne Whitaker, [address], [place], [address]. tel:[phone] Family History Family Member Type Diagnosis Age At Onset Problem Family history of Cancer Payers Payer name Insurance type Covered constitution party ID Narda blevins(s) [employer] [id number] Social History Type Description Quantity Date Captured Comments Sex Male Smoking Status No Information Chief Complaint And Reason For Visit No Information Reason For Referral Reason For Referral No Information History Of Present Illness Encounter Date Complaint History Of Prese nt Illness Left ear stopped up/ loss of sense of smell. 46 yo with complaint of loss of smell for 3 years now. He does not recall onset. He also has nasal obstruction/congestion, nasal drainage. He has some pressure at his jaw but no other facial pain. He has decrease sense of taste. He does have asthma. He also intermittently feels like there is water in his left ear. He has to pop to clear it at times. He does not have any hearing issues. Audio today is normal. Functional Status Date Functional Assessmen t No Information Instructions Date Instruction Additional Infor elham Levar and Refugio. Consider Sinus CT. Related to Chronic sinusitis, unspecified Will treat CRS first and see if this helps. Related to Anosmia I reassured him that his hearing is normal. Ear is clear today. Related to Other abnormal auditory perceptions, bilateral Assessments Type Assessment Date No Information Patient Care Teams Name Effective Dates (start - stop) Status Members No Information
--- OUTSIDE RECORDS SUMMARY | 2024-07-03 07:00 | XMS_ITS ---
Author Organization [facility] [employer] [facility] Address [address] [place] [address] Care Team Providers Care Payroll Secretary Name Role Phone Nancy MARTINEZ, Tarik Primary Care Provider Unavailab Carson Coreas Unavailable [phone] Mery Nicholson Unavailable [phone] REASON FOR VISIT New Patient Social History Sex Assigned At : Social History Observation Description Sex Assigned At Male Encounters Encounter Location Date Provider Diagnosis [facility] [employer] [facility] [address] [place] [address] 07/03/2024 Mery Nicholson Plan Of Treatment No Information Progress Notes * Dayne SAMDOB: [birth year] (49 yo M)Acc No.[id number]:07/03/2024 Patient: Dayne Wilson Provider: Dalila NICHOLSON LCSW :1975 A ge:48 Y S ex:Male Date:07/03/2024 Phone: Address:[address] Pcp:Tarik Cruz MD Data: * Chief Complaints: * N ew Patient * Electronic signature of Mery Nicholson LCSW on 01/30/2025 at 11:49 PM OENOLOGIST Sign off status: Pending Signatures: No Ad Hoc Signature Added * Provider: Dalila NICHOLSON LCSW Date: 0 07/03/2024 Generated for Julius ng/Cate/eTransmitting on: 1 04/01/2024 11:49 PM OENOLOGIST
--- OUTSIDE RECORDS SUMMARY | 2024-07-03 07:00 | XMS_ITS ---
Author Organization [facility] [employer] [facility] Address [address] [place] [address] Care Team Providers Care Manufacturing Design Engineer Name Role Phone Nancy MARTINEZ, Tarik Primary Care Provider Unavailab Carson Coreas Unavailable [phone] Mery Nicholson Unavailable [phone] REASON FOR VISIT New Patient Social History Sex Assigned At : Social History Observation Description Sex Assigned At Male Encounters Encounter Location Date Provider Diagnosis [facility] [employer] [facility] [address] [place] [address] 07/03/2024 Mery Nicholson Plan Of Treatment No Information Progress Notes * Dayne SAMDOB: [birth year] (49 yo M)Acc No.[id number]:07/03/2024 Patient: Dayne Wilson Provider: Dalila NICHOLSON LCSW :1975 A ge:48 Y S ex:Male Date:07/03/2024 Phone: Address[address] [facility] Pcp:Tarik Cruz MD Data: * Chief Complaints: * N ew Patient * Electronic signature of Mery Nicholson LCSW on 01/31/2025 at 12:26 AM NET REPAIRER Sign off status: Pending Signatures: No Ad Hoc Signature Added * Provider: Dalila NICHOLSON LCSW Date: 0 07/03/2024 Generated for Julius ruvalcaba/Cate/eTransmitting on: 04/02/2024 12:26 AM NET REPAIRER
--- OUTSIDE RECORDS SUMMARY | 2025-01-30 23:49 | XMS_ITS | Clinical Summary ---
Author Organization [facility] Address [address] [place] [id number] Care Team Providers Care Hedis Coordinator Name Role Phone Tarik Cruz MD Primary Care Provider [phone] Allergies No known active allergies Medications albuterol [...] amitriptyline (ELAVIL) 50 mg tablet 2 Active ondansetron (ZOFRAN) 4 mg tablet Take 1 tablet (4 mg total) by mouth every 6 (six) hours 12 tablet 5 Active Active Problems Problem Noted Date Diagnosed Date Gastrocnemius strain, left, subsequent encounter 07/15/2021 Gastrocnemius strain, left, initial encounter Injury of left leg 06/17/2021 Encounters Date Type Department Care Team Description 01/25/2025 9:36 PM [facility] - 01/26/2025 2:11 AM ELECTRICAL SUPERINTENDENT Emergency [facility] Department [address] [place] [address] Sandy Quinteros MD Abdominal pain, unspecified abdominal location (Primary Dx) Discharge Disposition: Discharge to home or self care from Last 3 Months Surgical History Surgery Date Site/Laterality Comments CHOLECYSTECTOMY Medical History Medical History Date Comments Asthma Anxiety Arthritis GERD (gastroesophageal reflux disease) Sleep apnea Cirrhosis (HCC) Social History Tobacco Use Types Packs/Day Years Used Date Smoking Tobacco: Former Cigarettes Smokeless Tobacco: Never Tobacco Cessation:Counseling Given: Not Answered Alcohol Use Standard Drinks/Week Comments No 0 (1 standard drink = 0.6 oz pur e alcohol) Personal Safety Answer Date Recorded Have you ever been in or are you currently in a harmful physical or emotional relationship or is someone making you feel afraid or unsafe? Denies 01/25/2025 Sex and Gender Information Value Date Recorded Sex Assigned at Not on file Legal Sex Male 11:34 PM ELECTRICAL SUPERINTENDENT Gender Identity Not on file Sexual Orientation Not on file Last Filed Vital Signs Vital Sign Reading Time Taken Comments Blood Pressure 123/80 01/26/2025 2:00 AM ELECTRICAL SUPERINTENDENT Pulse 76 01/26/2025 2:00 AM ELECTRICAL SUPERINTENDENT Temperature 36.4 C (97.5 F) 01/25/2025 9:10 PM ELECTRICAL SUPERINTENDENT Respiratory Rate 16 01/26/2025 2:00 AM ELECTRICAL SUPERINTENDENT Oxygen Saturation 91% 01/26/2025 2:00 AM ELECTRICAL SUPERINTENDENT Inhaled Oxygen Concentration - - Weight 91.9 kg (202 lb 8 oz) 01/25/2025 9:10 PM ELECTRICAL SUPERINTENDENT Height 177.8 cm (5' 10) 01/25/2025 9:10 PM ELECTRICAL SUPERINTENDENT Body Mass Index 29.06 01/25/2025 9:10 PM ELECTRICAL SUPERINTENDENT Plan of Treatment Health Maintenance Due Date Last Done Comments Colon Cancer Screening-Colonoscopy 1974 Depression Screening 1974 Hepatitis C Screening 1974 Prostate Cancer Screening-PSA 1974 DTaP/Tdap/Td Vaccine (1 - Tdap) 1985 Hepatitis B Screening 1992 Regular Well Visit/Exam 18-64 1992 Pneumococcal vaccine <65 (1 of 2 - PCV) 1993 Zoster Vaccine (1 of 2) 2024 Covid-19 Vaccine (3 - season) 11/04/202402/2021, 06/17/2020 Influenza Vaccine (#1) 2024 03/10/2021 Procedures Procedure Name Priority Date/Time Associated Diagnosis Comments URINALYSIS AND REFLEX TO MICROSCOPIC AND CULTURE STAT 01/26/2025 1:27 AM ELECTRICAL SUPERINTENDENT POCT RAPID HIV ANTIBODY COMMUNITY SCREENING-DAVID ELIGIBLE STAT 01/26/2025 12:03 AM ELECTRICAL SUPERINTENDENT EGFR STAT 01/25/2025 9:52 PM ELECTRICAL SUPERINTENDENT DIFFERENTIAL AUTO STAT 01/25/2025 9:5 2 PM ELECTRICAL SUPERINTENDENT LIPASE STAT 01/25/2025 9:52 PM ELECTRICAL SUPERINTENDENT COMPREHENSIVE METABOLIC PANEL STAT 01/25/2025 9:52 PM ELECTRICAL SUPERINTENDENT CBC WITH AUTO DIFFERENTIAL STAT 01/25/2025 9:52 PM ELECTRICAL SUPERINTENDENT from Last 3 Months Results * Urinalysis reflex to microscopic and culture Urine (01/26/2025 1:27 AM ELECTRICAL SUPERINTENDENT) Color, ur Yellow Yellow Comment:[facility] : [facility] [address], [place] [address] Clarity, ur Clear Clear [facility] Comment:Testing performed by : [facility] [address], [place] [address] Specific gravity, ur 1.027 1.003 - 1.030 [facility] Comment:Testing performed by : [facility] [address], [place] [address] pH, urine 5.5 [facility] Comment: Interpretive Data U rine pH is affected by diet, medications, systemic acid-base disturbances, and renal tubular function. pH may affect urinary stone formation. For example, urine pH below 6.0 may help reduce the tendency for calcium phosphate stones and pH greater than 6.0 may reduce the tendency for uric acid stone formation. Source: [employer] Current Interpretive Data was last revised on 2017 Testing performed by: [facility], [address], [place] [address] Protein, ur ql Negative Negative [facility] Comment:Testing performed by : [facility], [address], [place] [address] Glucose, ur ql Negative Negative [facility] Comment:Testing performed by : [facility], [address], [place] [address] Ketones, ur Trace Negative [facility] Comment:Testing performed by : [facility], [address] [place] [address] Bilirubin, ur Negative Negative [facility] Comment:Testing performed by : [facility], [address], [place] [address] Blood, ur Negative Negative [facility] Comment:Testing performed by : [facility], [address], [place] [address] Urobilinogen, ur <2.0 <2.0 mg/dL [facility] Comment:Testing performed by : [facility], [address] [place] [address] Nitrite, ur Negative Negative [facility] Comment:Testing performed by : [facility], [facility] [place] [address] Leukocyte esterase, ur Negative Negative [facility] Comment:Testing performed by : [facility], [address], [place] [address] UA reflex comment Reflex conditions for microscopic UA and culture not met. [facility] Comment:Testing performed by : [facility], [address] [place] [address] Urine 01/26/2025 1:27 AM ELECTRICAL SUPERINTENDENT 01/26/2025 1:30 AM ELECTRICAL SUPERINTENDENT Result [facility] Sandy Quinteros MD LAB MICROBIOLOGY - [facility] ORDERABLES Final Result [facility] [address] Department [place] [address] * POCT Rapid HIV Antibody Community Screening-David Eligible (01/26/2025 12:03 AM ELECTRICAL SUPERINTENDENT) [facility] Rapid HIV, POC Negative Negative Lot Number [id number] QC Control Line Acceptable Blood 01/26/2025 12:0 3 AM ELECTRICAL SUPERINTENDENT Result [facility] Sandy Quinteros MD POINT OF CARE TEST OR DERABLES Final Result * eGFR (01/25/2025 9:52 PM ELECTRICAL SUPERINTENDENT) eGFR >90 >=60 mL/min/1. 73 m2 Comment: Interpretive Data Reference Interval Normal >/= 90 mL/min/1.73m2 Mildly decreased* 60 - 89 mL/min/1.73m2 Mildly to moderately decreased 45 - 59 mL/min/1.73m2 Moderately to severely decreased 30 - 44 mL/min/1.73m2 Severely decreased 15 - 29 mL/min/1.73m2 Kidney Failure < 15 mL/min/1.73m2 *Relative to young adult level Estimated glomerular filtration rate is determined by the 2020 CKD-EPI equation recommended by the National Kidney Foundation (A Unifying Approach to GFR Estimation: Recommendations of the NKF-ASK Task Force on Reassessing the Inclusion of Race in Diagnosing Kidney Disease, JASN 2020). The CKD-EPI equation should not be used for patients with unstable renal function and has not been validated in children and those over 70. Current interpretive data was last reviewed 2021. Testing performed by: [facility] [address], [place] [address] Blood 01/25/2025 9:52 PM ELECTRICAL SUPERINTENDENT 01/25/2025 10:14 PM ELECTRICAL SUPERINTENDENT Jaron Yun MD LAB BLOOD ORDERABLES Final Resul t [facility] [address] Department [place] [address] * Differential, auto (01/25/2025 9:52 PM ELECTRICAL SUPERINTENDENT) Pathologist [facility] Neutrophil abs 3.71 1.50 - 6.50 K/cumm Comment:Testing performed by : [facility] [address], [place] [address] Imm gran abs 0.01 0.00 - 0.10 K/cumm [facility] Comment:Testing performed by : [facility] [address], [place] [address] Lymphocyte abs 1.16 0.80 - 3.30 K/cumm [facility] Comment:Testing performed by : [facility], [address], [place] [address] Monocyte abs 0.52 0.20 - 0.80 K/cumm [facility] Comment:Testing performed by : [facility], [facility], [place] [address] Eosinophil abs 0.18 0.00 - 0.50 K/cumm [facility] Comment:Testing performed by : [facility], [facility], [place] [address] Basophil abs 0.04 0.00 - 0.10 K/cumm [facility] Comment:Testing performed by : [facility], [facility] [address], [place] [address] Neutrophil pct 66.0 % [facility] Comment: Interpretive Data Percent cell count reference ranges are not reported, since discordance with absolute values may lead to misinterpretation of CBC data. Current Interpretive Data was last revised on 2017. Testing performed by: [facility], [facility] [address], [place] [address] Imm gran pct 0.2 % [facility] Comment: Interpretive Data Percent cell count reference ranges are not reported, since discordance with absolute values may lead to misinterpretation of CBC data. Current Interpretive Data was last revised on 2017. Testing performed by: [facility], [address] [place], [place] [address] [place] [address] Lymphocyte pct 20.6 % [facility] Comment: Interpretive Data Percent cell count reference ranges are not reported, since discordance with absolute values may lead to misinterpretation of CBC data. Current Interpretive Data was last revised on 2017. Testing performed by: [place] [address] [place] [address] Monocyte pct 9.3 % [facility] Comment: Interpretive Data Percent cell count reference ranges are not reported, since discordance with absolute values may lead to misinterpretation of CBC data. Current Interpretive Data was last revised on 2017. Testing performed by: [place] [address] [place] [address] Eosinophil pct 3.2 % [facility] Comment: Interpretive Data Percent cell count reference ranges are not reported, since discordance with absolute values may lead to misinterpretation of CBC data. Current Interpretive Data was last revised on 2017. Testing performed by: [place] [address], [place] [address] Basophil pct 0.7 % [facility] Comment: Interpretive Data Percent cell count reference ranges are not reported, since discordance with absolute values may lead to misinterpretation of CBC data. Current Interpretive Data was last revised on 2017. Testing performed by: [facility] [address], [place] [address] Blood 01/25/2025 9:52 PM ELECTRICAL SUPERINTENDENT 01/25/2025 10:14 PM ELECTRICAL SUPERINTENDENT Jaron Yun MD LAB BLOOD ORDERABLES Final Resul t [facility] [address] Department [place] [address] * (ABNORMAL) CBC with auto differential (01/25/2025 9:52 PM ELECTRICAL SUPERINTENDENT) WBC 5.62 3.80 - 9.90 K/cumm Comment:Testing performed by : [facility] [address], [place] [address] Hgb 15.8 13.0 - 17.5 g/dL [facility] Comment:Testing performed by : [facility] [address], [place] [address] Hct 45.4 38.9 - 50.3 % [facility] Comment:Testing performed by : [facility] [address], [place] [address] Plt 124(L) 150 - 400 K/cumm [facility] Comment:Testing performed by : [facility], [place] [address] MPV 9.7 9.1 - 12.3 fL [facility] Comment:Testing performed by : [facility] [address], [place] [address] RBC 5.15 4.30 - 5.80 M/cumm [facility] Comment:Testing performed by : [facility] [address], [place] [address] MCV 88.2 81.3 - 96.4 fL [facility] Comment:Testing performed by : [facility], [place] [address] MCH 30.7 27.1 - 33.3 pg [facility] Comment:Testing performed by : [facility], [place] [address] MCHC 34.8 32.3 - 35.7 g/dL [facility] Comment:Testing performed by : [facility], [address] [place], [place] [address] RDW CV 13.3 11.1 - 14.9 % [facility] Comment:Testing performed by : [facility], [address] [place] [address] RDW SD 43.5 35.7 - 48.1 fL [facility] Comment:Testing performed by : [facility] [address], [place] [address] NRBC abs 0.00 0.00 - 0.01 K/cumm [facility] Comment:Testing performed by : [facility] [address] [place] [address] Blood Venous blood specimen / Unknown 01/25/2025 9:52 PM ELECTRICAL SUPERINTENDENT 01/25/2025 10:14 PM ELECTRICAL SUPERINTENDENT Result [facility] Sandy Quinteros MD LAB BLOOD ORDERABLES Final Result Performing Organization Address City/[facility]/ZIP Co de Phone Number [facility] [address] Department [facility] [address] * Lipase (01/25/2025 9:52 PM ELECTRICAL SUPERINTENDENT) Pathologist [facility] Lipase 30 10 - 99 Units/L Comment:Testing performed by : [facility] [address] [place] [id number] Blood Venous blood specimen / Unknown 01/25/2025 9:52 PM ELECTRICAL SUPERINTENDENT 01/25/2025 10:14 PM ELECTRICAL SUPERINTENDENT Sandy Quinteros MD LAB BLOOD ORDERABLES Final Result Performing Organization Address City/[facility]/ZIP Co de Phone Number GENAR[facility] [address] [facility] [place] [address] * (ABNORMAL) Comprehensive metabolic panel (01/25/2025 9:52 PM ELECTRICAL SUPERINTENDENT) Sodium 134(L) 135 - 145 mmol/L Comment:Testing performed by : [facility] [place] [address] Potassium, pl 4.0 3.3 - 4.9 mmol/L [facility] Comment:Testing performed by : [facility] [address] [place] [address] Chloride 99 97 - 110 mmol/L [facility] Comment:Testing performed by : [facility] [place] [address] CO2 23 22 - 32 mmol/L [facility] Comment:Testing performed by : [facility] [place] [address] Anion gap 12 2 - 15 mmol/L [facility] Comment:Testing performed by : [facility] [place] [address] BUN 9 6 - 25 mg/dL [facility] Comment:Testing performed by : [facility] [place] [address] Creatinine 0.65(L) 0.80 - 1.30 mg/dL [facility] Comment: Icteric sample, test results may be affected. Testing performed by: [facility] [place] [address] Glucose 105 70 - 199 mg/dL [facility] Comment: Interpretive Data Fasting glucose >/= 126 mg/dl is diagnostic for diabetes. Fasting is defined as no caloric intake for at least 8 hours. Fasting glucose between 100 mg/dl to 125 mg/dl is diagnostic of prediabetes. In a patient with classic symptoms of hyperglycemia or hyperglycemic crisis, a random glucose >/= 200 mg/dl is diagnostic for diabetes. In the absence of unequivocal hyperglycemia, results should be confirmed by repeat testing. The classification and Diagnosis of Diabetes Diabetes Care 202; 46: S19-S40. Current interpretive data was last revised 2022. Testing performed by: [facility] [place] [address] Calcium 9.6 8.5 - 10.3 mg/dL [facility] Comment:Testing performed by : [facility] [place] [address] Bilirubin, total 1.3(H) 0.1 - 1.2 mg/dL [facility] Comment:Testing performed by : [facility] [place] [address] Protein, pl 7.9 6.5 - 8.5 g/dL [facility] Comment:Testing performed by : [facility] [place] [address] Albumin 4.6 3.5 - 5.0 g/dL [facility] Comment:Testing performed by : [facility], [place] [address] Alk phos 79 40 - 130 Units/L [facility] Comment:Testing performed by : [facility] [address], [place] [address] ALT 36 7 - 55 Units/L [facility] Comment:Testing performed by : [facility] [address], [place] [address] AST 36 10 - 50 Units/L [facility] Comment:Testing performed by : [facility] [address], [place] [address] Blood 01/25/2025 9:52 PM ELECTRICAL SUPERINTENDENT 01/25/2025 10:14 PM ELECTRICAL SUPERINTENDENT Sandy Quinteros MD LAB BLOOD ORDERABLES Final Result [facility] [address] Department [place] [address] from Last 3 Months Insurance [employer] O[employer] OOS * Guarantor: [employer] Account Type Relation to Patient Date of Phone Billing Address Workers Comp Employer [employer] Care Teams Hedis Coordinator Relationship Specialty Start Date End Date Tarik Cruz MD [address] [place] [address] PCP - General Family Medicine 01/25/25
--- OUTSIDE RECORDS SUMMARY | 2025-01-30 23:49 | XMS_ITS | Clinical Summary ---
Author Organization [facility] [employer] Address [address] [facility] [place] [address] Care Team Providers Care Cmo & President Name Role Phone Tarik Cruz MD Primary Care Provider [phone] Source Comments [facility] [employer],non-owned Affiliates and Associated Physician Practices is amultiple site organization consisting of ambulatory clinics and hospital sitesin [place], [place], [place] and [place]. This disclosure is being madepursuant to the Care Everywhere program and may not contain all information available regarding this patient. Last updated 17.[facility] [employer] Allergies Active Allergy Reactions Criticality Noted Date Comments Gluten Meal Diarrhea 09/28/2024 Milk Protein Extract Diarrhea 09/28/2024 Medications * Be aware that medications may [...] every 6 hours 28 vial 8 Active ondansetron, disintegrating, (Zofran ODT) 4 MG tablet Take 1 (one) tablet by mouth every 6 hours as needed for Nausea/Vomitin g Allow tablet to dissolve on the tongue 10 tablet Active Encounters Date Type Department Care Team Description 01/16/2025 Telephone [facility] - Nephrology [address] [facility] Third Level [place] [phone] Valerie Ayon, LEVON Appointment from Last 3 Months Social History Tobacco Use Types Packs/Day Years Used Date Smoking Tobacco: Never Smokeless Tobacco: Never Tobacco Cessation:Counseling Given: Not Answered Alcohol Use Standard Drinks/Week Comments Not Currently 0 (1 standard drink = 0.6 oz pur e alcohol) Sex and Gender Information Value Date Recorded Sex Assigned at Not on file Legal Sex Male 5:56 AM TALKBACK HOST Gender Identity Not on file Sexual Orientation Not on file Last Filed Vital Signs Vital Sign Reading Time Taken Comments Blood Pressure 110/72 09/29/2024 1:45 AM CDT Pulse 69 09/29/2024 1:45 AM CDT Temperature 36.7 C (98.1 F) 09/29/2024 1:45 AM CDT Respiratory Rate 18 09/29/2024 1:45 AM CDT Oxygen Saturation 95% 09/29/2024 1:45 AM CDT Inhaled Oxygen Concentration - - Weight 86.2 kg (190 lb) 09/28/2024 9:19 PM CDT Height 177.8 cm (5' 10) 09/28/2024 9:19 PM CDT Body Mass Index 27.26 09/28/2024 9:19 PM CDT Plan of Treatment Health Maintenance [...] of 3 - 19+ 3-dose series) 1993 DEPRESSION SCREENING 03/06/2024 PNEUMOCOCCAL VACCINE 50+ (1 of 1 - PCV) 2024 ZOSTER VACCINE (1 of 2) 2024 COVID-19 VACCINE (1 - 2024-2 6 season) 2024 INFLUENZA VACCINE (#1) 2024 HIB VACCINE Aged Out No longer [...] patient's age to complete this topic Insurance [facility] SELF PAY NO INSURANCE Member Subscriber Plan / Payer (Ef fective for All Dates) Name:Guru Oviedo Member ID:Not on file Relation to Subscriber:Not on file Name:GURU OVIEDO Subscriber ID:Not on file (Home) Address: [address] [place] [address] Payer ID:Not on file Group ID:Not on file Type:Self Pay Address: [place], [place] Care Teams Cmo & President Relationship Specialty Start Date End Date Tarik Cruz MD [address] [place] [address] PCP - General Family Medicine 09/28/24
--- OUTSIDE RECORDS SUMMARY | 2025-01-30 23:49 | XMS_ITS | Clinical Summary ---
Author Organization [facility] Address [address] [address] Phone Care Team Providers Care Leasing Property Manager Name Role Phone Unavailable Primary Care [...] Screening 10/02/2019 Immunochemical Fecal Occult Blood 10/02/2019 Pneumococcal Immunization (5 0+ years) (1 of 1 - PCV) 2024 Zoster Immunization (1 of 2) 2024 Influenza Immunization (#1) 2024 SARS-COV-2 Immunization ( - 2023- season) 2024 Respiratory Syncytial Virus (RSV) Immunization (Adult) [...]
--- OUTSIDE RECORDS SUMMARY | 2025-01-30 23:49 | XMS_ITS | Clinical Summary ---
Author Organization [facility] Address [address] [place] [address] Care Team Providers Care Professor Of Biological Sciences Name Role Phone Tarik Cruz MD Primary Care Provider [phone] Allergies No known active allergies Medications amitriptyline [...] Problems Problem Noted Date Diagnosed Date Pancreatitis 05/16/2019 Biliary dyskinesia 03/02/2017 Resolved Problems Problem Noted Date Diagnosed Date Resolved Date Encounter for preventive health examination 03/03/2014 11/15/2019 Encounters Date Type Department Care Team Description 01/19/2025 12:49 PM CONSERVATION TECHNICIAN - 01/19/2025 2:50 PM CONSERVATION TECHNICIAN Emergency [facility] Emergency Room [address] [place] [address] Velia Morales MD Abdominal Pain Discharge Disposition: Home or Self Care (Routine Discharge) 01/19/2025 Travel 12/03/2024 10:07 AM CDT - 12/03/2024 11:59 PM CDT Hospital Encounter [facility] Ultrasound [address] [place] [address] Indigo Garcia, NEWS REEL CAMERAMAN- Discharge Disposition: Home or Self Care (Routine Discharge) 12/03/2024 Travel from Last 3 Months Family History [...] Sign Reading Time Taken Comments Blood Pressure 127/78 01/19/2025 2:52 PM CONSERVATION TECHNICIAN Pulse 71 01/19/2025 2:52 PM CONSERVATION TECHNICIAN Temperature 36.2 C (97.1 F) 01/19/2025 2:52 PM CONSERVATION TECHNICIAN Respiratory Rate 16 01/19/2025 2:52 PM CONSERVATION TECHNICIAN Oxygen Saturation 91% 01/19/2025 2:52 PM CONSERVATION TECHNICIAN Inhaled Oxygen Concentration - - Weight 88.5 kg (195 lb) 01/19/2025 12:54 PM CONSERVATION TECHNICIAN Height 177.8 cm (5' 10) 01/19/2025 12:54 PM CONSERVATION TECHNICIAN Body Mass Index 27.98 01/19/2025 12:54 PM CONSERVATION TECHNICIAN Plan of Treatment Health Maintenance Due Date Last Done Comments Colorectal Cancer Screening Colonoscopy (10 Years) 1974 Annual Physical 1977 DTaP, Tdap and Td Vaccines ( 1 - Tdap) 1993 Hepatitis A Vaccines (1 of 2 - Risk 2-dose series) 1993 Hepatitis B Vaccines (1 of 3 - 19+ 3-dose series) 1993 Pneumococcal Vaccine: 50+ Years (1 of 2 - PCV) 1993 Zoster Vaccines (1 of 2) 2024 COVID-19 Vaccine (3 - 2024-2 6 season) 2024 07/15/2020, 06/17/2020 Influenza Adult (#1) 2024 03/10/2021 Hepatitis C Completed 04/15/2017 PHQ-2 (Physician [place]) Completed 08/19/2024 Meningococcal B Vaccine Aged Out No l onger eligible based on patient's age to complete this topic Meningococcal Vaccine Aged Out No forrest bello eligible based on patient's age to complete this topic RSV Immunizations Under 20 Months Aged Out No longer eligible b ased on patient's age to complete this topic Goals Goal Patient Goal Type Associated Problems Recent Progress Patient-Stated? Author Return to independent living with and son General No Yudy Gaitan, INORGANIC CHEMICAL TECHNICIAN Health - patient able to perform ADLs independently General No Sue Fairchild, knowledge architect Procedure Name Priority Date/Time Associated Diagnosis Comments URINALYSIS, AUTO, COMPLETE STAT 01/19/2025 1:[address] ABD+PEL W CON STAT 01/19/2025 1:51 PM CONSERVATION TECHNICIAN LIPASE STAT 01/19/2025 12:52 PM CONSERVATION TECHNICIAN COMPREHENSIVE METABOLIC PANEL STAT 01/19/2025 12:52 PM CONSERVATION TECHNICIAN HC CBC AUTO W/AUTO DIFF STAT 01/19/2025 12:52 PM CONSERVATION TECHNICIAN US ABD LIMITED Routine 12/03/2024 10:55 AM CDT Portal hypertension (CMS/HCC HHS/HCC) Unspecified cirrhosis of liver (CMS/HCC HHS/HCC) HEPATITIS PANEL,ACUTE STAT 04/15/2017 5:10 PM CONSERVATION TECHNICIAN from Last 3 Months or Most Recently Relevant to Health Maintenance Results * URINALYSIS, AUTO, COMPLETE (01/19/2025 1:57 PM CONSERVATION TECHNICIAN) COLOR (U) YELLOW 01/19/2025 2:12 PM CONSERVATION TECHNICIAN [facility] TRANSPARENCY CLEAR 01/19/2025 2:12 PM CONSERVATION TECHNICIAN [facility] SPECIFIC GRAVITY (U) 1.020 1.000 - 1.030 01/19/2025 2:12 PM [facility] U PH 8.0 5.0 - 9.0 01/19/2025 2:12 PM [facility] LEUKOCYTES (U) NEGATIVE NEGATIVE 01/19/2025 2:12 PM [facility] NITRITES NEGATIVE NEGATIVE 01/19/2025 2:12 PM [facility] PROTEIN RANDOM (U) NEGATIVE NEGATIVE 01/19/2025 2:12 PM [facility] GLUCOSE (U) NEGATIVE NEGATIVE 01/19/2025 2:12 PM [facility] KETONES MG/DL (U) NEGATIVE NEGATIVE 01/19/2025 2:12 PM [facility] BILIRUBIN (U) NEGATIVE NEGATIVE 01/19/2025 2:12 PM [facility] BLOOD (U) NEGATIVE NEGATIVE 01/19/2025 2:12 PM [facility] WBC/HPF NONE SEEN 0 - 5 /HPF 01/19/2025 2:12 PM [facility] RBC/HPF NONE SEEN 0 - 5 /HPF 01/19/2025 2:12 PM [facility] EPI/HPF RARE /HPF 01/19/2025 2:12 PM [facility] BACTERIA (U) RARE /HPF 01/19/2025 2:12 PM [facility] URINE URINE SPECIMEN OBTAINED BY CLEAN CATCH PROCEDURE / Unknown 01/19/2025 1:57 PM CONSERVATION TECHNICIAN us Velia Morales MD URINE ORDERABLES Final Result [facility] [address] [place] [address], [place] [phone] * CT ABD+PEL W IV CON ONLY (01/19/2025 1:51 PM CONSERVATION TECHNICIAN) Anatomical Region Laterality Modality Abdomen Computed Tomogra phy 01/19/2025 1:57 PM CONSERVATION TECHNICIAN Impressions 01/19/2025 2:10 PM CONSERVATION TECHNICIAN IMPRESSION: 1. No acute abnormality identified. 2. Liver morphology is suspicious for chronic liver disease. 3. Mild splenomegaly. 4. Other chronic or nonurgent findings as described above. Referred By: Interpreted By: Jaron Rowe MD, 01/19/2025 1:57 PM Narrative 01/19/2025 2:10 [address] [facility] [address] [facility] [place] [address] EXAMINATION: CT ABD+PEL W CON CLINICAL HISTORY: Left lower quadrant pain COMPARISON: 09/25/2024 DATE/TIME: 01/19/2025 1:41 PM TECHNIQUE: Multiplanar CT images of the abdomen and pelvis were obtained. IV contrast: uneventful intravenous administration of 80 mL Isovue 370. Oral contrast: None. A dose lowering technique was used for this procedure, which may include, but is not limited to, dose reduction technique, automated exposure control, the use of iterative reconstruction, and ALARA (As Low As Reasonably Achievable) / Image Gently techniques. FINDINGS: There is also enlargement of the left lobe and caudate lobe compared to the right lobe of the liver, which is a configuration suggestive of cirrhosis. No overt liver surface nodularity, however. There is mild splenomegaly with the spleen measuring 14.2 cm in length. Spleen is otherwise negative. Pancreas is negative. Gallbladder is absent. Bile ducts are negative. Portal vein and splenic vein are patent. Adrenal glands are negative. Kidneys are negative. Bladder is decompressed and not well evaluated. Mild prostatomegaly. Abdominal aorta is normal caliber with mild atherosclerotic disease. Tiny right inguinal hernia containing only fat. No free air or fluid. No bowel obstruction or bowel wall thickening. Normal appendix. No evidence of diverticulosis or diverticulitis. Stomach and duodenum appear within normal limits. Wall thickness of the included distal esophagus is upper limits of normal. No acute osseous abnormality. Minimal bilateral hip joint degenerative change. Minimal spondylosis. Procedure Note Jaron Rowe MD - 01/19/2025 [facility] [address] [place] [address] EXAMINATION: CT ABD+PEL W CON CLINICAL HISTORY: Left lower quadrant pain COMPARISON: 09/25/2024 DATE/TIME: 01/19/2025 1:41 PM TECHNIQUE: Multiplanar CT images of the abdomen and pelvis were obtained.IV contrast: uneventful intravenous administration of 80 mL Isovue 370.Oral contrast: None. A dose lowering technique was used for this procedure, which may include,but is not limited to, dose reduction technique, automated exposurecontrol, the use of iterative reconstruction, and ALARA (As Low AsReasonably Achievable) / Image Gently techniques. FINDINGS: There is also enlargement of the left lobe and caudate lobecompared to the right lobe of the liver, which is a configurationsuggestive of cirrhosis. No overt liver surface nodularity, however. Thereis mild splenomegaly with the spleen measuring 14.2 cm in length. Spleenis otherwise negative. Pancreas is negative. Gallbladder is absent. Bileducts are negative. Portal vein and splenic vein are patent. Adrenal glands are negative. Kidneys are negative. Bladder is decompressedand not well evaluated. Mild prostatomegaly. Abdominal aorta is normalcaliber with mild atherosclerotic disease. Tiny right inguinal herniacontaining only fat. No free air or fluid. No bowel obstruction or bowel wall thickening.Normal appendix. No evidence of diverticulosis or diverticulitis. Stomachand duodenum appear within normal limits. Wall thickness of the includeddistal esophagus is upper limits of normal. No acute osseous abnormality.Minimal bilateral hip joint degenerative change. Minimal spondylosis. IMPRESSION: 1. No acute abnormality identified. 2. Liver morphology is suspicious for chronic liver disease. 3. Mild splenomegaly. 4. Other chronic or nonurgent findings as described above. Referred By: Interpreted By: Jaron Rowe MD, 01/19/2025 1:57 PM Velia Morales MD CT Final Result * LIPASE (01/19/2025 12:52 PM CONSERVATION TECHNICIAN) Pathologist [facility] LIPASE 55 16 - 77 UNITS/L 01/19/2025 1:26 PM [facility] BLOOD VENOUS BLOOD SPECIMEN / Unknown 01/19/2025 12:52 PM CONSERVATION TECHNICIAN Velia Morales MD LABORATORY Final Result [facility] [address] [place] [address], * (ABNORMAL) COMPREHENSIVE METABOLIC PANEL (01/19/2025 12:52 PM CONSERVATION TECHNICIAN) [facility] GLUCOSE 133(H) 70 - 99 MG/DL 01/19/2025 1:26 PM [facility] BUN 9 7 - 18 MG/DL 01/19/2025 1:26 PM [facility] CREATININE S/P/B 0.96 0.7 - 1.3 MG/DL 01/19/2025 1:26 PM [facility] SODIUM S/P/B 139 136 - 145 MMOL/L 01/19/2025 1:26 PM [facility] POTASSIUM S/P/B 4.1 3.5 - 5.1 MMOL/L 01/19/2025 1:26 PM [facility] CHLORIDE S/P/B 103 100 - 108 MMOL/L 01/19/2025 1:26 PM [facility] CO2 28.2 21 - 32 MMOL/L 01/19/2025 1:26 PM [facility] CALCIUM S/P/B 8.6 8.5 - 10.1 MG/DL 01/19/2025 1:26 PM [facility] BILIRUBIN TOTAL S/P/B 0.6 0.2 - 1.2 MG/DL 01/19/2025 1:26 PM [facility] TOTAL PROTEIN S/P/B 7.8 6.4 - 8.2 G/DL 01/19/2025 1:26 PM [facility] ALBUMIN S/P/B 4.0 3.4 - 5.0 G/DL 01/19/2025 1:26 PM [facility] AST 26 15 - 37 U/L 01/19/2025 1:26 PM [facility] ALT 34 16 - 60 U/L 01/19/2025 1:26 PM [facility] ALKALINE PHOSPHATASE S/P/B 88 50 - 136 U/L 01/19/2025 1:26 PM [facility] ANION GAP 7.8 5 - 15 MMOL/L 01/19/2025 1:26 PM [facility] BUN CREATININE RATIO 9.4 6 - 26 01/19/2025 1:26 PM [facility] A/G RATIO 1.1 1.0 - 2.0 RATIO 01/19/2025 1:26 PM [facility] GFR ESTIMATE >90 >90 ML/MIN/1.7 3 M2 01/19/2025 1:26 PM [facility] Comment: NOTE: eGFR is not calculated for patients <18 years of age. This is an estimated GFR calculation using the new CKD EPI creatinine equation without race and so does not require a correction factor for race. This estimated GFR should not be used for calculating drug doses. BLOOD VENOUS BLOOD SPECIMEN / Unknown 01/19/2025 12:52 PM CONSERVATION TECHNICIAN us Velia Morales MD LABORATORY Final Result [facility] [address] [place] [address], [place] [phone] * (ABNORMAL) CBC W/DIFF AUTOMATED (01/19/2025 12:52 PM CONSERVATION TECHNICIAN) [facility] Signature WBC 5.36 4.4 - 11.0 x10'3/uL 01/19/2025 1:16 PM [facility] RBC 5.18 4.50 - 5.90 x10'6/uL 01/19/2025 1:16 PM [facility] HGB 15.8 14.0 - 17.5 G/DL 01/19/2025 1:16 PM [facility] HCT 47.0 41.5 - 50.4 % 01/19/2025 1:16 PM [facility] MCV 90.7 80.0 - 96.0 FL 01/19/2025 1:16 PM [facility] MCH 30.5 26.5 - 31.4 PG 01/19/2025 1:16 PM [facility] MCHC 33.6 31.9 - 34.8 G/DL 01/19/2025 1:16 PM [facility] RDW 13.8 12.3 - 14.3 % 01/19/2025 1:16 PM [facility] PLT 110(L) 151 - 353 x10'3/uL 01/19/2025 1:16 PM [facility] MPV 9.8 9.7 - 11.9 FL 01/19/2025 1:16 PM [facility] RBC MORPHOLOGY NORMAL 01/19/2025 1:16 PM [facility] PLT MORPH. NORMAL 01/19/2025 1:16 PM [facility] WBC MORPHOLOGY NORMAL 01/19/2025 1:16 PM [facility] LYMPHOCYTES % 20.5 15.8 - 45.0 % 01/19/2025 1:16 PM CONSERVATION TECHNICIAN [facility] NEUTROPHILS % 66.6 42.1 - 71.9 % 01/19/2025 1:16 PM CONSERVATION TECHNICIAN [facility] MONOCYTES % 8.6 5.7 - 12.5 % 01/19/2025 1:16 PM CONSERVATION TECHNICIAN [facility] EOSINOPHILS 3.4 0.0 - 5.6 % 01/19/2025 1:16 PM CONSERVATION TECHNICIAN [facility] BASOPHILS 0.7 0.0 - 1.3 % 01/19/2025 1:16 PM CONSERVATION TECHNICIAN [facility] ABS. NEUTROPHILS 3.57 1.40 - 6.00 x10'3/uL 01/19/2025 1:16 PM CONSERVATION TECHNICIAN [facility] IMMATURE GRANS % 0.2 0.0 - 0.5 % 01/19/2025 1:16 PM CONSERVATION TECHNICIAN [facility] ABS. LYMPHOCYTES 1.10 0.80 - 4.70 x10'3/uL 01/19/2025 1:16 PM CONSERVATION TECHNICIAN [facility] BLOOD VENOUS BLOOD SPECIMEN / Unknown 01/19/2025 12:52 PM CONSERVATION TECHNICIAN us Velia Morales MD LABORATORY Final Result Performing Organization Address City/State/[facility] Co de Phone Number [facility] [address] [place] [address], [place] [phone] * US ABD LIMITED (12/03/2024 10:55 AM CDT) Anatomical Region Laterality Modality Abdomen Ultrasound 12/03/2024 10:5 6 AM CDT Impressions 12/03/2024 11:03 AM CDT IMPRESSION: 1. Mild fatty infiltration of the liver without focal mass. Portal vein is patent. 2. Cholecystectomy. 3. No ascites. Referred By: INDIGO GARCIA Interpreted By: Dalton Sargent MD, 12/03/2024 10:56 AM Narrative 12/03/2024 11:[address] [facility] [address] [place] [address] IMAGING STUDIES: US ABD LIMITED DATE: 12/03/2024 10:11 AM COMPARISON STUDIES: Correlation with CT abdomen of 09/25/2024 CLINICAL HISTORY: Portal hypertension. Liver cirrhosis. Abdominal pain. Cholecystectomy. FINDINGS: Cholecystectomy. Cc dimension of liver is 15.2 cm. No adjacent ascites. Mild fatty infiltration of the liver without focal mass..Hepatic and portal veins are patent.. Common bile duct could not be visualized due to overlying bowel Right kidney .6 x 6.1 x 6.2 cm. No focal mass or hydronephrosis. Pancreas not well visualized due to overlying bowel. On recent CT, pancreas was grossly within normal limits Procedure Note Dalton Sargent MD - 12/03/2024 [facility] [address] [place] [address] IMAGING STUDIES: US ABD LIMITED DATE: 12/03/2024 10:11 AM COMPARISON STUDIES: Correlation with CT abdomen of 09/25/2024 CLINICAL HISTORY: Portal hypertension. Liver cirrhosis. Abdominal pain.Cholecystectomy. FINDINGS: Cholecystectomy. Cc dimension of liver is 15.2 cm. No adjacentascites. Mild fatty infiltration of the liver without focal mass..Hepatic andportal veins are patent.. Common bile duct could not be visualized due tooverlying bowel Right kidney [id number] x 6.1 x 6.2 cm. No focal mass orhydronephrosis. Pancreas not well visualized due to overlying bowel. On recent CT,pancreas was grossly within normal limits IMPRESSION: 1. Mild fatty infiltration of the liver without focal mass. Portal veinis patent. 2. Cholecystectomy. 3. No ascites. Referred By: INDIGO GARCIA Interpreted By: Dalton Sargent MD, 12/03/2024 10:56 AM Indigo Garcia NEWS REEL CAMERAMAN-BC ULTRASOUND Final R esult * HEPATITIS PANEL,ACUTE (04/15/2017 5:10 PM CONSERVATION TECHNICIAN) HAV IGM NON-REACTI VE NON-REACTI VE 04/17/2017 3:[address] [facility] Comment: TESTING PERFORMED [facility] [place] [address] HEP B SURFACE AB NON-REACTI VE 04/17/2017 3:[address] [facility] Comment: TESTING PERFORMED [address] [address] HEPATITIS B SURFACE AG NON-REACTI VE NON-REACTI VE 04/17/2017 3:[address] [facility] Comment: TESTING PERFORMED [address] [address] HEP B CORE TOTAL AB NON-REACTI VE NON-REACTI VE 04/17/2017 3:[address] [facility] Comment: TESTING PERFORMED [address] [address] HEPATITIS C AB NON-REACTI VE NON-REACTI VE 04/17/2017 3:[address] [facility] Comment: TESTING PERFORMED [address] [address] 04/15/2017 5:10 PM CONSERVATION TECHNICIAN 04/15/2017 5:23 PM CONSERVATION TECHNICIAN us Generic Conversion Md MARTINEZ LABORATORY Final R esult [facility] [address] [place] [address], [place] [phone] from Last 3 Months or Most Recently Relevant to Health Maintenance Insurance COVID19 [employer] [place] [address] [facility] Advance Directives * Full Code (Latest Code Status on File) Date Activated Date Inactivated Comments 01/27/2021 11:46 PM 01/29/2021 9:38 PM * Full Code Date Activated Date Inactivated Comments 05/16/2019 1:16 PM 05/21/2019 5:09 PM Care Teams Professor Of Biological Sciences Relationship Specialty Start Date End Date Tarik Cruz MD [address] [place] [id number] PCP - General FAMILY PRACTICE 06/12/24
--- OUTSIDE RECORDS SUMMARY | 2025-01-30 23:49 | XMS_ITS | Patient Health Record ---
Author Organization [facility] Address [address] [place] [address] Care Team Providers Care Poker In Name Role Phone Nancy MARTINEZ, Tarik Primary Care Provider Unavailab dasia Carson Irving Unavailable [phone] Mery Lala Unavailable [phone] Allergies No Known Allergies Results Component Value Reference Range Flag Notes UDT Reviewed date:05/02/2024 05:14:43 PM Interpretation: Performing Lab: Notes/Report: Amphetamine (AMP) n 0 - 1000 ng/ml Buprenorphine (BUP) n 0 - 10 ng/ml Oxazepam (BZO) p 0 - 300 ng/ml Cocaine (FRANK) n 0 - 300 ng/ml Methamphetamine (mAMP) n 0 - 300 ng/ml Methylenedioxymethamphetamin e (MDMA) n 0 - 500 ng/ml Morphine (MOP) n 0 - 25 ng/ml Methadone (MTD) n 0 - 300 ng/ml Oxycodone (OXY) n 0 - 300 ng/ml THC p 0 - 50 ng/ml x n 0 - 1000 ng/ml x n 0 - 1000 ng/ml x n 0 - 300 ng/ml x n 0 - 300 ng/ml x n 0 - 300 ng/ml DRUG MONITOR, BENZO, QN, URI [place] ([id number]) Reviewed date:04/17/2024 05:18:59 PM Interpretation: Performing Lab:CB, [facility] [id number], [place] [id number] Marvin Valdez Notes/Report: FASTING: NO Alphahydroxyalprazolam 203 <25 ng/mL H Alphahydroxymidazolam NEGATIVE <50 ng/mL Alphahydroxytriazolam NEGATIVE <50 ng/mL Aminoclonazepam NEGATIVE <25 ng/mL Hydroxyethylflurazepam NEGATIVE <50 ng/mL Lorazepam NEGATIVE <50 ng/mL Nordiazepam NEGATIVE <50 ng/mL Oxazepam NEGATIVE <50 ng/mL Temazepam NEGATIVE <50 ng/mL Benzodiazepines Comments See Benzodiazepines Notes, LDT Notes DRUG MONITOR, MARIJUANA META B, QN, URINE ([id number]) Reviewed date:04/17/2024 05:19:07 PM Interpretation: Performing Lab:CB, [facility] [id number] [facility], [place], [place] [id number] Marvin Valdez, Director - [address] [facility] Notes/Report: FASTING: NO Marijuana Metabolite 1831 <5 ng/mL H Marijuana Comments See Ma jimenez Notes, LDT Notes Notes and Comments This [...] analytical performance characteristics have been determined by [facility]. It has not been cleared or approved by the FDA. This assay has been validated pursuant to the CLIA regulations and is used for clinical purposes. Healthcare Providers needing Interpretation assistance, please contact us at [phone] ( ) M-F, 8am to 10pm EST UDT Reviewed date:04/08/2024 04:17:18 PM Interpretation: Performing Lab: Notes/Report: Amphetamine (AMP) N 0 - 1000 ng/ml Buprenorphine (BUP) N 0 - 10 ng/ml Oxazepam (BZO) P 0 - 300 ng/ml Cocaine (FRANK) N 0 - 300 ng/ml Methamphetamine (mAMP) N 0 - 300 ng/ml Methylenedioxymethamphetamin e (MDMA) N 0 - 500 ng/ml Morphine (MOP) N 0 - 25 ng/ml Methadone (MTD) N 0 - 300 ng/ml Oxycodone (OXY) N 0 - 300 ng/ml THC P 0 - 50 ng/ml x N 0 - 1000 ng/ml x N 0 - 1000 ng/ml x N 0 - 300 ng/ml x N 0 - 300 ng/ml x N [...] decision-maker Yes Do you have Power of Sales Leader for Health or [facility]? Yes Do you have a power of tax associate attorney for health? Yes Do you have power of tax associate attorney for Medical ? 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), inattentive type (F90.0) Active confirmed Problem Poor concentration (06048834) Poor concentration (R41.840) Active confirmed Vital Signs [...] N/A Encounters Encounter Location Date Provider Diagnosis [facility] [address] [address] 04/08/2024 Carson Irving Major depressive disorder, recurrent, moderate F33.1 ; DARRIUS (generalized anxiety disorder) F41.1 and Poor concentration R41.840 [facility] [address] 05/02/2024 Carson Irving Lack of concentratio n R41.840 [facility] [address] 05/08/2024 Carson Irving [facility] [place] [address] [facility] [address] [address] 05/17/2024 Carson Irving ADHD (attention defi cit hyperactivity disorder), inattentive type F90.0 ; Major depressive disorder, recurrent, moderate F33.1 ; DARRIUS (generalized anxiety disorder) F41.1 ; Encounter for screening for depression Z13.31 and Encounter for screening for cardiovascular disorders Z13.[address] [address] 05/17/2024 Carson Irving [facility] [place] [address] [facility] [address] [address] 10/04/2024 Carson Irving Assessments Encounter Date Diagnosis [...] results, and address any ongoing concerns. 05/17/2024 Other Dayne Oviedo, a 48-year-old male with a 24-year [...] his mother. Patient is working in a [employer] from 6 a.m. to 5 p.m. daily [...] Date Coverage End Date [employer] [address] [place] [address] [id number] Dayne Oviedo Self - patient is the insured Medical (General) History Medical History History ICD Code Past Psychiatric History: Anxiety Disord er,Panic Disorder,Bipolar Disorder Surgical History Surgery Date(Month/Year) chin harrison
--- OUTSIDE RECORDS SUMMARY | 2025-01-30 23:49 | XMS_ITS | Clinical Summary ---
Author Organization [facility] Address [address] [id number] Phone Care Team Providers Care Associate Financial Analyst Name Role Phone Unavailable Primary Care Provider Unavailabl e Allergies No known active allergies Medications HYDROcodone-acet aminophen (NORCO) 5-325 mg tabletIndication s:Abdominal pain, unspecified abdominal location Take 1 Tablet by mouth every 4 hours as needed for Pain. Max Daily Amount: 6 Tablets 12 Tablet 5 Active ondansetron (ZOFRAN ODT) 4 mg Tablet, Rapid Dissolve Take 1 Tablet (4 mg) by mouth every 8 hours as needed for Nausea/Emesis . Dissolve tablet on top of tongue, then swallow with saliva. 20 Tablet 5 Active Encounters Date Type Department Care Team Description 01/21/2025 External Device Data [facility]STRA[facility] Provider, Abstract 01/21/2025 External Device Data [facility] Provider, Abstract 01/07/2025 External Device Data [facility] Provider, Abstract 12/17/2024 External Device Data [facility] Provider, Abstract 12/17/2024 External Device Data [facility] Provider, Abstract 12/10/2024 External Device Data [facility] Provider, Abstract 11/05/2024 External Device Data [facility] Provider, Abstract 11/05/2024 External Device Data [facility] Provider, Abstract 11/05/2024 External Device Data [facility] Provider, Abstract from Last 3 Months Social History Tobacco [...] of 2) 2024 INFLUENZA VACCINE (#1) 2024 Insurance BCBS OUT OF STATE
[2025-01-30 23:51] VITALS: BP 152/79; PULSE 75; RESP 20; TEMP 36.9; O2SAT 98
--- NOTE | 2025-01-30 23:56 | ED_ITS ---
HPI - Abdominal Pain General Chief Complaint: Abdominal Pain Stated Complaint: abd pain Time Seen by Provider: 01/30/25 23:49 History of Present Illness HPI narrative: 49-year-old male with a history of anxiety, depression, GERD, irritable bowel syndrome, idiopathic cirrhosis, bipolar disorder. Patient presents with recurrent left lower quadrant abdominal discomfort. States that happened about 9:00 p.m. today. He ate dinner around 7:00 p.m. and was having symptoms while he was at work. Denies any other injury. Endorses nausea vomiting. Tried taking his dicyclomine at home but vomited this up. States it feels very similar to his usual lower abdominal pain and was seen here by myself on Monday. He had workup done and CT scan that showed no findings. Patient has had endoscopy several months ago per patient without any acute concerning findings except for some polyps. Does endorse marijuana use but no other drugs. Related Data Allergies Allergy/AdvReac Type Severity Reaction Status Date / Time gluten AdvReac Mild Nausea Verified 01/30/25 23:57 milk AdvReac Mild bloating Verified 01/30/25 23:57 Review of Systems 2 Review of Systems: As reviewed above in HPI [facility] Past Medical History Medical History Festus's lobe of liver Moderate persistent asthma with acute exacerbation Unspecified asthma, uncomplicated Gynecomastia Erosive esophagitis Gastritis Diverticulosis Asthma Irritable bowel syndrome Depression Generalized anxiety disorder Bipolar disorder, unspecified Celiac disease Gastroesophageal reflux disease Surgical History Surgical History History of cholecystectomy 02/2016 Family History Family History Father No problems noted. Mother No problems noted. Social History Social History Smoking packs per day: 0.5 Smoking cigarettes per day: 10.0 Years smoked: 10 Smoking pack-years: 5.00 Smoking status: Former smoker Tobacco type: cigarettes Second hand tobacco smoke exposure: No Alcohol intake: never Substance use: current Substance use type: does not use Lack of Transportation: No Lack of Food: Never True Current Housing: I Have Housing Concerned About Future Housing: No Difficulty Paying Gas/Electric Bills: No Difficulty Paying for Meds: No Currently Unemployed: No Education: High School Diploma/GED Difficulty w/ Childcare or Family Care: No Living arrangements: with family Occupation/Education: occupation Gender identity (if verbalized by the patient): Male Sexual Orientation (if Verbalized by the Patient): Straight or Heterosexual Spiritual care concerns: No Exam 2 Narrative: GENERAL: [Well-appearing, well-nourished, and in no acute distress.] HEAD: [Normocephalic, atraumatic.] EYES: [PERRLA and EOMI.] ENT: Nares clear, no rhinorrhea or epistaxis. Mucous membranes moist. NECK: Supple. CHEST: [Clear to auscultation. No respiratory distress.] HEART: [Regular rate and rhythm]. No murmur heard. [Normal peripheral pulses.] ABDOMEN: Soft, nondistended, no rigidity, guarding or peritonitis. Tender in the left lower quadrant. EXTREMITIES: Normal range of motion. [No edema.] SKIN: Warm, dry, no rash. NEURO: [No focal deficits]. Alert and oriented [x3.] PSYCH: [Normal mood and affect.] Course Vital Signs Vital signs: Vital Signs Temperature 36.9 C 01/30/25 23:51 Pulse Rate 75 01/30/25 23:51 Respiratory Rate 20 01/30/25 23:51 Blood Pressure 152/79 H 01/30/25 23:51 Pulse Oximetry 98 01/30/25 23:51 Oxygen Delivery Room Air 01/30/25 23:51 Temperature 36.9 C 01/30/25 23:51 Pulse Rate 68 01/31/25 01:28 Respiratory Rate 15 01/31/25 01:28 Blood Pressure 121/63 01/31/25 01:28 Pulse Oximetry 94 01/31/25 01:28 Oxygen Delivery Room Air 01/30/25 23:51 MDM - Abdominal Pain MDM Narrative Medical decision making narrative: 49-year-old male with a history of anxiety, depression, GERD, irritable bowel syndrome, idiopathic cirrhosis, bipolar disorder. Patient presents with recurrent left lower quadrant abdominal discomfort. States that happened about 9:00 p.m. today. He ate dinner around 7:00 p.m. and was having symptoms while he was at work. Denies any other injury. Endorses nausea vomiting. Tried taking his dicyclomine at home but vomited this up. States it feels very similar to his usual lower abdominal pain and was seen here by myself on Monday. He had workup done and CT scan that showed no findings. Patient has had endoscopy several months ago per patient without any acute concerning findings except for some polyps. Does endorse marijuana use but no other drugs. Patient is tender in left lower quadrant, hemodynamically stable with normal vital signs. No tachycardia, no fever, hypoxemia or blood pressure anomalies. He is uncomfortable appearing. Has had recurrent left lower quadrant abdominal pain without any explanation despite multiple workups, imaging studies and follow ups. Low suspicion any acute emergency today given recurrent symptoms but will re-evaluate with new laboratory studies and a lactic acid. He was given droperidol and Dilaudid as well as fluids which usually helps his symptoms. CT scan reviewed from 3 days ago largely unremarkable. Will hold off on repeat imaging last until labs and re-evaluation. Laboratory studies are stable and reassuring. No leukocytosis or anemia. Chronic thrombocytopenia without any change from baseline. Electrolytes are unremarkable. Normal kidney function. Normal glucose. Normal LFTs. Normal lipase. Lactic acid is negative making this on likely vascular in nature. Patient remains hemodynamically stable here blood pressure 115/64. Heart rate 65. 95% on room air. Resting comfortably after interventions. No urgent or emergent concerns found today. He will have to follow up with his PCP and manager of employee relations for further care. We discussed return precautions. Medical Records Attestation: I reviewed the patient's medical records. Lab Data Attestation: I reviewed the patient's lab results. 01/31/25 00:09 01/31/25 00:09 Labs: Lab Results 01/31/25 Range/Units 00:09 WBC 8.1 (4.5-10.0) K/mm3 RBC 5.01 (4.6-6.20) M/mm3 Hgb 15.2 (14.0-18.0) g/dL Hct 46.0 (42.0-52.0) % MCV 91.8 (80-100) fl MCH 30.3 (26-34) pg MCHC 33.0 (32-36) g/dl RDW 13.2 (11.5-14.5) % Plt Count 96 L (150-375) k/mm3 MPV 8.9 (7.4-10.4) fl Immature Gran % (Auto) 0.1 (0-0.5) % Neut % (Auto) 80.3 H (45.5-73.1) % Lymph % (Auto) 11.4 L (18.3-44.2) % [place] % (Auto) 6.6 (2.6-8.5) % Eos % (Auto) 1.2 (0-4.4) % Baso % (Auto) 0.4 (0.2-1.2) % Lymph # (Auto) 0.92 (0.9-3.2) K/mm3 Monroe # (Auto) 0.5 (0.1-0.6) K/mm3 Eos # (Auto) 0.1 (0-0.3) K/mm3 Baso # (Auto) 0.0 (0.0-0.1) K/mm3 Abs Immat Gran (auto) 0.01 (0.00-0.031) K/mm3 Absolute Neuts (auto) 6.5 (1.3-6.7) K/mm3 Absolute Nucleated RBC 0.000 (0.0-0.012) K/mm3 Nucleated RBC % 0.0 (0.0-0.2) % % Immature Plt Fraction 1.4 (0.9-11.2) % Sodium 138 (137-145) mmol/L Potassium 4.1 (3.4-5.0) mmol/L Chloride 99 (98-107) mmol/L Carbon Dioxide 32 H (22-30) mmol/L Anion Gap 7 (4-12) mmol/L BUN 11 (9-20) mg/dL Creatinine 0.79 (0.7-1.3) mg/dL Estim Creat Clear Calc 100 ml/min Estimated GFR > 60 (59 - ) Glucose 125 H (65-110) mg/dL Lactic Acid 1.9 (0.7-2.0) mmol/L Calcium 9.3 (8.4-10.2) mg/dL Total Bilirubin 1.3 (0.2-1.3) mg/dL AST 36 (17-59) U/L ALT 35 (6-50) U/L Alkaline Phosphatase 78 (38-126) U/L Total Protein 8.2 (6.3-8.2) g/dL Albumin 4.7 (3.5-5.1) g/dL Lipase 109 (23-300) U/L Urine Color Yellow (Yellow) Urine Appearance Clear (Clear) Urine pH 7.0 (5.0-9.0) Ur Specific [place] 1.024 (1.001-1.035) Urine Protein Trace (Negative) mg/dL Urine Glucose (UA) Negative (Negative) mg/dL Urine Ketones Trace H (Negative) mg/dL Ur Blood (Man) Negative (Negative) Urine Nitrate Negative (Negative) Urine Bilirubin Negative (Negative) Urine Urobilinogen 2.0 H (<2.0) mg/dL Leukocyte Esterase Rfl Trace H (Negative) IMAN/UL Urine RBC 0-2 (0-2) /hpf Urine WBC 0-5 (0-3) /hpf Ur Squamous Epith Cells None seen (Few) /hpf Urine Bacteria None seen /hpf Urine Casts 0-2 Discharge Plan Discharge Clinical Impression: LLQ pain, Acute exacerbation of chronic abdominal pain Patient Disposition: Home Condition: Stable Instructions: Antibiotic Form, Abdominal Pain (ED) Additional Instructions: All of your laboratory studies are stable without any signs of an infection or acute issue. You will need to discuss with your manager of employee relations for further care as well as follow-up with your primary care provider. No emergent concerns found today. Return with any worsening symptoms, emergent concerns or other acute issues otherwise follow-up outpatient. Refrain from marijuana use as this can exacerbate symptoms. Patient Language: Djiboutian Prescriptions: No Action dicyclomine 20 mg tablet 20 mg PO TID PRN (Reason: abdominal pain) Qty: 20 0RF ondansetron 4 mg tablet,disintegrating 4 mg PO Q8H PRN (Reason: nausea and vomiting) Qty: 20 0RF albuterol sulfate [Ventolin HFA] 90 mcg/actuation HFA aerosol inhaler 1 inhalation INHALATION Q4H PRN (Reason: shortness of breath or wheezing) Qty: 18 3RF pantoprazole 40 mg tablet,delayed release (DR/EC) See Rx Instructions .ROUTE .COMPLEX Qty: 90 1RF Dose Instruction: Take 1 tablet by mouth once daily Rx Instructions: Take 1 tablet by mouth once daily dicyclomine 20 mg tablet 20 mg PO QID Qty: 20 0RF escitalopram oxalate 10 mg tablet 10 mg PO DAILY Qty: 30 2RF alprazolam 1 mg tablet 1 mg PO BID Qty: 60 0RF Follow-up/Referrals: Tarik Cruz MD [Primary Care Provider, [facility]] Time of Disposition: 01:07
[2025-01-31] VITALS (9 sets, daily range): BP systolic 115–151; BP diastolic 63–80; PULSE 65–72; RESP 15–19; O2SAT 93–95
[2025-01-31] MEDS: HYDROmorphone HCL INJ (*CRX) 1 MG/ML SYR IV PUSH (00:11)
[2025-01-31] MEDS: LACTATED RINGERS 1,000 ML 999 ML IV CONT (00:11)
[2025-01-31 00:17] LABS: Hematocrit 46.0 % (42.0-52.0); Hemoglobin 15.2 g/dL (14.0-18.0); Immature Granulocyte Percent A 0.1 % (0-0.5); Immature Platelet Fraction Pct 1.4 % (0.9-11.2); Lymphocytes Absolute Auto 0.92 K/mm3 (0.9-3.2); Mean Corpuscular HGB Conc 33.0 g/dl (32-36); Mean Corpuscular Hemoglobin 30.3 pg (26-34); Mean Corpuscular Volume 91.8 fl (80-100); Nucleated Red Blood Cells Absolute Auto 0.000 K/mm3 (0.0-0.012); Nucleated Red Blood Cells Perc 0.0 % (0.0-0.2); Red Blood Count 5.01 M/mm3 (4.6-6.20); White Blood Count 8.1 K/mm3 (4.5-10.0)
[2025-01-31 00:20] LABS: Add Urine Microscopic? YES; Appearance Urine Clear (Clear); Glucose Urine UA Negative (Negative); Leukocyte Esterase Ur Trace LEU/UL (Negative); Nitrate Urine Negative (Negative); Non Pathogenic Casts 0-2; Specific Grav Ur 1.024 (1.001-1.035)
--- OUTSIDE RECORDS SUMMARY | 2025-01-31 00:26 | XMS_ITS | Clinical Summary ---
Author Organization [facility] Address [address] [address] Care Team Providers Care Area Plant Manager Name Role Phone Tarik Cruz MD Primary Care Provider [phone] Source Comments [facility],non-owned Affiliates and Associated Physician Practices is amultiple site organization consisting of ambulatory clinics and hospital sitesin [place], [place], [place] and [place]. This disclosure is being madepursuant to the Care Everywhere program and may not contain all information available regarding this patient. Last updated 17.[facility] Allergies Active Allergy Reactions Criticality Noted Date [...] Telephone [facility] [address] [facility] Level [place] [phone] Valerie Ayon, LEVON Appointment from Last 3 Months Social History Tobacco Use Types Packs/Day Years Used Date Smoking Tobacco: Never Smokeless Tobacco: Never Tobacco Cessation:Counseling Given: Not Answered Alcohol Use Standard Drinks/Week Comments Not Currently 0 (1 standard drink = 0.6 oz pur e alcohol) Sex and Gender Information Value Date Recorded Sex Assigned at Not on file Legal 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 Gender Identity Not on file Sexual [...] age to complete this topic Insurance AN[facility] SELF PAY NO INSURANCE Member Subscriber Plan / Payer (Ef fective for All Dates) Name:Guru Oviedo Member ID:Not on file Relation to Subscriber:Not on file Name:GURU OVIEDO Subscriber ID:Not on file (Home) Address: [address] [place] [address] Payer ID:Not on file Group ID:Not on file Type:Self Pay Address: [place], [place] Care Teams Area Plant Manager Relationship Specialty Start Date End Date Tarik Cruz MD [address] [place] [address] PCP - General Family Medicine 09/28/24
--- OUTSIDE RECORDS SUMMARY | 2025-01-31 00:26 | XMS_ITS | Clinical Summary ---
Author Organization [facility] Address [address] [phone] Phone Care Team Providers Care Neurology Stroke Physician Name Role Phone Unavailable Primary Care Provider [...]
--- OUTSIDE RECORDS SUMMARY | 2025-01-31 00:26 | XMS_ITS | Clinical Summary ---
Author Organization [facility] Address [address] [place] [address] Care Team Providers Care Bookbinder Apprentice Name Role Phone Tarik Cruz MD Primary Care Provider [phone] Allergies No known active allergies Medications amitriptyline [...] Department Care Team Description 01/19/2025 12:49 PM FOREST SCIENCE PROFESSOR - 01/19/2025 2:50 PM FOREST SCIENCE PROFESSOR [facility] Emergency Room [address] [place] [address] Velia Morales MD Abdominal Pain Discharge Disposition: Home or Self Care (Routine Discharge) 01/19/2025 Travel 12/03/2024 10:07 AM CDT - 12/03/2024 11:59 PM CDT Hospital Encounter [facility] Ul[facility]ound [address] [place] [address] Indigo Garcia, CONFIGURATION MANAGEMENT ARCHITECT- Discharge Disposition: Home or Self Care (Routine [...] Comments Blood Pressure 127/78 01/19/2025 2:52 PM FOREST SCIENCE PROFESSOR Pulse 71 01/19/2025 2:52 PM FOREST SCIENCE PROFESSOR Temperature 36.2 C (97.1 F) 01/19/2025 2:52 PM FOREST SCIENCE PROFESSOR Respiratory Rate 16 01/19/2025 2:52 PM FOREST SCIENCE PROFESSOR Oxygen Saturation 91% 01/19/2025 2:52 PM FOREST SCIENCE PROFESSOR Inhaled Oxygen Concentration - - Weight 88.5 kg (195 lb) 01/19/2025 12:54 PM FOREST SCIENCE PROFESSOR Height 177.8 cm (5' 10) 01/19/2025 12:54 PM FOREST SCIENCE PROFESSOR Body Mass Index 27.98 01/19/2025 12:54 PM FOREST SCIENCE PROFESSOR Plan of Treatment Health Maintenance Due Date [...] 03/10/2021 Hepatitis C Completed 04/15/2017 PHQ-2 (Physician Ione) Completed 08/19/2024 Meningococcal B Vaccine Aged Out [...] with and son General No Yudy Gaitan, RULING TECHNICIAN Health - patient able to perform ADLs independently General No Sue Fairchild, dental receptionist Procedure Name Priority Date/Time Associated Diagnosis Comments URINALYSIS, AUTO, COMPLETE STAT 01/19/2025 1:[address] ABD+PEL W CON STAT 01/19/2025 1:51 PM FOREST SCIENCE PROFESSOR LIPASE STAT 01/19/2025 12:52 PM FOREST SCIENCE PROFESSOR COMPREHENSIVE METABOLIC PANEL STAT 01/19/2025 12:52 PM FOREST SCIENCE PROFESSOR HC CBC AUTO W/AUTO DIFF STAT 01/19/2025 12:52 PM FOREST SCIENCE PROFESSOR US ABD LIMITED Routine 12/03/2024 10:55 AM CDT Portal hypertension (CMS/HCC HHS/HCC) Unspecified cirrhosis of liver (CMS/HCC HHS/HCC) HEPATITIS PANEL,ACUTE STAT 04/15/2017 5:10 PM FOREST SCIENCE PROFESSOR from Last 3 Months or Most Recently Relevant to Health Maintenance Results * URINALYSIS, AUTO, COMPLETE (01/19/2025 1:57 PM FOREST SCIENCE PROFESSOR) COLOR (U) YELLOW 01/19/2025 2:12 PM FOREST SCIENCE PROFESSOR [facility] TRANSPARENCY CLEAR 01/19/2025 2:12 PM FOREST SCIENCE PROFESSOR [facility] SPECIFIC GRAVITY (U) 1.020 1.000 - 1.030 01/19/2025 2:[address] [facility] U PH 8.0 5.0 - 9.0 01/19/2025 2:[address] [facility] LEUKOCYTES (U) NEGATIVE NEGATIVE 01/19/2025 2:[address] [facility] NITRITES NEGATIVE NEGATIVE 01/19/2025 2:[address] [facility] PROTEIN RANDOM (U) NEGATIVE NEGATIVE 01/19/2025 2:[address] [facility] GLUCOSE (U) NEGATIVE NEGATIVE 01/19/2025 2:[address] [facility] KETONES MG/DL (U) NEGATIVE NEGATIVE 01/19/2025 2:[address] [facility] BILIRUBIN (U) NEGATIVE NEGATIVE 01/19/2025 2:[address] [facility] BLOOD (U) NEGATIVE NEGATIVE 01/19/2025 2:[address] [facility] WBC/HPF NONE SEEN 0 - 5 /HPF 01/19/2025 2:[address] [facility] RBC/HPF NONE SEEN 0 - 5 /HPF 01/19/2025 2:[address] [facility] EPI/HPF RARE /HPF 01/19/2025 2:[address] [facility] BACTERIA (U) RARE /HPF 01/19/2025 2:[address] [facility] URINE URINE SPECIMEN OBTAINED BY CLEAN CATCH PROCEDURE / Unknown 01/19/2025 1:57 PM FOREST SCIENCE PROFESSOR us Velia Morales MD URINE ORDERABLES Final Result [facility] [address] [place] [address], [place] [phone] * CT ABD+PEL W IV CON ONLY (01/19/2025 1:51 PM FOREST SCIENCE PROFESSOR) Anatomical Region Laterality Modality Abdomen Computed Tomogra phy 01/19/2025 1:57 PM FOREST SCIENCE PROFESSOR Impressions 01/19/2025 2:10 PM FOREST SCIENCE PROFESSOR IMPRESSION: 1. No acute abnormality identified. 2. Liver morphology is suspicious for chronic liver disease. 3. Mild splenomegaly. 4. Other chronic or nonurgent findings as described above. Referred By: Interpreted By: Jaron Rowe MD, 01/19/2025 1:57 PM Narrative 01/19/2025 2:10 PM FOREST SCIENCE PROFESSOR [facility] [address] [facility] [place] [address] EXAMINATION: CT ABD+PEL W CON CLINICAL HISTORY: [...] Procedure Note Jaron Rowe MD - 01/19/2025 [facility] [address] [place] [address] EXAMINATION: CT ABD+PEL W CON CLINICAL HISTORY: [...] Final Result * LIPASE (01/19/2025 12:52 PM FOREST SCIENCE PROFESSOR) Pathologist [facility] LIPASE 55 16 - 77 UNITS/L 01/19/2025 1:[address] [facility] BLOOD VENOUS BLOOD SPECIMEN / Unknown 01/19/2025 12:52 PM FOREST SCIENCE PROFESSOR Velia Morales MD LABORATORY Final Result [facility] [address] [place] [address], * (ABNORMAL) COMPREHENSIVE METABOLIC PANEL (01/19/2025 12:52 PM FOREST SCIENCE PROFESSOR) [facility] GLUCOSE 133(H) 70 - 99 MG/DL 01/19/2025 1:[address] [facility] BUN 9 7 - 18 MG/DL 01/19/2025 1:[address] [facility] CREATININE S/P/B 0.96 0.7 - 1.3 MG/DL 01/19/2025 1:[address] [facility] SODIUM S/P/B 139 136 - 145 MMOL/L 01/19/2025 1:[address] [facility] POTASSIUM S/P/B 4.1 3.5 - 5.1 MMOL/L 01/19/2025 1:[address] [facility] CHLORIDE S/P/B 103 100 - 108 MMOL/L 01/19/2025 1:[address] [facility] CO2 28.2 21 - 32 MMOL/L 01/19/2025 1:[address] [facility] CALCIUM S/P/B 8.6 8.5 - 10.1 MG/DL 01/19/2025 1:[address] [facility] BILIRUBIN TOTAL S/P/B 0.6 0.2 - 1.2 MG/DL 01/19/2025 1:[address] [facility] TOTAL PROTEIN S/P/B 7.8 6.4 - 8.2 G/DL 01/19/2025 1:[address] [facility] ALBUMIN S/P/B 4.0 3.4 - 5.0 G/DL 01/19/2025 1:[address] [facility] AST 26 15 - 37 U/L 01/19/2025 1:[address] [facility] ALT 34 16 - 60 U/L 01/19/2025 1:[address] [facility] ALKALINE PHOSPHATASE S/P/B 88 50 - 136 U/L 01/19/2025 1:[address] [facility] ANION GAP 7.8 5 - 15 MMOL/L 01/19/2025 1:[address] [facility] BUN CREATININE RATIO 9.4 6 - 26 01/19/2025 1:[address] [facility] A/G RATIO 1.1 1.0 - 2.0 RATIO 01/19/2025 1:[address] [facility] GFR ESTIMATE >90 >90 ML/MIN/1.7 3 M2 01/19/2025 1:[address] [facility] Comment: NOTE: eGFR is not calculated for patients <18 years of age. This is an estimated GFR calculation using the new CKD EPI creatinine equation without race and so does not require a correction factor for race. This estimated GFR should not be used for calculating drug doses. BLOOD VENOUS BLOOD SPECIMEN / Unknown 01/19/2025 12:52 PM FOREST SCIENCE PROFESSOR us Velia Morales MD LABORATORY Final Result [facility] [address] [place] [address], [place] [phone] * (ABNORMAL) CBC W/DIFF AUTOMATED (01/19/2025 12:52 PM FOREST SCIENCE PROFESSOR) [facility] Signature WBC 5.36 4.4 - 11.0 x10'3/uL 01/19/2025 1:[address] [facility] RBC 5.18 4.50 - 5.90 x10'6/uL 01/19/2025 1:[address] [facility] HGB 15.8 14.0 - 17.5 G/DL 01/19/2025 1:[address] [facility] HCT 47.0 41.5 - 50.4 % 01/19/2025 1:[address] [facility] MCV 90.7 80.0 - 96.0 FL 01/19/2025 1:[address] [facility] MCH 30.5 26.5 - 31.4 PG 01/19/2025 1:[address] [facility] MCHC 33.6 31.9 - 34.8 G/DL 01/19/2025 1:[address] [facility] RDW 13.8 12.3 - 14.3 % 01/19/2025 1:[address] [facility] PLT 110(L) 151 - 353 x10'3/uL 01/19/2025 1:[address] [facility] MPV 9.8 9.7 - 11.9 FL 01/19/2025 1:[address] [facility] RBC MORPHOLOGY NORMAL 01/19/2025 1:[address] [facility] PLT MORPH. NORMAL 01/19/2025 1:[address] [facility] WBC MORPHOLOGY NORMAL 01/19/2025 1:[address] [facility] LYMPHOCYTES % 20.5 15.8 - 45.0 % 01/19/2025 1:16 PM FOREST SCIENCE PROFESSOR [facility] NEUTROPHILS % 66.6 42.1 - 71.9 % 01/19/2025 1:16 PM FOREST SCIENCE PROFESSOR [facility] MONOCYTES % 8.6 5.7 - 12.5 % 01/19/2025 1:16 PM FOREST SCIENCE PROFESSOR [facility] EOSINOPHILS 3.4 0.0 - 5.6 % 01/19/2025 1:16 PM FOREST SCIENCE PROFESSOR [facility] BASOPHILS 0.7 0.0 - 1.3 % 01/19/2025 1:16 PM FOREST SCIENCE PROFESSOR [facility] ABS. NEUTROPHILS 3.57 1.40 - 6.00 x10'3/uL 01/19/2025 1:16 PM FOREST SCIENCE PROFESSOR [facility] IMMATURE GRANS % 0.2 0.0 - 0.5 % 01/19/2025 1:16 PM FOREST SCIENCE PROFESSOR [facility] ABS. LYMPHOCYTES 1.10 0.80 - 4.70 x10'3/uL 01/19/2025 1:16 PM FOREST SCIENCE PROFESSOR [facility] BLOOD VENOUS BLOOD SPECIMEN / Unknown 01/19/2025 12:52 PM FOREST SCIENCE PROFESSOR us Velia Morales MD LABORATORY Final Result Performing Organization Address City/State/[facility] Co de Phone Number [facility] [address] [place] [address], [place] [phone] * US ABD LIMITED (12/03/2024 10:55 AM CDT) Anatomical Region Laterality Modality Abdomen Ultrasound 12/03/2024 10:5 6 AM CDT Impressions 12/03/2024 11:03 AM CDT IMPRESSION: 1. Mild fatty infiltration of the liver without focal mass. Portal vein is patent. 2. Cholecystectomy. 3. No ascites. Referred By: INDIGO GARCIA Interpreted By: Dalton Sargent MD, 12/03/2024 10:56 AM Narrative 12/03/2024 11:03 AM CDT [facility] [address] [place] [address] IMAGING STUDIES: US ABD LIMITED DATE: 12/03/2024 [...] visualized due to overlying bowel Right kidney tpfgyhmn51.6 x 6.1 x 6.2 cm. No focal mass or hydronephrosis. Pancreas not well visualized due to overlying bowel. On recent CT, pancreas was grossly within normal limits Procedure Note Dalton Sargent MD - 12/03/2024 [facility] [address] [place] [address] IMAGING STUDIES: US ABD LIMITED DATE: 12/03/2024 10:11 AM COMPARISON STUDIES: Correlation with CT abdomen of 09/25/2024 CLINICAL HISTORY: Portal hypertension. Liver cirrhosis. Abdominal pain.Cholecystectomy. FINDINGS: Cholecystectomy. Cc dimension of liver is 15.2 cm. No adjacentascites. Mild fatty infiltration of the liver without focal mass..Hepatic andportal veins are patent.. Common bile duct could not be visualized due tooverlying bowel Right kidney pcencenu41.6 x 6.1 x 6.2 cm. No focal mass orhydronephrosis. Pancreas not well visualized due to overlying bowel. On recent CT,pancreas was grossly within normal limits IMPRESSION: 1. Mild fatty infiltration of the liver without focal mass. Portal veinis patent. 2. Cholecystectomy. 3. No ascites. Referred By: INDIGO GARCIA Interpreted By: Dalton Sargent MD, 12/03/2024 10:56 AM Indigo Garcia CONFIGURATION MANAGEMENT ARCHITECT-BC ULTRASOUND Final R esult * HEPATITIS PANEL,ACUTE (04/15/2017 5:10 PM FOREST SCIENCE PROFESSOR) HAV IGM NON-REACTI VE NON-REACTI VE 04/17/2017 3:37 PM FOREST SCIENCE PROFESSOR [facility] Comment: TESTING PERFORMED [facility] [place] [address] HEP B SURFACE AB NON-REACTI VE 04/17/2017 3:37 PM FOREST SCIENCE PROFESSOR [facility] Comment: TESTING PERFORMED [address] [address] HEPATITIS B SURFACE AG NON-REACTI VE NON-REACTI VE 04/17/2017 3:37 PM FOREST SCIENCE PROFESSOR [facility] Comment: TESTING PERFORMED [address] [address] HEP B CORE TOTAL AB NON-REACTI VE NON-REACTI VE 04/17/2017 3:37 PM FOREST SCIENCE PROFESSOR [facility] Comment: TESTING PERFORMED [address] [address] HEPATITIS C AB NON-REACTI VE NON-REACTI VE 04/17/2017 3:37 PM FOREST SCIENCE PROFESSOR [facility] Comment: TESTING PERFORMED [address] [address] 04/15/2017 5:10 PM FOREST SCIENCE PROFESSOR 04/15/2017 5:23 PM FOREST SCIENCE PROFESSOR us Generic Conversion Md [facility] LABORAT[facility] Final R esult [facility] [address] [place] [address], [place] [phone] from Last 3 Months or Most Recently Relevant to Health Maintenance Insurance COVID19 [employer] [place] [address] [facility] Advance Directives * Full Code (Latest Code Status on File) Date Activated Date Inactivated Comments 01/27/2021 11:46 PM 01/29/2021 9:38 PM * Full Code Date Activated Date Inactivated Comments 05/16/2019 1:16 PM 05/21/2019 5:09 PM Care Teams Bookbinder Apprentice Relationship Specialty Start Date End Date Tarik Cruz MD [address] [place] [id number] PCP - General FAMILY PRACTICE 06/12/24
--- OUTSIDE RECORDS SUMMARY | 2025-01-31 00:26 | XMS_ITS | Clinical Summary ---
Author Organization [facility] Address [address] [place] [address] Care Team Providers Care Access Director Name Role Phone Tarik Cruz MD Primary Care Provider [phone] Allergies No known active allergies Medications albuterol [...] Department Care Team Description 01/25/2025 9:36 PM [facility] - 01/26/2025 2:11 AM [employer]YS AND GAMES HAND FINISHER Emergency [facility] Emergency Department [address] [place] [address] Sandy Quinteros MD Abdominal pain, unspecified abdominal [...] on file Legal Sex Male 11:34 PM [employer] AND GAMES HAND FINISHER Gender Identity Not on file Sexual Orientation Not on file Last Filed Vital Signs Vital Sign Reading Time Taken Comments Blood Pressure 123/80 01/26/2025 2:00 AM [employer]YS AND GAMES HAND FINISHER Pulse 76 01/26/2025 2:00 AM [employer] AND GAMES HAND FINISHER Temperature 36.4 C (97.5 F) 01/25/2025 9:10 PM [employer] GAMES HAND FINISHER Respiratory Rate 16 01/26/2025 2:00 AM [employer] AND GAMES HAND FINISHER Oxygen Saturation 91% 01/26/2025 2:00 AM [employer] AND GAMES HAND FINISHER Inhaled Oxygen Concentration - - Weight 91.9 kg (202 lb 8 oz) 01/25/2025 9:10 PM [employer] GAMES HAND FINISHER Height 177.8 cm (5' 10) 01/25/2025 9:10 PM [employer] GAMES HAND FINISHER Body Mass Index 29.06 01/25/2025 9:10 PM [employer] GAMES HAND FINISHER Plan of Treatment Health Maintenance Due Date [...] MICROSCOPIC AND CULTURE STAT 01/26/2025 1:27 AM TOYS AND GAMES HAND FINISHER POCT RAPID HIV ANTIBODY COMMUNITY SCREENING-DAVID ELIGIBLE STAT 01/26/2025 12:03 AM [employer] AND GAMES HAND FINISHER EGFR STAT 01/25/2025 9:52 PM [employer] AND GAMES HAND FINISHER DIFFERENTIAL AUTO STAT 01/25/2025 9:5 2 PM [employer] GAMES HAND FINISHER LIPASE STAT 01/25/2025 9:52 PM [employer] AND GAMES HAND FINISHER COMPREHENSIVE METABOLIC PANEL STAT 01/25/2025 9:52 PM [employer] GAMES HAND FINISHER CBC WITH AUTO DIFFERENTIAL STAT 01/25/2025 9:52 PM [employer] AND GAMES HAND FINISHER from Last 3 Months Results * Urinalysis reflex to microscopic and culture Urine (01/26/2025 1:27 AM TO[employer] AND GAMES HAND FINISHER) Color, ur Yellow Yellow Comment:[facility] by : [facility], [place] [address] Clarity, ur Clear Clear [facility] Comment:Testing performed by : [facility] [address], [place] [address] Specific gravity, ur 1.027 1.003 - 1.030 [facility] Comment:Testing performed by : [facility] [address], [place] [address] pH, urine 5.5 [facility] Comment: Interpretive Data U rine pH is affected by diet, medications, systemic acid-base disturbances, and renal tubular function. pH may affect urinary stone formation. For example, urine pH below 6.0 may help reduce the tendency for calcium phosphate stones and pH greater than 6.0 may reduce the tendency for uric acid stone formation. Source: Mary Esther Level Current Interpretive Data was last revised on 2017 Testing performed by: [facility], [address], [place] [address] Protein, ur ql Negative Negative [facility] Comment:Testing performed by : [facility], [address], [place] [address] Glucose, ur ql Negative Negative [facility] Comment:Testing performed by : [facility], [address], [place] [address] Ketones, ur Trace Negative [facility] Comment:Testing performed by : [facility], [address] [place] [address] Bilirubin, ur Negative Negative [facility] Comment:Testing performed by : [facility], [address], [place] [address] Blood, ur Negative Negative [facility] Comment:Testing performed by : [facility], [address], [place] [address] Urobilinogen, ur <2.0 <2.0 mg/dL [facility] Comment:Testing performed by : [facility], [address] [place] [address] Nitrite, ur Negative Negative [facility] Comment:Testing performed by : [facility], [facility] [place] [address] Leukocyte esterase, ur Negative Negative [facility] Comment:Testing performed by : [facility], [address], [place] [address] UA reflex comment Reflex conditions for microscopic UA and culture not met. [facility]ER Comment:Testing performed by : [facility], [address] [place] [address] Urine 01/26/2025 1:27 AM TOYS AND GAMES HAND FINISHER 01/26/2025 1:30 AM TOYS AND GAMES HAND FINISHER Result [facility] Sandy Quinteros MD LAB MICROBIOLOGY - [facility] ORDERABLES Final Result [facility] [id number] Department [place] [address] * POCT Rapid HIV Antibody Community Screening-David Eligible (01/26/2025 12:03 AM [employer] GAMES HAND FINISHER) [facility] Rapid HIV, POC Negative Negative Lot Number [id number] QC Control Line Acceptable Blood 01/26/2025 12:0 3 AM [employer] AND GAMES HAND FINISHER Result [facility] Sandy Quinteros MD POINT OF CARE TEST OR DERABLES Final Result * eGFR (01/25/2025 9:52 PM TO[employer] AND GAMES HAND FINISHER) eGFR >90 >=60 mL/min/1. 73 m2 Comment: [...] was last reviewed 2021. Testing performed by: [facility] [address], [place] [address] Blood 01/25/2025 9:52 PM [employer] AND GAMES HAND FINISHER 01/25/2025 10:14 PM [employer] AND GAMES HAND FINISHER Jaron Yun MD LAB BLOOD ORDERABLES Final Resul t [facility] [address] Department [place] [address] * Differential, auto (01/25/2025 9:52 PM [employer] GAMES HAND FINISHER) Pathologist [facility] Neutrophil abs 3.71 1.50 - 6.50 K/cumm Comment:Testing performed by : [facility] [address], [place] [address] Imm gran abs 0.01 0.00 - 0.10 K/cumm [facility] Comment:Testing performed by : [facility] [address], [place] [address] Lymphocyte abs 1.16 0.80 - 3.30 K/cumm GEN[facility]O Comment:Testing performed by : [facility], [address], [place] [address] Monocyte abs 0.52 0.20 - 0.80 K/cumm [facility] Comment:Testing performed by : [facility], [facility], [place] [address] Eosinophil abs 0.18 0.00 - 0.50 K/cumm [facility] Comment:Testing performed by : [facility], [facility], [place] [address] Basophil abs 0.04 0.00 - 0.10 K/cumm [facility] Comment:Testing performed by : [facility], [facility] [address], [place] [address] Neutrophil pct 66.0 % [facility] Comment: Interpretive Data Percent cell count reference ranges are not reported, since discordance with absolute values may lead to misinterpretation of CBC data. Current Interpretive Data was last revised on 2017. Testing performed by: [facility], [facility] [address], [place] [address] Imm gran pct 0.2 % [facility] Comment: Interpretive Data Percent cell count reference ranges are not reported, since discordance with absolute values may lead to misinterpretation of CBC data. Current Interpretive Data was last revised on 2017. Testing performed by: [facility], [address] [place], [place] [address] [place] [address] Lymphocyte pct 20.6 % CERNER Comment: Interpretive Data Percent cell count reference ranges are not reported, since discordance with absolute values may lead to misinterpretation of CBC data. Current Interpretive Data was last revised on 2017. Testing performed by: [place] [address] [place] [address] Monocyte pct 9.3 % [facility] Comment: Interpretive Data Percent cell count reference ranges are not reported, since discordance with absolute values may lead to misinterpretation of CBC data. Current Interpretive Data was last revised on 2017. Testing performed by: [place] [address] [place] [address] Eosinophil pct 3.2 % [facility] Comment: Interpretive Data Percent cell count reference ranges are not reported, since discordance with absolute values may lead to misinterpretation of CBC data. Current Interpretive Data was last revised on 2017. Testing performed by: [place] [address] [address], [place] [address] Basophil pct 0.7 % [facility] Comment: Interpretive Data Percent cell count reference ranges are not reported, since discordance with absolute values may lead to misinterpretation of CBC data. Current Interpretive Data was last revised on 2017. Testing performed by: [facility] [address], [place] [address] Blood 01/25/2025 9:52 PM [employer] AND GAMES HAND FINISHER 01/25/2025 10:14 PM [employer] GAMES HAND FINISHER Jaron Yun MD LAB BLOOD ORDERABLES Final Resul t [facility] [id number] Department [place] [address] * (ABNORMAL) CBC with auto differential (01/25/2025 9:52 PM [employer] GAMES HAND FINISHER) WBC 5.62 3.80 - 9.90 K/cumm Comment:Testing performed by : [facility] [address], [place] [address] Hgb 15.8 13.0 - 17.5 g/dL [facility] Comment:Testing performed by : [facility] [address], [place] [address] Hct 45.4 38.9 - 50.3 % [facility] Comment:Testing performed by : [facility] [address], [place] [address] Plt 124(L) 150 - 400 K/cumm [facility] CH Comment:Testing performed by : [facility] [address], [place] [address] MPV 9.7 9.1 - 12.3 fL [facility] Comment:Testing performed by : [facility] [address], [place] [address] RBC 5.15 4.30 - 5.80 M/cumm [facility] Comment:Testing performed by : [facility] [address], [place] [address] MCV 88.2 81.3 - 96.4 fL [facility] Comment:Testing performed by : [facility] [address], [place] [address] MCH 30.7 27.1 - 33.3 pg [facility] Comment:Testing performed by : [facility] [address], [place] [address] MCHC 34.8 32.3 - 35.7 g/dL CERNER Comment:Testing performed by : [facility], [address] [place], [place] [address] RDW CV 13.3 11.1 - 14.9 % [facility] Comment:Testing performed by : [facility], [address] [place] [address] RDW SD 43.5 35.7 - 48.1 fL GEN[facility]O Comment:Testing performed by : [facility] [address], [place] [address] NRBC abs 0.00 0.00 - 0.01 K/cumm GENARO Comment:Testing performed by : [facility] [address] [place] [address] Blood Venous blood specimen / Unknown 01/25/2025 9:52 PM [employer] AND GAMES HAND FINISHER 01/25/2025 10:14 PM TO[employer] AND GAMES HAND FINISHER Result [facility] Sandy Quinteros MD LAB BLOOD ORDERABLES Final Result Performing Organization Address City/[facility]/ZIP Co de Phone Number GENARO [id number] [place] [address] * Lipase (01/25/2025 9:52 PM TOYS AND GAMES HAND FINISHER) Pathologist [facility] Lipase 30 10 - 99 Units/L Comment:Testing performed by : [facility] [address] [place] [id number] Blood Venous blood specimen / Unknown 01/25/2025 9:52 PM [employer] AND GAMES HAND FINISHER 01/25/2025 10:14 PM [employer] GAMES HAND FINISHER Sandy Quinteros MD LAB BLOOD ORDERABLES Final Result Performing Organization Address City/[facility]/ZIP Co de Phone Number GENARO [id number] [facility] [place] [address] * (ABNORMAL) Comprehensive metabolic panel (01/25/2025 9:52 PM TO[employer] AND GAMES HAND FINISHER) Sodium 134(L) 135 - 145 mmol/L Comment:Testing performed by : [facility] [place] [address] Potassium, pl 4.0 3.3 - 4.9 mmol/L [facility] Comment:Testing performed by : [facility] [address] [place] [address] Chloride 99 97 - 110 mmol/L [facility] Comment:Testing performed by : [facility] [place] [address] CO2 23 22 - 32 mmol/L [facility] Comment:Testing performed by : [facility] [place] [address] Anion gap 12 2 - 15 mmol/L [facility] Comment:Testing performed by : [facility] [place] [address] BUN 9 6 - 25 mg/dL [facility] Comment:Testing performed by : [facility] [place] [address] Creatinine 0.65(L) 0.80 - 1.30 mg/dL [facility] Comment: Icteric sample, test results may be affected. Testing performed by: [facility] [place] [address] Glucose 105 70 - 199 mg/dL CERNER [...] was last revised 2022. Testing performed by: [facility] [place] [address] Calcium 9.6 8.5 - 10.3 mg/dL [facility] Comment:Testing performed by : [facility] [place] [address] Bilirubin, total 1.3(H) 0.1 - 1.2 mg/dL [facility] Comment:Testing performed by : [facility] [place] [address] Protein, pl 7.9 6.5 - 8.5 g/dL [facility] Comment:Testing performed by : [facility] [place] [address] Albumin 4.6 3.5 - 5.0 g/dL [facility] CH Comment:Testing performed by : [facility], [place] [address] Alk phos 79 40 - 130 Units/L [facility] Comment:Testing performed by : [facility] [address], [place] [address] ALT 36 7 - 55 Units/L [facility] Comment:Testing performed by : [facility] [address], [place] [address] AST 36 10 - 50 Units/L [facility] Comment:Testing performed by : [facility] [address], [place] [address] Blood 01/25/2025 9:52 PM [employer] GAMES HAND FINISHER 01/25/2025 10:14 PM [employer] GAMES HAND FINISHER Sandy Quinteros MD LAB BLOOD ORDERABLES Final Result [facility] [id number] Department [place] [address] from Last 3 Months Insurance [employer] O[employer] OOS * Guarantor: [employer] Account Type Relation to Patient Date of Phone Billing Address Workers Comp Employer [employer] Care Teams Access Director Relationship Specialty Start Date End Date Tarik Cruz MD [address] [place] [address] PCP - General Family Medicine 01/25/25
--- OUTSIDE RECORDS SUMMARY | 2025-01-31 00:26 | XMS_ITS | Clinical Summary ---
Author Organization [facility] Address [address] [place] [phone] Phone Care Team Providers Care Gas Line Repairer Name Role Phone Unavailable Primary Care Provider [...]
--- OUTSIDE RECORDS SUMMARY | 2025-01-31 00:26 | XMS_ITS | Patient Health Record ---
Author Organization [facility] [employer] Address [address] [facility] [address] [place] [address] Care Team Providers Care Manager Power Name Role Phone Nancy MARTINEZ, Tarik Primary Care Provider Unavailab dasia NashEva mccrayy Unavailable [phone] Spike Mery Unavailable [phone] Allergies No Known Allergies Results Component Value Reference Range Flag Notes UDT Reviewed date:04/08/2024 04:17:18 PM Interpretation: [...] ng/ml DRUG MONITOR, BENZO, QN, URI [place] ([id number]) Reviewed date:04/17/2024 05:18:59 PM Interpretation: Performing Lab:[facility] [address] [employer], [employer] [id number] Marvin Valdez Notes/Report: FASTING: NO Alphahydroxyalprazolam 203 <25 ng/mL H Alphahydroxymidazolam NEGATIVE <50 ng/mL Alphahydroxytriazolam NEGATIVE <50 ng/mL Aminoclonazepam NEGATIVE <25 ng/mL Hydroxyethylflurazepam NEGATIVE <50 ng/mL Lorazepam NEGATIVE <50 ng/mL Nordiazepam NEGATIVE <50 ng/mL Oxazepam NEGATIVE <50 ng/mL Temazepam NEGATIVE <50 ng/mL Benzodiazepines Comments See Benzodiazepines Notes, LDT Notes DRUG MONITOR, MARIJUANA META B, QN, URINE ([id number]) Reviewed date:04/17/2024 05:19:07 PM Interpretation: Performing Lab:[facility] [employer] [facility] ([facility], [id number] Marvin Valdez, Director - [address] [facility] Notes/Report: FASTING: NO Marijuana Metabolite 1831 <5 ng/mL H Marijuana Comments See [facility] Notes, LDT Notes Notes and Comments This [...] analytical performance characteristics have been determined by [employer]. It has not been cleared or approved by the FDA. This assay has been validated pursuant to the CLIA regulations and is used for clinical purposes. Healthcare Providers needing Interpretation assistance, please contact us at [phone] ( ) M-F, 8am to 10pm EST [...] decision-maker Yes Do you have Power of Analytical Manager for Health or [facility]? Yes Do you have a power of research attorney for health? Yes Do you have power of research attorney for Medical ? 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 [address] [address] 04/08/2024 Carson Irving Major depressive disorder, recurrent, moderate F33.1 ; DARRIUS (generalized anxiety disorder) F41.1 and Poor concentration R41.840 [facility] [employer] [address] 05/02/2024 Carson Irving Lack of concentratio n R41.840 [facility] [employer] [address] 05/08/2024 Carson Irving [facility] [employer] [place] [address] [facility] [address] [address] 05/17/2024 Carson Irving ADHD (attention defi cit hyperactivity disorder), inattentive type F90.0 ; Major depressive disorder, recurrent, moderate F33.1 ; DARRIUS (generalized anxiety disorder) F41.1 ; Encounter for screening for depression Z13.31 and Encounter for screening for cardiovascular disorders Z13.[address] [address] 05/17/2024 Carson Irving [facility] [employer] [place] [address] [facility] [address] [address] 10/04/2024 Carson Irving Assessments Encounter Date Diagnosis [...] his mother. Patient is working in a [employer] from 6 a.m. to 5 p.m. daily [...] Date Coverage End Date [employer] [address] [place] [address] [id number] Dayne Oviedo Self - patient is the insured Medical (General) History Medical History History ICD Code Past Psychiatric History: Anxiety Disord er,Panic Disorder,Bipolar Disorder Surgical History Surgery Date(Month/Year) chin harrison
[2025-01-31 00:30] LABS: Platelet Count Result 96 k/mm3 (150-375)
[2025-01-31 00:31] LABS: Alanine Aminotransferase 35 U/L (6-50); Albumin Level 4.7 g/dL (3.5-5.1); Alkaline Phosphatase 78 U/L (38-126); Anion Gap 7 mmol/L (4-12); Aspartate Amino Transferase 36 U/L (17-59); Bilirubin,Total 1.3 mg/dL (0.2-1.3); Blood Urea Nitrogen 11 mg/dL (9-20); Calcium 9.3 mg/dL (8.4-10.2); Carbon Dioxide 32 mmol/L (22-30); Chloride 99 mmol/L (98-107); Estimated CRCL calculation 100 ml/min; Estimated Glomerular Filt Rate > 60; Glucose 125 mg/dL (65-110); Lipase 109 U/L (23-300); Potassium 4.1 mmol/L (3.4-5.0); Sodium 138 mmol/L (137-145); Total Protein 8.2 g/dL (6.3-8.2)
== END 2025-01-31 01:38 | disposition home or self-care (01) ==
PROVIDERS: Emergency Provider Student in an Organized Health Care Education/Training Program; PCP Family Medicine
DX: R10.32 Left lower quadrant pain (principal); G89.29 Other chronic pain; J45.40 Moderate persistent asthma, uncomplicated; K74.60 Unspecified cirrhosis of liver; K21.9 Gastro-esophageal reflux disease without esophagitis; K58.9 Irritable bowel syndrome, unspecified; K90.0 Celiac disease; F31.9 Bipolar disorder, unspecified; F41.1 Generalized anxiety disorder; Z87.891 Personal history of nicotine dependence; Z90.49 Acquired absence of other specified parts of digestive tract; Z79.899 Other long term (current) drug therapy
CPT/HCPCS: 36415; 80053; 81001; 83605; 83690; 85025; 85055; 96361; 96374; 96375; 99284; J1171; J1790; J7120

== ENCOUNTER 2025-03-04 11:09 | Emergency (ER) | payer BC, SELFPAY ==
--- OUTSIDE RECORDS SUMMARY | 2024-07-03 07:00 | XMS_ITS ---
Author Organization [facility] [employer] [facility] Address [address] [place] [address] Care Team Providers Care Cardiograph Operator Name Role Phone Nancy MARTINEZ, Tarik Primary Care Provider Unavailab Carson Coreas Unavailable [phone] Mery Nicholson Unavailable [phone] REASON FOR VISIT New Patient Social History Sex Assigned At : Social History Observation Description Sex Assigned At Male Encounters Encounter Location Date Provider Diagnosis [facility] [employer] [facility] [address] [place] [address] 07/03/2024 Mery Nicholson Plan Of Treatment No Information Progress Notes * Dayne SAMDOB: [birth year] (49 yo M)Acc No.[id number]:07/03/2024 Patient: Dayne Wilson Provider: Dalila NICHOLSON LCSW :1975 A ge:48 Y S ex:Male Date:07/03/2024 Phone: Address:[address] [facility] Pcp:Tarik Cruz MD Data: * Chief Complaints: * N ew Patient * Electronic signature of Mery Nicholson LCSW on 03/04/2025 at 11:54 AM MORTGAGE COORDINATOR Sign off status: Pending Signatures: No Ad Hoc Signature Added * Provider: Dalila NICHOLSON LCSW Date: 0 07/03/2024 Generated for Julius ng/Cate/eTransmitting on: 1 11:54 AM MORTGAGE COORDINATOR
--- NOTE | ~2025-03-04 | CT_ITS ---
CT abdomen pelvis w con Clinical History: LLQ pain, N/V, hx diverticulitis . Comparison: 01/27/2025 Technique: Axial images lung bases to symphysis pubis IV contrast information not in PACS Coronal, sagittal reformats CT images acquired with automatic exposure control for dose reduction DLP: 543 mGy-cm Findings: Lung bases: Clear. Visualized heart and pericardium: Unremarkable. Liver: Cirrhosis. Enlarged. Steatosis. Recanalized umbilical vein. Gallbladder: Removed. Spleen: Enlarged. Pancreas: Unremarkable. Adrenal glands: Unremarkable. Kidneys: Right kidney- No hydronephrosis. No renal stones. Left kidney- No hydronephrosis. No renal stones. Distal esophagus/stomach: Distal esophageal wall thickening. Gastric antral wall thickening but under distended. Small bowel loops: Minimal distal wall thickening. Colon: Diverticula. Mild scattered wall thickening. Normal RLQ appendix. Nodes: No enlarged nodes. Peritoneum: No ascites. No free air. Urinary bladder: Unremarkable. Prostate: Unremarkable. Bones: No acute bony abnormality. Soft tissues: Small umbilical hernia with fat. Aorta: No aneurysm or dissection. IVC: Unremarkable. Main portal vein/SMV/splenic vein: Patent. Splenorenal shunt. Patient has received 6 CTs in the last 6 months. IMPRESSION: 1. Mild enterocolitis. No complicating features. 2. Esophagitis. 3. Additional findings as above. Reviewed, dictated and finalized at location R. ENT OMBUDSPERSON
[2025-03-04 11:15] VITALS: BP 144/88; PULSE 69; RESP 18; TEMP 36.6; O2SAT 99
[2025-03-04 11:51] VITALS: BP 137/86; PULSE 78; RESP 17; O2SAT 99
--- OUTSIDE RECORDS SUMMARY | 2025-03-04 11:54 | XMS_ITS | Clinical Summary ---
Author Organization [facility] Address [address] [place] [address] Care Team Providers Care Business Education Professor Name Role Phone Tarik Cruz MD Primary Care Provider [phone] Allergies No known active allergies Medications amitriptyline [...] Department Care Team Description 01/19/2025 12:49 PM MINERALOGY PROFESSOR - 01/19/2025 2:50 PM MINERALOGY PROFESSOR Emergency [facility] Emergency Room [address] [place] [address] Velia Morales MD Abdominal Pain Discharge Disposition: Home or Self Care (Routine Discharge) 01/19/2025 Travel 12/03/2024 10:07 AM CDT - 12/03/2024 11:59 PM CDT Hospital Encounter [facility] Ultrasound [address] [place] [address] Indigo Garcia, PLANT PRODUCTION MANAGER- Discharge Disposition: Home or Self Care (Routine [...] Comments Blood Pressure 127/78 01/19/2025 2:52 PM MINERALOGY PROFESSOR Pulse 71 01/19/2025 2:52 PM MINERALOGY PROFESSOR Temperature 36.2 C (97.1 F) 01/19/2025 2:52 PM MINERALOGY PROFESSOR Respiratory Rate 16 01/19/2025 2:52 PM MINERALOGY PROFESSOR Oxygen Saturation 91% 01/19/2025 2:52 PM MINERALOGY PROFESSOR Inhaled Oxygen Concentration - - Weight 88.5 kg (195 lb) 01/19/2025 12:54 PM MINERALOGY PROFESSOR Height 177.8 cm (5' 10) 01/19/2025 12:54 PM MINERALOGY PROFESSOR Body Mass Index 27.98 01/19/2025 12:54 PM MINERALOGY PROFESSOR Plan of Treatment Health Maintenance Due [...] 03/10/2021 Hepatitis C Completed 04/15/2017 PHQ-2 (Physician [place]) Completed 08/19/2024 Meningococcal B Vaccine Aged Out [...] with and son General No Yudy Gaitan, BUS STARTER Health - patient able to perform ADLs independently General No Sue Fairchild, sales associate Procedure Name Priority Date/Time Associated Diagnosis Comments URINALYSIS, AUTO, COMPLETE STAT 01/19/2025 1:[address] ABD+PEL W CON STAT 01/19/2025 1:51 PM MINERALOGY PROFESSOR LIPASE STAT 01/19/2025 12:52 PM MINERALOGY PROFESSOR COMPREHENSIVE METABOLIC PANEL STAT 01/19/2025 12:52 PM MINERALOGY PROFESSOR HC CBC AUTO W/AUTO DIFF STAT 01/19/2025 12:52 PM MINERALOGY PROFESSOR US ABD LIMITED Routine 12/03/2024 10:55 AM CDT Portal hypertension (CMS/HCC HHS/HCC) Unspecified cirrhosis of liver (CMS/HCC HHS/HCC) HEPATITIS PANEL,ACUTE STAT 04/15/2017 5:10 PM MINERALOGY PROFESSOR from Last 3 Months or Most Recently Relevant to Health Maintenance Results * URINALYSIS, AUTO, COMPLETE (01/19/2025 1:57 PM MINERALOGY PROFESSOR) COLOR (U) YELLOW 01/19/2025 2:12 PM MINERALOGY PROFESSOR [facility] TRANSPARENCY CLEAR 01/19/2025 2:12 PM MINERALOGY PROFESSOR [facility] SPECIFIC GRAVITY (U) 1.020 1.000 - 1.030 01/19/2025 2:12 PM [facility] U PH 8.0 5.0 - 9.0 01/19/2025 2:12 PM [facility] LEUKOCYTES (U) NEGATIVE NEGATIVE 01/19/2025 2:12 PM [facility] NITRITES NEGATIVE NEGATIVE 01/19/2025 2:12 PM [facility] PROTEIN RANDOM (U) NEGATIVE NEGATIVE 01/19/2025 2:12 PM [facility] GLUCOSE (U) NEGATIVE NEGATIVE 01/19/2025 2:12 PM [facility] KETONES MG/DL (U) NEGATIVE NEGATIVE 01/19/2025 2:12 PM [facility] BILIRUBIN (U) NEGATIVE NEGATIVE 01/19/2025 2:12 PM [facility] BLOOD (U) NEGATIVE NEGATIVE 01/19/2025 2:12 PM [facility] WBC/HPF NONE SEEN 0 - 5 /HPF 01/19/2025 2:12 PM [facility] RBC/HPF NONE SEEN 0 - 5 /HPF 01/19/2025 2:12 PM [facility] EPI/HPF RARE /HPF 01/19/2025 2:12 PM [facility] BACTERIA (U) RARE /HPF 01/19/2025 2:12 PM [facility] URINE URINE SPECIMEN OBTAINED BY CLEAN CATCH PROCEDURE / Unknown 01/19/2025 1:57 PM MINERALOGY PROFESSOR us Velia Morales MD URINE ORDERABLES Final Result [facility] [address] [place] [address], [place] [phone] * CT ABD+PEL W IV CON ONLY (01/19/2025 1:51 PM MINERALOGY PROFESSOR) Anatomical Region Laterality Modality Abdomen Computed Tomogra phy 01/19/2025 1:57 PM MINERALOGY PROFESSOR Impressions 01/19/2025 2:10 PM MINERALOGY PROFESSOR IMPRESSION: 1. No acute abnormality identified. 2. Liver morphology is suspicious for chronic liver disease. 3. Mild splenomegaly. 4. Other chronic or nonurgent findings as described above. Referred By: Interpreted By: Jaron Rowe MD, 01/19/2025 1:57 PM Narrative 01/19/2025 2:[address] [facility] [address] [facility] [place] [address] EXAMINATION: CT ABD+PEL W CON CLINICAL HISTORY: [...] Rowe MD - 01/19/2025 [facility] [address] [place] [address] EXAMINATION: CT ABD+PEL W CON CLINICAL HISTORY: [...] Final Result * LIPASE (01/19/2025 12:52 PM MINERALOGY PROFESSOR) Pathologist [facility] LIPASE 55 16 - 77 UNITS/L 01/19/2025 1:26 PM [facility] BLOOD VENOUS BLOOD SPECIMEN / Unknown 01/19/2025 12:52 PM MINERALOGY PROFESSOR Velia Morales MD LABORATORY Final Result [facility] [address] [place] [address], * (ABNORMAL) COMPREHENSIVE METABOLIC PANEL (01/19/2025 12:52 PM MINERALOGY PROFESSOR) [facility] GLUCOSE 133(H) 70 - 99 MG/DL 01/19/2025 1:26 PM [facility] BUN 9 7 - 18 MG/DL 01/19/2025 1:26 PM [facility] CREATININE S/P/B 0.96 0.7 - 1.3 MG/DL 01/19/2025 1:26 PM [facility] SODIUM S/P/B 139 136 - 145 MMOL/L 01/19/2025 1:26 PM [facility] POTASSIUM S/P/B 4.1 3.5 - 5.1 MMOL/L 01/19/2025 1:26 PM [facility] CHLORIDE S/P/B 103 100 - 108 MMOL/L 01/19/2025 1:26 PM [facility] CO2 28.2 21 - 32 MMOL/L 01/19/2025 1:26 PM [facility] CALCIUM S/P/B 8.6 8.5 - 10.1 MG/DL 01/19/2025 1:26 PM [facility] BILIRUBIN TOTAL S/P/B 0.6 0.2 - 1.2 MG/DL 01/19/2025 1:26 PM [facility] TOTAL PROTEIN S/P/B 7.8 6.4 - 8.2 G/DL 01/19/2025 1:26 PM [facility] ALBUMIN S/P/B 4.0 3.4 - 5.0 G/DL 01/19/2025 1:26 PM [facility] AST 26 15 - 37 U/L 01/19/2025 1:26 PM [facility] ALT 34 16 - 60 U/L 01/19/2025 1:26 PM [facility] ALKALINE PHOSPHATASE S/P/B 88 50 - 136 U/L 01/19/2025 1:26 PM [facility] ANION GAP 7.8 5 - 15 MMOL/L 01/19/2025 1:26 PM [facility] BUN CREATININE RATIO 9.4 6 - 26 01/19/2025 1:26 PM [facility] A/G RATIO 1.1 1.0 - 2.0 RATIO 01/19/2025 1:26 PM [facility] GFR ESTIMATE >90 >90 ML/MIN/1.7 3 M2 01/19/2025 1:26 PM [facility] Comment: NOTE: eGFR is not calculated for patients <18 years of age. This is an estimated GFR calculation using the new CKD EPI creatinine equation without race and so does not require a correction factor for race. This estimated GFR should not be used for calculating drug doses. BLOOD VENOUS BLOOD SPECIMEN / Unknown 01/19/2025 12:52 PM MINERALOGY PROFESSOR us Velia Morales MD LABORATORY Final Result [facility] [address] [place] [address], [place] [phone] * (ABNORMAL) CBC W/DIFF AUTOMATED (01/19/2025 12:52 PM MINERALOGY PROFESSOR) [facility] Signature WBC 5.36 4.4 - 11.0 x10'3/uL 01/19/2025 1:16 PM [facility] RBC 5.18 4.50 - 5.90 x10'6/uL 01/19/2025 1:16 PM [facility] HGB 15.8 14.0 - 17.5 G/DL 01/19/2025 1:16 PM [facility] HCT 47.0 41.5 - 50.4 % 01/19/2025 1:16 PM [facility] MCV 90.7 80.0 - 96.0 FL 01/19/2025 1:16 PM [facility] MCH 30.5 26.5 - 31.4 PG 01/19/2025 1:16 PM [facility] MCHC 33.6 31.9 - 34.8 G/DL 01/19/2025 1:16 PM [facility] RDW 13.8 12.3 - 14.3 % 01/19/2025 1:16 PM [facility] PLT 110(L) 151 - 353 x10'3/uL 01/19/2025 1:16 PM [facility] MPV 9.8 9.7 - 11.9 FL 01/19/2025 1:16 PM [facility] RBC MORPHOLOGY NORMAL 01/19/2025 1:16 PM [facility] PLT MORPH. NORMAL 01/19/2025 1:16 PM [facility] WBC MORPHOLOGY NORMAL 01/19/2025 1:16 PM [facility] LYMPHOCYTES % 20.5 15.8 - 45.0 % 01/19/2025 1:16 PM MINERALOGY PROFESSOR [facility] NEUTROPHILS % 66.6 42.1 - 71.9 % 01/19/2025 1:16 PM MINERALOGY PROFESSOR [facility] MONOCYTES % 8.6 5.7 - 12.5 % 01/19/2025 1:16 PM MINERALOGY PROFESSOR [facility] EOSINOPHILS 3.4 0.0 - 5.6 % 01/19/2025 1:16 PM MINERALOGY PROFESSOR [facility] BASOPHILS 0.7 0.0 - 1.3 % 01/19/2025 1:16 PM MINERALOGY PROFESSOR [facility] ABS. NEUTROPHILS 3.57 1.40 - 6.00 x10'3/uL 01/19/2025 1:16 PM MINERALOGY PROFESSOR [facility] IMMATURE GRANS % 0.2 0.0 - 0.5 % 01/19/2025 1:16 PM MINERALOGY PROFESSOR [facility] ABS. LYMPHOCYTES 1.10 0.80 - 4.70 x10'3/uL 01/19/2025 1:16 PM MINERALOGY PROFESSOR [facility] BLOOD VENOUS BLOOD SPECIMEN / Unknown 01/19/2025 12:52 PM MINERALOGY PROFESSOR us Velia Morales MD LABORATORY Final Result Performing Organization Address City/State/[facility] Co de Phone Number [facility] [address] [place] [address], [place] [phone] * US ABD LIMITED (12/03/2024 10:55 AM [...] 12/03/2024 11:[address] [facility] [address] [place] [address] IMAGING STUDIES: US ABD LIMITED DATE: 12/03/2024 [...] visualized due to overlying bowel Right kidney [id number] x 6.1 x 6.2 cm. No focal mass or hydronephrosis. Pancreas not well visualized due to overlying bowel. On recent CT, pancreas was grossly within normal limits Procedure Note Dalton Sargent MD - 12/03/2024 [facility] [address] [place] [address] IMAGING STUDIES: US ABD LIMITED DATE: 12/03/2024 10:11 AM COMPARISON STUDIES: Correlation with CT abdomen of 09/25/2024 CLINICAL HISTORY: Portal hypertension. Liver cirrhosis. Abdominal pain.Cholecystectomy. FINDINGS: Cholecystectomy. Cc dimension of liver is 15.2 cm. No adjacentascites. Mild fatty infiltration of the liver without focal mass..Hepatic andportal veins are patent.. Common bile duct could not be visualized due tooverlying bowel Right kidney [id number] x 6.1 x 6.2 cm. No focal mass orhydronephrosis. Pancreas not well visualized due to overlying bowel. On recent CT,pancreas was grossly within normal limits IMPRESSION: 1. Mild fatty infiltration of the liver without focal mass. Portal veinis patent. 2. Cholecystectomy. 3. No ascites. Referred By: INDIGO GARCIA Interpreted By: Dalton Sargent MD, 12/03/2024 10:56 AM Indigo Garcia PLANT PRODUCTION MANAGER-BC ULTRASOUND Final R esult * HEPATITIS PANEL,ACUTE (04/15/2017 5:10 PM MINERALOGY PROFESSOR) HAV IGM NON-REACTI VE NON-REACTI VE 04/17/2017 3:37 PM MINERALOGY PROFESSOR [facility] Comment: TESTING PERFORMED [facility] [place] [id number] HEP B SURFACE AB NON-REACTI VE 04/17/2017 3:37 PM MINERALOGY PROFESSOR [facility] Comment: TESTING PERFORMED [address] [address] HEPATITIS B SURFACE AG NON-REACTI VE NON-REACTI VE 04/17/2017 3:37 PM MINERALOGY PROFESSOR [facility] Comment: TESTING PERFORMED [address] [address] HEP B CORE TOTAL AB NON-REACTI VE NON-REACTI VE 04/17/2017 3:37 PM MINERALOGY PROFESSOR [facility] Comment: TESTING PERFORMED [address] [address] HEPATITIS C AB NON-REACTI VE NON-REACTI VE 04/17/2017 3:37 PM MINERALOGY PROFESSOR [facility] Comment: TESTING PERFORMED [address] [address] 04/15/2017 5:10 PM MINERALOGY PROFESSOR 04/15/2017 5:23 PM MINERALOGY PROFESSOR us Generic Conversion Md [facility] Final R esult [facility] [address] [place] [address], [place] [phone] from Last 3 Months or Most Recently Relevant to Health Maintenance Insurance COVID19 [employer] [place] [address] [facility] Advance Directives * Full Code (Latest Code Status on File) Date Activated Date Inactivated Comments 01/27/2021 11:46 PM 01/29/2021 9:38 PM * Full Code Date Activated Date Inactivated Comments 05/16/2019 1:16 PM 05/21/2019 5:09 PM Care Teams Business Education Professor Relationship Specialty Start Date End Date Tarik Cruz MD [address] [place] [id number] PCP - General FAMILY PRACTICE 06/12/24
--- OUTSIDE RECORDS SUMMARY | 2025-03-04 11:54 | XMS_ITS | Clinical Summary ---
Author Organization [facility] Address [address] [place] [address] Care Team Providers Care Well Logging Captain Mud Analysis Name Role Phone Tarik Cruz MD Primary Care Provider [phone] Allergies No known active allergies Medications albuterol [...] Department Care Team Description 01/25/2025 9:36 PM [facility] - 01/26/2025 2:11 AM BUSINESS ANALYTICS INTERN Emergency [facility] Emergency Department [address] [place] [address] Sandy Quinteros MD Abdominal pain, unspecified abdominal [...] on file Legal Sex Male 11:34 PM BUSINESS ANALYTICS INTERN Gender Identity Not on file Sexual Orientation Not on file Last Filed Vital Signs Vital Sign Reading Time Taken Comments Blood Pressure 123/80 01/26/2025 2:00 AM BUSINESS ANALYTICS INTERN Pulse 76 01/26/2025 2:00 AM BUSINESS ANALYTICS INTERN Temperature 36.4 C (97.5 F) 01/25/2025 9:10 PM BUSINESS ANALYTICS INTERN Respiratory Rate 16 01/26/2025 2:00 AM BUSINESS ANALYTICS INTERN Oxygen Saturation 91% 01/26/2025 2:00 AM BUSINESS ANALYTICS INTERN Inhaled Oxygen Concentration - - Weight 91.9 kg (202 lb 8 oz) 01/25/2025 9:10 PM BUSINESS ANALYTICS INTERN Height 177.8 cm (5' 10) 01/25/2025 9:10 PM BUSINESS ANALYTICS INTERN Body Mass Index 29.06 01/25/2025 9:10 PM BUSINESS ANALYTICS INTERN Plan of Treatment Health Maintenance Due Date [...] MICROSCOPIC AND CULTURE STAT 01/26/2025 1:27 AM BUSINESS ANALYTICS INTERN POCT RAPID HIV ANTIBODY COMMUNITY SCREENING-DAVID ELIGIBLE STAT 01/26/2025 12:03 AM BUSINESS ANALYTICS INTERN EGFR STAT 01/25/2025 9:52 PM BUSINESS ANALYTICS INTERN DIFFERENTIAL AUTO STAT 01/25/2025 9:5 2 PM BUSINESS ANALYTICS INTERN LIPASE STAT 01/25/2025 9:52 PM BUSINESS ANALYTICS INTERN COMPREHENSIVE METABOLIC PANEL STAT 01/25/2025 9:52 PM BUSINESS ANALYTICS INTERN CBC WITH AUTO DIFFERENTIAL STAT 01/25/2025 9:52 PM BUSINESS ANALYTICS INTERN from Last 3 Months Results * Urinalysis reflex to microscopic and culture Urine (01/26/2025 1:27 AM BUSINESS ANALYTICS INTERN) Color, ur Yellow Yellow Comment:[facility] [place] [address] Clarity, ur Clear Clear [facility] Comment:Testing performed by : [facility] [address], [place] [address] Specific gravity, ur 1.027 1.003 - 1.030 [facility] Comment:Testing performed by : [facility] [address], [place] [address] pH, urine 5.5 [facility] Comment: Interpretive Data U rine pH is affected by diet, medications, systemic acid-base disturbances, and renal tubular function. pH may affect urinary stone formation. For example, urine pH below 6.0 may help reduce the tendency for calcium phosphate stones and pH greater than 6.0 may reduce the tendency for uric acid stone formation. Source: [place] [employer]ense Current Interpretive Data was last revised on 2017 Testing performed by: [facility], [address], [place] [address] Protein, ur ql Negative Negative [facility] Comment:Testing performed by : [facility], [address], [place] [address] Glucose, ur ql Negative Negative [facility] Comment:Testing performed by : [facility], [address], [place] [address] Ketones, ur Trace Negative [facility] Comment:Testing performed by : [facility], [address] [place] [address] Bilirubin, ur Negative Negative [facility] Comment:Testing performed by : [facility], [address], [place] [address] Blood, ur Negative Negative [facility] Comment:Testing performed by : [facility], [address], [place] [address] Urobilinogen, ur <2.0 <2.0 mg/dL [facility] Comment:Testing performed by : [facility], [address] [place] [address] Nitrite, ur Negative Negative [facility] Comment:Testing performed by : [facility], [facility] [place] [address] Leukocyte esterase, ur Negative Negative [facility] Comment:Testing performed by : [facility], [address], [place] [address] UA reflex comment Reflex conditions for microscopic UA and culture not met. [facility] Comment:Testing performed by : [facility], [address] [place] [address] Urine 01/26/2025 1:27 AM BUSINESS ANALYTICS INTERN 01/26/2025 1:30 AM BUSINESS ANALYTICS INTERN Result [facility] Sandy Quinteros MD LAB MICROBIOLOGY - [facility] ORDERABLES Final Result [facility] [address] Department [place] [address] * POCT Rapid HIV Antibody Community Screening-David Eligible (01/26/2025 12:03 AM BUSINESS ANALYTICS INTERN) [facility] Rapid HIV, POC Negative Negative Lot Number [id number] QC Control Line Acceptable Blood 01/26/2025 12:0 3 AM BUSINESS ANALYTICS INTERN Result [facility] Sandy Quinteros MD POINT OF CARE TEST OR DERABLES Final Result * eGFR (01/25/2025 9:52 PM BUSINESS ANALYTICS INTERN) eGFR >90 >=60 mL/min/1. 73 m2 Comment: [...] was last reviewed 2021. Testing performed [facility]: [facility] [address], [place] [address] Blood 01/25/2025 9:52 PM BUSINESS ANALYTICS INTERN 01/25/2025 10:14 PM BUSINESS ANALYTICS INTERN Jaron Yun MD LAB BLOOD ORDERABLES Final Resul t [facility] [address] Department [place] [address] * Differential, auto (01/25/2025 9:52 PM BUSINESS ANALYTICS INTERN) Pathologist [facility] Neutrophil abs 3.71 1.50 - 6.50 K/[facility] Comment:Testing performed by : [facility] [address], [place] [address] Imm gran abs 0.01 0.00 - 0.10 K/cumm [facility] Comment:Testing performed by : [facility] [address], [place] [address] Lymphocyte abs 1.16 0.80 - 3.30 K/cumm [facility] Comment:Testing performed by : [facility], [address], [place] [address] Monocyte abs 0.52 0.20 - 0.80 K/cumm [facility] Comment:Testing performed by : [facility], [facility], [place] [address] Eosinophil abs 0.18 0.00 - 0.50 K/cumm [facility] Comment:Testing performed by : [facility], [facility], [place] [address] Basophil abs 0.04 0.00 - 0.10 K/cumm [facility] Comment:Testing performed by : [facility], [facility] [address], [place] [address] Neutrophil pct 66.0 % [facility] Comment: Interpretive Data Percent cell count reference ranges are not reported, since discordance with absolute values may lead to misinterpretation of CBC data. Current Interpretive Data was last revised on 2017. Testing performed by: [facility], [facility] [address], [place] [address] Imm gran pct 0.2 % [facility] Comment: Interpretive Data Percent cell count reference ranges are not reported, since discordance with absolute values may lead to misinterpretation of CBC data. Current Interpretive Data was last revised on 2017. Testing performed by: [facility], [address] [place], [place] [address] [place] [address] Lymphocyte pct 20.6 % [facility] Comment: Interpretive Data Percent cell count reference ranges are not reported, since discordance with absolute values may lead to misinterpretation of CBC data. Current Interpretive Data was last revised on 2017. Testing performed by: [place] [address] [place] [address] Monocyte pct 9.3 % [facility] Comment: Interpretive Data Percent cell count reference ranges are not reported, since discordance with absolute values may lead to misinterpretation of CBC data. Current Interpretive Data was last revised on 2017. Testing performed by: [place] [address] [place] [address] Eosinophil pct 3.2 % [facility] Comment: Interpretive Data Percent cell count reference ranges are not reported, since discordance with absolute values may lead to misinterpretation of CBC data. Current Interpretive Data was last revised on 2017. Testing performed by: [place] [address], [place] [address] Basophil pct 0.7 % [facility] Comment: Interpretive Data Percent cell count reference ranges are not reported, since discordance with absolute values may lead to misinterpretation of CBC data. Current Interpretive Data was last revised on 2017. Testing performed by: [facility] [address], [place] [address] Blood 01/25/2025 9:52 PM BUSINESS ANALYTICS INTERN 01/25/2025 10:14 PM BUSINESS ANALYTICS INTERN Jaron Yun MD LAB BLOOD ORDERABLES Final Resul t [facility] [address] Department [place] [address] * (ABNORMAL) CBC with auto differential (01/25/2025 9:52 PM BUSINESS ANALYTICS INTERN) WBC 5.62 3.80 - 9.90 K/cumm Comment:Testing performed by : [facility] [address], [place] [address] Hgb 15.8 13.0 - 17.5 g/dL [facility] Comment:Testing performed by : [facility] [address], [place] [address] Hct 45.4 38.9 - 50.3 % [facility] Comment:Testing performed by : [facility] [address], [place] [address] Plt 124(L) 150 - 400 K/cumm [facility] Comment:Testing performed by : [facility] [address], [place] [address] MPV 9.7 9.1 - 12.3 fL [facility] Comment:Testing performed by : [facility] [address], [place] [address] RBC 5.15 4.30 - 5.80 M/cumm [facility] Comment:Testing performed by : [facility] [address], [place] [address] MCV 88.2 81.3 - 96.4 fL [facility] Comment:Testing performed by : [facility] [address], [place] [address] MCH 30.7 27.1 - 33.3 pg [facility] Comment:Testing performed by : [facility] [address], [place] [address] MCHC 34.8 32.3 - 35.7 g/dL [facility] Comment:Testing performed by : [facility], [address] [place], [place] [address] RDW CV 13.3 11.1 - 14.9 % [facility] Comment:Testing performed by : [facility], [address] [place] [address] RDW SD 43.5 35.7 - 48.1 fL [facility] Comment:Testing performed by : [facility] [address], [place] [address] NRBC abs 0.00 0.00 - 0.01 K/cumm [facility] Comment:Testing performed by : [facility] [address] [place] [address] Blood Venous blood specimen / Unknown 01/25/2025 9:52 PM BUSINESS ANALYTICS INTERN 01/25/2025 10:14 PM BUSINESS ANALYTICS INTERN Result [facility] Sandy Quinteros MD LAB BLOOD ORDERABLES Final Result Performing Organization Address City/[facility]/ZIP Co de Phone Number [facility] [address] [place] [address] * Lipase (01/25/2025 9:52 PM BUSINESS ANALYTICS INTERN) Pathologist [facility] Lipase 30 10 - 99 Units/L Comment:Testing performed by : [facility] [address] [place] [id number] Blood Venous blood specimen / Unknown 01/25/2025 9:52 PM BUSINESS ANALYTICS INTERN 01/25/2025 10:14 PM BUSINESS ANALYTICS INTERN Sandy Quinteros MD LAB BLOOD ORDERABLES Final Result Performing Organization Address City/[facility]/ZIP Co de Phone Number [facility] [address] [facility] [place] [address] * (ABNORMAL) Comprehensive metabolic panel (01/25/2025 9:52 PM BUSINESS ANALYTICS INTERN) Sodium 134(L) 135 - 145 mmol/L Comment:Testing performed by : [facility] [place] [address] Potassium, pl 4.0 3.3 - 4.9 mmol/L [facility] Comment:Testing performed by : [facility] [address] [place] [address] Chloride 99 97 - 110 mmol/L [facility] Comment:Testing performed by : [facility] [place] [address] CO2 23 22 - 32 mmol/L [facility] Comment:Testing performed by : [facility] [place] [address] Anion gap 12 2 - 15 mmol/L [facility] Comment:Testing performed by : [facility] [place] [address] BUN 9 6 - 25 mg/dL [facility] Comment:Testing performed by : [facility] [place] [address] Creatinine 0.65(L) 0.80 - 1.30 mg/dL [facility] Comment: Icteric sample, test results may be affected. Testing performed by: [facility] [place] [address] Glucose 105 70 - 199 mg/dL CERNER [...] was last revised 2022. Testing performed by: [facility] [place] [address] Calcium 9.6 8.5 - 10.3 mg/dL [facility] Comment:Testing performed by : [facility] [place] [address] Bilirubin, total 1.3(H) 0.1 - 1.2 mg/dL [facility] Comment:Testing performed by : [facility] [place] [address] Protein, pl 7.9 6.5 - 8.5 g/dL [facility] Comment:Testing performed by : [facility] [place] [address] Albumin 4.6 3.5 - 5.0 g/dL [facility] Comment:Testing performed by : [facility], [place] [address] Alk phos 79 40 - 130 Units/L [facility] Comment:Testing performed by : [facility] [address], [place] [address] ALT 36 7 - 55 Units/L [facility] Comment:Testing performed by : [facility] [address], [place] [address] AST 36 10 - 50 Units/L [facility] Comment:Testing performed by : [facility] [address], [place] [address] Blood 01/25/2025 9:52 PM BUSINESS ANALYTICS INTERN 01/25/2025 10:14 PM BUSINESS ANALYTICS INTERN Sandy Quinteros MD LAB BLOOD ORDERABLES Final Result [facility] [address] Department [place] [address] from Last 3 Months Insurance ticckle OOS ticckle OOS [place] [employer] OOS * Guarantor: [employer] Account Type Relation to Patient Date of Phone Billing Address Workers Comp Employer [employer] Care Teams Well Logging Captain Mud Analysis Relationship Specialty Start Date End Date Tarik Cruz MD [address] [place] [address] PCP - General Family Medicine 01/25/25
--- OUTSIDE RECORDS SUMMARY | 2025-03-04 11:54 | XMS_ITS | Clinical Summary ---
Author Organization [facility] Address [address] [place] [phone] Phone Care Team Providers Care Attache Name Role Phone Unavailable Primary Care Provider [...] Encounters Date Type Department Care Team Description 02/18/2025 External Device Data STL ABSTRACTION Provider, Abstract [...] 2) 2024 INFLUENZA VACCINE (#1) 2024 Insurance [facility] PPO
--- OUTSIDE RECORDS SUMMARY | 2025-03-04 11:54 | XMS_ITS | Patient Health Record ---
Author Organization [facility] Address [address] [facility] [address] [place] [address] Care Team Providers Care Heat Treater Head Name Role Phone Nancy MARTINEZ, Tarik Primary Care Provider Unavailab dasia NashEva mccrayy Unavailable [phone] Spike Mery Unavailable [phone] Allergies No Known Allergies Results Component Value [...] ng/ml DRUG MONITOR, BENZO, Q[place], [place] ([id number]) Reviewed date:04/17/2024 05:18:59 PM Interpretation: Performing Lab:[email or web address] [employer], [employer] I[id number] Marvin Valdez Notes/Report: FASTING: NO Alphahydroxyalprazolam 203 <25 ng/mL H Alphahydroxymidazolam NEGATIVE <50 ng/mL Alphahydroxytriazolam NEGATIVE <50 ng/mL Aminoclonazepam NEGATIVE <25 ng/mL Hydroxyethylflurazepam NEGATIVE <50 ng/mL Lorazepam NEGATIVE <50 ng/mL Nordiazepam NEGATIVE <50 ng/mL Oxazepam NEGATIVE <50 ng/mL Temazepam NEGATIVE <50 ng/mL Benzodiazepines Comments See Benzodiazepines Notes, LDT Notes DRUG MONITOR, MARIJUANA META B, QN, URINE ([id number]) Reviewed date:04/17/2024 05:19:07 PM Interpretation: Performing Lab:[facility] [employer] [email or web address] [employer] [employer], [facility] [id number] Marvin Valdez, Director - [address] [facility] Notes/Report: FASTING: NO Marijuana Metabolite 1831 <5 ng/mL H Marijuana Comments See [facility], [place] Notes, LDT Notes Notes and Comments This [...] analytical performance characteristics have been determined by [facility]. It has not been cleared or approved by the FDA. This assay has been validated pursuant to the CLIA regulations and is used for clinical purposes. Healthcare Providers needing Interpretation assistance, please contact us at [phone] ( ) M-F, 8am to 10pm EST [...] decision-maker Yes Do you have Power of Enrollment Services Vice President for Health or [facility]? Yes Do you have a power of attorney recruiter for health? Yes Do you have power of attorney recruiter for Medical ? 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), inattentive type (F90.0) Active confirmed Problem Poor concentration (29061547) Poor concentration (R41.840) Active confirmed Vital Signs [...] N/A Encounters Encounter Location Date Provider Diagnosis [facility] [employer] [address] [address] 04/08/2024 Carson Irving Major depressive disorder, recurrent, moderate F33.1 ; DARRIUS (generalized anxiety disorder) F41.1 and Poor concentration R41.840 [facility] [employer] [address] 05/02/2024 Carson Irving Lack of concentratio n R41.840 [facility] [employer] [address] 05/08/2024 Carson Irving [facility] [place] [address] [facility] [address] [address] 05/17/2024 Carson Irving ADHD (attention defi cit hyperactivity disorder), inattentive type F90.0 ; Major depressive disorder, recurrent, moderate F33.1 ; DARRIUS (generalized anxiety disorder) F41.1 ; Encounter for screening for depression Z13.31 and Encounter for screening for cardiovascular disorders Z13.[address] [address] 05/17/2024 Carson Nasham [facility] [place] [address] [facility] [address] [address] 10/04/2024 Carson Irving Assessments Encounter Date Diagnosis (ICD Code) Assessment Notes Treatment Notes Treatment Clinical Notes Section Notes 04/08/2024 Major depressive disorder, recurrent, moderate (ICD-10 - F33.1) 04/08/2024 DARRIUS (generalized anxiety disorder) (ICD-10 - F41.1) 05/17/2024 Major depressive disorder, recurrent, moderate (ICD-10 - F33.1) 05/17/2024 ADHD (attention deficit hyperactivity disorder), inattentive type (ICD-10 - F90.0) 05/02/2024 Lack of concentration (ICD-10 - R41.840) [...] difficulties with medication and cannabis use. 05/17/2024 DARRIUS (generalized anxiety disorder) (ICD-10 - [...] his mother. Patient is working in a [employer] from 6 a.m. to 5 p.m. daily [...] alprazolam 1 mg TID, prescribed by Dr. Palu. Plan: - Continue alprazolam 1 mg PO [...] Date Coverage End Date [employer] [address] [place] [address] [id number] Dayne Oviedo Self - patient is the insured Medical (General) History Medical History History ICD Code Past Psychiatric History: Anxiety Disord er,Panic Disorder,Bipolar Disorder Surgical History Surgery Date(Month/Year) chin harrison
--- OUTSIDE RECORDS SUMMARY | 2025-03-04 11:54 | XMS_ITS | Clinical Summary ---
Author Organization [facility] Address [address] [address] Phone Care Team Providers Care Bed Machine Operator Name Role Phone Unavailable Primary Care [...]
[2025-03-04 12:01] VITALS: BP 140/77; PULSE 81; RESP 19; O2SAT 100
[2025-03-04 12:16] VITALS: BP 137/89; PULSE 78; RESP 17; O2SAT 100
[2025-03-04 12:22] LABS: Add Urine Microscopic? YES; Appearance Urine Clear (Clear); Glucose Urine UA Negative (Negative); Leukocyte Esterase Ur Negative LEU/UL (Negative); Nitrate Urine Negative (Negative); Non Pathogenic Casts 0-2; Specific Grav Ur 1.023 (1.001-1.035)
--- OUTSIDE RECORDS SUMMARY | 2025-03-04 12:26 | XMS_ITS | Clinical Summary ---
Author Organization [facility] Address [address] [place] [id number] Care Team Providers Care Rotary Planer Set Up Operator Name Role Phone Tarik Cruz MD Primary Care Provider [phone] Allergies No known active allergies Medications albuterol [...] Department Care Team Description 01/25/2025 9:36 PM [facility] - 01/26/2025 2:11 AM [employer] Emergency [facility] [address] [place] [address] Sandy Quinteros MD Abdominal pain, unspecified abdominal [...] on file Legal Sex Male 11:34 PM [employer] Gender Identity Not on file Sexual Orientation Not on file Last Filed Vital Signs Vital Sign Reading Time Taken Comments Blood Pressure 123/80 01/26/2025 2:00 AM [employer] Pulse 76 01/26/2025 2:00 AM [employer] Temperature 36.4 C (97.5 F) 01/25/2025 9:10 PM [employer] Respiratory Rate 16 01/26/2025 2:00 AM [employer] Oxygen Saturation 91% 01/26/2025 2:00 AM [employer] Inhaled Oxygen Concentration - - Weight 91.9 kg (202 lb 8 oz) 01/25/2025 9:10 PM [employer] Height 177.8 cm (5' 10) 01/25/2025 9:10 PM [employer] Body Mass Index 29.06 01/25/2025 9:10 PM [employer] Plan of Treatment Health Maintenance Due Date [...] MICROSCOPIC AND CULTURE STAT 01/26/2025 1:27 AM [employer] POCT RAPID HIV ANTIBODY COMMUNITY SCREENING-DAVID ELIGIBLE STAT 01/26/2025 12:03 AM [employer] EGFR STAT 01/25/2025 9:52 PM [employer] DIFFERENTIAL AUTO STAT 01/25/2025 9:5 2 PM [employer] LIPASE STAT 01/25/2025 9:52 PM [employer] COMPREHENSIVE METABOLIC PANEL STAT 01/25/2025 9:52 PM [employer] CBC WITH AUTO DIFFERENTIAL STAT 01/25/2025 9:52 PM [employer] from Last 3 Months Results * Urinalysis reflex to microscopic and culture Urine (01/26/2025 1:27 AM [employer]) Color, ur Yellow Yellow Comment:[facility] : [facility] [address], [place] [address] Clarity, ur Clear Clear [facility] Comment:Testing performed by : [facility] [address], [place] [address] Specific gravity, ur 1.027 1.003 - 1.030 [facility] Comment:Testing performed by : [facility] [address], [place] [address] pH, urine 5.5 [facility] Comment: Interpretive Data U rine pH is affected by diet, medications, systemic acid-base disturbances, and renal tubular function. pH may affect urinary stone formation. For example, urine pH below 6.0 may help reduce the tendency for calcium phosphate stones and pH greater than 6.0 may reduce the tendency for uric acid stone formation. Source: [place] Current Interpretive Data was last revised on 2017 Testing performed by: [facility], [address], [place] [address] Protein, ur ql Negative Negative [facility] Comment:Testing performed by : [facility], [address], [place] [address] Glucose, ur ql Negative Negative [facility] Comment:Testing performed by : [facility], [address], [place] [address] Ketones, ur Trace Negative [facility] Comment:Testing performed by : [facility], [address] [place] [address] Bilirubin, ur Negative Negative [facility] Comment:Testing performed by : [facility], [address], [place] [address] Blood, ur Negative Negative [facility] Comment:Testing performed by : [facility], [address], [place] [address] Urobilinogen, ur <2.0 <2.0 mg/dL [facility] Comment:Testing performed by : [facility], [address] [place] [address] Nitrite, ur Negative Negative [facility] Comment:Testing performed by : [facility], [facility] [place] [address] Leukocyte esterase, ur Negative Negative [facility] Comment:Testing performed by : [facility], [address], [place] [address] UA reflex comment Reflex conditions for microscopic UA and culture not met. [facility] Comment:Testing performed by : [facility], [address] [place] [address] Urine 01/26/2025 1:27 AM [employer] 01/26/2025 1:30 AM [employer] Result [facility] Sandy Quinteros MD LAB MICROBIOLOGY - [facility] ORDERABLES Final Result [facility] [address] Department [place] [address] * POCT Rapid HIV Antibody Community Screening-David Eligible (01/26/2025 12:03 AM [employer]) [facility] Rapid HIV, POC Negative Negative Lot Number [id number] QC Control Line Acceptable Blood 01/26/2025 12:0 3 AM [employer] Result [facility] Sandy Quinteros MD POINT OF CARE TEST OR DERABLES Final Result * eGFR (01/25/2025 9:52 PM [employer]) eGFR >90 >=60 mL/min/1. 73 m2 Comment: [...] was last reviewed 2021. Testing performed by: [facility] [address], [place] [address] Blood 01/25/2025 9:52 PM [employer] 01/25/2025 10:14 PM [employer] Jaron Yun MD LAB BLOOD ORDERABLES Final Resul t [facility] [address] Department [place] [address] * Differential, auto (01/25/2025 9:52 PM [employer]) Pathologist [facility] Neutrophil abs 3.71 1.50 - 6.50 K/cumm Comment:Testing performed by : [facility] [address], [place] [address] Imm gran abs 0.01 0.00 - 0.10 K/cumm [facility] Comment:Testing performed by : [facility] [address], [place] [address] Lymphocyte abs 1.16 0.80 - 3.30 K/cumm [facility] Comment:Testing performed by : [facility], [address], [place] [address] Monocyte abs 0.52 0.20 - 0.80 K/cumm [facility] Comment:Testing performed by : [facility], [facility], [place] [address] Eosinophil abs 0.18 0.00 - 0.50 K/cumm [facility] Comment:Testing performed by : [facility], [facility], [place] [address] Basophil abs 0.04 0.00 - 0.10 K/cumm [facility] Comment:Testing performed by : [facility], [facility] [address], [place] [address] Neutrophil pct 66.0 % [facility] Comment: Interpretive Data Percent cell count reference ranges are not reported, since discordance with absolute values may lead to misinterpretation of CBC data. Current Interpretive Data was last revised on 2017. Testing performed by: [facility], [facility] [address], [place] [address] Imm gran pct 0.2 % [facility] Comment: Interpretive Data Percent cell count reference ranges are not reported, since discordance with absolute values may lead to misinterpretation of CBC data. Current Interpretive Data was last revised on 2017. Testing performed by: [facility], [address] [place], [place] [address] [place] [address] Lymphocyte pct 20.6 % [facility]ER Comment: Interpretive Data Percent cell count reference ranges are not reported, since discordance with absolute values may lead to misinterpretation of CBC data. Current Interpretive Data was last revised on 2017. Testing performed by: [place] [address] [place] [address] Monocyte pct 9.3 % [facility] Comment: Interpretive Data Percent cell count reference ranges are not reported, since discordance with absolute values may lead to misinterpretation of CBC data. Current Interpretive Data was last revised on 2017. Testing performed by: [place] [address] [place] [address] Eosinophil pct 3.2 % [facility] Comment: Interpretive Data Percent cell count reference ranges are not reported, since discordance with absolute values may lead to misinterpretation of CBC data. Current Interpretive Data was last revised on 2017. Testing performed by: [place] [address], [place] [address] Basophil pct 0.7 % [facility] Comment: Interpretive Data Percent cell count reference ranges are not reported, since discordance with absolute values may lead to misinterpretation of CBC data. Current Interpretive Data was last revised on 2017. Testing performed by: [facility] [address], [place] [address] Blood 01/25/2025 9:52 PM [employer] 01/25/2025 10:14 PM [employer] Jaron Yun MD LAB BLOOD ORDERABLES Final Resul t [facility] [address] Department [place] [address] * (ABNORMAL) CBC with auto differential (01/25/2025 9:52 PM [employer]) WBC 5.62 3.80 - 9.90 K/cumm Comment:Testing performed by : [facility] [address], [place] [address] Hgb 15.8 13.0 - 17.5 g/dL [facility] Comment:Testing performed by : [facility] [address], [place] [address] Hct 45.4 38.9 - 50.3 % [facility] Comment:Testing performed by : [facility] [address], [place] [address] Plt 124(L) 150 - 400 K/cumm [facility] Comment:Testing performed by : [facility] [address], [place] [address] MPV 9.7 9.1 - 12.3 fL [facility] Comment:Testing performed by : [facility] [address], [place] [address] RBC 5.15 4.30 - 5.80 M/cumm [facility] Comment:Testing performed by : [facility] [address], [place] [address] MCV 88.2 81.3 - 96.4 fL [facility] Comment:Testing performed by : [facility] [address], [place] [address] MCH 30.7 27.1 - 33.3 pg [facility] Comment:Testing performed by : [facility] [address], [place] [address] MCHC 34.8 32.3 - 35.7 g/dL C[facility]ER Comment:Testing performed by : [facility], [address] [place], [place] [address] RDW CV 13.3 11.1 - 14.9 % [facility] Comment:Testing performed by : [facility], [address] [place] [address] RDW SD 43.5 35.7 - 48.1 fL [facility] Comment:Testing performed by : [facility] [address], [place] [address] NRBC abs 0.00 0.00 - 0.01 K/cumm [facility] Comment:Testing performed by : [facility] [address] [place] [address] Blood Venous blood specimen / Unknown 01/25/2025 9:52 PM [employer] 01/25/2025 10:14 PM [employer] Result [facility] Sandy Quinteros MD LAB BLOOD ORDERABLES Final Result Performing Organization Address City/[facility]/ZIP Co de Phone Number [facility] [address] [place] [address] * Lipase (01/25/2025 9:52 PM PROF[employer]) Pathologist [facility] Lipase 30 10 - 99 Units/L Comment:Testing performed by : [facility] [address] [place] [id number] Blood Venous blood specimen / Unknown 01/25/2025 9:52 PM [employer] 01/25/2025 10:14 PM [employer] Sandy Quinteros MD LAB BLOOD ORDERABLES Final Result Performing Organization Address City/[facility]/ZIP Co de Phone Number GEN[facility] [address] [facility] [place] [address] * (ABNORMAL) Comprehensive metabolic panel (01/25/2025 9:52 PM [employer]) Sodium 134(L) 135 - 145 mmol/L Comment:Testing performed by : [facility] [place] [address] Potassium, pl 4.0 3.3 - 4.9 mmol/L [facility] Comment:Testing performed by : [facility] [address] [place] [address] Chloride 99 97 - 110 mmol/L [facility] Comment:Testing performed by : [facility] [place] [address] CO2 23 22 - 32 mmol/L [facility] Comment:Testing performed by : [facility] [place] [address] Anion gap 12 2 - 15 mmol/L [facility] Comment:Testing performed by : [facility] [place] [address] BUN 9 6 - 25 mg/dL [facility] Comment:Testing performed by : [facility] [place] [address] Creatinine 0.65(L) 0.80 - 1.30 mg/dL [facility] Comment: Icteric sample, test results may be affected. Testing performed by: [facility] [place] [address] Glucose 105 70 - 199 mg/dL CERNER [...] was last revised 2022. Testing performed by: [facility] [place] [address] Calcium 9.6 8.5 - 10.3 mg/dL [facility] Comment:Testing performed by : [facility] [place] [address] Bilirubin, total 1.3(H) 0.1 - 1.2 mg/dL [facility] Comment:Testing performed by : [facility] [place] [address] Protein, pl 7.9 6.5 - 8.5 g/dL [facility] Comment:Testing performed by : [facility] [place] [address] Albumin 4.6 3.5 - 5.0 g/dL [facility] Comment:Testing performed by : [facility], [place] [address] Alk phos 79 40 - 130 Units/L [facility] Comment:Testing performed by : [facility] [address], [place] [address] ALT 36 7 - 55 Units/L [facility] Comment:Testing performed by : [facility] [address], [place] [address] AST 36 10 - 50 Units/L [facility] Comment:Testing performed by : [facility] [address], [place] [address] Blood 01/25/2025 9:52 PM [employer] 01/25/2025 10:14 PM [employer] Sandy Quinteros MD LAB BLOOD ORDERABLES Final Result [facility] [id number] Department [place] [address] from Last 3 Months Insurance Adform OOS Adform OOS [employer] [place] OOS * Guarantor: [employer] Account Type Relation to Patient Date of Phone Billing Address Workers Comp Employer [employer] Care Teams Rotary Planer Set Up Operator Relationship Specialty Start Date End Date Tarik Cruz MD [address] [place] [address] PCP - General Family Medicine 01/25/25
--- OUTSIDE RECORDS SUMMARY | 2025-03-04 12:26 | XMS_ITS | Clinical Summary ---
Author Organization [facility] Address [address] [address] Phone Care Team Providers Care Tack Maker Name Role Phone Unavailable Primary Care Provider [...]
--- OUTSIDE RECORDS SUMMARY | 2025-03-04 12:26 | XMS_ITS | Clinical Summary ---
Author Organization [facility] Address [address] [place] [phone] Phone Care Team Providers Care Compliance Specialist Name Role Phone Unavailable Primary Care [...] 2) 2024 INFLUENZA VACCINE (#1) 2024 Insurance [facility] PPO
--- OUTSIDE RECORDS SUMMARY | 2025-03-04 12:26 | XMS_ITS | Clinical Summary ---
Author Organization [facility] Address [address] [place] [address] Care Team Providers Care Site Physician Name Role Phone Tarik Cruz MD Primary Care Provider [phone] Allergies No known active allergies Medications amitriptyline [...] Department Care Team Description 01/19/2025 12:49 PM MILIEU COUNSELOR - 01/19/2025 2:50 PM MILIEU COUNSELOR Emergency [facility] Emergency Room [address] [place] [address] Velia Morales MD Abdominal Pain Discharge Disposition: Home or Self Care (Routine Discharge) 01/19/2025 Travel 12/03/2024 10:07 AM CDT - 12/03/2024 11:59 PM CDT Hospital Encounter [facility] Ultrasound [address] [place] [address] Indigo Garcia, KENNEL STAFF MEMBER- Discharge Disposition: Home or Self Care (Routine [...] Comments Blood Pressure 127/78 01/19/2025 2:52 PM MILIEU COUNSELOR Pulse 71 01/19/2025 2:52 PM MILIEU COUNSELOR Temperature 36.2 C (97.1 F) 01/19/2025 2:52 PM MILIEU COUNSELOR Respiratory Rate 16 01/19/2025 2:52 PM MILIEU COUNSELOR Oxygen Saturation 91% 01/19/2025 2:52 PM MILIEU COUNSELOR Inhaled Oxygen Concentration - - Weight 88.5 kg (195 lb) 01/19/2025 12:54 PM MILIEU COUNSELOR Height 177.8 cm (5' 10) 01/19/2025 12:54 PM MILIEU COUNSELOR Body Mass Index 27.98 01/19/2025 12:54 PM MILIEU COUNSELOR Plan of Treatment Health Maintenance Due Date [...] 03/10/2021 Hepatitis C Completed 04/15/2017 PHQ-2 (Physician [place]) Completed 08/19/2024 Meningococcal B Vaccine Aged Out [...] with and son General No Yudy Gaitan, [employer] Health - patient able to perform ADLs independently General No Sue Fairchild, smearer Procedure Name Priority Date/Time Associated Diagnosis Comments URINALYSIS, AUTO, COMPLETE STAT 01/19/2025 1:[address] ABD+PEL W CON STAT 01/19/2025 1:51 PM MILIEU COUNSELOR LIPASE STAT 01/19/2025 12:52 PM MILIEU COUNSELOR COMPREHENSIVE METABOLIC PANEL STAT 01/19/2025 12:52 PM MILIEU COUNSELOR HC CBC AUTO W/AUTO DIFF STAT 01/19/2025 12:52 PM MILIEU COUNSELOR US ABD LIMITED Routine 12/03/2024 10:55 AM CDT Portal hypertension (CMS/HCC HHS/HCC) Unspecified cirrhosis of liver (CMS/HCC HHS/HCC) HEPATITIS PANEL,ACUTE STAT 04/15/2017 5:10 PM MILIEU COUNSELOR from Last 3 Months or Most Recently Relevant to Health Maintenance Results * URINALYSIS, AUTO, COMPLETE (01/19/2025 1:57 PM MILIEU COUNSELOR) COLOR (U) YELLOW 01/19/2025 2:12 PM MILIEU COUNSELOR [facility] TRANSPARENCY CLEAR 01/19/2025 2:12 PM MILIEU COUNSELOR [facility] SPECIFIC GRAVITY (U) 1.020 1.000 - 1.030 01/19/2025 2:12 PM [facility] U PH 8.0 5.0 - 9.0 01/19/2025 2:12 PM [facility] LEUKOCYTES (U) NEGATIVE NEGATIVE 01/19/2025 2:12 PM [facility] NITRITES NEGATIVE NEGATIVE 01/19/2025 2:12 PM [facility] PROTEIN RANDOM (U) NEGATIVE NEGATIVE 01/19/2025 2:12 PM [facility] GLUCOSE (U) NEGATIVE NEGATIVE 01/19/2025 2:12 PM [facility] KETONES MG/DL (U) NEGATIVE NEGATIVE 01/19/2025 2:12 PM [facility] BILIRUBIN (U) NEGATIVE NEGATIVE 01/19/2025 2:12 PM [facility] BLOOD (U) NEGATIVE NEGATIVE 01/19/2025 2:12 PM [facility] WBC/HPF NONE SEEN 0 - 5 /HPF 01/19/2025 2:12 PM [facility] RBC/HPF NONE SEEN 0 - 5 /HPF 01/19/2025 2:12 PM [facility] EPI/HPF RARE /HPF 01/19/2025 2:12 PM [facility] BACTERIA (U) RARE /HPF 01/19/2025 2:12 PM [facility] URINE URINE SPECIMEN OBTAINED BY CLEAN CATCH PROCEDURE / Unknown 01/19/2025 1:57 PM MILIEU COUNSELOR us Velia Morales MD URINE ORDERABLES Final Result [facility] [address] [place] [address], [place] [phone] * CT ABD+PEL W IV CON ONLY (01/19/2025 1:51 PM MILIEU COUNSELOR) Anatomical Region Laterality Modality Abdomen Computed Tomogra phy 01/19/2025 1:57 PM MILIEU COUNSELOR Impressions 01/19/2025 2:10 PM MILIEU COUNSELOR IMPRESSION: 1. No acute abnormality identified. 2. Liver morphology is suspicious for chronic liver disease. 3. Mild splenomegaly. 4. Other chronic or nonurgent findings as described above. Referred By: Interpreted By: Jaron Rowe MD, 01/19/2025 1:57 PM Narrative 01/19/2025 2:10 PM MILIEU COUNSELOR [facility] [address] [facility] [place] [address] EXAMINATION: CT ABD+PEL W CON CLINICAL HISTORY: [...] Procedure Note Jaron Rowe MD - 01/19/2025 [facility] [address] [place] [address] EXAMINATION: CT ABD+PEL W CON CLINICAL HISTORY: [...] Final Result * LIPASE (01/19/2025 12:52 PM MILIEU COUNSELOR) Pathologist [facility] LIPASE 55 16 - 77 UNITS/L 01/19/2025 1:26 PM [facility] BLOOD VENOUS BLOOD SPECIMEN / Unknown 01/19/2025 12:52 PM MILIEU COUNSELOR Velia Morales MD LABORATORY Final Result [facility] [address] [place] [address], * (ABNORMAL) COMPREHENSIVE METABOLIC PANEL (01/19/2025 12:52 PM MILIEU COUNSELOR) [facility] GLUCOSE 133(H) 70 - 99 MG/DL 01/19/2025 1:26 PM [facility] BUN 9 7 - 18 MG/DL 01/19/2025 1:26 PM [facility] CREATININE S/P/B 0.96 0.7 - 1.3 MG/DL 01/19/2025 1:26 PM [facility] SODIUM S/P/B 139 136 - 145 MMOL/L 01/19/2025 1:26 PM [facility] POTASSIUM S/P/B 4.1 3.5 - 5.1 MMOL/L 01/19/2025 1:26 PM [facility] CHLORIDE S/P/B 103 100 - 108 MMOL/L 01/19/2025 1:26 PM [facility] CO2 28.2 21 - 32 MMOL/L 01/19/2025 1:26 PM [facility] CALCIUM S/P/B 8.6 8.5 - 10.1 MG/DL 01/19/2025 1:26 PM [facility] BILIRUBIN TOTAL S/P/B 0.6 0.2 - 1.2 MG/DL 01/19/2025 1:26 PM [facility] TOTAL PROTEIN S/P/B 7.8 6.4 - 8.2 G/DL 01/19/2025 1:26 PM [facility] ALBUMIN S/P/B 4.0 3.4 - 5.0 G/DL 01/19/2025 1:26 PM [facility] AST 26 15 - 37 U/L 01/19/2025 1:26 PM [facility] ALT 34 16 - 60 U/L 01/19/2025 1:26 PM [facility] ALKALINE PHOSPHATASE S/P/B 88 50 - 136 U/L 01/19/2025 1:26 PM [facility] ANION GAP 7.8 5 - 15 MMOL/L 01/19/2025 1:26 PM [facility] BUN CREATININE RATIO 9.4 6 - 26 01/19/2025 1:26 PM [facility] A/G RATIO 1.1 1.0 - 2.0 RATIO 01/19/2025 1:26 PM [facility] GFR ESTIMATE >90 >90 ML/MIN/1.7 3 M2 01/19/2025 1:26 PM [facility] Comment: NOTE: eGFR is not calculated for patients <18 years of age. This is an estimated GFR calculation using the new CKD EPI creatinine equation without race and so does not require a correction factor for race. This estimated GFR should not be used for calculating drug doses. BLOOD VENOUS BLOOD SPECIMEN / Unknown 01/19/2025 12:52 PM MILIEU COUNSELOR us Velia Morales MD LABORATORY Final Result [facility] [address] [place] [address], [place] [phone] * (ABNORMAL) CBC W/DIFF AUTOMATED (01/19/2025 12:52 PM MILIEU COUNSELOR) [facility] Signature WBC 5.36 4.4 - 11.0 x10'3/uL 01/19/2025 1:16 PM [facility] RBC 5.18 4.50 - 5.90 x10'6/uL 01/19/2025 1:16 PM [facility] HGB 15.8 14.0 - 17.5 G/DL 01/19/2025 1:16 PM [facility] HCT 47.0 41.5 - 50.4 % 01/19/2025 1:16 PM [facility] MCV 90.7 80.0 - 96.0 FL 01/19/2025 1:16 PM [facility] MCH 30.5 26.5 - 31.4 PG 01/19/2025 1:16 PM [facility] MCHC 33.6 31.9 - 34.8 G/DL 01/19/2025 1:16 PM [facility] RDW 13.8 12.3 - 14.3 % 01/19/2025 1:16 PM [facility] PLT 110(L) 151 - 353 x10'3/uL 01/19/2025 1:16 PM [facility] MPV 9.8 9.7 - 11.9 FL 01/19/2025 1:16 PM [facility] RBC MORPHOLOGY NORMAL 01/19/2025 1:16 PM [facility] PLT MORPH. NORMAL 01/19/2025 1:16 PM [facility] WBC MORPHOLOGY NORMAL 01/19/2025 1:16 PM [facility] LYMPHOCYTES % 20.5 15.8 - 45.0 % 01/19/2025 1:16 PM MILIEU COUNSELOR [facility] NEUTROPHILS % 66.6 42.1 - 71.9 % 01/19/2025 1:16 PM MILIEU COUNSELOR [facility] MONOCYTES % 8.6 5.7 - 12.5 % 01/19/2025 1:16 PM MILIEU COUNSELOR [facility] EOSINOPHILS 3.4 0.0 - 5.6 % 01/19/2025 1:16 PM MILIEU COUNSELOR [facility] BASOPHILS 0.7 0.0 - 1.3 % 01/19/2025 1:16 PM MILIEU COUNSELOR [facility] ABS. NEUTROPHILS 3.57 1.40 - 6.00 x10'3/uL 01/19/2025 1:16 PM MILIEU COUNSELOR [facility] IMMATURE GRANS % 0.2 0.0 - 0.5 % 01/19/2025 1:16 PM MILIEU COUNSELOR [facility] ABS. LYMPHOCYTES 1.10 0.80 - 4.70 x10'3/uL 01/19/2025 1:16 PM MILIEU COUNSELOR [facility] BLOOD VENOUS BLOOD SPECIMEN / Unknown 01/19/2025 12:52 PM MILIEU COUNSELOR us Velia Morales MD LABORATORY Final Result Performing Organization Address City/State/[facility] Co de Phone Number [facility] [address] [place] [address], [place] [phone] * US ABD LIMITED (12/03/2024 10:55 AM CDT) Anatomical Region Laterality Modality Abdomen Ultrasound 12/03/2024 10:5 6 AM CDT Impressions 12/03/2024 11:03 AM CDT IMPRESSION: 1. Mild fatty infiltration of the liver without focal mass. Portal vein is patent. 2. Cholecystectomy. 3. No ascites. Referred By: INDIGO GARCIA Interpreted By: Dalton Sargent MD, 12/03/2024 10:56 AM Narrative 12/03/2024 11:03 AM CDT [facility] [address] [place] [address] IMAGING STUDIES: US ABD LIMITED DATE: 12/03/2024 [...] visualized due to overlying bowel Right kidney [id number] x 6.1 x 6.2 cm. No focal mass or hydronephrosis. Pancreas not well visualized due to overlying bowel. On recent CT, pancreas was grossly within normal limits Procedure Note Dalton Sargent MD - 12/03/2024 [facility] [address] [place] [address] IMAGING STUDIES: US ABD LIMITED DATE: 12/03/2024 10:11 AM COMPARISON STUDIES: Correlation with CT abdomen of 09/25/2024 CLINICAL HISTORY: Portal hypertension. Liver cirrhosis. Abdominal pain.Cholecystectomy. FINDINGS: Cholecystectomy. Cc dimension of liver is 15.2 cm. No adjacentascites. Mild fatty infiltration of the liver without focal mass..Hepatic andportal veins are patent.. Common bile duct could not be visualized due tooverlying bowel Right kidney [id number] x 6.1 x 6.2 cm. No focal mass orhydronephrosis. Pancreas not well visualized due to overlying bowel. On recent CT,pancreas was grossly within normal limits IMPRESSION: 1. Mild fatty infiltration of the liver without focal mass. Portal veinis patent. 2. Cholecystectomy. 3. No ascites. Referred By: INDIGO GARCIA Interpreted By: Dalton Sargent MD, 12/03/2024 10:56 AM Indigo Garcia KENNEL STAFF MEMBER-BC ULTRASOUND Final R esult * HEPATITIS PANEL,ACUTE (04/15/2017 5:10 PM MILIEU COUNSELOR) HAV IGM NON-REACTI VE NON-REACTI VE 04/17/2017 3:37 PM MILIEU COUNSELOR [facility] Comment: TESTING PERFORMED [facility] [place] [address] HEP B SURFACE AB NON-REACTI VE 04/17/2017 3:37 PM MILIEU COUNSELOR [facility] Comment: TESTING PERFORMED [address] [address] HEPATITIS B SURFACE AG NON-REACTI VE NON-REACTI VE 04/17/2017 3:37 PM MILIEU COUNSELOR [facility] Comment: TESTING PERFORMED [address] [address] HEP B CORE TOTAL AB NON-REACTI VE NON-REACTI VE 04/17/2017 3:37 PM MILIEU COUNSELOR [facility] Comment: TESTING PERFORMED [address] [address] HEPATITIS C AB NON-REACTI VE NON-REACTI VE 04/17/2017 3:37 PM MILIEU COUNSELOR [facility] Comment: TESTING PERFORMED [address] [address] 04/15/2017 5:10 PM MILIEU COUNSELOR 04/15/2017 5:23 PM MILIEU COUNSELOR us Generic Conversion Md MARTINEZ LABORATORY Final R esult [facility] [address] [place] [address], [place] [phone] from Last 3 Months or Most Recently Relevant to Health Maintenance Insurance COVID19 [employer] [place] [address] [facility] Advance Directives * Full Code (Latest Code Status on File) Date Activated Date Inactivated Comments 01/27/2021 11:46 PM 01/29/2021 9:38 PM * Full Code Date Activated Date Inactivated Comments 05/16/2019 1:16 PM 05/21/2019 5:09 PM Care Teams Site Physician Relationship Specialty Start Date End Date Tarik Cruz MD [address] [place] [id number] PCP - General FAMILY PRACTICE 06/12/24
[2025-03-04 12:38] VITALS: BP 137/89; PULSE 68; RESP 16; O2SAT 100
[2025-03-04] MEDS: SODIUM CHLORIDE 0.9% IV 1,000 ML 999 ML IV CONT (12:39)
[2025-03-04] MEDS: ONDANSETRON INJ 4 MG/2 ML VIAL IV PUSH (12:40)
--- NOTE | 2025-03-04 12:40 | ED_ITS ---
HPI - Nausea/Vomiting/Diarrhea General Chief complaint: Nausea/Vomiting/Diarrhea Stated complaint: stomach problems again Time Seen by Provider: 03/04/25 11:22 Source: patient and old records reviewed Mode of arrival: ambulatory Limitations: no limitations History of Present Illness HPI Narrative: Patient is a 49-year-old male who presents the ED with report of left lower abdominal pain. Patient reports he woke up around 8:00 a.m. this morning with nausea and vomiting. Has since developed diffuse pain throughout his left lower abdomen. He has history of diverticulitis and states this feels similar. Reports some diarrhea today. Denies rectal bleeding or melena. Denies fevers. Has not taken anything for pain. Per records, patient has been seen in the ED for similar symptoms several times recently. Related Data Home Medications ?Medication ?Instructions ?Recorded ?Confirmed ?Last Taken ?Type aripiprazole 15 mg tablet 15 mg PO DAILY 02/14/2502/03 Unknown History ondansetron HCl 4 mg tablet 4 mg PO Q6H PRN nausea and vomiting 02/14/25 02/14/25 Unknown History Allergies Allergy/AdvReac Type Severity Reaction Status Date / Time gluten AdvReac Mild Nausea Verified 03/04/25 12:38 milk AdvReac Mild bloating Verified 03/04/25 12:38 Review of Systems 2 Review of Systems: All systems reviewed & are unremarkable except as noted in HPI. All systems reviewed & are unremarkable except as noted in HPI and below PMFSH Past Medical History Medical History Festus's lobe of liver Moderate persistent asthma with acute exacerbation Unspecified asthma, uncomplicated Gynecomastia Erosive esophagitis Gastritis Diverticulosis Asthma Irritable bowel syndrome Depression Generalized anxiety disorder Bipolar disorder, unspecified Celiac disease Gastroesophageal reflux disease Surgical History Surgical History History of cholecystectomy 02/2016 Family History Family History Father No problems noted. Mother No problems noted. Social History Social History Smoking packs per day: 0.5 Smoking cigarettes per day: 10.0 Years smoked: 10 Smoking pack-years: 5.00 Smoking status: Former smoker Tobacco type: cigarettes Second hand tobacco smoke exposure: No Alcohol intake: never Substance use: current Substance use type: does not use Lack of Transportation: No Lack of Food: Never True Current Housing: I Have Housing Concerned About Future Housing: No Difficulty Paying Gas/Electric Bills: No Difficulty Paying for Meds: No Currently Unemployed: No Education: High School Diploma/GED Difficulty w/ Childcare or Family Care: No Living arrangements: with family Occupation/Education: occupation Gender identity (if verbalized by the patient): Male Sexual Orientation (if Verbalized by the Patient): Straight or Heterosexual Spiritual care concerns: No Exam 2 Narrative: GENERAL: Uncomfortable appearing, well-nourished, non-toxic, in mild acute distress due to pain. HEAD: Normocephalic, atraumatic. RESPIRATORY: Airway patent, respirations nonlabored. Clear to auscultation bilaterally, no rales, rhonchi, wheezing. CARDIOVASCULAR: Regular rate and rhythm without murmurs, rubs, or gallops. ABDOMINAL: Soft, diffuse tenderness throughout lower abdomen/suprapubic region, left lower quadrant, no appreciable rebound, nondistended. Normoactive BS. MUSCULOSKELETAL: Moves all extremities. No gross deformities. SKIN: Warm, dry, normal color. NEURO: A&O X3. Speech clear. Cranial nerves II-XII grossly intact. Steady gait. No ataxic movements. PSYCHIATRIC: Appropriate mood and affect. Normal interaction. Course Vital Signs Vital signs: Vital Signs Temperature 97.8 F 03/04/25 11:15 Pulse Rate 69 03/04/25 11:15 Respiratory Rate 18 03/04/25 11:15 Blood Pressure 144/88 H 03/04/25 11:15 Pulse Oximetry 99 03/04/25 11:15 Oxygen Delivery Room Air 03/04/25 11:15 Temperature 97.8 F 03/04/25 14:29 Pulse Rate 72 03/04/25 14:29 Respiratory Rate 15 03/04/25 14:29 Blood Pressure 137/89 03/04/25 14:29 Pulse Oximetry 100 03/04/25 14:29 Oxygen Delivery Room Air 03/04/25 11:15 MDM MDM Narrative Medical decision making narrative: Patient presented to ED with left lower quadrant abdominal pain that began this morning, associated with nausea and vomiting. Vital signs are stable upon arrival. Afebrile here. Patient is very uncomfortable appearing. Pain and nausea medicine ordered. Laboratory studies are reassuring. No leukocytosis or anemia. Electrolytes are stable. Lactic acid within normal range. UA is clear. CT scan of abdomen/pelvis was obtained and showing evidence of enterocolitis, mild, no concerning features. Patient was given 1 dose of Dilaudid for pain control. On re-evaluation, he is sleeping, resting very comfortably. Feels improved. Discussed overall reassuring workup, diagnosis of enterocolitis. Feel he is safe for discharge home at this time. Will prescribe Zofran and Bentyl for home use, discussed dietary modifications. Will also refer to GI as patient has had multiple similar ED visits recently. Patient given strict return precautions. He is in agreement with plan, feels comfortable going home. Discharged in stable condition. Differential Diagnosis Differential Diagnosis: Diverticulitis, bowel perforation, colitis, bowel obstruction, constipation, appendicitis Medical Records I have reviewed the following patient records and this information was taken into consideration when formulating the assessment and plan.: previous labs, previous ER visits, previous hospitalizations and previous clinic visits Lab Data MDM Lab Attestation statement: I personally reviewed the patient's lab results. 03/04/25 12:35 03/04/25 12:35 Labs: Lab Results 03/04/25 03/04/25 Range/Units 12:05 12:35 WBC 5.9 (4.5-10.0) K/mm3 RBC 4.95 (4.6-6.20) M/mm3 Hgb 15.2 (14.0-18.0) g/dL Hct 45.5 (42.0-52.0) % MCV 91.9 (80-100) fl MCH 30.7 (26-34) pg MCHC 33.4 (32-36) g/dl RDW 13.8 (11.5-14.5) % Plt Count 83 L (150-375) k/mm3 MPV 10.5 H (7.4-10.4) fl Immature Gran % (Auto) 0.3 (0-0.5) % Neut % (Auto) 81.8 H (45.5-73.1) % Lymph % (Auto) 10.4 L (18.3-44.2) % [place] % (Auto) 6.7 (2.6-8.5) % Eos % (Auto) 0.5 (0-4.4) % Baso % (Auto) 0.3 (0.2-1.2) % Lymph # (Auto) 0.62 L (0.9-3.2) K/mm3 [place] # (Auto) 0.4 (0.1-0.6) K/mm3 Eos # (Auto) 0.0 (0-0.3) K/mm3 Baso # (Auto) 0.0 (0.0-0.1) K/mm3 Abs Immat Gran (auto) 0.02 (0.00-0.031) K/mm3 Absolute Neuts (auto) 4.9 (1.3-6.7) K/mm3 Absolute Nucleated RBC 0.000 (0.0-0.012) K/mm3 Nucleated RBC % 0.0 (0.0-0.2) % % Immature Plt Fraction 1.9 (0.9-11.2) % Sodium 137 (137-145) mmol/L Potassium 4.4 (3.4-5.0) mmol/L Chloride 103 (98-107) mmol/L Carbon Dioxide 27 (22-30) mmol/L Anion Gap 7 (4-12) mmol/L BUN 10 (9-20) mg/dL Creatinine 0.70 (0.7-1.3) mg/dL Estim Creat Clear Calc 112 ml/min Estimated GFR > 60 (59 - ) Glucose 136 H (65-110) mg/dL Lactic Acid 1.6 (0.7-2.0) mmol/L Calcium 9.4 (8.4-10.2) mg/dL Total Bilirubin 0.9 (0.2-1.3) mg/dL AST 41 (17-59) U/L ALT 47 (6-50) U/L Alkaline Phosphatase 86 (38-126) U/L Total Protein 8.2 (6.3-8.2) g/dL Albumin 4.7 (3.5-5.1) g/dL Lipase 181 (23-300) U/L Urine Color Yellow (Yellow) Urine Appearance Clear (Clear) Urine pH 8.5 (5.0-9.0) Ur Specific [place] 1.023 (1.001-1.035) Urine Protein Trace (Negative) mg/dL Urine Glucose (UA) Negative (Negative) mg/dL Urine Ketones Negative (Negative) mg/dL Ur Blood (Man) Negative (Negative) Urine Nitrate Negative (Negative) Urine Bilirubin Negative (Negative) Urine Urobilinogen 0.2 (<2.0) mg/dL Leukocyte Esterase Rfl Negative (Negative) IMAN/UL Urine RBC 0-2 (0-2) /hpf Urine WBC 0-5 (0-3) /hpf Ur Squamous Epith Cells None seen (Few) /hpf Urine Bacteria None seen /hpf Urine Casts 0-2 Imaging Data Attestation: I personally reviewed and interpreted this imaging study as follows: Radiologist's impression: ITS Impressions Abdomen/Pelvis CT 03/04/25 13:35 IMPRESSION: 1. Mild enterocolitis. No complicating features. 2. Esophagitis. 3. Additional findings as above. Discharge Plan Discharge Clinical Impression: Left lower quadrant abdominal pain, Enterocolitis Patient Disposition: Home Condition: Stable Instructions: Antibiotic Form, Clear Liquid Diet (ED), Gastroenteritis (ED), Acute Nausea and Vomiting (ED) Additional Instructions: Utilize zofran as needed for further nausea. Recommend Tylenol, Bentyl as needed for further abdominal discomfort. Increase fluid intake. Recommend electrolyte rich fluids, gatorade, pedialyte, body armour. Recommend clear liquids or bland diet until symptoms improve, such as bananas, rice, applesauce, toast, or crackers. Follow up with your primary care doctor and/or GI for further evaluation. Return to the ED if you experience worsening or severe symptoms, unable to keep down food or drink, severe pain, fevers, rectal bleeding, vomiting blood, or any other symptoms of concern. Patient Language: Citizen Of [place] Prescriptions: New dicyclomine 20 mg tablet 20 mg PO TID Qty: 15 0RF ondansetron 4 mg tablet,disintegrating 4 mg PO Q8H PRN (Reason: nausea and vomiting) Qty: 15 0RF No Action ondansetron HCl 4 mg tablet 4 mg PO Q6H PRN (Reason: nausea and vomiting) aripiprazole 15 mg tablet 15 mg PO DAILY alprazolam 1 mg tablet 1 mg PO BID Qty: 60 0RF dicyclomine 20 mg tablet 20 mg PO QID PRN (Reason: abdominal pain) Qty: 30 0RF albuterol sulfate [Ventolin HFA] 90 mcg/actuation HFA aerosol inhaler 1 inhalation INHALATION Q4H PRN (Reason: shortness of breath or wheezing) Qty: 18 3RF pantoprazole 40 mg tablet,delayed release (DR/EC) See Rx Instructions .ROUTE .COMPLEX Qty: 90 1RF Dose Instruction: Take 1 tablet by mouth once daily Rx Instructions: Take 1 tablet by mouth once daily escitalopram oxalate 10 mg tablet 10 mg PO DAILY Qty: 30 2RF Follow-up/Referrals: Kate Bravo MD [Physician, Gastroenterology] Tarik Cruz MD [Primary Care Provider, Family Practice] Stand Alone Forms: Work/School Release IP Time of Disposition: 14:18
[2025-03-04] MEDS: HYDROmorphone HCL INJ (*CRX) 1 MG/ML SYR IV PUSH (12:41)
[2025-03-04 12:49] LABS: Hematocrit 45.5 % (42.0-52.0); Hemoglobin 15.2 g/dL (14.0-18.0); Immature Granulocyte Percent A 0.3 % (0-0.5); Immature Platelet Fraction Pct 1.9 % (0.9-11.2); Lymphocytes Absolute Auto 0.62 K/mm3 (0.9-3.2); Mean Corpuscular HGB Conc 33.4 g/dl (32-36); Mean Corpuscular Hemoglobin 30.7 pg (26-34); Mean Corpuscular Volume 91.9 fl (80-100); Nucleated Red Blood Cells Absolute Auto 0.000 K/mm3 (0.0-0.012); Nucleated Red Blood Cells Perc 0.0 % (0.0-0.2); Platelet Count Result 83 k/mm3 (150-375); Red Blood Count 4.95 M/mm3 (4.6-6.20); White Blood Count 5.9 K/mm3 (4.5-10.0)
[2025-03-04 13:10] LABS: Alanine Aminotransferase 47 U/L (6-50); Albumin Level 4.7 g/dL (3.5-5.1); Alkaline Phosphatase 86 U/L (38-126); Anion Gap 7 mmol/L (4-12); Aspartate Amino Transferase 41 U/L (17-59); Bilirubin,Total 0.9 mg/dL (0.2-1.3); Blood Urea Nitrogen 10 mg/dL (9-20); Calcium 9.4 mg/dL (8.4-10.2); Carbon Dioxide 27 mmol/L (22-30); Chloride 103 mmol/L (98-107); Estimated CRCL calculation 112 ml/min; Estimated Glomerular Filt Rate > 60; Glucose 136 mg/dL (65-110); Lipase 181 U/L (23-300); Potassium 4.4 mmol/L (3.4-5.0); Sodium 137 mmol/L (137-145); Total Protein 8.2 g/dL (6.3-8.2)
[2025-03-04 14:29] VITALS: BP 137/89; PULSE 72; RESP 15; TEMP 36.6; O2SAT 100
== END 2025-03-04 14:31 | disposition home or self-care (01) ==
PROVIDERS: Emergency Provider Physician Assistant; PCP Family Medicine
DX: K52.9 Noninfective gastroenteritis and colitis, unspecified (principal); J45.40 Moderate persistent asthma, uncomplicated; K58.9 Irritable bowel syndrome, unspecified; K90.0 Celiac disease; K21.00 Gastro-esophageal reflux disease with esophagitis, without bleeding; F31.9 Bipolar disorder, unspecified; F41.1 Generalized anxiety disorder; Q44.79 Other congenital malformations of liver; Z87.891 Personal history of nicotine dependence; Z90.49 Acquired absence of other specified parts of digestive tract; Z79.899 Other long term (current) drug therapy; K74.60 Unspecified cirrhosis of liver; K76.0 Fatty (change of) liver, not elsewhere classified
CPT/HCPCS: 36415; 74177; 80053; 81001; 83605; 83690; 85025; 85055; 96361; 96374; 96375; 99284; J1171; J2405; J7030; Q9967